=== PATIENT | male | born 1955 | race Caucasian/White ===

== ENCOUNTER 2023-04-13 01:28 | Emergency (ER) | payer BC, MEDICARE, SELFPAY ==
[2023-04-13 01:31] VITALS: BP 172/88
--- NOTE | 2023-04-13 02:07 | ED.GENMED ---
History of Present Illness
General
Chief Complaint: Urinary Symptoms
Source: patient
Exam Limitations: none
Time Seen by Provider: 04/13/23 01:44
Nursing documentation reviewed up to this point in time: agreed with
Travel History
Have you had any contact with someone who has COVID-19?: No
Do you have any symptoms of coronavirus? Fever > 100 degrees, chills, cough, shortness of breath, sore throat, loss of taste or smell, muscle aches, or headache?: No
History of Present Illness
History of Present Illness:
Patient is a 67 yr old male who presents to the ER with acute urinary retention. Patient reports he had surgery for right inguinal hernia by Dr. Hemphill today. HE was discharged around 7 pm but has not been able to urinate. He reports he has not
urinated since 1030 this morning. He did speak with his surgeon who advised him to come to the ER. He is aware that he is going to get a Huertas catheter and Dr. Hemphill said he will remove it in 2 days when he sees him again. Pt denies any nausea
vomiting fever chills. No prior history of urinary retention in the past.
Review of Systems
Review of Systems
Allergies reviewed?: Yes
All Other Systems: ROS reviewed and negative except as documented in HPI and ROS
Constitutional: Reports no symptoms; Denies fever, fatigue or chills
Respiratory: Reports no symptoms
Cardiac: Reports no symptoms
ABD/GI: Reports other (lower abd discomfort )
: Reports difficulty voiding and other (unable to urinate)
Musculoskeletal: Reports no symptoms
Skin: Reports no symptoms
Neurological: Reports no symptoms
Psychiatric: Reports no symptoms
Phy Exam
General Physical Exam
General Presentation: no apparent distress
General age: appears stated age
General Skin: warm and dry
General Habitus: normal
General Mental: alert
General Hydration: appears well hydrated
Gastrointestinal Exam
Gastrointestinal Exam: soft and other (mild suprapubic tenderness )
Neurological Exam
Neurological Exam: alert and oriented x3
Lucy Coma Scale
Eye Opening: Spontaneous
Verbal Response: Oriented
Motor Response: Obeys Commands
GCS Total Score: 15
Musculoskeletal Exam
Musculoskeletal Exam: full ROM
Skin Exam
Skin Exam: normal color and warm/dry
Psychiatric Exam
Psychiatric Exam: normal mood/affect
Course
Orders/Labs/Results
Orders:
Orders
04/13/23 01:55
Lidocaine 2% [Lidocaine Uro-Jet 2%] 1 syringe TOPICAL NOW STA
04/13/23 01:56
Huertas [Huertas Placement- Treatment] ONCE
Reason for insertion: Acute Retention
04/13/23 02:37
UA Reflex to Culture [Urinalysis Reflex To Culture] Urgent
Date Specimen was Collected: 04/13/23
Time Specimen was Collected: 01:58
Abnormal Lab Results
04/13/23
02:37
Urine Ketones Trace A
(Negative)
Vital Signs
Initial and Last Documented VS:
Initial Vital Signs
Temp Pulse Resp BP Pulse Ox
97.8 F 94 22 172/88 96
04/13/23 01:31 04/13/23 01:31 04/13/23 01:31 04/13/23 01:31 04/13/23 01:31
Last Documented Vital Signs
Temp Pulse Resp BP Pulse Ox
97.8 F 81 22 147/73 96
04/13/23 01:31 04/13/23 03:03 04/13/23 01:31 04/13/23 03:03 04/13/23 01:31
Multi Spindle Operator consulted with Physician
Multi Spindle Operator consulted with physician?: Yes
Name of Physician Consulted: Nolan
MDM/Problems Addressed
Differential Diagnosis Includes:
Not limited to urinary retention
MDM/Problems Addressed:
Patient had inguinal hernia repair today and presents in urinary retention. Bladder scan shows approximately 640 mL of urine. Will place Huertas catheter and DC with Huertas catheter. His surgeon Dr. Hemphill will see him in office in 2 d and remove
as per pt. Will check UA. no other complaints. no nausea vomiting fever chills.
*Critical Care Note
Total Time (30-74mins, 75-104mins- exclusive of procedures): Not Applicable
ED Attending Note
-
Portions of this chart may have been created with voice recognition software.� Occasional wrong word or��sound alike� substitutions may have occurred due to the inherent limitations of voice recognition software.
Discharge Plan
Departure
Patient Disposition: Home (Routine Discharge)
Patient with high blood pressure during this ER visit?: Yes
Condition: Fair
Covid-19: Not Applicable
Discharge Problem:
Acute urinary retention
Instructions: How to Care for Your Huertas Catheter, Male
Prescriptions:
No Action
amlodipine 10 MG tablet
10 mg PO DAILY
pantoprazole 40 MG tablet,delayed release (DR/EC)
40 mg PO DAILY
Metamucil
2 tab PO HS
levothyroxine 75 mcg Tablet
75 mcg PO DAILY
tamsulosin 0.4 mg Capsule
0.4 mg PO DAILY
melatonin 5 mg Tablet
5 mg PO HS
Centrum Men 8 mg iron- 200 mcg-600 mcg Tablet
1 tab PO DAILY
acetaminophen-codeine 300-30 mg tablet
1 tab PO Q6H PRN (Reason: Pain) Qty: 10 0RF
Referrals:
Willie Hemphill MD [Active] -
Andre Brito MD [Active] -
Pretty Zavala MD [Family Provider] -
Activity Restrictions/Additional Instructions:
Follow-up with either in 2 days to remove Huertas catheter as discussed or urology. Return if any worsening of symptoms: if Huertas catheter malfunction, nausea ,vomiting back pain,fever chills
Interventions
Interventions:
*Risk Screen - Suicide Last Done: 04/13/23 03:40
*General Assessment Last Done: 04/13/23 03:40
*Neglect/Abuse Screening Last Done: 04/13/23 03:40
*Nursing Disposition Last Done: 04/13/23 03:40
ED-Male Genitourinary Assessment Last Done: 04/13/23 03:03
Discharge Date and Time
Discharge Date/Time: 04/13/23 03:42
[2023-04-13] MEDS: LIDOCAINE URO-JET 2% 1 SYRINGE TOPICAL (02:54)
[2023-04-13 03:02] LABS: Urine Albumin Negative (Neg - Trace); Urine Bilirubin Negative (Negative); Urine Character Clear (Clear); Urine Color Yellow; Urine Glucose Negative (Negative); Urine Ketone Trace (Negative); Urine Leukocyte Negative (Negative); Urine Nitrite Negative (Negative); Urine Occult Blood Negative (Negative); Urine Specific Gravity 1.015 (<1.030); Urine Urobilinogen Negative (Neg - 1+)
[2023-04-13 03:03] VITALS: BP 147/73
== END 2023-04-13 03:42 | disposition home or self-care (01) ==
LOC: EMR 01:28
PROVIDERS: Nurse Practitioner; EMERGENCY PHYSICIAN Emergency Medicine; FAMILY PHYSICIAN Family Medicine
DX: R33.9 Retention of urine, unspecified (principal)
CPT/HCPCS: 99282; 81003

== ENCOUNTER → 2023-04-26 12:48 | Outpatient (REF) | payer BC, MEDICARE, SELFPAY | LOC: HWRAD 12:48 | PROVIDERS: ATTENDING PHYSICIAN Family Medicine; FAMILY PHYSICIAN Family Medicine | DX: M54.9 Dorsalgia, unspecified (principal); R07.89 Other chest pain | CPT/HCPCS: 71046; 72072 ==

== ENCOUNTER → 2023-05-05 09:42 | Outpatient (REF) | payer BC, MEDICARE, SELFPAY ==
[2023-05-05 13:28] LABS: Free T4 1.31 ng/dl (0.78-2.19)
[2023-05-05 13:42] LABS: TSH 1.98 uIU/ml (0.47-4.68)
== END ==
LOC: HWLAB 09:42
PROVIDERS: ATTENDING PHYSICIAN Family Medicine
DX: E03.9 Hypothyroidism, unspecified (principal)
CPT/HCPCS: 36415; 84439; 84443

== ENCOUNTER → 2023-06-04 09:26 | Outpatient (REF) | payer BC, SELFPAY ==
[2023-06-05 23:08] LABS: PSA Total 4.5 ng/mL (0.0-4.0)
== END ==
LOC: HWLAB 09:26
PROVIDERS: ATTENDING PHYSICIAN Urology; FAMILY PHYSICIAN Family Medicine
DX: N41.1 Chronic prostatitis (principal); N40.2 Nodular prostate without lower urinary tract symptoms; R97.20 Elevated prostate specific antigen [PSA]
CPT/HCPCS: 36415; 84153; 84154

== ENCOUNTER → 2023-07-05 07:17 | Outpatient (REF) | payer BC, SELFPAY | LOC: DHCBS HW 07:17 | PROVIDERS: ATTENDING PHYSICIAN Internal Medicine Interventional Cardiology; FAMILY PHYSICIAN Family Medicine | DX: I10 Essential (primary) hypertension (principal) | CPT/HCPCS: 93306 ==

== ENCOUNTER → 2023-08-30 06:42 | Outpatient (REF) | payer BC, SELFPAY ==
[2023-08-30 10:30] LABS: % Basophils 0.8 % (0-2); % Eosinophils 2.2 % (0-6); % Immature Granulocytes 0.2 % (0-0.5); % Lymphocytes 43.1 % (20.5-51.1); % Monocytes 14.6 % (1.7-9.3); % Neutrophils 39.1 % (42.2-75.2); Absolute Basophils 0.1 10^3/uL (0-0.2); Absolute Eosinophils 0.1 10^3/uL (0-0.7); Absolute Lymphocytes 2.7 10^3/uL (1.2-3.4); Absolute Monocytes 0.9 10^3/uL (0.1-0.6); Absolute Neutrophils 2.5 10^3/uL (1.4-6.5); Hematocrit 35.9 % (39.0-52.0); Hemoglobin 12.2 g/dL (13.0-18.0); Mean Corpuscular Hgb 31.2 pg (27.0-31.0); Mean Corpuscular Volume 91.8 fL (80.0-94.0); Mean Platelet Volume 10.9 fL (7.4-10.4); Nucleated Red Blood Cells % 0 % (-); Platelet Count 160 10^3/uL (130-400); Red Blood Cell Count 3.91 10^6/uL (4.70-6.10); Red Cell Dist. Width 13.1 % (11.5-14.5); White Blood Cell Count 6.4 10^3/uL (4.8-10.8)
[2023-08-30 11:52] LABS: ALT (SGPT) 16 U/L (0-50); AST (SGOT) 30 U/L (17-59); Albumin 3.8 g/dl (3.5-5.0); Alkaline Phosphatase 90 U/L (38-126); Blood Urea Nitrogen 26 mg/dl (9-20); Calcium 9.5 mg/dl (8.4-10.2); Carbon Dioxide 30 mmol/L (22-30); Chloride 104 mmol/L (98-107); Glucose 91 mg/dl (70-99); Iron 69 ug/dl (49-181); Potassium 3.9 mmol/L (3.5-5.1); Sodium 140 mmol/L (135-145); Total Bilirubin 0.8 mg/dl (0.2-1.3); Total Protein 6.6 g/dl (6.3-8.2); eGFR 59.47
[2023-08-30 12:04] LABS: Glycohemoglobin (HgbA1c) 5.4 % (4.0-5.6)
[2023-08-30 12:22] LABS: Free T4 0.94 ng/dl (0.78-2.19)
[2023-08-30 12:36] LABS: TSH 4.24 uIU/ml (0.47-4.68)
== END ==
LOC: HWLAB 06:42
PROVIDERS: ATTENDING PHYSICIAN Family Medicine
DX: I95.1 Orthostatic hypotension (principal); R63.4 Abnormal weight loss
CPT/HCPCS: 36415; 80053; 83036; 83540; 84439; 84443; 85025

== ENCOUNTER → 2023-10-01 08:20 | Outpatient (REF) | payer BC, SELFPAY ==
[2023-10-01 10:07] LABS: % Basophils 0.8 % (0-2); % Eosinophils 2.4 % (0-6); % Immature Granulocytes 0.2 % (0-0.5); % Monocytes 12.6 % (1.7-9.3); Absolute Eosinophils 0.1 10^3/uL (0-0.7); Absolute Lymphocytes 2.2 10^3/uL (1.2-3.4); Absolute Monocytes 0.6 10^3/uL (0.1-0.6); Hematocrit 38.5 % (39.0-52.0); Hemoglobin 13.2 g/dL (13.0-18.0); Mean Corp Hgb Conc. 34.3 g/dL (33.0-37.0); Mean Corpuscular Hgb 31.4 pg (27.0-31.0); Mean Corpuscular Volume 91.7 fL (80.0-94.0); Mean Platelet Volume 11.1 fL (7.4-10.4); Nucleated Red Blood Cells % 0 % (-); Platelet Count 203 10^3/uL (130-400); White Blood Cell Count 4.9 10^3/uL (4.8-10.8)
[2023-10-01 10:23] LABS: ALT (SGPT) 16 U/L (0-50); AST (SGOT) 28 U/L (17-59); Alkaline Phosphatase 81 U/L (38-126); Blood Urea Nitrogen 20 mg/dl (9-20); Calcium 9.5 mg/dl (8.4-10.2); Carbon Dioxide 28 mmol/L (22-30); Chloride 106 mmol/L (98-107); Glucose 93 mg/dl (70-99); HDL Cholesterol 58 mg/dl; LDL Cholesterol, Calculated 108 mg/dl; Potassium 4.1 mmol/L (3.5-5.1); Sodium 141 mmol/L (135-145); Total Bilirubin 0.9 mg/dl (0.2-1.3); Total Cholesterol 180 mg/dl (50-199); Total Protein 6.7 g/dl (6.3-8.2); Triglyceride 71 mg/dl (10-149); Very Low Density Lipoprotein 14 mg/dl (0-30); eGFR 50.08
[2023-10-01 10:38] LABS: Free T4 1.05 ng/dl (0.78-2.19)
[2023-10-01 10:52] LABS: TSH 1.94 uIU/ml (0.47-4.68)
[2023-10-01 11:11] LABS: Vitamin B12 330 pg/ml (239-931)
[2023-10-01 11:52] LABS: Urine Albumin Negative (Neg - Trace); Urine Bilirubin Negative (Negative); Urine Character Clear (Clear); Urine Color Yellow; Urine Glucose Negative (Negative); Urine Ketone Negative (Negative); Urine Leukocyte Negative (Negative); Urine Nitrite Negative (Negative); Urine Occult Blood Negative (Negative); Urine Urobilinogen Negative (Neg - 1+)
[2023-10-04 00:35] LABS: Beta-2-Microglobulin 2.7 mg/L (<=3.0); PSA Total 4.5 ng/mL (0.0-4.0)
== END ==
LOC: HWLAB 08:20
PROVIDERS: ATTENDING PHYSICIAN Family Medicine
DX: D47.2 Monoclonal gammopathy (principal); N18.31 Chronic kidney disease, stage 3a; E78.5 Hyperlipidemia, unspecified; R97.20 Elevated prostate specific antigen [PSA]; R35.1 Nocturia; E03.9 Hypothyroidism, unspecified; E53.8 Deficiency of other specified B group vitamins
CPT/HCPCS: 36415; 80053; 80061; 81003; 82232; 82607; 82784; 83521; 84153; 84154; 84155; 84165; 84439; 84443; 85025; 86334

== ENCOUNTER → 2023-11-10 06:48 | Outpatient (REF) | payer BC, SELFPAY ==
[2023-11-10 09:56] LABS: % Basophils 0.8 % (0-2); % Eosinophils 2.6 % (0-6); % Immature Granulocytes 0.2 % (0-0.5); % Lymphocytes 41.9 % (20.5-51.1); % Monocytes 12.4 % (1.7-9.3); % Neutrophils 42.1 % (42.2-75.2); Absolute Basophils 0.1 10^3/uL (0-0.2); Absolute Eosinophils 0.2 10^3/uL (0-0.7); Absolute Lymphocytes 2.5 10^3/uL (1.2-3.4); Absolute Monocytes 0.8 10^3/uL (0.1-0.6); Absolute Neutrophils 2.6 10^3/uL (1.4-6.5); Hematocrit 39.1 % (39.0-52.0); Hemoglobin 13.4 g/dL (13.0-18.0); Mean Corp Hgb Conc. 34.3 g/dL (33.0-37.0); Mean Corpuscular Hgb 30.9 pg (27.0-31.0); Mean Corpuscular Volume 90.3 fL (80.0-94.0); Mean Platelet Volume 10.7 fL (7.4-10.4); Nucleated Red Blood Cells % 0 % (-); Platelet Count 177 10^3/uL (130-400); Red Blood Cell Count 4.33 10^6/uL (4.70-6.10); Red Cell Dist. Width 12.5 % (11.5-14.5); White Blood Cell Count 6.1 10^3/uL (4.8-10.8)
[2023-11-10 11:12] LABS: ALT (SGPT) 21 U/L (0-50); AST (SGOT) 31 U/L (17-59); Albumin 4.1 g/dl (3.5-5.0); Alkaline Phosphatase 89 U/L (38-126); Blood Urea Nitrogen 15 mg/dl (9-20); Calcium 9.4 mg/dl (8.4-10.2); Carbon Dioxide 30 mmol/L (22-30); Chloride 102 mmol/L (98-107); Glucose 95 mg/dl (70-99); LDH 164 U/L (120-246); Potassium 3.9 mmol/L (3.5-5.1); Sodium 137 mmol/L (135-145); Total Bilirubin 0.5 mg/dl (0.2-1.3); Total Protein 6.5 g/dl (6.3-8.2); eGFR 46.35
== END ==
LOC: HWLAB 06:48
PROVIDERS: ATTENDING PHYSICIAN Internal Medicine Hematology & Oncology; FAMILY PHYSICIAN Family Medicine
DX: D47.2 Monoclonal gammopathy (principal)
CPT/HCPCS: 36415; 80053; 82784; 83521; 83615; 84155; 84165; 85025; 86334

== ENCOUNTER → 2023-11-17 08:52 | Outpatient (REF) | payer BC, SELFPAY | LOC: RCS 08:52 | PROVIDERS: ATTENDING PHYSICIAN Internal Medicine Cardiovascular Disease; FAMILY PHYSICIAN Family Medicine | DX: R07.9 Chest pain, unspecified (principal) | CPT/HCPCS: 93017; 93350 ==

== ENCOUNTER → 2023-12-30 06:36 | Day surgery (SDC) | payer BC, SELFPAY | LOC: GI 06:36 | PROVIDERS: ATTENDING PHYSICIAN Specialist | DX: Z12.11 Encounter for screening for malignant neoplasm of colon (principal); K64.8 Other hemorrhoids; D12.4 Benign neoplasm of descending colon; R07.89 Other chest pain; K22.2 Esophageal obstruction; K22.89 Other specified disease of esophagus; K44.9 Diaphragmatic hernia without obstruction or gangrene; K31.7 Polyp of stomach and duodenum; Z86.0101 Personal history of adenomatous and serrated colon polyps | CPT/HCPCS: 45385; 43239; 88305 ==

== ENCOUNTER → 2024-04-12 06:52 | Outpatient (REF) | payer BC, SELFPAY | LOC: HWLAB 06:52 | PROVIDERS: ATTENDING PHYSICIAN Dermatology; FAMILY PHYSICIAN Family Medicine | DX: D89.89 Other specified disorders involving the immune mechanism, not elsewhere classified (principal) | CPT/HCPCS: 36415 ==

== ENCOUNTER → 2024-09-13 15:31 | Outpatient (REF) | payer BC, SELFPAY ==
[2024-09-13 15:56] LABS: % Basophils 0.2 % (0-2); % Eosinophils 0.6 % (0-6); % Immature Granulocytes 0.4 % (0-0.5); % Lymphocytes 10.6 % (20.5-51.1); % Monocytes 5.7 % (1.7-9.3); % Neutrophils 82.5 % (42.2-75.2); ALT (SGPT) 68 U/L (0-50); AST (SGOT) 38 U/L (17-59); Absolute Eosinophils 0.1 10^3/uL (0-0.7); Absolute Immature Granulocytes 0.1 10^3/uL (0-0.05); Absolute Lymphocytes 1.3 10^3/uL (1.2-3.4); Absolute Monocytes 0.7 10^3/uL (0.1-0.6); Absolute Neutrophils 10.4 10^3/uL (1.4-6.5); Albumin 3.5 g/dl (3.5-5.0); Alkaline Phosphatase 244 U/L (38-126); Blood Urea Nitrogen 25 mg/dl (9-20); Calcium 9.1 mg/dl (8.4-10.2); Carbon Dioxide 25 mmol/L (22-30); Chloride 106 mmol/L (98-107); Glucose 77 mg/dl (70-99); Hematocrit 34.6 % (39.0-52.0); Hemoglobin 10.9 g/dL (13.0-18.0); Mean Corp Hgb Conc. 31.5 g/dL (33.0-37.0); Mean Corpuscular Hgb 31.1 pg (27.0-31.0); Mean Corpuscular Volume 98.9 fL (80.0-94.0); Mean Platelet Volume 10.9 fL (7.4-10.4); Nucleated Red Blood Cells % 0 % (-); Platelet Count 261 10^3/uL (130-400); Potassium 4.7 mmol/L (3.5-5.1); Red Cell Dist. Width 12.8 % (11.5-14.5); Sodium 138 mmol/L (135-145); Total Bilirubin 0.7 mg/dl (0.2-1.3); Total Protein 6.5 g/dl (6.3-8.2); White Blood Cell Count 12.6 10^3/uL (4.8-10.8); eGFR 46.06
[2024-09-14 13:28] LABS: Lyme Antibody Screen, EIA Presump. Positive (Negative)
== END ==
LOC: CLAB 15:31
PROVIDERS: ATTENDING PHYSICIAN Family Medicine
DX: B34.9 Viral infection, unspecified (principal)
CPT/HCPCS: 36415; 80053; 85025; 86617; 86618

== ENCOUNTER → 2024-10-16 06:19 | Outpatient (REF) | payer BC, SELFPAY ==
[2024-10-16 10:28] LABS: Urine Character Clear (Clear)
[2024-10-16 10:39] LABS: Hematocrit 39.0 % (39.0-52.0); Hemoglobin 12.8 g/dL (13.0-18.0); Mean Corp Hgb Conc. 32.8 g/dL (33.0-37.0); Mean Corpuscular Volume 94.0 fL (80.0-94.0); Platelet Count 165 10^3/uL (130-400); Red Cell Dist. Width 13.0 % (11.5-14.5)
[2024-10-16 10:49] LABS: Urine Red Blood Cell 0-2 /HPF (0-2); Urine White Cell 0-2 /HPF (0-5)
[2024-10-16 10:51] LABS: ALT (SGPT) 17 U/L (0-50); AST (SGOT) 24 U/L (17-59); Albumin 4.1 g/dl (3.5-5.0); Alkaline Phosphatase 80 U/L (38-126); Blood Urea Nitrogen 23 mg/dl (9-20); Calcium 8.9 mg/dl (8.4-10.2); Carbon Dioxide 29 mmol/L (22-30); Chloride 106 mmol/L (98-107); Glucose 90 mg/dl (70-99); HDL Cholesterol 57 mg/dl; LDL Cholesterol, Calculated 130 mg/dl; Potassium 3.9 mmol/L (3.5-5.1); Sodium 139 mmol/L (135-145); Total Protein 6.7 g/dl (6.3-8.2); Very Low Density Lipoprotein 18 mg/dl (0-30); eGFR 46.06
[2024-10-16 11:14] LABS: TSH 9.16 uIU/ml (0.47-4.68)
[2024-10-16 11:15] LABS: Absolute Neutrophils -Man Diff 1.7 10^3/uL (1.4-6.5); Normal RBC Morphology Yes; Platelets Checked Yes; Total Cells Counted 100
[2024-10-16 11:33] LABS: Vitamin B12 726 pg/ml (239-931)
== END ==
LOC: HWLAB 06:19
PROVIDERS: ATTENDING PHYSICIAN Family Medicine
DX: I10 Essential (primary) hypertension (principal); E03.9 Hypothyroidism, unspecified; K21.9 Gastro-esophageal reflux disease without esophagitis; Z79.899 Other long term (current) drug therapy; E53.8 Deficiency of other specified B group vitamins; R97.20 Elevated prostate specific antigen [PSA]
CPT/HCPCS: 36415; 80053; 80061; 81003; 81015; 82607; 84153; 84154; 84439; 84443; 85025

== ENCOUNTER → 2024-11-27 06:06 | Outpatient (REF) | payer BC, SELFPAY ==
[2024-11-27 10:32] LABS: ALT (SGPT) 18 U/L (0-50); AST (SGOT) 27 U/L (17-59); Albumin 4.2 g/dl (3.5-5.0); Alkaline Phosphatase 79 U/L (38-126); Blood Urea Nitrogen 22 mg/dl (9-20); Calcium 9.6 mg/dl (8.4-10.2); Carbon Dioxide 29 mmol/L (22-30); Chloride 106 mmol/L (98-107); Glucose 92 mg/dl (70-99); LDH 178 U/L (120-246); Potassium 4.2 mmol/L (3.5-5.1); Sodium 140 mmol/L (135-145); Total Protein 7.1 g/dl (6.3-8.2); eGFR 42.57
[2024-11-27 10:49] LABS: Hematocrit 41.6 % (39.0-52.0); Hemoglobin 13.7 g/dL (13.0-18.0); Mean Corp Hgb Conc. 32.9 g/dL (33.0-37.0); Mean Corpuscular Volume 93.5 fL (80.0-94.0); Nucleated Red Blood Cells % 0 % (-); Platelet Count 179 10^3/uL (130-400); Red Cell Dist. Width 13.1 % (11.5-14.5)
[2024-11-29 23:45] LABS: Albumin 4.19 g/dL (3.75-5.01); Free Kappa Light Chains,Quant 37.07 mg/L (3.30-19.40); Free Lambda Light Chains,Quant 143.18 mg/L (5.71-26.30); Immunofixation Electrophoresis IFE Done; Kappa/Lambda Fr Light Ratio 0.26 (0.26-1.65); Total Protein-Electrophoresis 6.9 g/dL (6.3-8.2)
== END ==
LOC: HWLAB 06:06
PROVIDERS: ATTENDING PHYSICIAN Internal Medicine Hematology & Oncology; FAMILY PHYSICIAN Family Medicine
DX: D47.2 Monoclonal gammopathy (principal)
CPT/HCPCS: 36415; 80053; 82784; 83521; 83615; 84155; 84165; 85025; 86334

== ENCOUNTER 2025-01-13 15:53 | Inpatient (IN) | payer BC, SELFPAY ==
[2025-01-13] VITALS (8 sets, daily range): BP systolic 111–171; BP diastolic 59–81; BMI 20.7
--- NOTE | 2025-01-13 10:25 | ED.GENMED ---
History of Present Illness
<Dexter Blanco MD, Resident - Last Filed: 01/13/25 13:03>
General
Chief Complaint: Abdominal Pain
Source: patient and family
Time Seen by Provider: 01/13/25 10:05
History of Present Illness
History of Present Illness:
Patient is a 69-year-old male with PMH of IBS-C, inguinal hernias, CKD stage III, and GERD who presents to the [facility] ED with abdominal pain. Patient was awoken from sleep overnight with epigastric and RUQ abdominal pain, which resolved
spontaneously. Patient was then able to sleep most of the night. Patient ate breakfast this morning, with subsequent recurrence of the abdominal pain and nausea around 8:30 this morning. Since then, the pain has been constant, fluctuating between
8-10/10 intensity, feels like a 'punch in the gut', with radiation to the back. No specific alleviating or aggravating factors. Patient has not taken anything for the pain. No recent trauma. Patient had BM this morning, which was a mix of liquid
and formed stool (not unusual for the patient). Passing flatus this morning. No history of ulcers or gallbladder issues. Surgical history includes bilateral hernia repairs and appendectomy. Patient is very active at baseline, regularly running
and playing soccer. No cardiac history, including history of AAA. Patient takes famotidine and pantoprazole for GERD. Patient has had colonoscopy and endoscopy within the past year, which were both unremarkable. Patient rarely drinks alcohol.
Remote 7-pack-year smoking history. No drug use. Denies fever, fatigue, chills, vomiting, chest pain, shortness of breath, or bloody or black stool.
Past History
<Dexter Blanco MD, Resident - Last Filed: 01/13/25 13:03>
Past History
ED Past Medical History: Other (Lyme disease) and Other (BPH); Negative Cancer
ED Past Surgical History: Appendectomy and Other (Hernia repairs, bilateral); Negative Cholecystectomy
Social History
Tobacco: Former smoker (7 pack years)
Alcohol: Occasional
Drug: None
Family History
Family History: CAD (Myocardial infarction (father))
Review of Systems
<Dexter Blanco MD, Resident - Last Filed: 01/13/25 13:03>
Review of Systems
Constitutional: Denies fever, fatigue or chills
Respiratory: Denies cough, hemoptysis or trouble breathing
Cardiac: Denies chest pain
ABD/GI: Reports abdominal pain, nausea, diarrhea and constipated; Denies vomiting, bloody stools or black stools
Neurological: Denies headache
Phy Exam
<Dexter Blanco MD, Resident - Last Filed: 01/13/25 13:03>
Physical Exam
Physical Exam:
General: Mild distress. Sitting with knees tucked near abdomen for comfort. Conversant.
GI: Soft. TTP RUQ and epigastrium. Mild guarding. No rigidity. Nondistended. No masses or ecchymosis. No jaundice.
CV: RRR. S1, S2 noted. No M/R/G. Pulses 2+ all extremities.
Pulm: CTAB. No wheezes or crackles. No cyanosis.
Neuro: A&O x 3. No focal deficits. CN II through XII grossly intact.
Course
<Dexter Blanco MD, Resident - Last Filed: 01/13/25 13:03>
Orders/Labs/Results
Orders:
Orders
01/13/25 10:40
CMP [Comprehensive Metabolic Panel] Urgent
Complete Blood Count/With Diff Urgent
Lipase Urgent
01/13/25 11:13
Ondansetron Injectable [Zofran] 4 mg IV NOW STA
01/13/25 11:14
HYDROmorphone [Dilaudid] 0.5 mg IV NOW STA
01/13/25 11:16
US Abdomen Complete/Upper Urgent
Comment:
Reason For Exam: Epigastric pain
01/13/25 11:41
Morphine Sulfate 4 mg IV NOW STA
Pantoprazole [Protonix IV] 40 mg .ROUTE .STK-MED ONE
Pantoprazole [Protonix IV] 40 mg IV NOW STA
01/13/25 11:42
Morphine Sulfate 4 mg .ROUTE .STK-MED ONE
01/13/25 12:00
0.9% Sodium Chloride 500 ml [Nss] 500 ml IV BOLUS
01/13/25 12:04
Lactated Ringers [Lr] 500 ml IV BOLUS
Abnormal Lab Results
01/13/25
10:40
RBC 4.28 L 10^6/uL
(4.70-6.10)
MCV 95.8 H fL
(80.0-94.0)
MCH 31.8 H pg
(27.0-31.0)
Absolute Monos (auto) 1.0 H 10^3/uL
(0.1-0.6)
Lymphocytes % 14.9 L %
(20.5-51.1)
Monocytes % 11.6 H %
(1.7-9.3)
BUN 25 H mg/dl
(9-20)
Creatinine 1.5 H mg/dL
(0.7-1.3)
Glucose 104 H mg/dl
(70-99)
AST 118 H U/L
(17-59)
ALT 56 H U/L
(0-50)
Lipase > 4000 H* U/L
(23-300)
01/13/25 10:40
01/13/25 10:40
Vital Signs
Initial and Last Documented VS:
Initial Vital Signs
Temp Pulse Resp BP Pulse Ox
98.4 F 63 20 166/76 64
01/13/25 09:40 01/13/25 09:40 01/13/25 09:40 01/13/25 09:40 01/13/25 09:40
Last Documented Vital Signs
Temp Pulse Resp BP Pulse Ox
98.4 F 63 20 167/72 87
01/13/25 09:40 01/13/25 09:40 01/13/25 09:40 01/13/25 12:00 01/13/25 12:45
<Derik De Anda MD - Last Filed: 01/13/25 14:48>
Orders/Labs/Results
Orders:
Orders
01/13/25 10:40
CMP [Comprehensive Metabolic Panel] Urgent
Complete Blood Count/With Diff Urgent
Lipase Urgent
01/13/25 11:13
Ondansetron Injectable [Zofran] 4 mg IV NOW STA
01/13/25 11:14
HYDROmorphone [Dilaudid] 0.5 mg IV NOW STA
01/13/25 11:16
US Abdomen Complete/Upper Urgent
Comment:
Reason For Exam: Epigastric pain
01/13/25 11:41
Morphine Sulfate 4 mg IV NOW STA
Pantoprazole [Protonix IV] 40 mg .ROUTE .STK-MED ONE
Pantoprazole [Protonix IV] 40 mg IV NOW STA
01/13/25 11:42
Morphine Sulfate 4 mg .ROUTE .STK-MED ONE
01/13/25 12:00
0.9% Sodium Chloride 500 ml [Nss] 500 ml IV BOLUS
01/13/25 12:04
Lactated Ringers [Lr] 500 ml IV BOLUS
Abnormal Lab Results
01/13/25
10:40
RBC 4.28 L 10^6/uL
(4.70-6.10)
MCV 95.8 H fL
(80.0-94.0)
MCH 31.8 H pg
(27.0-31.0)
Absolute Monos (auto) 1.0 H 10^3/uL
(0.1-0.6)
Lymphocytes % 14.9 L %
(20.5-51.1)
Monocytes % 11.6 H %
(1.7-9.3)
BUN 25 H mg/dl
(9-20)
Creatinine 1.5 H mg/dL
(0.7-1.3)
Glucose 104 H mg/dl
(70-99)
AST 118 H U/L
(17-59)
ALT 56 H U/L
(0-50)
Lipase > 4000 H* U/L
(23-300)
01/13/25 10:40
01/13/25 10:40
Vital Signs
Initial and Last Documented VS:
Initial Vital Signs
Temp Pulse Resp BP Pulse Ox
98.4 F 63 20 166/76 64
01/13/25 09:40 01/13/25 09:40 01/13/25 09:40 01/13/25 09:40 01/13/25 09:40
Last Documented Vital Signs
Temp Pulse Resp BP Pulse Ox
98.4 F 63 20 167/72 87
01/13/25 09:40 01/13/25 09:40 01/13/25 09:40 01/13/25 12:00 01/13/25 12:45
<Dexter Blanco MD, Resident - Last Filed: 01/13/25 13:03>
MDM/Problems Addressed
Differential Diagnosis Includes:
GI ulcer
Acute cholecystitis
Small bowel obstruction
Aortic dissection
Ruptured AAA
Peritonitis
Mesenteric ischemia
Malignancy
MDM/Problems Addressed:
Assessment: Patient is a 69-year-old male with PMH of IBS-C and GERD and PSH B/L inguinal hernia repairs and appendectomy who presented to the [facility] ED with 8�10/10 RUQ and epigastric abdominal pain that started last night, spontaneously
resolved, then recurred again with associated nausea after eating this morning. BM and passed flatus this morning. Hypertensive (166/76), vitals otherwise unremarkable. Uncomfortable lying in bed with knees pulled toward abdomen. RUQ and
epigastrium TTP with mild guarding. Lipase >4000, AST 118, ALT 56. No leukocytosis. Suspect pancreatitis. Workup for etiology ongoing.
Plan:
# Pancreatitis
Labs: CBC, CMP, lipase
Imaging: Abdominal ultrasound
IVF, pain control, antiemetics
<Dexter Blanco MD, Resident - Last Filed: 01/13/25 13:03>
*Pulse Oximetry
SaO2: 64
Oxygen Mode of Delivery: Room air
Patient hypoxic: no
*Critical Care Note
Total Time (30-74mins, 75-104mins- exclusive of procedures): Not Applicable
ED Attending Note
<Dexter Blanco MD, Resident - Last Filed: 01/13/25 13:03>
-
Portions of this chart may have been created with voice recognition software.� Occasional wrong word or��sound alike� substitutions may have occurred due to the inherent limitations of voice recognition software.
<Derik De Anda MD - Last Filed: 01/13/25 14:48>
ED Attending Note
Patient seen and examined by attending physician: Yes
ED Attending Note:
Patient presents to ED secondary to intermittent upper abdominal pain since this morning, when he woke up with pain. Patient subsided and then returned this morning after having had breakfast consisting of eggs. Patient reports having had pork for
dinner last night before going to sleep, when he did not have any symptoms. Abdominal pain described as sharp, nonradiating, associated with mild nausea sensation. Denies any alleviating or exacerbate factors. Denies trauma. Denies fever or
chills. Denies diarrhea. Denies recent travel. Denies recent change in medications or diet. Denies previous history of similar symptoms.
Physical Exam
General: moderate painful distress, not acutely ill. afebrile
Head: nc/at. eomi
Neck: supple. normal range of motion
Heart: s1/s2 regular rate and rhythm
Lungs: no acute respiratory distress. clear bilaterally
Abdomen: normal bowel sounds. mild epigastric/RUQ tenderness to palpation
Neuro: alert and oriented x 3. no focal neurological deficits
Skin: no rash
Psychiatric: well kept. interactive and cooperative
Extremities: no edema. no calf tenderness.
History and exam, along with blood work, consistent with likely acute pancreatitis. Ultrasound findings noted and discussed with patient. In light of patient's continual symptoms, patient will be admitted for further evaluation and treatment.
Discharge Plan
Departure
Patient Disposition: Admit
Date of Disposition: 01/13/25
Time of Disposition: 14:48
Admit to: Med/Surg
Presentation/result/management discussed w/ accepting MD/DO: Hospitalist
Discharge Problem:
Pancreatitis
Prescriptions:
No Action
pantoprazole 40 MG tablet,delayed release (DR/EC)
40 mg PO DAILY
psyllium husk [Metamucil] 0.4 gram Capsule
0.8 g PO HS Qty: 0
levothyroxine 75 mcg Tablet
75 mcg PO DAILY
tamsulosin 0.4 mg Capsule
0.4 mg PO DAILY
amlodipine [Norvasc] 2.5 mg Tablet
2.5 mg PO DAILY
amlodipine [Norvasc] 5 mg Tablet
5 mg PO QPM
famotidine [Pepcid] 20 mg Tablet
20 mg PO HS
Referrals:
UNKNOWN - PT DOES,NOT KNOW [Unknown Provider]
Interventions
Interventions:
*Risk Screen - Suicide Last Done: 01/13/25 09:40
*General Assessment Last Done: 01/13/25 09:40
*Neglect/Abuse Screening Last Done: 01/13/25 09:40
*ED- Fall Risk Assessment Last Done: 01/13/25 10:12
*ED COVID-19 Vaccine History Last Done: 01/13/25 10:12
*ED Influenza Vaccine History Last Done: 01/13/25 10:12
SL-Mucbxy-Pnhzzwlcen Assessment Last Done: 01/13/25 10:12
Discharge Date and Time
Print Language: KISWAHILI
[2025-01-13 11:10] LABS: Hematocrit 41.0 % (39.0-52.0); Hemoglobin 13.6 g/dL (13.0-18.0); Mean Corp Hgb Conc. 33.2 g/dL (33.0-37.0); Mean Corpuscular Volume 95.8 fL (80.0-94.0); Nucleated Red Blood Cells % 0 % (-); Platelet Count 166 10^3/uL (130-400); Red Cell Dist. Width 12.2 % (11.5-14.5)
[2025-01-13] MEDS: DILAUDID 0.5 MG IV (11:20)
[2025-01-13] MEDS: ZOFRAN 4 MG IV (11:21)
[2025-01-13 11:31] LABS: ALT (SGPT) 56 U/L (0-50); AST (SGOT) 118 U/L (17-59); Albumin 4.4 g/dl (3.5-5.0); Alkaline Phosphatase 121 U/L (38-126); Blood Urea Nitrogen 25 mg/dl (9-20); Calcium 9.2 mg/dl (8.4-10.2); Carbon Dioxide 27 mmol/L (22-30); Chloride 107 mmol/L (98-107); Estimated Creatinine Clearance 41 ml/min; Glucose 104 mg/dl (70-99); Potassium 4.2 mmol/L (3.5-5.1); Sodium 141 mmol/L (135-145); Total Protein 7.2 g/dl (6.3-8.2); eGFR 49.47
[2025-01-13] MEDS: MORPHINE SULFATE 4 MG IV (11:43)
[2025-01-13] MEDS: PROTONIX IV 40 MG IV (11:44)
[2025-01-13 11:59] LABS: Lipase > 4000 U/L (23-300)
[2025-01-13] MEDS: LR 500 IV (12:20)
--- NOTE | 2025-01-13 14:59 | HPS.HSE ---
Family Physician
-
Family Physician: Pretty Zavala
Chief Complaint
-
Epigastric pain through to back with nausea
History of Present Illness
69-year-old male complaining of epigastric and right upper quadrant pain that started yesterday however resolved during the night. He woke up this morning ate breakfast and then had recurrence of abdominal pain and nausea around 830 radiating from
epigastric area through to his back. He has past medical history of GERD is on PPI and H2 javier. In the ER he was noted to have acute pancreatitis by labs. Patient denies any alcohol use, no prior history of gallstones. He denies headache,
fever, sore throat, chills, chest pain, palpitations, cough, shortness of breath, diarrhea, urinary symptoms, rash.
He has past medical history CKD stage III, GERD, IBS, Lyme disease, former smoker.
Medical History
Past Medical History
Past Medical History: Reports Other
Additional Past Medical History:
CKD stage III
GERD
IBS
Lyme disease
Former smoker
Past Surgical History: Reports Other
Additional Past Surgical History:
Hernia repair left inguinal x 3
hernia repair right inguinal
Appendectomy
Social History
Tobacco: Former Smoker
Alcohol: None
Drug: None
Personal:
Living: With Family
Employment: Retired
Family History
Family History: Not pertinent
Allergies / Home Medications
Allergies reflects when Allergies were last updated in [facility].
Home Medications with original date entered in [facility]
Allergy/Medication List:
Allergies
Allergy/AdvReac Type Severity Reaction Status Date / Time
environmental Allergy nasal Uncoded 01/13/25 09:43
congestionm
mucous in
throat
Home Medications
pantoprazole 40 mg tablet,delayed release 40 mg PO DAILY gerd 05/24/20
psyllium husk 0.4 gram capsule (Metamucil) 0.8 g PO HS Supplement ##0 05/24/20
levothyroxine 75 mcg tablet 75 mcg PO DAILY Thyroid 03/08/23
tamsulosin 0.4 mg capsule 0.4 mg PO DAILY prostate 03/08/23
amlodipine 2.5 mg tablet (Norvasc) 2.5 mg PO DAILY Blood Pressure 01/13/25
amlodipine 5 mg tablet (Norvasc) 5 mg PO QPM Blood Pressure 01/13/25
famotidine 20 mg tablet (Pepcid) 20 mg PO HS gerd 01/13/25
Review of Systems
-
History Source: Patient and Family ( at bedside)
A 12 point ROS was completed and negative except as noted: Yes
Constitutional: Denies Fever or Chills
EENT: Denies Sore Throat or Runny Nose
Respiratory: Denies Cough or Trouble Breathing
Cardiac: Denies Chest Pain, Diaphoresis, Palpitations or Syncope
Abdomen/GI: Reports Abdominal Pain (Epigastric pain through the back and right upper quadrant) and Nausea; Denies Vomiting, Diarrhea, Constipated or Bloody Stools
: Denies Dysuria, Frequency, Flank Pain or Incontinence
Musculoskeletal: Denies Joint Pain or Edema
Skin: Denies Itching or Rash
Neurological: Denies Dizzy or Headache
Endocrine: Reports No Symptoms
Hematologic/Lymphatic: Reports No Symptoms
Psych: Reports Calm
Physical Exam
Vital Signs
Vital Signs
Temp Pulse Resp BP Pulse Ox
98.4 F 63 20 167/72 87
01/13/25 09:40 01/13/25 09:40 01/13/25 09:40 01/13/25 12:00 01/13/25 12:45
Physical Exam
General: Pain; No Fever or Chills
HEENT: NormoCephalic, Anicteric, Moist mucous membranes, PERRLA, Stark Conjunctivae and No Ptosis
Respiratory: Clear; No Wheezes, Rales or Rhonchi
Cardiac: S1/S2 and Regular Rhythm; No Murmur, Rub, Gallop or Peripheral Edema
GI: Soft, Non Distended, Normal Bowel Sounds, Tender (Right upper quadrant, epigastric) and No Hepatosplenomegaly
Rectal: Deferred by Provider
Genito-urinary: Deferred by me
Musculoskeletal: No Clubbing, No Cyanosis and No Edema
Skin: Warm and Dry; No Rash
Neuro: AO x 3, No Motor Deficits, Nonfocal/grossly intact, Cranial Nerves Intact and No Sensory Deficits; No Slurred Speech, Facial Droop, Tremors or Sedated
Psych: Calm
Laboratory Results
-
01/13/25 10:40
01/13/25 10:40
Laboratory Results
Total Bilirubin 0.6 mg/dl (0.2-1.3) 01/13/25 10:40
AST 118 U/L (17-59) H 01/13/25 10:40
ALT 56 U/L (0-50) H 01/13/25 10:40
Alkaline Phosphatase 121 U/L (38-126) 01/13/25 10:40
Lipase > 4000 U/L (23-300) H* 01/13/25 10:40
Data Reviewed
-
Ultrasound: Report Reviewed by me
Lab Data: Labs Reviewed by me
Impression/Plan
-
Impression/plan:
Admit to MedSurg
#Acute pancreatitis with mild transaminitis unclear etiology
>4000
- IV NSS 1 L given in ER, 1 L LR given in ER
-continue IV NSS 100
- IV PPI
- IV Zofran
-IV Dilaudid as needed mild-moderate severe pain
- Consult GI�Dr. Keene aware
MRI/ MRCP patient and with concerns about contrast given CKD explained creat clearance is 41 and okay for gadolinium they would like to speak with GI possibly nephro to clear for imaging
- Follow CBC, CMP
Abdominal ultrasound:
1. No evidence of cholelithiasis or biliary tract dilatation. Gallbladder sludge with mild gallbladder wall thickening. Negative sonographic Cool's sign.
2. Possible pattern of predominantly diffuse fatty liver. Suggested small area of slight decreased echogenicity in the left lobe of liver which may represent normal hepatic sparing,
cannot exclude small space-occupying lesion. Pancreas significantly obscured, most likely by overlying bowel gas.
3. Consider MRI for more complete evaluation of the gallbladder, liver and pancreas.
#HTN�benign
BP 167/72
-Continue p.o. Norvasc 5 mg every afternoon
#CKD 3B
Creat 1.5
- Follow BMP
- Patient follows with Dr. Nataly angulo
#GERD
#IBS
-Will change Protonix to IV
Patient follows with Dr. Keene
#Hypothyroidism
-Continue levothyroxine 75 mcg daily
#BPH
Continue tamsulosin
DVT prophylaxis
Subcu heparin
Full code
--- NOTE | 2025-01-13 15:09 | W.PN.UPDATE ---
Update Note
Progress Note Update
This note serves as an addendum to the H&P by sales systems engineer John Baum
HPI�
69M HX IBS-C, inguinal hernias, CKD3, and GERD ( H2B) sen at ER
- awoken from sleep overnight with epigastric and RUQ abdominal pain, which resolved spontaneously.
- after breakfast this morning, with subsequent recurrence of the abdominal pain and nausea
- Since then, the pain has been constant, fluctuating between 8-10/10 intensity, like a 'punch in the gut' w radiation to the back. - No specific alleviating or aggravating factors.
- had BM this morning, which was a mix of liquid and formed stool (not unusual for the patient).
- Passing flatus this morning.
- No history of ulcers or gallbladder issues.
PSHX includes bilateral hernia repairs and appendectomy.
Baseline: active at baseline, regularly running and playing soccer.
No cardiac history, including history of AAA.
- had colonoscopy and endoscopy within the past year, which were both unremarkable.
ROS:
denies fever, chills, chest pain, palpitations, cough, shortness of breath, vomiting, urinary symptoms.
PHX; see above
Relevant VS
01/13/25
09:40 01/13/25
10:04
Temp 98.4 F
Pulse 63
Resp Rate 20
Blood pressure 166/76
SaO2 64 100
Oxygen Mode of Delivery Room air
PE
Gen: thin , not toxic
HEENT: anicteric
Neck: supple
Lungs: CTA
Cor: RRR S1 S2
Abdomen:�very tender epigastrium with light palpation
OUTREACH CONSULTANT: AAO3
MS: no edema
Psych:Nl mood and affect
Relevant Data
11/27/24 01/13/25
06:11 10:40
WBC 9.0
Hgb 13.6
Plt Count 166
BUN 22 H 25 H
Creatinine 1.7 H 1.5 H
eGFR 42.57 49.47
Total Bilirubin 0.6
AST 118 H
ALT 56 H
Lipase > 4000 H*
US Abdomen Complete/Upper
- No evidence of cholelithiasis or biliary tract dilatation.
- Gallbladder sludge with mild gallbladder wall thickening.
- Negative sonographic Cool's sign.
- Possible pattern of predominantly diffuse fatty liver.
- Suggested small area of slight decreased echogenicity in the left lobe of liver which may represent normal hepatic sparing, cannot exclude small space-occupying lesion.
- Pancreas significantly obscured, most likely by overlying bowel gas.
Consider MRI for more complete evaluation of the gallbladder, liver and pancreas.
NO PRIOR hospitalist admission
ASSESSMENT & PLAN
Acute pancreatitis ( abdominal pain, Lipase > 4000, eleavted Transaminase )
Associated nausea
- SHx not suggestive of ETOH use disorder
- NEG cholelithiasis or biliary tract dilatation
- GB sludge with mild GBWT
- NPO except PO Meds and NS IVF @ 100/ /H
- No LR IVF due to CKD3
- PRN analgesia
- PRN anti emetics
- To consider MRI w Anam for more complete evaluation of the gallbladder, liver and pancreas - await GI input
- GI consult ( known to Dr Vik Segura)
Known HX
Benign HTN: cont. PO Amlodipine
Hypothyroid: on LT4
HX IBS-C; Known to Dr Chava Segura ( GI )
HX CKD3: baseline Cr 1.7 & baseline eGFR
GERD on H2B : switch to IV PPI daily
DVT Px: SQH
Full code
IP MS
--- NOTE | 2025-01-13 16:41 | CON.GI ---
Consultation
-
Date/Time Consultation Requested: 01/13/25 3:19p
Date/Time Consultation Performed: 01/13/25 4:42p
Requesting Provider: Amy Baum
Performing Provider: Chava Keene
Reason for Consultation: Pancreatitis
Medical History
Chief Complaint / HPI
Chief Complaint: Pancreatitis
History of Present Illness:
69yo male presents with abd pain that awoke him for sleep last night in epigastric area. It subsided, but after breakfast recurred and was severe. Had nausea, no vomit. Denies fever. Drinks EtOH rarely every couple months. Denies new meds other
than pepcid, started about a month ago.
Past Medical History
Past Medical History: GERD and HTN
Past Surgical History: Appendectomy and Other (hernia)
Social History
Alcohol: Occasional
Family History
Family History: Reviewed & Not Pertinent
Allergies / Home Medications
Allergy/AdvReac Type Severity Reaction Status Date / Time
environmental Allergy nasal Uncoded 01/13/25 09:43
congestionm
mucous in
throat
�Medication �Instructions �Recorded
pantoprazole 40 mg tablet,delayed 40 mg PO DAILY gerd 05/24/20
release
psyllium husk 0.4 gram capsule 0.8 g PO HS Supplement ##0 05/24/20
(Metamucil)
levothyroxine 75 mcg tablet 75 mcg PO DAILY Thyroid 03/08/23
tamsulosin 0.4 mg capsule 0.4 mg PO DAILY prostate 03/08/23
amlodipine 2.5 mg tablet (Norvasc) 2.5 mg PO DAILY Blood Pressure 01/13/25
amlodipine 5 mg tablet (Norvasc) 5 mg PO QPM Blood Pressure 01/13/25
famotidine 20 mg tablet (Pepcid) 20 mg PO HS gerd 01/13/25
Review of Systems
-
All other systems: A 12 pt ROS was Negative except as stated above in HPI
Vital Signs
Temp Pulse Resp BP Pulse Ox
98.4 F 78 18 140/74 96
01/13/25 09:40 01/13/25 16:04 01/13/25 16:04 01/13/25 16:04 01/13/25 16:04
Physical Exam
Exam
General: No Apparent Distress
HEENT: Normocephalic and Atraumatic
Respiratory: Non Labored Respirations
GI: Soft, Non Distended and Tender (moderate tender, epigastric)
Results
WBC 9.0 10^3/uL (4.8-10.8) 01/13/25 10:40
Hgb 13.6 g/dL (13.0-18.0) 01/13/25 10:40
Hct 41.0 % (39.0-52.0) 01/13/25 10:40
MCV 95.8 fL (80.0-94.0) H 01/13/25 10:40
Plt Count 166 10^3/uL (130-400) 01/13/25 10:40
Absolute Neuts (auto) 6.4 10^3/uL (1.4-6.5) 01/13/25 10:40
Sodium 141 mmol/L (135-145) 01/13/25 10:40
Potassium 4.2 mmol/L (3.5-5.1) 01/13/25 10:40
Chloride 107 mmol/L (98-107) 01/13/25 10:40
Carbon Dioxide 27 mmol/L (22-30) 01/13/25 10:40
BUN 25 mg/dl (9-20) H 01/13/25 10:40
Creatinine 1.5 mg/dL (0.7-1.3) H 01/13/25 10:40
Calcium 9.2 mg/dl (8.4-10.2) 01/13/25 10:40
Total Bilirubin 0.6 mg/dl (0.2-1.3) 01/13/25 10:40
AST 118 U/L (17-59) H 01/13/25 10:40
ALT 56 U/L (0-50) H 01/13/25 10:40
Alkaline Phosphatase 121 U/L (38-126) 01/13/25 10:40
Lipase > 4000 U/L (23-300) H* 01/13/25 10:40
Diagnostic Image Results:
Prior GI Procedures:
EGD:
Colonoscopy:
Assessment / Plan
-
Summary: 69yo male presents with 1 day epigastric pain and nausea. Lipase 4000. AST 118, ALT 56. US shows GB sludge, mild GBWT, fatty liver with possible sparing in L lobe. No prior pancreatitis. Rare EtOH. No new meds other than pepcid. He is
on amlodipine (<1% risk pancreatitis). Denies FH pancreatitis or pancreatic CA. Has had indigestion sx for last couple weeks. Denies wt loss
Impression:
Acute pancreatitis
GB sludge on US
CRI. Cr 1.5. GFR 49
Recommendations:
NPO, IVF
No obvious cause for pancreatitis, so I discussed checking MRI/MRCP to r/o underlying pancreatic malignancy. The GFR is acceptable in setting of his CRI. They are agreeable
Check GRAHAM, IgG4 to r/o AIP (less likely)
Triglycerides were 90 in September, no need to recheck
Will follow
-
-
Thank you for consultation and allowing me to participate in the patient's care. Please call the workers compensation defense attorney GI physician during the after hours with any questions or concerns.
[2025-01-13] MEDS: NSS 1000 IV (17:45)
[2025-01-13] MEDS: NORVASC 5 MG PO (18:57)
[2025-01-13] MEDS: HEPARIN 5000 UNITS SC (20:07)
[2025-01-13] MEDS: TYLENOL 650 MG PO (22:46)
[2025-01-14] MEDS: TUMS CHEWABLE TABLET 400 MG PO (00:02)
[2025-01-14] MEDS: NSS 1000 IV ×2 (03:36→15:40)
[2025-01-14] MEDS: SYNTHROID 75 MCG PO (05:57)
[2025-01-14 06:55] VITALS: BP 115/64
[2025-01-14 08:02] LABS: Hematocrit 33.2 % (39.0-52.0); Hemoglobin 11.0 g/dL (13.0-18.0); Mean Corp Hgb Conc. 33.1 g/dL (33.0-37.0); Mean Corpuscular Volume 93.0 fL (80.0-94.0); Nucleated Red Blood Cells % 0 % (-); Platelet Count 145 10^3/uL (130-400); Red Cell Dist. Width 12.4 % (11.5-14.5)
[2025-01-14 08:16] LABS: ALT (SGPT) 141 U/L (0-50); AST (SGOT) 126 U/L (17-59); Albumin 3.2 g/dl (3.5-5.0); Alkaline Phosphatase 93 U/L (38-126); Blood Urea Nitrogen 22 mg/dl (9-20); Calcium 8.5 mg/dl (8.4-10.2); Carbon Dioxide 25 mmol/L (22-30); Chloride 109 mmol/L (98-107); Estimated Creatinine Clearance 44 ml/min; Glucose 78 mg/dl (70-99); HDL Cholesterol 52 mg/dl; LDL Cholesterol, Calculated 63 mg/dl; Potassium 4.0 mmol/L (3.5-5.1); Sodium 135 mmol/L (135-145); Total Protein 5.8 g/dl (6.3-8.2); Very Low Density Lipoprotein 10 mg/dl (0-30); eGFR 53.74
[2025-01-14 09:26] LABS: Lipase 3752 U/L (23-300)
--- NOTE | 2025-01-14 09:28 | W.PN.GI.CBS2 ---
Today's Communication / Plan
-
Start clears for lunch and low fat for dinner
Await MRI
Check GRAHAM, IgG4
Amlodipine rarely (<1%) causes pancreatitis, but would not stop at this time
Assessment / Plan
-
Summary: 69yo male presents with 1 day epigastric pain and nausea. Lipase 4000. AST 118, ALT 56. US shows GB sludge, mild GBWT, fatty liver with possible sparing in L lobe. No prior pancreatitis. Rare EtOH. No new meds other than pepcid. He is
on amlodipine (<1% risk pancreatitis). Denies FH pancreatitis or pancreatic CA. Has had indigestion sx for last couple weeks. Denies wt loss
01/13/25 US- GB sludge with mild GBWT. Possible pattern of predominantly diffuse fatty liver. Suggested small area of slight decreased echogenicity in L lobe, may represent sparing, cannot exclude small space-occupying lesion
Impression:
Acute pancreatitis
GB sludge on US
CRI. Cr 1.5. GFR 49
Subjective
Subjective
Date of Service: January 14, 2025
Abd pain much improved today.
Objective
Data Reviewed
Laboratory Data:
Laboratory Results
01/14/25 07:28
01/14/25 07:28
Laboratory Results
Total Bilirubin 1.6 mg/dl (0.2-1.3) H D 01/14/25 07:28
AST 126 U/L (17-59) H 01/14/25 07:28
ALT 141 U/L (0-50) H 01/14/25 07:28
Alkaline Phosphatase 93 U/L (38-126) 01/14/25 07:28
Lipase Cancelled 01/14/25 08:39
Vital Signs and I&O:
Vital Signs
Temp Pulse Resp BP Pulse Ox
98.5 F 53 12 115/64 98
01/14/25 06:55 01/14/25 06:55 01/14/25 06:55 01/14/25 06:55 01/14/25 06:55
Physical Exam
Physical Exam
GI: Soft, Non Distended and Tender (mild epigastric tender, much improved)
[2025-01-14] MEDS: NORVASC 2.5 MG PO (09:31)
[2025-01-14] MEDS: HEPARIN 5000 UNITS SC ×2 (09:32→20:09)
[2025-01-14] MEDS: FLOMAX 0.4 MG PO (09:32)
[2025-01-14] MEDS: NSS (PRESERVATIVE FREE) 10 ML IV (09:34)
[2025-01-14] MEDS: PROTONIX IV 40 MG IV (09:34)
--- NOTE | 2025-01-14 11:01 | W.PN.HOSP.TC ---
Today's Communication/Plan
-
IV fluids. MRCP. Advancing diet
Assessment / Plan
Assessment / Plan
Physical exam:
General: Acutely ill
HEENT: Normocephalic, Atraumatic and Moist Mucous Membranes
Respiratory: Clear to Auscultation; Negative Wheezes, Rales or Rhonchi
Cardiac: Regular Rhythm and S1/S2
GI: Soft, Nontender and Nondistended
Musculoskeletal: No Clubbing, No Cyanosis and No Edema
Neuro: Awake, Alert and Oriented, no neurological deficit
Psych: Calm
A/P:
Acute pancreatitis:
Start clear liquid diet today per GI and might advance diet tonight
Some gallbladder sludge on ultrasound
Continue IV fluids
Continue pain control as needed
Plan for MRCP
On IV PPI
Checking GRAHAM and IgG4
Lipase >4000--> 3752
GI okay continue with amlodipine
Discussed with GI in person today
Discussed with at bedside
Probable MANN on CKD stage III:
Continue IV fluid
Avoid nephrotoxic
Monitor renal function in a.m.
Elevated LFTs:
Slight trend up today
Trend LFTs in a.m.
Plan for MRCP
Hypertension:
Continue amlodipine
Hypothyroidism:
Continue levothyroxine 75 mcg p.o. daily
BPH,
Continue tamsulosin 0.4 mg p.o. daily
DVT prophylaxis:
Heparin SQ
CODE STATUS:
Full code
Total time spent on today's encounter 35 minutes which included time spent in counseling the patient/family regarding diagnosis and treatment plan as listed above, goals of care, and symptom management. Case was discussed with nursing staff,
specialists, and care coordinators/case management. All labs and imaging personally reviewed by me. Remainder the time spent in detailed review of previous records, lab data, imaging, and other medical provider documentation.
Anticipated Discharge: Within 24 hours
Subjective/Interval History
-
Date of Service: January 14, 2025
Patient states abdominal pain has improved substantially. No nausea or vomiting. Afebrile
Objective Data
-
Labs:
Laboratory Results
01/14/25
07:28
WBC 7.7
Hgb 11.0 L
Hct 33.2 L
Plt Count 145
Sodium 135
Potassium 4.0
Chloride 109 H
Carbon Dioxide 25
BUN 22 H
Creatinine 1.4 H
Glucose 78
Calcium 8.5
Total Bilirubin 1.6 H D
AST 126 H
ALT 141 H
Alkaline Phosphatase 93
Vital Signs:
Vital Signs
Temp Pulse Resp BP Pulse Ox
98.5 F 53 12 115/64 98
01/14/25 06:55 01/14/25 06:55 01/14/25 06:55 01/14/25 06:55 01/14/25 06:55
[2025-01-14 15:10] VITALS: BP 119/60
[2025-01-14] MEDS: NORVASC 5 MG PO (17:50)
[2025-01-14] MEDS: MYLICON 80 MG PO (21:21)
[2025-01-14 23:00] VITALS: BP 116/69
[2025-01-15] MEDS: NSS 1000 IV (00:35)
[2025-01-15] MEDS: SYNTHROID 75 MCG PO (05:47)
[2025-01-15 07:05] VITALS: BP 137/71
[2025-01-15] MEDS: FLOMAX 0.4 MG PO (07:55)
[2025-01-15] MEDS: HEPARIN 5000 UNITS SC (07:55)
[2025-01-15] MEDS: NORVASC 2.5 MG PO (07:55)
[2025-01-15] MEDS: PROTONIX IV 40 MG IV (07:57)
[2025-01-15] MEDS: NSS (PRESERVATIVE FREE) 10 ML IV (07:57)
[2025-01-15 08:07] LABS: Hematocrit 34.5 % (39.0-52.0); Hemoglobin 11.3 g/dL (13.0-18.0); Mean Corp Hgb Conc. 32.8 g/dL (33.0-37.0); Mean Corpuscular Volume 92.2 fL (80.0-94.0); Nucleated Red Blood Cells % 0 % (-); Platelet Count 143 10^3/uL (130-400); Red Cell Dist. Width 12.2 % (11.5-14.5)
[2025-01-15 08:33] LABS: ALT (SGPT) 100 U/L (0-50); AST (SGOT) 62 U/L (17-59); Albumin 3.3 g/dl (3.5-5.0); Alkaline Phosphatase 97 U/L (38-126); Blood Urea Nitrogen 19 mg/dl (9-20); Calcium 8.7 mg/dl (8.4-10.2); Carbon Dioxide 25 mmol/L (22-30); Chloride 108 mmol/L (98-107); Estimated Creatinine Clearance 47 ml/min; Glucose 80 mg/dl (70-99); Potassium 4.0 mmol/L (3.5-5.1); Sodium 138 mmol/L (135-145); Total Protein 5.9 g/dl (6.3-8.2); eGFR 58.73
[2025-01-15 09:13] LABS: Lipase 2024 U/L (23-300)
--- NOTE | 2025-01-15 09:33 | W.PN.HOSP.TC ---
Today's Communication/Plan
-
Discharge
Assessment / Plan
Assessment / Plan
Gen-AAOx3, NAD
HEENT-NC, AT, anicteric, clear oral mm
Neck-supple
CV-reg, no M, +S1/S2
Lungs-clear B/L
Abd-soft, NT, ND
Ext-no edema
Musculoskeletal-no cyanosis, clubbing
Skin-warm and dry
Neuro-grossly non-focal
Psych-calm, cooperative
Acute pancreatitis -differential diagnosis of gallbladder sludge versus other etiology. He does not drink alcohol.
IgG4, GRAHAM pending.
LFTs improving.
First episode of pancreatitis. MRI noted. No choledocholithiasis.
Tolerating low-fat diet.
Spoke with gastroenterology, okay for discharge today with outpatient follow-up in the office.
Probable MANN on CKD stage III:
Continue IV fluid
Avoid nephrotoxic
Creatinine improved to 1.3.
Normocytic anemia, acute -suspect hemodilution from IV fluid administration.
Essential hypertension:
Continue amlodipine
Hypothyroidism:
Continue levothyroxine 75 mcg p.o. daily
BPH,
Continue tamsulosin 0.4 mg p.o. daily
DVT prophylaxis:
Heparin SQ
Full code
Dispo -medically stable for discharge. Outpatient follow-up.
Updated at the bedside.
35 minutes spent in discharge process.
Anticipated Discharge: Today
Subjective/Interval History
-
Date of Service: January 15, 2025
Patient seen and examined, feels much better with resolved abdominal pain.
Objective Data
-
Labs:
Laboratory Results
01/15/25
07:29
WBC 6.7
Hgb 11.3 L
Hct 34.5 L
Plt Count 143
Sodium 138
Potassium 4.0
Chloride 108 H
Carbon Dioxide 25
BUN 19
Creatinine 1.3
Glucose 80
Calcium 8.7
Total Bilirubin 1.0
AST 62 H
ALT 100 H
Alkaline Phosphatase 97
Vital Signs:
Vital Signs
Temp Pulse Resp BP Pulse Ox
97.7 F 60 18 137/71 97
01/15/25 07:05 01/15/25 07:55 01/15/25 07:05 01/15/25 07:55 01/15/25 07:05
I&O
01/14/25 01/15/25 01/16/25
06:59 06:59 06:59
Intake Total 1800 / 1800
Balance 1800 / 1800
Review of Systems
-
History Source: Patient
All other systems: Reviewed and negative
--- NOTE | 2025-01-15 09:39 | W.DS.TRANS ---
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
-
Discharge Instructions:
Discharge Diagnosis/Procedures Acute pancreatitis
Diet Low Fat
Activity As tolerated
Driving Restrictions As prior to admission
Bathing Restrictions None
Instructions:
Stand-Alone Forms:
Changes to Home Medications: No
Discharge Medications:
DC Medications w/original date entered in [id number]
pantoprazole 40 mg tablet,delayed release 40 mg PO DAILY gerd 05/24/20
psyllium husk 0.4 gram capsule (Metamucil) 0.8 g PO HS Supplement ##0 05/24/20
levothyroxine 75 mcg tablet 75 mcg PO DAILY Thyroid 03/08/23
tamsulosin 0.4 mg capsule 0.4 mg PO DAILY prostate 03/08/23
amlodipine 2.5 mg tablet (Norvasc) 2.5 mg PO DAILY Blood Pressure 01/13/25
amlodipine 5 mg tablet (Norvasc) 5 mg PO QPM Blood Pressure 01/13/25
famotidine 20 mg tablet (Pepcid) 20 mg PO HS gerd 01/13/25
Home Medication Changes
Pending Results: No
--- NOTE | 2025-01-15 09:47 | W.PN.GI.CBS2 ---
Today's Communication / Plan
-
MRI shows acute pancreatitis, no masses
OK for d/c
F/U with me in the office. Can discuss f/u imaging to document resolution
No clear etiology. Norvasc rarely can cause, but would not stop it at this time
GRAHAM, IgG4 pending
Assessment / Plan
-
Summary: 69yo male presents with 1 day epigastric pain and nausea. Lipase 4000. AST 118, ALT 56. US shows GB sludge, mild GBWT, fatty liver with possible sparing in L lobe. No prior pancreatitis. Rare EtOH. No new meds other than pepcid. He is
on amlodipine (<1% risk pancreatitis). Denies FH pancreatitis or pancreatic CA. Has had indigestion sx for last couple weeks. Denies wt loss
01/13/25 US- GB sludge with mild GBWT. Possible pattern of predominantly diffuse fatty liver. Suggested small area of slight decreased echogenicity in L lobe, may represent sparing, cannot exclude small space-occupying lesion
Impression:
Acute pancreatitis
GB sludge on US
CRI. Cr 1.5. GFR 49
Subjective
Subjective
Date of Service: January 15, 2025
Feels well. Denies abd pain. Tolerating diet
Objective
Data Reviewed
Laboratory Data:
Laboratory Results
01/15/25 07:29
01/15/25 07:29
Laboratory Results
Total Bilirubin 1.0 mg/dl (0.2-1.3) 01/15/25 07:29
AST 62 U/L (17-59) H 01/15/25 07:29
ALT 100 U/L (0-50) H 01/15/25 07:29
Alkaline Phosphatase 97 U/L (38-126) 01/15/25 07:29
Lipase 2024 U/L (23-300) H* 01/15/25 07:29
Vital Signs and I&O:
Vital Signs
Temp Pulse Resp BP Pulse Ox
97.7 F 60 18 137/71 97
01/15/25 07:05 01/15/25 07:55 01/15/25 07:05 01/15/25 07:55 01/15/25 07:05
I&O
01/14/25 01/15/25 01/16/25
06:59 06:59 06:59
Intake Total 1800 / 1800
Balance 1800 / 1800
Physical Exam
Physical Exam
GI: Soft, Non Distended and Non Tender
--- NOTE | 2025-01-15 10:14 | CM ---
Patient will d/c home today. Patient seen bedside w/ spouse, initial assessment completed. Patient is a 69-year-old male complaining of epigastric and right upper quadrant pain.
Patient resides w/ spouse in [facility], 3 steps to enter. Patient is independent in all areas, no DME reported. Spouse did not feel comfortable w/ CM continuing to ask questions stating that these questions were already asked by nursing. Spouse confirmed
that patient does not need anything at this time.
PCP: Pretty Zavala
Ph[facility]acy: [facility]
Plan: Home today, no needs
[2025-01-16 18:52] LABS: ANA, IgG Reflex to HEp-2 None Detected (None Detected)
== END 2025-01-15 10:45 | disposition home or self-care (01) | DRG 439 ==
LOC: 4 WEST ACU 15:53
PROVIDERS: Clinical Nurse Specialist Family Health; ADMITTING PHYSICIAN Internal Medicine; ATTENDING PHYSICIAN Hospitalist; CONSULT PHYSICIAN Specialist; EMERGENCY PHYSICIAN Emergency Medicine; FAMILY PHYSICIAN Family Medicine
DX: K85.90 Acute pancreatitis without necrosis or infection, unspecified (principal); N17.9 Acute kidney failure, unspecified; Z87.891 Personal history of nicotine dependence; K76.0 Fatty (change of) liver, not elsewhere classified; N18.32 Chronic kidney disease, stage 3b; I12.9 Hypertensive chronic kidney disease with stage 1 through stage 4 chronic kidney disease, or unspecified chronic kidney disease; K21.9 Gastro-esophageal reflux disease without esophagitis; K58.9 Irritable bowel syndrome, unspecified; E03.9 Hypothyroidism, unspecified; N40.0 Benign prostatic hyperplasia without lower urinary tract symptoms; K82.8 Other specified diseases of gallbladder; Z79.899 Other long term (current) drug therapy
CPT/HCPCS: 74183; 76700; 80053; 80061; 82787; 83690; 85025; 86038; 96361; 96374; 96375; 99284; A9575

== ENCOUNTER 2025-01-28 16:26 | Inpatient (IN) | payer BC, SELFPAY ==
[2025-01-28 12:55] VITALS: BP 141/116
[2025-01-28 13:17] LABS: Hematocrit 37.6 % (39.0-52.0); Hemoglobin 12.9 g/dL (13.0-18.0); Mean Corp Hgb Conc. 34.3 g/dL (33.0-37.0); Mean Corpuscular Volume 90.0 fL (80.0-94.0); Nucleated Red Blood Cells % 0 % (-); Platelet Count 282 10^3/uL (130-400); Red Cell Dist. Width 12.2 % (11.5-14.5)
[2025-01-28] MEDS: LR 1000 IV (13:20)
[2025-01-28] MEDS: MORPHINE SULFATE 4 MG IV ×3 (13:20→13:48)
[2025-01-28] MEDS: ZOFRAN 4 MG IV (13:21)
--- NOTE | 2025-01-28 13:21 | ED.GENMED ---
History of Present Illness
General
Chief Complaint: Abdominal Pain
Source: patient
Exam Limitations: none
Time Seen by Provider: 01/28/25 13:09
History of Present Illness
History of Present Illness:
69-year-old male sudden onset of severe epigastric pain. Associate with nausea and vomiting. Here 2 weeks ago for the same. Symptoms feel exactly the same. Diagnosed with pancreatitis at that time. Etiology of the pancreatitis uncertain
however. No chest pain or shortness of breath.
Past History
Past History
ED Past Medical History: Other (Lyme disease), Other (BPH) and Other (Pancreatitis); Negative Cancer
ED Past Surgical History: Appendectomy and Other (Hernia repairs, bilateral); Negative Cholecystectomy
Social History
Tobacco: Former smoker (7 pack years)
Alcohol: Occasional
Drug: None
Family History
Family History: CAD (Myocardial infarction (father))
Review of Systems
Review of Systems
All Other Systems: Not applicable
Respiratory: Reports no symptoms
Cardiac: Reports no symptoms
Phy Exam
Physical Exam
Physical Exam:
GENERAL: Alert. Writhing and screaming in pain. Very uncomfortable. Agitated.
EYE: Orbits normal.
NECK: Supple
CARDIAC: Regular rate and rhythm without any obvious murmurs.
LUNGS: Clear breath sounds,normal
ABDOMEN: Significant epigastric tenderness. Will not allow a complete exam of the upper abdomen. Lower abdomen nontender.
NEUROLOGICAL: Alert and oriented , grossly non-focal
SKIN: Warm and dry, no rash or lesion, no discoloration, skin intact.
MUSCULOSKELETAL: No edema,no deformity.Good color
PSYCH: Very anxious
Course
Orders/Labs/Results
Orders:
Orders
01/28/25 Lunch
NPO
Allow oral meds: Yes
Allow clear liquids: No
NPO with Ice Chips: Yes
01/28/25 13:05
Complete Blood Count/With Diff Urgent
Comprehensive Metabolic Panel Urgent
Lipase Urgent
01/28/25 13:11
Morphine Sulfate 4 mg .ROUTE .STK-MED ONE
Ondansetron Injectable [Zofran] 4 mg .ROUTE .STK-MED ONE
01/28/25 13:12
Morphine Sulfate 4 mg IV NOW STA
Ondansetron Injectable [Zofran] 4 mg IV NOW STA
01/28/25 13:13
Lactated Ringers [Lr] 1,000 ml IV BOLUS
01/28/25 13:14
Electrocardiogram (*1) Stat
Reason for Study: Abdominal Pain
Cardiac Monitoring- Treatment ONCE
EKG- Treatment ONCE
Pulse Ox/cont/shift [RESP] Stat
Quantity: 1
01/28/25 13:17
CT Abd/pel Without Iv Or Oral Urgent
Comment:
Reason For Exam: Severe abdominal pain pancreatitis history
01/28/25 13:21
Morphine Sulfate 4 mg IV NOW STA
01/28/25 13:43
Morphine Sulfate 4 mg IV NOW STA
01/28/25 14:11
HYDROmorphone [Dilaudid] 0.5 mg IV NOW STA
HYDROmorphone [Dilaudid] 1 mg .ROUTE .STK-MED ONE
01/28/25 14:12
HYDROmorphone [Dilaudid] 0.5 mg IV NOW STA
01/28/25 14:30
0.9% Sodium Chloride 1000 ml [Nss] 1,000 ml IV 120 mls/hr
01/28/25 14:33
Lorazepam [Ativan] 1 mg IV NOW STA
01/28/25 14:41
HYDROmorphone [Dilaudid] 1.5 mg IV Q3HPRN PRN
01/28/25 14:45
Admit/Transfer Patient As Directed
Co-Sign Provider:
Level of Care: Inpatient admission
Assign to:: Medical/Surgical
Physician / Group: Hospitalist
Diagnosis: Acute pancreatitis
Reason for Hospitalization: Acute pancreatitis
Expected length of stay greater than two midnights?: Yes
ELOS- Estimated Length of Stay in days: 2
I certify the patient meets the requirements for IP care: Yes
01/28/25 14:46
PRN Pain Medication Management As Directed
May give lesser potent ordered pain med per pt: Yes
preference::
Protocol:: Medication orders for pain may be administered in a
manner that supports deferring to patient preference
when the pt is:
- Requesting an ordered lesser potent pain medication.
Least to most potent pain medications are defined
as: acetaminophen < NSAID < tramadol < opioids
(morphine, oxycodone, hydromorphone).
- Requesting a lesser dose of the same medication IF
ORDERED.
- Requesting a less intrusive route of administration
if both routes are prescribed by the provider (PO <
IV).
01/28/25 14:48
Code Status As Directed
Resuscitation Status: Full Code
01/28/25 15:00
0.9% Sodium Chloride [Nss (Preservative Free)] 0.5 ml IV ONCE ONE
01/28/25 16:30
Heparin 5,000 units SC Q8
01/28/25 16:30
GASTROINTESTINAL CONSULT Urgent
Consulting Provider: Golden Pierson
Was physician already notified: Yes
Activity As Directed
Activity Level: As Tolerated
Vital Signs As Directed
Frequency: Per unit guidelines
DX Deep Vein Thrombosis Video Routine
01/29/25 05:54
Complete Blood Count/With Diff IN AM
Comprehensive Metabolic Panel IN AM
Lipase IN AM
01/29/25 06:00
Levothyroxine [Synthroid] 75 mcg PO DAILY@0600
01/29/25 08:00
Tamsulosin [Flomax] 0.4 mg PO DAILY
Abnormal Lab Results
01/28/25
13:05
RBC 4.18 L 10^6/uL
(4.70-6.10)
Hgb 12.9 L g/dL
(13.0-18.0)
Hct 37.6 L %
(39.0-52.0)
Absolute Monos (auto) 1.0 H 10^3/uL
(0.1-0.6)
Monocytes % 10.2 H %
(1.7-9.3)
BUN 21 H mg/dl
(9-20)
Creatinine 1.6 H mg/dL
(0.7-1.3)
Glucose 121 H mg/dl
(70-99)
Lipase > 4000 H* U/L
(23-300)
01/28/25 13:05
01/28/25 13:05
Vital Signs
Initial and Last Documented VS:
Initial Vital Signs
Pulse Resp BP Pulse Ox
82 16 141/116 98
01/28/25 12:55 01/28/25 12:55 01/28/25 12:55 01/28/25 12:55
Last Documented Vital Signs
Temp Pulse Resp BP Pulse Ox
98.6 F 96 16 116/72 93
01/29/25 09:54 01/29/25 09:54 01/29/25 09:54 01/29/25 09:54 01/29/25 09:54
MDM/Problems Addressed
Differential Diagnosis Includes:
Records reviewed. Patient in significant distress. States this is totally consistent with a recent pancreatitis episode and weight states he appeared the same during the previous visit. Pain management fluids labs. We will get a plain CT. They
are very concerned about his renal function. Feel IV contrast would likely be reasonable although given the reluctance plain CT is reasonable
*Radiology
Radiology exam reviewed: radiology read reviewed (Moderate acute pancreatitis. Prostatic hypertrophy)
*Pulse Oximetry
SaO2: 98
Oxygen Mode of Delivery: Room air
Patient hypoxic: no (98)
*Critical Care Note
Total Time (30-74mins, 75-104mins- exclusive of procedures): Not Applicable
Data Reviewed
Review of Other/Old Records Reveals: Labs, Records, Radiology Studies, Testing and Discharge Summary
Update Note
Update Note:
Patient rechecked multiple times. Still remains quite uncomfortable. Patient and spouse are convinced the 1 morphine did not infuse and made the bed wet. They are also convinced the Dilaudid did not manage his pain as well as morphine. . He
remains alert. He can tolerate another dose of morphine. Await lipase and CT scan.
1405... Patient and updated. Still appears uncomfortable but somewhat improved. Lipase greater than 4000. I took a quick look at the CT which shows an inflamed pancreas. I do not see a pancreatic hemorrhage. Hospitalist and GI contacted.
1410.... Pain is recurring significantly. I have convinced them to allow us to try Dilaudid. Would really prefer to avoid morphine because of potential sphincter of Oddi spasm
ED Attending Note
-
Portions of this chart may have been created with voice recognition software.� Occasional wrong word or��sound alike� substitutions may have occurred due to the inherent limitations of voice recognition software.
Discharge Plan
Departure
Patient Disposition: Admit
Date of Disposition: 01/28/25
Time of Disposition: 14:05
Presentation/result/management discussed w/ accepting MD/DO: Gastroenterology
Discharge Problem:
Severe pancreatitis
Interventions
Interventions:
*Risk Screen - Suicide Last Done: 01/28/25 12:55
*General Assessment Last Done: 01/28/25 13:07
*Neglect/Abuse Screening Last Done: 01/28/25 12:55
*ED- Fall Risk Assessment Last Done: 01/28/25 13:07
*ED COVID-19 Vaccine History Last Done: 01/28/25 13:07
*ED Influenza Vaccine History Last Done: 01/28/25 13:07
*Nursing Disposition Last Done: 01/28/25 16:18
HL-Fadedq-Iixbyxzkhl Assessment Last Done: 01/28/25 13:07
Discharge Date and Time
Discharge Date/Time: 01/28/25 16:18
[2025-01-28 13:28] LABS: ALT (SGPT) 23 U/L (0-50); AST (SGOT) 41 U/L (17-59); Albumin 4.3 g/dl (3.5-5.0); Alkaline Phosphatase 107 U/L (38-126); Blood Urea Nitrogen 21 mg/dl (9-20); Calcium 9.5 mg/dl (8.4-10.2); Carbon Dioxide 24 mmol/L (22-30); Chloride 104 mmol/L (98-107); Estimated Creatinine Clearance 37 ml/min; Glucose 121 mg/dl (70-99); Potassium 4.0 mmol/L (3.5-5.1); Sodium 139 mmol/L (135-145); Total Protein 7.2 g/dl (6.3-8.2); eGFR 45.78
[2025-01-28 13:48] LABS: Lipase > 4000 U/L (23-300)
[2025-01-28 14:02] VITALS: BP 160/81
--- NOTE | 2025-01-28 14:05 | HPS.HSE ---
Family Physician
-
Family Physician: Pretty Zavala
Chief Complaint
-
Abdominal pain
History of Present Illness
69-year-old male with past medical history of CKD stage IIIb, GERD, IBS, essential hypertension, hypothyroidism, BPH, presenting to the ER reporting severe epigastric pain. Patient developed severe acute epigastric pain radiating to the back all
of a sudden when he was playing soccer in the morning today. Patient also mentioned an episode of vomiting in the ER and feels nauseated. No fever/chills.
Patient was hospitalized 2 weeks earlier for similar complaints, GI was consulted and he was managed conservatively. Autoimmune workup GRAHAM/IgG4 still pending.
No history of alcohol use, trauma, no prior ERCP done.
ED course�tachypneic at 32, afebrile, BP�141/116. Normal white count, hemoglobin 12.9, BUN/creatinine�1.6, glucose 121, AST/ALT�41/23, lipase >4000. CT abdomen pelvis without contrast with evidence of moderate acute pancreatitis.
Medical History
Past Medical History
Past Medical History: Reports Other (CKD stage IIIb, GERD, IBS, essential hypertension, hypothyroidism, BPH, pancreatitis)
Past Surgical History: Reports Other (Appendectomy, hernia repair,)
Social History
Tobacco: Former Smoker (7 pack years)
Alcohol: Occasional
Drug: None
Personal:
Living: With Family
Family History
Family History: Other ([place] in father)
Allergies / Home Medications
Allergies reflects when Allergies were last updated in [facility].
Home Medications with original date entered in [facility]
Allergy/Medication List:
Allergies
Allergy/AdvReac Type Severity Reaction Status Date / Time
environmental Allergy nasal Uncoded 01/28/25 12:55
congestionm
mucous in
throat
Home Medications
pantoprazole 40 mg tablet,delayed release 40 mg PO DAILY gerd 05/24/20
psyllium husk 0.4 gram capsule (Metamucil) 0.8 g PO HS Supplement ##0 05/24/20
levothyroxine 75 mcg tablet 75 mcg PO DAILY Thyroid 03/08/23
tamsulosin 0.4 mg capsule 0.4 mg PO DAILY prostate 03/08/23
amlodipine 2.5 mg tablet (Norvasc) 2.5 mg PO DAILY Blood Pressure 01/13/25
amlodipine 5 mg tablet (Norvasc) 5 mg PO QPM Blood Pressure 01/13/25
famotidine 20 mg tablet (Pepcid) 20 mg PO HS gerd 01/13/25
Review of Systems
-
A 12 point ROS was completed and negative except as noted: Yes
Physical Exam
Vital Signs
Vital Signs
Pulse Resp BP Pulse Ox
60 32 141/116 98
01/28/25 13:15 01/28/25 13:15 01/28/25 12:55 01/28/25 13:23
Physical Exam
General: Appears in Distress and Pain
HEENT: NormoCephalic and Atraumatic
Respiratory: Clear
Cardiac: S1/S2 and Regular Rhythm
GI: Non Distended and Tender
Skin: Warm and Dry
Neuro: Awake, Alert, Oriented and AO x 3
Laboratory Results
-
01/28/25 13:05
01/28/25 13:05
Laboratory Results
Total Bilirubin 0.6 mg/dl (0.2-1.3) 01/28/25 13:05
AST 41 U/L (17-59) 01/28/25 13:05
ALT 23 U/L (0-50) 01/28/25 13:05
Alkaline Phosphatase 107 U/L (38-126) 01/28/25 13:05
Lipase > 4000 U/L (23-300) H* 01/28/25 13:05
Impression/Plan
-
IMPRESSION:
69-year-old male with past medical history of CKD stage IIIb, GERD, IBS, essential hypertension, hypothyroidism, BPH, presenting to the ER reporting severe epigastric pain.
PLAN:
#Acute pancreatitis
Elevated lipase >4000
Unknown etiology from earlier workup during prior admission
LFTs normal
Consult GI
IV fluids/NS
Adequate pain control with Dilaudid
Protonix IV 40 once daily
Will keep n.p.o. for now
Hold amlodipine
Check lactate in a.m.
#Essential hypertension
Will hold on amlodipine
#Hypothyroidism
Continue levothyroxine
#BPH
Continue tamsulosin
#CKD stage IIIb
Creatinine at baseline
Monitor BMP
Diet�n.p.o.
DVT prophylaxis�heparin subcu
Full code
--- NOTE | 2025-01-28 14:09 | W.PN.UPDATE ---
Update Note
Progress Note Update
This note serves as an addendum to the H&P by PGY3
Y3
HPI
69M HX IBS-C, inguinal hernias, CKD3, and GERD ( H2B) seen at ER
- Recent admission 01/13/2025- 01/15/2025 with Acute pancreatitis, 2. Acute kidney injury on chronic kidney disease 3A.
- pw sudden onset of severe epigastric pain
- Associate with nausea and vomiting.
- similar to 2 weeks ago and admission
- Etiology of the pancreatitis uncertain however.
- No history of ulcers or gallbladder issues.
- had colonoscopy and endoscopy within the past year, which were both unremarkable.
Baseline:
active at baseline, regularly running and playing soccer.
No cardiac history
ROS
denies chest pain or shortness of breath.
denies fever, chills, shortness of breath
PSHX: includes bilateral hernia repairs and appendectomy.
Relevant VS
Pulse Resp BP Pulse Ox
60 32 141/116 98
01/28/25 13:15 01/28/25 13:15 01/28/25 12:55 01/28/25 13:23
PE
Gen: thin , not toxic
HEENT: anicteric
Neck: supple
Lungs: CTA
Cor: RRR S1 S2
Abdomen: very tender epigastrium with light palpation (Significant epigastric tenderness. Will not allow a complete exam of the upper abdomen. Lower abdomen nontender.
METEOROLOGICAL EQUIPMENT REPAIRER: AAO3
MS: no edema
Psych:Nl mood and affect
Relevant Data�
01/14/25 01/15/25 01/28/25
07:28 07:29 13:05
WBC 9.7
Hgb 12.9 L
Sodium 139
Potassium 4.0
Chloride 104
Carbon Dioxide 24
Creatinine 1.4 H 1.3 1.6 H
eGFR 53.74 58.73 45.78
Total Bilirubin 0.6
AST 62 H 41
ALT 100 H 23
Albumin 3.3 L 4.3
Lipase 2023 H* > 4000 H*
01/14/25 MR Abdomen W/o & W Contrast
There is mild T2 hyperintense signal within the pancreatic head and adjacent fat as well as associated mild diffusion hyperintense signal.
This likely represents acute interstitial pancreatitis. No peripancreatic collection. No discrete mass is visualized although follow-up may be considered following resolution of the pancreatitis.
Biliary sludge. There is mild pericholecystic fluid which may be reactive given the likely pancreatitis however can be seen with acute cholecystitis.
There is no biliary duct dilation. There are no filling defects within the common bile duct suggestive of choledocholithiasis.
01/13/25 US
GB sludge with mild GBWT. Possible pattern of predominantly diffuse fatty liver. Suggested small area of slight decreased echogenicity in L lobe, may represent sparing, cannot exclude small space-occupying lesion
Last hospitalist admission:01/13/2025- 01/15/2025
DISCHARGE DIAGNOSES:
1. Acute pancreatitis.
2. Acute kidney injury on chronic kidney disease 3A.
3. Essential hypertension.
ASSESSMENT & PLAN
Acute pancreatitis ( abdominal pain, Lipase > 4000
- Severe excruciating pain and tenderness at epigastrium - received total 12mg IV Morphine ( 4 mg x3 ) plus 1 mg of IV Dilaudid (0 .5mg x 2)
- Recent MRI: pancreatitis, no mass
- resolved prior Transaminase elevation
- Associated nausea and vomited once
- SHx not suggestive of ETOH use disorder
- NEG cholelithiasis or biliary tract dilatation
- GB sludge with mild GBWT
- NPO except ice chips, PO meds
- To finish off LR IVF 1L WO at ER then switch to NS @ 120/H
- PRN analgesia ( PRN Dilaudid 1.5 mg q3H PRN - Hold for excessive sedation
- PRN anti emetics
- GI consult ( known to Dr Vik Segura)
Vicious cycle of severe pain <=> anxiety
- IV Ativan 1 mg now
Element of MANN due to volume loss from vomiting
HX CKD3: baseline Cr 1.7 & baseline eGFR
- IV NS and FU Cr
GERD on H2B
- switch to IV PPI daily
Known HX
Benign HTN: Hold Amlodipine for now
Hypothyroid: on LT4
HX IBS-C; Known to Dr Chava Segura ( GI )
DVT Px: SQH
Full code
IP MS
[2025-01-28] MEDS: DILAUDID 0.5 MG IV ×2 (14:13→14:29)
[2025-01-28] MEDS: NSS 1000 IV ×2 (14:32→23:09)
[2025-01-28 15:00] VITALS: BP 145/71
[2025-01-28] MEDS: ATIVAN 1 MG IV (15:59)
[2025-01-28 16:30] VITALS: BP 142/68; BMI 19.7
[2025-01-28] MEDS: HEPARIN 5000 UNITS SC ×2 (17:34→23:23)
[2025-01-28] MEDS: DILAUDID 1.5 MG IV (17:53)
[2025-01-28 20:11] VITALS: BP 143/68
[2025-01-28 23:52] VITALS: BP 133/78
[2025-01-29] MEDS: BENADRYL 6.25 MG IV (01:19)
[2025-01-29] MEDS: DILAUDID 1.5 MG IV ×3 (02:33→09:01)
--- NOTE | 2025-01-29 03:41 | PTCARENOTE ---
Received patient in bed and sleeping at change of shift. No signs of distress noted. Call amaya within reach.
[2025-01-29] MEDS: SYNTHROID 75 MCG PO (05:16)
[2025-01-29 07:25] LABS: Hematocrit 44.6 % (39.0-52.0); Hemoglobin 14.5 g/dL (13.0-18.0); Mean Corp Hgb Conc. 32.5 g/dL (33.0-37.0); Mean Corpuscular Volume 96.7 fL (80.0-94.0); Platelet Count 281 10^3/uL (130-400); Red Cell Dist. Width 12.5 % (11.5-14.5)
[2025-01-29 07:27] LABS: ALT (SGPT) 20 U/L (0-50); AST (SGOT) 27 U/L (17-59); Albumin 3.4 g/dl (3.5-5.0); Alkaline Phosphatase 74 U/L (38-126); Blood Urea Nitrogen 23 mg/dl (9-20); Calcium 8.4 mg/dl (8.4-10.2); Carbon Dioxide 25 mmol/L (22-30); Chloride 104 mmol/L (98-107); Estimated Creatinine Clearance 41 ml/min; Glucose 129 mg/dl (70-99); Lipase > 4000 U/L (23-300); Potassium 4.5 mmol/L (3.5-5.1); Sodium 135 mmol/L (135-145); Total Protein 6.2 g/dl (6.3-8.2); eGFR 53.74
[2025-01-29] MEDS: HEPARIN 5000 UNITS SC ×3 (07:31→23:05)
[2025-01-29] MEDS: FLOMAX 0.4 MG PO (07:31)
[2025-01-29] MEDS: NSS 1000 IV ×2 (07:32→14:03)
--- NOTE | 2025-01-29 09:10 | PTCARENOTE ---
Patient's at bedside requesting to speak to nurse. nurse entered the room and patient's states ' you need to get these IV fluids checked now, he was recently admitted and the doctor said the fluids needed to be given slowly patient has
CKD.' Nurse responded by informing patient's that treatment for pancreatitis is usually Pain management and IV fluids, but will contact the doctor to verify the rate. Patient's states' i know this already, I need to speak to the GI doctor
and your space systems operations manager.' Floor nurse attempted to give pain medications to patient patient asked for pain medicine before it was due, patient stated he was in 10/10 pain. Nurse informed patient she would return when it was time for pain medication to
be given again. and states she is confused bc she thought the patient was supposed to request the pain medicine, patient's was informed that patient did request pain medicine and patient did confirm.
[2025-01-29 09:16] LABS: Nucleated Red Blood Cells % 0 % (-)
--- NOTE | 2025-01-29 09:28 | W.PN.HOSP.TC ---
Addendum entered and electronically signed by Lizeth Winters MD 01/29/25 14:47:
afternoon BP 109/73 - continue to hold amlodipine
Original Note:
Today's Communication/Plan
-
NPO, IVF, pain control
Assessment / Plan
Assessment / Plan
IMPRESSION:
69-year-old male with past medical history of CKD stage IIIb, GERD, IBS, essential hypertension, hypothyroidism, BPH, presenting to the ER reporting severe epigastric pain.
MRI
IMPRESSION:
There is mild T2 hyperintense signal within the pancreatic head and adjacent fat as well as associated mild diffusion hyperintense signal. This likely represents acute interstitial pancreatitis. No peripancreatic collection. No discrete mass is
visualized although follow-up may be considered following resolution of the pancreatitis.
Biliary sludge. There is mild pericholecystic fluid which may be reactive given the likely pancreatitis however can be seen with acute cholecystitis.
There is no biliary duct dilation. There are no filling defects within the common bile duct suggestive of choledocholithiasis.
PLAN:
#Acute pancreatitis
Recurrent Pancreatitis
-unknown etiology; MRI last admission without abscess or pseudocyst; mass. will need repeat once inflammationr esolved
-GI consulted
-Ca OK, IgG4 WNL (returned from last admission), no gallstones/biliary slude on past MRI
-NPO
-IVF
-back down on Dilaudid dosing - patient was very somnolent this morning
#Essential hypertension
-resume FAMILY PRESERVATION OFFICER Amlodipine this evening
#Hypothyroidism
Continue levothyroxine
#BPH
Continue tamsulosin
#CKD stage IIIb
Creatinine at baseline
Monitor BMP
Diet�n.p.o.
DVT prophylaxis�heparin subcu
Full code
51 minutes spent on patient care
Anticipated Discharge: > 48 hours
Subjective/Interval History
-
Date of Service: January 29, 2025
patient is very sleepy post dilaudid administration but arousable to voice
seen with at bedside
Objective Data
-
Labs:
Laboratory Results
01/29/25
05:54
WBC 7.7
Hgb 14.5
Hct 44.6
Plt Count 281
Sodium 135
Potassium 4.5
Chloride 104
Carbon Dioxide 25
BUN 23 H
Creatinine 1.4 H
Glucose 129 H
Calcium 8.4
Total Bilirubin 1.1
AST 27
ALT 20
Alkaline Phosphatase 74
Vital Signs:
Vital Signs
Temp Pulse Resp BP Pulse Ox
98.2 F 85 16 133/78 95
01/28/25 23:52 01/28/25 23:52 01/28/25 23:52 01/28/25 23:52 01/28/25 23:52
I&O
01/28/25 01/29/25 01/30/25
06:59 06:59 06:59
Intake Total 1440 / 1440
Balance 1440 / 1440
Review of Systems
-
History Source: Patient
All other systems: Reviewed and negative
Physical Exam
-
General: Other (patient somnolent, easily arousable to voice and answering questions )
HEENT: PERRLA
Respiratory: Clear to Auscultation; Negative Wheezes
Cardiac: Regular Rhythm and S1/S2
GI: Soft and Nontender
Musculoskeletal: No Edema
Skin: Warm and Dry; Negative Rash
Neuro: Awake, AO x 3 and Sedated (sedated to hydromorphone - arousable to voice, 5 minutes later more awake/alert )
Psych: Calm
Data Reviewed
-
Diagnostic Radiology: Report Reviewed by me
Labs: Labs Reviewed by me
--- NOTE | 2025-01-29 09:30 | PTCARENOTE ---
Lining Parts Sewer Pamela at bedside speaking to patient's per request. MD Winters at bedside speaking to patient's and patient's is ok with IV fluids administered at same rate it has been ordered. 120ml/hr. all concerns have been met. will
continue to monitor.
[2025-01-29 09:54] VITALS: BP 116/72
[2025-01-29] MEDS: NSS (PRESERVATIVE FREE) 10 ML IV (10:17)
[2025-01-29] MEDS: PROTONIX IV 40 MG IV (10:18)
--- NOTE | 2025-01-29 13:13 | CM ---
manager psychology reviewed patient's chart and met with patient and patient's spouse, patient lives with spouse in a 2 story home, 3 steps to enter patient is independent with adl's and ambulation, no dme, patient drives, patient's spouse reports that
she answered these questions with case therapist 2 weeks ago and does not want to continue answering questions.
Plan: Home with spouse when stable.
PCP: Pretty Zavala
Pharmacy: [facility].
[2025-01-29 13:53] VITALS: BP 109/73
[2025-01-29] MEDS: NSS (PRESERVATIVE FREE) 8 ML IV ×2 (14:56→22:32)
[2025-01-29] MEDS: PEPCID 20 MG IV ×2 (14:56→22:33)
[2025-01-29] MEDS: DILAUDID 0.75 MG IV ×3 (15:11→23:17)
--- NOTE | 2025-01-29 17:55 | CON.GI ---
Consultation
-
Date/Time Consultation Requested: 01/29/2025
Date/Time Consultation Performed: 01/29/2025
Performing Provider: Golden Pierson
Reason for Consultation: recurrent acute pancreatitis
Medical History
Chief Complaint / HPI
Chief Complaint: recurrent acute pancreatitis
History of Present Illness:
69 year old male with h/o CKD stage IIIb, GERD, IBS, essential hypertension, hypothyroidism, BPH, and first episode of acute pancreatitis few weeks ago p/w severe epigastric pain. Similar episode few weeks ago. Imaging studies during that
admission showed sludge in GB, otherwise unremarkable. Drinks alcohol seldom. Denies jaundice.
Past Medical History
Past Medical History: GERD, HTN, Hypothyroidism and Other
Past Surgical History: Appendectomy and Other
Social History
Tobacco: Former Smoker
Alcohol: Occasional
Allergies / Home Medications
Allergy/AdvReac Type Severity Reaction Status Date / Time
environmental Allergy nasal Uncoded 01/28/25 12:55
congestionm
mucous in
throat
�Medication �Instructions �Recorded
pantoprazole 40 mg tablet,delayed 40 mg PO DAILY gerd 05/24/20
release
psyllium husk 0.4 gram capsule 0.8 g PO HS Supplement ##0 05/24/20
(Metamucil)
levothyroxine 75 mcg tablet 75 mcg PO DAILY Thyroid 03/08/23
tamsulosin 0.4 mg capsule 0.4 mg PO DAILY prostate 03/08/23
amlodipine 2.5 mg tablet (Norvasc) 2.5 mg PO DAILY Blood Pressure 01/13/25
amlodipine 5 mg tablet (Norvasc) 5 mg PO QPM Blood Pressure 01/13/25
famotidine 20 mg tablet (Pepcid) 20 mg PO HS gerd 01/13/25
Review of Systems
Vital Signs
Temp Pulse Resp BP Pulse Ox
99.8 F 93 18 109/73 95
01/29/25 13:53 01/29/25 13:53 01/29/25 13:53 01/29/25 13:53 01/29/25 13:53
Physical Exam
Exam
General: Well Developed, Well Nourished and No Apparent Distress
HEENT: Normocephalic and Anicteric
Respiratory: Clear
Cardiac: S1/S2
GI: Soft, Non Distended, Normal Bowel Sounds and Tender
Results
WBC 7.7 10^3/uL (4.8-10.8) 01/29/25 05:54
Hgb 14.5 g/dL (13.0-18.0) 01/29/25 05:54
Hct 44.6 % (39.0-52.0) 01/29/25 05:54
MCV 96.7 fL (80.0-94.0) H 01/29/25 05:54
Plt Count 281 10^3/uL (130-400) 01/29/25 05:54
Absolute Neuts (auto) 6.8 10^3/uL (1.4-6.5) H 01/29/25 05:54
Sodium 135 mmol/L (135-145) 01/29/25 05:54
Potassium 4.5 mmol/L (3.5-5.1) 01/29/25 05:54
Chloride 104 mmol/L (98-107) 01/29/25 05:54
Carbon Dioxide 25 mmol/L (22-30) 01/29/25 05:54
BUN 23 mg/dl (9-20) H 01/29/25 05:54
Creatinine 1.4 mg/dL (0.7-1.3) H 01/29/25 05:54
Calcium 8.4 mg/dl (8.4-10.2) 01/29/25 05:54
Total Bilirubin 1.1 mg/dl (0.2-1.3) 01/29/25 05:54
AST 27 U/L (17-59) 01/29/25 05:54
ALT 20 U/L (0-50) 01/29/25 05:54
Alkaline Phosphatase 74 U/L (38-126) 01/29/25 05:54
Lipase > 4000 U/L (23-300) H* 01/29/25 05:54
Diagnostic Image Results:
Prior GI Procedures:
EGD:
Colonoscopy:
Assessment / Plan
-
69 year old male with h/o CKD stage IIIb, GERD, IBS, essential hypertension, hypothyroidism, BPH, and first episode of acute pancreatitis few weeks ago p/w recurrent acute pancreatitis.
Impression / Rec:
1. Recurrent acute pancreatitis - his initial episode of acute pancreatitis was 2 weeks ago. No etiology was found, although his imaging studies including RUQ US and MRI/MRCP showed sludge in GB. This is likely the cause of recurrent acute
pancreatitis, microlithiasis from sludge. He seldom drinks. No metabolic cause, new meds. For now, IVF and pain control. Early enteral feeding. Will eventually need cholecystectomy.
Total Time Spent with Patient (in minutes): 55
-
-
Thank you for consultation and allowing me to participate in the patient's care. Please call the salesperson flowers GI physician during the after hours with any questions or concerns.
[2025-01-29 19:30] VITALS: BP 119/82
--- NOTE | 2025-01-29 20:30 | PTCARENOTE ---
Pt. c/o 12/29 abd pain. Dilaudid 0.75 mg given @1917 with no improvement. DEVELOPMENT TRAINER notified and STAT dose of of dilaudid 0.25mg ordered.
--- NOTE | 2025-01-29 20:33 | PTCARENOTE ---
Pt.'s called asking for update. insisted no pain meds be given until TECHNICAL PROJECT COORDINATOR saw pt. TECHNICAL PROJECT COORDINATOR notified.
[2025-01-29] MEDS: DILAUDID 0.25 MG IV (20:54)
[2025-01-29] MEDS: PEPCID 20 MG PO (21:04)
--- NOTE | 2025-01-29 21:52 | W.PN.UPDATE ---
Update Note
Progress Note Update
RN reports patient screaming in abdomen pain 12/29. Last pain medication IV Dilaudid 0.5mg IV at 2148. stable VS. 0.25mg IV Dilaudid ordered 2324
Patient continuos to c/o abdomen pain, grunting and moaning in bed. patient seen, noted to be belching. States he has severe abdomen pain and needs high dose of pain medication.
+ BS 4 quad, mild tender no guarding or rebound
denies belching states neg flatus
Addressed patient has to be cautious with pain medications at present, offered Tylenol, refused.
Pepcid IV given x1
0600 HR 160's 168/65 RN gave IV Lopressor
HR 120's-140's RN read Afib on the monitor.
EKG Afib
on Heparin drip
patient asymptomatic
will order Cardizem IV 5mg x1
--- NOTE | 2025-01-29 21:54 | PTCARENOTE ---
TROUBLE DISPATCHER saw pt. and spoke with . Pt. given Dilaudid 0.25mg. stating pt. is in pain because he needs to have a bowl movement. Pt. stated last bowl movement was 11/9 in AM.
--- NOTE | 2025-01-29 22:33 | PTCARENOTE ---
Pt. c/o of 1010 pain in abd. stated it was from acid reflux. PRN pepcid given.
[2025-01-29 23:12] VITALS: BP 106/59
--- NOTE | 2025-01-29 23:17 | PTCARENOTE ---
left bedside. Pt. c/o of 12/29 abd. pain. Pain meds given. See Mar. Pt. care ongoing.
[2025-01-30] VITALS (15 sets, daily range): BP systolic 95–134; BP diastolic 56–91
[2025-01-30] MEDS: NSS 1000 IV ×4 (01:00→17:26)
[2025-01-30] MEDS: DILAUDID 0.75 MG IV ×4 (03:27→17:49)
[2025-01-30] MEDS: SYNTHROID 75 MCG PO (05:03)
[2025-01-30] MEDS: FLOMAX 0.4 MG PO (07:54)
[2025-01-30] MEDS: NSS (PRESERVATIVE FREE) 10 ML IV (07:55)
[2025-01-30] MEDS: HEPARIN 5000 UNITS SC ×2 (07:55→23:46)
[2025-01-30] MEDS: PROTONIX IV 40 MG IV (07:55)
[2025-01-30 08:02] LABS: Hematocrit 42.0 % (39.0-52.0); Hemoglobin 13.9 g/dL (13.0-18.0); Mean Corp Hgb Conc. 33.1 g/dL (33.0-37.0); Mean Corpuscular Volume 92.9 fL (80.0-94.0); Platelet Count 235 10^3/uL (130-400); Red Cell Dist. Width 13.2 % (11.5-14.5)
[2025-01-30 08:29] LABS: ALT (SGPT) 25 U/L (0-50); AST (SGOT) 42 U/L (17-59); Albumin 2.7 g/dl (3.5-5.0); Alkaline Phosphatase 57 U/L (38-126); Blood Urea Nitrogen 53 mg/dl (9-20); Calcium 7.8 mg/dl (8.4-10.2); Carbon Dioxide 20 mmol/L (22-30); Chloride 108 mmol/L (98-107); Estimated Creatinine Clearance 16 ml/min; Glucose 95 mg/dl (70-99); Magnesium 1.9 mg/dl (1.6-2.3); Potassium 5.9 mmol/L (3.5-5.1); Sodium 137 mmol/L (135-145); Total Protein 5.1 g/dl (6.3-8.2); eGFR 16.74
[2025-01-30 08:49] LABS: Absolute Neutrophils -Man Diff 4.3 10^3/uL (1.4-6.5); Normal RBC Morphology Yes; Platelets Checked Yes; Total Cells Counted 100
--- NOTE | 2025-01-30 10:06 | W.CON.NEPH ---
Consultation
-
Date/Time Consultation Requested: 01/30/25 1000
Date/Time Consultation Performed: 01/30/25 1030
Requesting Provider: Lizeth Houston
Performing Provider: Princess Cedeño
Reason for Consultation: MANN, hyperkalemia
Medical History
-
Chief Complaint: Abd pain, pancreatitis
History of Present Illness:
69-year-old male with past medical history of CKD stage IIIb follows Dr Ingram baseline cr 1.5-1.6, GERD on PPI, IBS, essential hypertension on Amlodipine, hypothyroidism on Levothyroxine, BPH on flomax, presenting to the ER reporting severe
epigastric pain on 01/28. He noted with acute pancreatitis with lipase over 4000, CT confirms mod acute pancreatitis. He started on IVF and cr on admit was at 1.6 better in 01/29 at 1.4 but today up at 3.7, k 5.9. He only urinated once today and
thinks out put is decreased. Ongoing abd pian requiring IV pain meds. No CP or sob. mild nausea. Has dry mouth. No fever or cough. He is not passing flatus.
Patient was hospitalized 2 weeks earlier for similar complaints-pancreatitis and no clear etiology found. Autoimmune workup GRAHAM/IgG4 still pending.
No history of alcohol use, denies NSAIDs use.
Past Medical History
CKD stage IIIb, GERD, IBS, essential hypertension, hypothyroidism, BPH, pancreatitis
Past Surgical History: Other (Appendectomy, hernia repair)
Social History
Tobacco: Former Smoker
Alcohol: Occasional
Drug: None
Personal:
Living: With Family
Family History
Family History: Not Pertinent
Allergies / Home Medications
Allergy/AdvReac Type Severity Reaction Status Date / Time
environmental Allergy nasal Uncoded 01/28/25 12:55
congestionm
mucous in
throat
�Medication �Instructions �Recorded �Confirmed �Type
pantoprazole 40 mg tablet,delayed 40 mg PO DAILY gerd 05/24/20 01/28/25 History
release
psyllium husk 0.4 gram capsule 0.8 g PO HS Supplement ##0 05/24/20 01/28/25 History
(Metamucil)
levothyroxine 75 mcg tablet 75 mcg PO DAILY Thyroid 03/08/23 01/28/25 History
tamsulosin 0.4 mg capsule 0.4 mg PO DAILY prostate 03/08/23 01/28/25 History
amlodipine 2.5 mg tablet (Norvasc) 2.5 mg PO DAILY Blood Pressure 01/13/25 01/28/25 History
amlodipine 5 mg tablet (Norvasc) 5 mg PO QPM Blood Pressure 01/13/25 01/28/25 History
famotidine 20 mg tablet (Pepcid) 20 mg PO HS gerd 01/13/25 01/28/25 History
Review of Systems
-
All other systems: Negative unless noted
Physical Exam
Vital Signs
Vital Signs
Temp Pulse Resp BP Pulse Ox
98.2 F 98 18 110/69 94
01/30/25 07:52 01/30/25 07:52 01/30/25 07:52 01/30/25 07:52 01/30/25 07:52
Lab Results
WBC 6.7 10^3/uL (4.8-10.8) 01/30/25 07:28
RBC 4.52 10^6/uL (4.70-6.10) L 01/30/25 07:28
Hgb 13.9 g/dL (13.0-18.0) 01/30/25 07:28
Hct 42.0 % (39.0-52.0) 01/30/25 07:28
Plt Count 235 10^3/uL (130-400) 01/30/25 07:28
eGFR 16.74 01/30/25 07:28
Albumin 2.7 g/dl (3.5-5.0) L 01/30/25 07:28
Abnormal Lab Results
01/30/25
07:28
RBC 4.52 L
Segmented Neutrophils 11 L
Band Neutrophils 54 H
Lymphocytes (Manual) 14 L
Potassium 5.9 H D
Chloride 108 H
Carbon Dioxide 20 L
BUN 53 H
Creatinine 3.7 H
Calcium 7.8 L
Total Protein 5.1 L
Albumin 2.7 L
Physical Exam
General: Awake, Alert, Oriented, AOx3, No Distress and Nontoxic
HEENT: EOMI, Anicteric, Conjunctivae Clear and Facial Symmetry
Respiratory: Clear, Normal Excursion and Nonlabored Respirations
Cardiac: S1/S2 and Regular Rate/Rhythm
Breast: Deferred by me
Abdomen: Soft and Other (TTP, mild distension , decreased BS)
Rectal: Deferred by Provider
Musculoskeletal: No Cyanosis and No Edema
Skin: No Rash
Neuro: Nonfocal/Grossly Intact
Psych: Mood/afflect pleasant, Insight/judgement good and Appropriate
Data Reviewed
-
Labs: Labs Reviewed by me, Discussed with Patient and Discussed with Family
Assessment/Plan
-
IMP:
Acute pancreatitis
Recurrent Pancreatitis
Acute Kidney Injury
Hyperkalemia
CKD IIIb
Essential hypertension
Hypothyroidism
BPH
GERD
IBS
PLan:
A/w recurrent pancreatitis
MANN-possible prerenal, check Urine studies
CT on admit with no hydro, enlarged prostate -follow bladder scan, 34cc this am
increase IVF rate to 200cc/hr and also agree with bolus
evolving met acidosis -likely change to bicarb based on next labs
could try lasix for high K but other agents are limited with NPo status
high risk of HD , reviewed wiht at bedside
avoid nephrotoxins
BP stable
d/w pt, primary
--- NOTE | 2025-01-30 10:07 | W.PN.HOSP.TC ---
Today's Communication/Plan
-
NPO
1L bolus now, increase rate
Renal consult
repeat labs 1PM
eventual cholecystectomy
appreciate consultants
Assessment / Plan
Assessment / Plan
IMPRESSION:
69-year-old male with past medical history of CKD stage IIIb, GERD, IBS, essential hypertension, hypothyroidism, BPH, presenting to the ER reporting severe epigastric pain.
MRI 01/14/25
IMPRESSION:
There is mild T2 hyperintense signal within the pancreatic head and adjacent fat as well as associated mild diffusion hyperintense signal. This likely represents acute interstitial pancreatitis. No peripancreatic collection. No discrete mass is
visualized although follow-up may be considered following resolution of the pancreatitis.
Biliary sludge. There is mild pericholecystic fluid which may be reactive given the likely pancreatitis however can be seen with acute cholecystitis.
There is no biliary duct dilation. There are no filling defects within the common bile duct suggestive of choledocholithiasis.
Abdomen/Pelvis CT 01/29/25
IMPRESSION: Findings suggesting moderate acute pancreatitis.
Severe prostate hypertrophy. Progressed
Mild diffuse bladder wall thickening. This can be seen with cystitis and bladder outlet obstruction. Stable
PLAN:
Acute pancreatitis
Recurrent Pancreatitis
-No alcohol use, no gallstone, Ca OK, IgG4 WNL (returned from last admission),
-MRI last admission without mass, finding of sludge. Appreciate GI consult, sludge may be culprit to recurrent pancreatitis and eventual cholecystectomy recommended. I sent a TT to this AM.
-NPO except ice chips (sips cause pain today)
-back down on Dilaudid dosing - patient was very somnolent morning of 01/29
-*increase rate of IVF. Education provided to patient and at bedside. Given significant volume loss in pancreatitis, patient needs increased rate for MANN (see below)
Acute Kidney Injury
Hyperkalemia
CKD IIIb
-bladder scanned for 34
-pre-renal MANN in setting of acute pancreatitis with significant rise in creatinine overnight.
-1L NS x 1 now, increase NS to 200
-Renal consult
-repeat labs at 1PM
#Essential hypertension
-hold Amlodipine
#Hypothyroidism
Continue levothyroxine
#BPH
Continue tamsulosin - bladder scan 34 this morning
Diet�NPO
DVT prophylaxis�heparin subcu
Full code
51 minutes spent on patient care
Anticipated Discharge: > 48 hours
Subjective/Interval History
-
Date of Service: January 30, 2025
patient is still having a significant amount of pain; difficulty to take a sip of water
he states he had some trouble urinating yesterday afternoon
Objective Data
-
Labs:
Laboratory Results
01/30/25 01/30/25
07:28 13:00
WBC 6.7
Hgb 13.9
Hct 42.0
Plt Count 235
Sodium 137 Pending
Potassium 5.9 H D Pending
Chloride 108 H Pending
Carbon Dioxide 20 L Pending
BUN 53 H Pending
Creatinine 3.7 H Pending
Glucose 95 Pending
Calcium 7.8 L Pending
Total Bilirubin 0.9
AST 42
ALT 25
Alkaline Phosphatase 57
Vital Signs:
Vital Signs
Temp Pulse Resp BP Pulse Ox
98.2 F 98 18 110/69 94
01/30/25 07:52 01/30/25 07:52 01/30/25 07:52 01/30/25 07:52 01/30/25 07:52
I&O
01/29/25 01/30/25 01/31/25
06:59 06:59 06:59
Intake Total 1440 / 1440 1375 / 1375
Balance 1440 / 1440 1375 / 1375
Review of Systems
-
History Source: Patient
All other systems: Reviewed and negative
Physical Exam
-
General: No Apparent Distress
HEENT: Other (dry mucous membranes )
Respiratory: Clear to Auscultation; Negative Wheezes
Cardiac: Regular Rhythm and S1/S2
GI: Other (tender mid-epigastric region )
Musculoskeletal: No Edema
Skin: Warm and Dry; Negative Rash
Neuro: AO x 3
Psych: Calm
Data Reviewed
-
Diagnostic Radiology: Report Reviewed by me
Labs: Labs Reviewed by me
--- NOTE | 2025-01-30 10:48 | W.PN.GI.CBS2 ---
Addendum entered and electronically signed by Lyndsey Hernandez Do, MD 01/30/25 17:12:
I saw and examined the patient.
The PUBLISHING SPECIALIST's note was reviewed and I agree with the note.
Comment: His pain is still 8 out of 10 in nature Tolerating water. Denies vomiting. Vitals stable, mild distress TTP epigastric Labs reviewed.
Recommendations
- C/w IVF at high rate
- C/w NPO
- Anti pain meds per primary team
- Abd heating pack
updated bedside. OP CYY recommended
Will follow with you
Original Note:
Today's Communication / Plan
-
Recurrent acute pancreatitis - his initial episode of acute pancreatitis was 2 weeks ago. No etiology was found, although his imaging studies including RUQ US and MRI/MRCP showed sludge in GB. This is likely the cause of recurrent acute
pancreatitis, microlithiasis from sludge. He seldom drinks. No metabolic cause, new meds.
imaging as noted
noted rise in creat overnight with dry mouth, dark urine
reviewed with Dr. Winters agree with IVF bolus, continue IVF and renal eval for fluid management
for repeat BMP at 1300 today
cont NPO
pain control
Will eventually need surgical eval and cholecystectomy.
Assessment / Plan
-
69 year old male with h/o CKD stage IIIb, GERD, IBS, essential hypertension, hypothyroidism, BPH, and first episode of acute pancreatitis few weeks ago p/w recurrent acute pancreatitis. After admission noted with rise in creat.
MRI 01/14/25
IMPRESSION:
There is mild T2 hyperintense signal within the pancreatic head and adjacent fat as well as associated mild diffusion hyperintense signal. This likely represents acute interstitial pancreatitis. No peripancreatic collection. No discrete mass is
visualized although follow-up may be considered following resolution of the pancreatitis.
Biliary sludge. There is mild pericholecystic fluid which may be reactive given the likely pancreatitis however can be seen with acute cholecystitis.
There is no biliary duct dilation. There are no filling defects within the common bile duct suggestive of choledocholithiasis.
Abdomen/Pelvis CT 01/29/25
IMPRESSION: Findings suggesting moderate acute pancreatitis.
Severe prostate hypertrophy. Progressed
Mild diffuse bladder wall thickening. This can be seen with cystitis and bladder outlet obstruction. Stable
-recurrent pancreatitis
-acute on chronic CKD
-hyperkalemia
other med problems:
-HTN
-hypothyroidism
-BPH
PLAN:
Recurrent acute pancreatitis - his initial episode of acute pancreatitis was 2 weeks ago. No etiology was found, although his imaging studies including RUQ US and MRI/MRCP showed sludge in GB. This is likely the cause of recurrent acute
pancreatitis, microlithiasis from sludge. He seldom drinks. No metabolic cause, new meds.
imaging as noted
noted rise in creat overnight with dry mouth, dark urine
reviewed with Dr. Winters agree with IVF bolus, continue IVF and renal eval for fluid management
for repeat BMP at 1300 today
cont NPO
pain control
Will eventually need surgical eval and cholecystectomy.
Subjective
Subjective
Date of Service: January 30, 2025
pt with noted dry mouth, pain 10/29 was 20/10 on admission per pt dark urine noted overnight
Objective
Data Reviewed
Laboratory Data:
Laboratory Results
01/30/25 07:28
Laboratory Results
Magnesium 1.9 mg/dl (1.6-2.3) 01/30/25 07:28
Total Bilirubin 0.9 mg/dl (0.2-1.3) 01/30/25 07:28
AST 42 U/L (17-59) 01/30/25 07:28
ALT 25 U/L (0-50) 01/30/25 07:28
Alkaline Phosphatase 57 U/L (38-126) 01/30/25 07:28
Lipase > 4000 U/L (23-300) H* 01/29/25 05:54
Vital Signs and I&O:
Vital Signs
Temp Pulse Resp BP Pulse Ox
98.2 F 98 18 110/69 94
01/30/25 07:52 01/30/25 07:52 01/30/25 07:52 01/30/25 07:52 01/30/25 07:52
I&O
01/29/25 01/30/25 01/31/25
06:59 06:59 06:59
Intake Total 1440 / 1440 1375 / 1375
Balance 1440 / 1440 1375 / 1375
Physical Exam
Physical Exam
HEENT: Anicteric, Moist mucous membranes and Other (dry mouth )
Cardiology: Normal Sinus Rhythm
Pulmonary: Clear
GI: Soft, Non Distended and Tender (diffuse mid abdomen )
Extremities: No Edema
Neuro: Non Focal
--- NOTE | 2025-01-30 11:56 | CM ---
Home with spouse no needs when stable.
Plan; Home no needs.
[2025-01-30 14:03] LABS: Blood Urea Nitrogen 60 mg/dl (9-20); Calcium 7.5 mg/dl (8.4-10.2); Carbon Dioxide 19 mmol/L (22-30); Chloride 110 mmol/L (98-107); Estimated Creatinine Clearance 15 ml/min; Glucose 91 mg/dl (70-99); Potassium 5.2 mmol/L (3.5-5.1); Sodium 136 mmol/L (135-145); eGFR 15.72
[2025-01-30] MEDS: NSS IV (16:10)
[2025-01-30] MEDS: SODIUM BICARBONATE 1075 MEQ IV ×2 (16:11→20:36)
--- NOTE | 2025-01-30 16:42 | W.PN.UPDATE ---
Update Note
Progress Note Update
Reviewed labs with pt and
k is better, cr up 3.9
monitor uop
He noted to have Afib too
moving to IMU
no emergenet need hd , will fllow labs tonight
[2025-01-30] MEDS: CARDIZEM 10 MG IV (17:15)
[2025-01-30] MEDS: HEPARIN SC (17:20)
--- NOTE | 2025-01-30 17:39 | W.PN.UPDATE ---
Update Note
Progress Note Update
Physician cross coverage update note:
16:53
Called by RN that patient just went into new onset A-fib.
With heart rate around 150s confirmed with EKG.
discussed with the patient's attending physician Dr Winters.
Patient completely asymptomatic.
Blood pressure stable.
Patient admitted with pancreatitis/ MANN.
- Patient seen and examined at bedside, denies chest pain or shortness of breath, no palpitations.
- Discussed with at bedside who requested cardiology consult before giving any cardiac medications.
-Discussed with cardiology on-call Dr. Rivera who recommended Cardizem.
- Ordered Cardizem 10 mg IV push, also will transfer patient to IVU.
- Family updated with the plan.
- If no improvement on heart rate to consider starting Cardizem drip.
--- NOTE | 2025-01-30 18:48 | PTCARENOTE ---
This RN and Marly RN assisted in taking patient to IVU as RN called report. PT in hospital bed in elevator with staff, family encourage to come on elevator so they did not get lost as they unfamiliar with getting to patients new room location. Once
elevator moved the started crying hysterical and then closed her eyes and had a syncopal episode,her son assisted her to the elevator floor. drowsy but arousable. Patient in hospital bed safe and smirking. This RN called nursing managing supervisor
from her phone, TOURIST GUIDE called via nursing managing supervisor. Patient removed from elevator on 3rd floor and taken to another elevator- admitted to IVU. RN's assisted with transfer to new bed.
--- NOTE | 2025-01-30 18:56 | PTCARENOTE ---
At 1630, pt up to BR attempting to urinate, tele alarmed HR in 160s. Pt assisted back to bed, asymptomatic but HR sustaining 150s-170s. EKG obtained showing new onset Afib RVR. BP stable, pt completely asymptomatic. Cross covering provider notified
and IV Cardizem 10mg given at 1715. HR remains elevated, Cardizem gtt ordered and pt transferred to IVU.
[2025-01-30] MEDS: CARDIZEM 125 IV (18:57)
--- NOTE | 2025-01-30 19:33 | PTCARENOTE ---
received patient from 4th floor, patient is in room 2254, monitor placed, Afib on the monitor, HR 150's, INT placed in left hand. IV NAbicarb @ at 200cc/hr via left hand. IV Cardizem started at 5cc/hr via right forearm. VSS. patient remains NPO.
family at bedside.
[2025-01-30 20:32] LABS: Urine Character Cloudy (Clear)
[2025-01-30 20:33] LABS: Blood Urea Nitrogen 62 mg/dl (9-20); Calcium 7.3 mg/dl (8.4-10.2); Carbon Dioxide 20 mmol/L (22-30); Chloride 110 mmol/L (98-107); Estimated Creatinine Clearance 15 ml/min; Glucose 88 mg/dl (70-99); Potassium 4.8 mmol/L (3.5-5.1); Sodium 136 mmol/L (135-145); eGFR 16.21
[2025-01-30 20:41] LABS: Urine Squamous Cell 0-2 /LPF (Few)
[2025-01-30 20:42] LABS: Urine Red Blood Cell 30-40 /HPF (0-2); Urine White Cell 0-2 /HPF (0-5)
[2025-01-30] MEDS: LOPRESSOR 2.5 MG IV (21:22)
[2025-01-30] MEDS: OFIRMEV 100 IV (22:07)
[2025-01-31] VITALS (14 sets, daily range): BP systolic 117–159; BP diastolic 62–94; BMI 22.2
--- NOTE | 2025-01-31 00:28 | PTCARENOTE ---
Patient received at change of shift resting in the bed. Patient in rapid Afib, denies palpitations. Denies feeling lightheaded or dizzy. Per family the patient appears more confused to them, attempting to exit the bed at times to use the bathroom to
urinate. Indwelling urinary catheter present without kinks, draining rigo urine. The patient is alert to self and place but was unable to give the date (was able to recall that it was January but thought the year was 2025). Bed alarm placed due to
patient forgetfulness. Diltiazem gtt initially at 5mg/hr, titrated up to 15mg/hr as ordered. HR remained in the 120s-150s despite max dose of diltiazem. Discussed with house CRAB STEAMER who ordered one time dose of IV metoprolol, see MAR. U/A sent as
ordered. BMP at 1999 drawn and sent as ordered, notified house CRAB STEAMER and conference producer residential treatment counselor, Dr. Chandra, as ordered. Patient continued to report generalized abdominal pain, one time dose of Ofirmev ordered, see MAR, upon reassessment of pain the
patient was noted to be asleep. At approximately 2150 the patient converted to SR, EKG obtained, notified house CRAB STEAMER Braulio. Continue with Diltiazem gtt at 5mg/hr per house CRAB STEAMER. Bicarb gtt remains infusing as ordered. Bed in lowest position, wheels
locked. Call amaya within reach. Bed alarm armed. Care ongoing.
[2025-01-31] MEDS: SODIUM BICARBONATE 1075 MEQ IV ×2 (02:27→08:36)
--- NOTE | 2025-01-31 02:39 | PTCARENOTE ---
Cosign required for discrepancy between weight on admission and patient's weight this morning. The weight this AM was obtained with a bed scale. The patient declined to stand for a standing scale weight, stated that he did not feel well enough to
stand at this time so a bed scale weight was obtained instead.
[2025-01-31 03:13] LABS: Hematocrit 35.1 % (39.0-52.0); Hemoglobin 11.7 g/dL (13.0-18.0); Mean Corp Hgb Conc. 33.3 g/dL (33.0-37.0); Mean Corpuscular Volume 92.1 fL (80.0-94.0); Platelet Count 185 10^3/uL (130-400); Red Cell Dist. Width 13.2 % (11.5-14.5)
[2025-01-31 03:23] LABS: ALT (SGPT) 29 U/L (0-50); AST (SGOT) 55 U/L (17-59); Albumin 2.3 g/dl (3.5-5.0); Alkaline Phosphatase 61 U/L (38-126); Blood Urea Nitrogen 65 mg/dl (9-20); Calcium 7.4 mg/dl (8.4-10.2); Carbon Dioxide 23 mmol/L (22-30); Chloride 109 mmol/L (98-107); Estimated Creatinine Clearance 19 ml/min; Glucose 84 mg/dl (70-99); Magnesium 1.9 mg/dl (1.6-2.3); Potassium 4.3 mmol/L (3.5-5.1); Sodium 138 mmol/L (135-145); Total Protein 4.5 g/dl (6.3-8.2); eGFR 17.89
[2025-01-31 04:22] LABS: C-Reactive Protein > 270.00 mg/L (0.0-10.00)
[2025-01-31] MEDS: SYNTHROID 75 MCG PO (05:52)
[2025-01-31] MEDS: CARDIZEM 125 IV (05:52)
--- NOTE | 2025-01-31 06:09 | W.PN.HOSP.TC ---
Today's Communication/Plan
-
continue IVF support
pain control, Dilaudid dose reduced d/t concerns AMS
scheduled Tylenol
diet as per GI
follow blood cultures
rate control as per Cardio
Assessment / Plan
Assessment / Plan
Physical Exam
General: mild moderate distress right sided abd pain
HEENT: normocephalic, atraumatic, moist oral mucosa
Respiratory: Clear to Auscultation; Negative Wheezes
Cardiac: Regular Rhythm and S1/S2
Abdomen: decreased bowel sounds, right sided abd tenderness, no rebound tenderness, no CVA tenderness
Musculoskeletal: No Edema
Skin: Warm and Dry; Negative Rash
Neuro: AO x 3
Psych: Calm
IMPRESSION:
69-year-old male with past medical history of CKD stage IIIb, GERD, IBS, essential hypertension, hypothyroidism, BPH, presenting to the ER reporting severe epigastric pain.
MRI 01/14/25
IMPRESSION:
There is mild T2 hyperintense signal within the pancreatic head and adjacent fat as well as associated mild diffusion hyperintense signal. This likely represents acute interstitial pancreatitis. No peripancreatic collection. No discrete mass is
visualized although follow-up may be considered following resolution of the pancreatitis.
Biliary sludge. There is mild pericholecystic fluid which may be reactive given the likely pancreatitis however can be seen with acute cholecystitis.
There is no biliary duct dilation. There are no filling defects within the common bile duct suggestive of choledocholithiasis.
Abdomen/Pelvis CT 01/29/25
IMPRESSION: Findings suggesting moderate acute pancreatitis.
Severe prostate hypertrophy. Progressed
Mild diffuse bladder wall thickening. This can be seen with cystitis and bladder outlet obstruction. Stable
PLAN:
Acute pancreatitis
Recurrent Pancreatitis
-No alcohol use, no gallstone, Ca OK, IgG4 WNL (returned from last admission),
-MRI last admission without mass, finding of sludge. Appreciate GI consult, sludge may be culprit to recurrent pancreatitis and eventual cholecystectomy recommended.
-NPO except meds sips of clears
-cont pain control prn dilaudid reduced to 0.5 mg Q3HPRN d/t concerns AMS, Scheduled PO Tylenol started
-cont aggressive IVF support
Isolated Bandemia
Hematology and ID eval appreciated
Likely 2/2 pancreatitis, abx not indicated at this time.
AMS likely multifactorial
Metabolic encephalopathy 2/2 opiate pain meds vs Delirium 2/2 sleep deprivation d/t pain vs Hospital Associate Delirium
opiate pain meds reduced as above
cont to monitor
Acute Kidney Injury
Hyperkalemia resolved
CKD IIIb
Metabolic Acidosis resolved, bicarb supplementation discontinued
-Maintain Huertas at this time for accurate I/O
-pre-renal MANN in setting of acute pancreatitis with significant rise in creatinine overnight.
-Renal consult appreciated
New Onset Afib RVR since spontaneously converted to NSR on cardizem gtt
transferred to IVU 01/31
Cardio eval appreciated Cardizem gtt switched to scheduled IV Lopressor
ECHO appreciated EF 51%
Incidental small right pleural effusion noted on Abd US 01/31 and on ECHO
stable respiratory status on room air
monitor for now
#Essential hypertension
-hold Amlodipine
-Lopressor as above
#Hypothyroidism
Continue levothyroxine
TSH wnl
DVT prophylaxis�heparin subcu
Full code
Discussed with patient and patient's Leigh
I spent a total of 50 minutes with the patient or on the floor. More than 50% of this time involved counseling and coordination of care.
Anticipated Discharge: > 48 hours
Subjective/Interval History
-
Date of Service: January 31, 2025
Lethargic but arousable oriented x3 though at times confused, fluctuating mental status throughout the day. Suspect AMS multifactorial d/t metabolic encephalopathy 2/2 opiate pain medications, likely some element of hospital associate delirium with
pain likely disrupting sleep cycle. Pain with drinking water persists.
Objective Data
-
Labs:
Laboratory Results
01/30/25 01/31/25
20:06 02:51
WBC 9.3
Hgb 11.7 L
Hct 35.1 L
Plt Count 185 D
Sodium 136 138
Potassium 4.8 4.3
Chloride 110 H 109 H
Carbon Dioxide 20 L 23
BUN 62 H 65 H
Creatinine 3.8 H 3.5 H
Glucose 88 84
Calcium 7.3 L 7.4 L
Total Bilirubin 0.8
AST 55
ALT 29
Alkaline Phosphatase 61
Vital Signs:
Vital Signs
Temp Pulse Resp BP Pulse Ox
98.1 F 89 15 138/73 93
01/31/25 02:32 01/31/25 05:30 01/31/25 02:32 01/31/25 05:00 01/31/25 02:32
I&O
01/29/25 01/30/25 01/31/25
06:59 06:59 06:59
Intake Total 1440 / 1440 1375 / 1375 2785 / 2785
Output Total 875 / 875
Balance 1440 / 1440 1375 / 1375 1909
[2025-01-31 08:11] LABS: Lipase 866 U/L (23-300)
[2025-01-31] MEDS: DILAUDID 0.75 MG IV ×2 (08:37→12:49)
[2025-01-31] MEDS: PROTONIX IV 40 MG IV (08:46)
[2025-01-31] MEDS: FLOMAX 0.4 MG PO (08:46)
[2025-01-31] MEDS: NSS (PRESERVATIVE FREE) 10 ML IV (08:46)
[2025-01-31] MEDS: HEPARIN 5000 UNITS SC ×3 (08:46→23:54)
--- NOTE | 2025-01-31 09:23 | CON.CAR ---
Addendum entered and electronically signed by Naseem Rendon MD 01/31/25 17:41:
I saw and examined the patient on morning rounds.
The Emblem Cutter's note was reviewed and I agree with the note.
Comment: Briefly, 69-year-old man past medical history of hypertension, hyperlipidemia and CKD who presents with abdominal discomfort and was diagnosed with acute pancreatitis and developed atrial fibrillation with rapid ventricular response for
which cardiology is consulted.
Episode of A-fib started last night around 5 PM and lasted until around 10 PM at which time he spontaneously converted to sinus rhythm. No recurrence of A-fib since that time.
Remains on diltiazem drip. Would recommend stopping diltiazem.
Start IV Lopressor while patient is n.p.o. with consideration for transition to oral beta-javier at the time of discharge
CHADS2 Vascor 2 for age and hypertension.
If he has additional episode of A-fib we will need to consider starting anticoagulation at that time.
Consider outpatient personnel monitor to evaluate for occult A-fib after pancreatitis resolves.
Check echo to assess for cardiomyopathy or valvular pathology
Discussed with patient's at bedside
Original Note:
Consultation
Consultation Request
Date/Time Consultation Performed: 01/31/25
Requesting Provider: Dr. Good
Performing Provider: Analy Campbell PA-C for Dr. Rendon
Reason for Consultation: afib
Medical History
-
Chief Complaint: abd pain
History of Present Illness:
Patient is a 69-year-old male with past medical history of hypertension, hyperlipidemia, CKD stage IIIb, BPH, hiatal hernia, hypothyroidism, GERD who presented to [facility] due to abdominal pain. He was found to have severe acute pancreatitis with
lipase greater than 4000. He denies significant alcohol use, or new medications. He is being treated with IV fluids, bowel rest and pain management. Cardiology consulted as last evening patient went into A-fib with RVR, new diagnosis. He was
asymptomatic. He was started on IV Cardizem drip and received dose of IV Lopressor 2.5 mg x 1 overnight and spontaneously converted to sinus rhythm. He has maintained sinus rhythm since that time. Cardiology consulted for evaluation. Denies
history of bleeding issues or falls
PMH:
Hypertension
Hyperlipidemia
CKD stage IIIb
Hypothyroidism
BPH
Hiatal hernia
GERD
Former smoker
Past Medical History
Past Medical History: Other (In HPI)
Social History
Tobacco: Former Smoker
Alcohol: None
Personal:
Living: With Family
Employment: Retired
Family History
Family History: CAD, Hypertension and Other (CVA)
Allergies / Home Medications
Allergy/AdvReac Type Severity Reaction Status Date / Time
pollen extracts Allergy ENVIRONMENTAL-nasal Verified 01/30/25 17:20
congestion
mucous in
throat
�Medication �Instructions �Recorded �Confirmed �Type
pantoprazole 40 mg tablet,delayed 40 mg PO DAILY gerd 05/24/20 01/28/25 History
release
psyllium husk 0.4 gram capsule 0.8 g PO HS Supplement ##0 05/24/20 01/28/25 History
(Metamucil)
levothyroxine 75 mcg tablet 75 mcg PO DAILY Thyroid 03/08/23 01/28/25 History
tamsulosin 0.4 mg capsule 0.4 mg PO DAILY prostate 03/08/23 01/28/25 History
amlodipine 2.5 mg tablet (Norvasc) 2.5 mg PO DAILY Blood Pressure 01/13/25 01/28/25 History
amlodipine 5 mg tablet (Norvasc) 5 mg PO QPM Blood Pressure 01/13/25 01/28/25 History
famotidine 20 mg tablet (Pepcid) 20 mg PO HS gerd 01/13/25 01/28/25 History
Review of Systems
-
History Source: Patient and Family
All other systems: Negative unless noted
Physical Exam
Vital Signs
Temp Pulse Resp BP Pulse Ox
98.3 F 82 18 143/76 94
01/31/25 07:04 01/31/25 07:45 01/31/25 07:04 01/31/25 07:06 01/31/25 08:59
Lab Results
01/31/25 02:51
01/31/25 02:51
Physical Exam
General: No Apparent Distress
HEENT: Normocephalic, Anicteric and Moist Mucous Membranes
Respiratory: Clear and Non Labored Respirations
Cardiac: S1/S2 and Regular Rhythm
Musculoskeletal: No Clubbing, No Cyanosis and No Edema
Skin: Warm and Dry
Neuro: AO x 3
Impression / Plan
-
Primary Private Branch Exchange Operator: Dr. Peralta
Assessment:
Presentation with abd pain
Severe acute pancreatitis, concern for passing of sludge as etiology
MANN on CKD stage 3B
Atrial fibrillation, new diagnosis 01/30/25 s/p spontaneous conversion to SR
Hypertension
Hyperlipidemia
Hypothyroidism
BPH
Hiatal hernia
GERD
Former smoker
ECHO 2023: EF 55 to 60%, trace MR, mild aortic sclerosis, trace AR, normal right heart
ECHO 01/31/25: pending
Plan:
- Patient being treated for severe acute pancreatitis. Results of CTAP from 01/28 reviewed. GI following. Continue IV fluid, bowel rest and pain management. Patient allowed ice chips and sips of water at this time and is tolerating. Lipase is
downtrending
- Creatinine was as high as 3.9, now downtrending, 3.5 on 01/31. Nephrology following. Baseline appears to be 1.5 by review of records. has dubois in place
- Cardiology consulted due to episode of paroxysmal atrial fibrillation yesterday evening. Fortunately spontaneously converted to sinus rhythm overnight and has maintained sinus rhythm since that time. Will stop IV Cardizem gtt. in favor of IV
Lopressor 2.5 mg every 6 hours
- If has A-fib recurrence, would consider for antiarrhythmic drug therapy to maintain sinus rhythm in setting of acute illness
- Check echo, last from 2023 as above
- We discussed anticoagulation. [id number] score is 2 for age, hypertension. No issues with starting anticoagulation from GI standpoint. Would consider for IV heparin. Hemoglobin stable. He denies history of falls or bleeding issues to his
knowledge
- Would consider for outpatient monitor to assess A-fib burden once recovered from pancreatitis
- From cardiology standpoint, is okay to be transferred off of IVU
- Discussed with GI REGULATORY INTERN and physician, nursing, as well as patient Leigh at bedside
Data Reviewed
-
EKG: Tracing Personally Visualized and interpreted
CT Scan: Report Reviewed by me
Medical Tests (Nuc Med, Echo etc): Report Reviewed by me
Labs: Labs Reviewed by me
Old Records: Reviewed
[2025-01-31] MEDS: D5/0.45%NACL 1000 IV (10:12)
--- NOTE | 2025-01-31 10:49 | CM ---
Chart reviewed. Patient's at bedside. Patient is independent of ADLS, lives with his in a 2 [address], 3 YING, 0 DME. Plan is for the patient to return home. CM to follow
--- NOTE | 2025-01-31 11:15 | W.PN.GI.CBS2 ---
Addendum entered and electronically signed by Lyndsey Hernandez Do, MD 01/31/25 14:10:
I saw and examined the patient.
The LATEX SPOOLER's note was reviewed and I agree with the note.
Comment: Transferred to IVU last night for new afib with RVR. Cr also rising on repeat labs. No appetite and still with abd pain. Vitals show Tmax 100.2F. diffusely TTP. NABS. Labs reviewed Cr stable 3.5. LFTs normal CRP >270
Recommendation
- C/w NPO, bowel rest
- C/w IVF
- Monitor urine output
- Recommend blood cultures x2
- Consider MRCP tomorrow if does not improve. Given GFR cannot get contrast
Will follow with you
Original Note:
Today's Communication / Plan
-
Recurrent acute pancreatitis - his initial episode of acute pancreatitis was 2 weeks ago. No etiology was found, although his imaging studies including RUQ US and MRI/MRCP showed sludge in GB. This is likely the cause of recurrent acute
pancreatitis, microlithiasis from sludge. He seldom drinks. No metabolic cause, new meds.
imaging as noted
s/p continued fluid resuscitation with multiple fluid boluses 01/30 and IVF 200ml/hr
pt still with 9/10 pain and given pain med with nursing during exam
pt was agreeable to dubois placement last PM with 1375 urine output since placement of yellow urine
renal continued to follow for fluid management
reviewed with Analy Campbell from Cardiology this am with afib overnight now in NSR for echo, reviewed with Dr. Viramontes for start of anticoagulation if needed-- hbg stable 11.7 today
cont NPO at still with pain on exam ok for sips clears as tolerated
reviewed with Dr. reina with continued pain for US abdomen -- recent CT and MRI as noted
reviewed with nursing staff for heating pad PRN
remains on SQ heparin for DVT prophylaxis
long discussion with Dr. Viramontes, Analy Campbell, patient and - amna ,-- reviewed standard of care for pancreatitis with IVF, NPO advance as tolerated, pain management as needed, assist with renal with MANN, and cardiology with Afib with RVR
Will eventually need surgical eval and cholecystectomy.
Assessment / Plan
-
69 year old male with h/o CKD stage IIIb, GERD, IBS, essential hypertension, hypothyroidism, BPH, and first episode of acute pancreatitis few weeks ago p/w recurrent acute pancreatitis. After admission noted with rise in creat, CRP >270, 01/30
with patient with rapid afib with RVR and transfer to IVU.
MRI 01/14/25
IMPRESSION:
There is mild T2 hyperintense signal within the pancreatic head and adjacent fat as well as associated mild diffusion hyperintense signal. This likely represents acute interstitial pancreatitis. No peripancreatic collection. No discrete mass is
visualized although follow-up may be considered following resolution of the pancreatitis.
Biliary sludge. There is mild pericholecystic fluid which may be reactive given the likely pancreatitis however can be seen with acute cholecystitis.
There is no biliary duct dilation. There are no filling defects within the common bile duct suggestive of choledocholithiasis.
Abdomen/Pelvis CT 01/29/25
IMPRESSION: Findings suggesting moderate acute pancreatitis.
Severe prostate hypertrophy. Progressed
Mild diffuse bladder wall thickening. This can be seen with cystitis and bladder outlet obstruction. Stable
-recurrent pancreatitis
-afib with RVR newly diagnosed
-acute on chronic CKD
-hyperkalemia
other med problems:
-HTN
-hypothyroidism
-BPH
-hx HH
-GERD
PLAN:
Recurrent acute pancreatitis - his initial episode of acute pancreatitis was 2 weeks ago. No etiology was found, although his imaging studies including RUQ US and MRI/MRCP showed sludge in GB. This is likely the cause of recurrent acute
pancreatitis, microlithiasis from sludge. He seldom drinks. No metabolic cause, new meds.
imaging as noted
s/p continued fluid resuscitation with multiple fluid boluses 01/30 and IVF 200ml/hr
pt still with 11/29 pain and given pain med with nursing during exam
pt was agreeable to dubois placement last PM with 1375 urine output since placement of yellow urine
renal continued to follow for fluid management
reviewed with Analy Campbell from Cardiology this am with afib overnight now in NSR for echo, reviewed with Dr. Viramontes for start of anticoagulation if needed-- hbg stable 11.7 today
cont NPO at still with pain on exam ok for sips clears as tolerated
reviewed with Dr. reina with continued pain for US abdomen -- recent CT and MRI as noted
reviewed with nursing staff for heating pad PRN
remains on SQ heparin for DVT prophylaxis
long discussion with Dr. Viramontes, nAaly Campbell, patient and - amna ,-- reviewed standard of care for pancreatitis with IVF, NPO advance as tolerated, pain management as needed, assist with renal with MANN, and cardiology with Afib with RVR
Will eventually need surgical eval and cholecystectomy.
Subjective
Subjective
Date of Service: January 31, 2025
Pt seen this am with with continued 9/10 abdominal pain, events noted with transfer and rapid afib last PM now back in NSR, remains NPO
Objective
Data Reviewed
Laboratory Data:
Laboratory Results
01/31/25 02:51
01/31/25 02:51
Laboratory Results
Magnesium 1.9 mg/dl (1.6-2.3) 01/31/25 02:51
Total Bilirubin 0.8 mg/dl (0.2-1.3) 01/31/25 02:51
AST 55 U/L (17-59) 01/31/25 02:51
ALT 29 U/L (0-50) 01/31/25 02:51
Alkaline Phosphatase 61 U/L (38-126) 01/31/25 02:51
Lipase 866 U/L (23-300) H 01/31/25 02:51
Vital Signs and I&O:
Vital Signs
Temp Pulse Resp BP Pulse Ox
99.3 F 87 20 140/76 90
01/31/25 10:18 01/31/25 10:20 01/31/25 10:26 01/31/25 10:20 01/31/25 10:25
I&O
01/30/25 01/31/25 02/01/25
06:59 06:59 06:59
Intake Total 1375 / 1375 2785 / 2785 60 / 60
Output Total 875 / 875
Balance 1375 / 1375 1909 / 0 60 / 60
Physical Exam
Physical Exam
HEENT: Anicteric and Moist mucous membranes
Cardiology: Normal Sinus Rhythm
Pulmonary: Clear
GI: Soft, Distended (minimal ) and Tender (diffuse upper )
Extremities: No Edema
Neuro: Other (anxious with pain )
--- NOTE | 2025-01-31 11:17 | CON.ONC ---
Consultation
-
Date Consultation Requested: 01/31/25
Date Consultation Performed: 01/31/25
Requesting Provider: Regina Alcantar MD
Performing Provider: Noah Rodriguez MD; So, Trisha Land MD
Reason for Consultation: severe bandemia
Impression
Impression
Recurrent Acute Pancreatitis
IgA Gammopathy, MGUS
Bandemia
Anemia
Acute on Chronic Kidney Disease stage 4
BPH-- progressed severe prostate hypertrophy on CT
New onset Atrial Fibrillation
Hypocalcemia
Hypertension
Hiatal Hernia
Plan
Plan
Bandemia likely related to inflammation from ongoing pancreatitis.
-Recommend to continue trending CBC with differential
-Continue to monitor signs of infection
-Follow up with urology as outpatient for enlarged prostate as needed.
-Will continue to follow with you
Patient History
History of Present Illness
Mr. Contreras is a 69-year-old male with a history of MGUS (IgA gammopathy), followed by Dr. Rodriguez, presenting with recurrent acute pancreatitis.
He was admitted to [facility] from 01/15/2025 for acute pancreatitis managed conservatively with resolution of symptoms.
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 Pain is aching, worsened by food intake, movement, and
his frequent hiccups. It is associated with large amount of vomiting.
Lipase >4000 U/L on admission; CT abdomen revealed diffuse pancreatic head edema with severe peripancreatic stranding consistent with acute pancreatitis. Severe prostate hypertrophy also noted..
On CBC, the presence of bandemia at 54% was noted. WBC and platelet count WNL, slight anemia at 11.7 g/dL.
He denies fever, chills, recent infection, shortness of breath, or palpitations. Follows Dr. Rodriguez for stable MGUS, monitored annually
Past-Medical/Surgical History
Acute Pancreatitis (01/13/2025)
IgA lambda gammopathy, MGUS
CKD 3a
Hypertension
Hypothyroidism
BPH- elevated PSA, benign biopsy (2017)
IBS with constipation
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
GERD
Hiatial Hernia
Appendectomy (1997)
Left Inguinal Hernia s/p LIH repair (2020)
Right Inguinal Hernia s/p robotic assisted inguinal hernia repair with mesh (2023)
Patient Medication
�Medication �Instructions �Recorded �Confirmed �Last Taken �Type
pantoprazole 40 mg tablet,delayed 40 mg PO DAILY gerd 05/24/20 01/28/25 01/13/25 History
release
psyllium husk 0.4 gram capsule 0.8 g PO HS Supplement ##0 05/24/20 01/28/25 01/12/25 History
(Metamucil)
levothyroxine 75 mcg tablet 75 mcg PO DAILY Thyroid 03/08/23 01/28/25 01/13/25 History
tamsulosin 0.4 mg capsule 0.4 mg PO DAILY prostate 03/08/23 01/28/25 01/13/25 History
amlodipine 2.5 mg tablet (Norvasc) 2.5 mg PO DAILY Blood Pressure 01/13/25 01/28/25 01/13/25 History
amlodipine 5 mg tablet (Norvasc) 5 mg PO QPM Blood Pressure 01/13/25 01/28/25 01/12/25 History
famotidine 20 mg tablet (Pepcid) 20 mg PO HS gerd 01/13/25 01/28/25 01/12/25 History
Active Medications
Generic Name Dose Route Start Last Admin
Trade Name Freq PRN Reason Stop Dose Admin
Famotidine 20 mg 01/29/25 22:30 01/29/25 22:33
Famotidine 20 Mg/2 Ml Vial IV 02/26/25 22:29 20 mg
DAILYPRN PRN Administration
reflux
Famotidine 20 mg 01/31/25 22:00
Famotidine 20 Mg Tablet PO 02/28/25 21:59
Q48H ELIEZER
Heparin Sodium 5,000 units 01/28/25 16:30 01/31/25 08:46
Heparin 5,000 Units/Ml 1 Ml Vial SC 02/25/25 16:29 5,000 units
Q8 ELIEZER Administration
Hydromorphone HCl 0.75 mg 01/29/25 12:00 01/31/25 08:37
Hydromorphone 1 Mg/Ml Carpuject IV 02/11/25 11:59 0.75 mg
Q3HPRN PRN Administration
pain
Dextrose/Sodium Chloride 1,000 mls @ 150 mls/hr 01/31/25 12:00
D5/0.9% Sodium Chloride IV
.Q6H40M ELIEZER
Levothyroxine Sodium 75 mcg 01/29/25 06:00 01/31/25 05:52
Levothyroxine 75 Mcg Tablet PO 02/26/25 05:59 75 mcg
DAILY@0600 ELIEZER Administration
Metoprolol Tartrate 2.5 mg 01/31/25 12:00
Metoprolol 5 Mg/5 Ml Vial IV 02/28/25 11:59
Q6 ELIEZER
Pantoprazole Sodium 40 mg 01/29/25 10:00 01/31/25 08:46
Pantoprazole Sodium 40 Mg/10 Ml Vial IV 02/26/25 09:59 40 mg
DAILY ELIEZER Administration
Sodium Chloride 0 flush 01/29/25 02:00
Sodium Chloride 0.9% (Flush) Syringe IV 02/26/25 01:59
PER PROTOCOL ELIEZER
Sodium Chloride 10 ml 01/29/25 10:00 01/31/25 08:46
Sodium Chloride 0.9% (Preservative Free) 10 Ml Vial IV 02/26/25 09:59 10 ml
DAILY ELIEZER Administration
Sodium Chloride 8 ml 01/29/25 22:30 01/29/25 22:32
Nss 8 Ml Qhs IV 02/26/25 22:29 8 ml
DAILYPRN PRN Administration
TO DILUTE PEPCID
Tamsulosin HCl 0.4 mg 01/29/25 08:00 01/31/25 08:46
Tamsulosin 0.4 Mg Capsule PO 02/26/25 07:59 0.4 mg
DAILY ELIEZER Administration
Review of Systems
-
History Source: Patient
Constitutional: Reports Fatigue; Denies Fever
EENT: Reports No Symptoms
Respiratory: Reports Trouble Breathing (from pain); Denies Cough
Cardiac: Denies Chest Pain or Palpitations
GI: Reports Abdominal Pain (RUQ), Vomiting and Constipated
: Reports No Symptoms and Other (on dubois catheter)
Musculoskeletal: Reports No Symptoms
Skin: Reports No Symptoms
Neuro: Denies Headache, Weakness or Numbness
Psych: Reports No Symptoms
Physical Exam
-
General: Pain and Conversant
HEENT: Negative Jaundice
Cardiology: Normal Sinus Rhythm, S1 and S2
Pulmonary: Clear and Other (Labored breathing)
GI: Soft and Other (Hypoactive, nondistended)
Genito-Urinary: Clear Urine
Musculoskeletal: No Clubbing, No Cyanosis and No Edema
Extremities: Pulses Present
Skin: Warm
Psych: Calm
Labs
Lab Results
WBC 9.3 10^3/uL (4.8-10.8) 01/31/25 02:51
RBC 3.81 10^6/uL (4.70-6.10) L 01/31/25 02:51
Hgb 11.7 g/dL (13.0-18.0) L 01/31/25 02:51
Hct 35.1 % (39.0-52.0) L 01/31/25 02:51
MCV 92.1 fL (80.0-94.0) 01/31/25 02:51
MCH 30.7 pg (27.0-31.0) 01/31/25 02:51
MCHC 33.3 g/dL (33.0-37.0) 01/31/25 02:51
RDW 13.2 % (11.5-14.5) 01/31/25 02:51
Plt Count 185 10^3/uL (130-400) D 01/31/25 02:51
MPV 10.2 fL (7.4-10.4) 01/31/25 02:51
Abs Immat Gran (auto) 0.0 10^3/uL (0-0.05) 01/29/25 05:54
Absolute Neuts (auto) 6.8 10^3/uL (1.4-6.5) H 01/29/25 05:54
Absolute Lymphs (auto) 0.6 10^3/uL (1.2-3.4) L 01/29/25 05:54
Absolute Monos (auto) 0.3 10^3/uL (0.1-0.6) 01/29/25 05:54
Absolute Eos (auto) 0.0 10^3/uL (0-0.7) 01/29/25 05:54
Absolute Basos (auto) 0.0 10^3/uL (0-0.2) 01/29/25 05:54
Immature Gran % 0.1 % (0-0.5) 01/29/25 05:54
Neutrophils % 88.1 % (42.2-75.2) H 01/29/25 05:54
Lymphocytes % 7.4 % (20.5-51.1) L 01/29/25 05:54
Monocytes % 4.3 % (1.7-9.3) 01/29/25 05:54
Eosinophils % 0.0 % (0-6) 01/29/25 05:54
Basophils % 0.1 % (0-2) 01/29/25 05:54
Creatinine 3.5 mg/dL (0.7-1.3) H 01/31/25 02:51
Vital Signs
Vital Signs
Temp Pulse Resp BP Pulse Ox
99.3 F 87 20 140/76 90
01/31/25 10:18 01/31/25 10:20 01/31/25 10:26 01/31/25 10:20 01/31/25 10:25
[2025-01-31] MEDS: D5/0.9% SODIUM CHLORIDE 1000 IV ×3 (11:19→23:54)
--- NOTE | 2025-01-31 11:29 | CON.ID ---
Consultation
-
Date/Time Consultation Requested: 01/31/25 10:18
Date/Time Consultation Performed: 01/31/25 14:07
Requesting Provider: Dr Alcantar
Performing Provider: Dr Benjamin
Reason for Consultation: severe bandemia, here for recurrent pancreatitis
Chief Complaint / Past History
Chief Complaint
abrupt onset of RUQ pain
History of Present Illness
Mr Contreras is a 75 year old male with history notable for MGUS, CKD with a recent hospitalization here 01/13-01/15 for acute pancreatitis. Imaging was notable for sludge in the gallbladder, he rarely drinks alcohol and had no new reported symptoms.
Before the episode he reported indigestion for several weeks. He received supportive care and symptoms fully resolved. 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 History is obtained from patient, chart review and with corollary information provided by his . No headache, sinus tenderness, sore throat,
diarrhea, dysuria, urgency, frequency, new rashes, new joint pains. He does endorse some infrequent, productive cough this AM only which his attributed to GERD but no further coughing since first thing this AM. We discussed a possible CXR and
she declined - prefering to follow symptoms.
Since arrival here he has been afebrile, bp stable, wbc count 9.7 initially and has remained normal for the last 3 days, hgb 12.9, plt 282, left shift began on the second day of hospitalization and has persisted with manual diff with 54% bands
yesterday. Cr baseline is 1.5 and was 1.6 on arrival, on hospital day three he had abrupt increase of his creatinine to 3.7 and this level of renal dysfunction has continued, lipase on arrival >4000, lipase today 866, crp >270, UA with hematuria
but no pyuria, CT abd and pelvis diffuse edema of the pancreatic head and severe peripancreatic stranding - consistent with acute pancreatitis, no pancreatic ductal dilatation, no calcifications, abdominal US was repeated today with no gallstones
and no evidence of acute cholecystitis. No cultures have been done. ID is asked to comment on bandemia.
Past History
Additional Past Medical History:
CKD stage IIIb, GERD, IBS, essential hypertension, hypothyroidism, BPH, pancreatitis
Additional Past Surgical History:
Appendectomy, hernia repair
Allergy History:
pollen extracts Allergy (Verified 01/30/25 17:20)
ENVIRONMENTAL-nasal congestion mucous in throat
Medications Reviewed: Yes
Social History
Tobacco: Former Smoker
Alcohol: Occasional
Drug: None
Family History
Family History: Not Pertinent
Review of Systems
Review of Systems
negative except as listed in HPI
Vital Signs
Temp Pulse Resp BP Pulse Ox
99.3 F 87 20 140/76 90
01/31/25 10:18 01/31/25 10:20 01/31/25 10:26 01/31/25 10:20 01/31/25 10:25
Physical Exam
Physical Exam
Constitutional: No Acute Distress
Cardiovascular: Regular Rate and S1/S2; Negative Murmur or Rub
Pulmonary: Clear and Symmetric; Negative Wheezes, Rales or Rhonchi
Gastrointestinal: Soft, Tender, Non Distended and Normal Bowel Sounds
Skin: Warm and Dry; Negative Rash or Jaundice
Lab / Diagnostic Study Results
01/31/25 02:51
01/31/25 02:51
Abs Immat Gran (auto) 0.0 10^3/uL (0-0.05) 01/29/25 05:54
Absolute Neuts (auto) 6.8 10^3/uL (1.4-6.5) H 01/29/25 05:54
Absolute Lymphs (auto) 0.6 10^3/uL (1.2-3.4) L 01/29/25 05:54
Absolute Monos (auto) 0.3 10^3/uL (0.1-0.6) 01/29/25 05:54
Absolute Basos (auto) 0.0 10^3/uL (0-0.2) 01/29/25 05:54
Total Counted 100 01/30/25 07:28
Immature Gran % 0.1 % (0-0.5) 01/29/25 05:54
Neutrophils % 88.1 % (42.2-75.2) H 01/29/25 05:54
Lymphocytes % 7.4 % (20.5-51.1) L 01/29/25 05:54
Monocytes % 4.3 % (1.7-9.3) 01/29/25 05:54
Eosinophils % 0.0 % (0-6) 01/29/25 05:54
Basophils % 0.1 % (0-2) 01/29/25 05:54
Abs Neuts (Manual) 4.3 10^3/uL (1.4-6.5) 01/30/25 07:28
Segmented Neutrophils 11 % (42-75) L 01/30/25 07:28
Band Neutrophils 54 % (0-3) H 01/30/25 07:28
Lymphocytes (Manual) 14 % (20-51) L 01/30/25 07:28
C-Reactive Protein > 270.00 mg/L (0.0-10.00) H 01/31/25 02:51
Urine WBC 0-2 /HPF (0-5) 01/30/25 20:23
Ur Squamous Epith Cells 0-2 /LPF (Few) 01/30/25 20:23
Assessment / Plan
Bandemia
Recurrent Acute Pancreatitis
MANN on CKD
Elevated inflammatory markers
- patient is afebrile, without leukocytosis, attribute bandemia and elevated CRP to acute inflammation of the pancreas; there is no evidence of pseudocyst at this time
- blood cultures x2 was recommended by gastroenterology - ordered, pretest probability is low
- no further infectious workup recommended by ID review of systems; he had minimal cough on awakening this AM but none since, will follow
- I do not recommend starting empiric antibiotics at this time
[2025-01-31] MEDS: LOPRESSOR 2.5 MG IV ×3 (12:47→23:54)
--- NOTE | 2025-01-31 13:12 | W.PN.NEPH.PH ---
Today's Communication / Plan
-
Continue normal saline
Assessment/Plan
-
IMP:
Acute pancreatitis
Recurrent Pancreatitis
Acute Kidney Injury
Hyperkalemia
CKD IIIb
Essential hypertension
Hypothyroidism
BPH
GERD
IBS
PLan:
A/w recurrent pancreatitis
MANN-possible prerenal, check Urine studies
CT on admit with no hydro, enlarged prostate -follow bladder scan, 34cc this am
Acidosis improved with bicarbonate
Now on D5 normal saline
high risk of HD , reviewed wiht at bedside /discussed with primary team
avoid nephrotoxins
BP stable
d/w pt, primary

High risk patient/33 minutes spent critical care to
-
-
Date of Service: January 31, 2025
CC / HPI / ROS
-
Chief Complaint:
Acute on chronic kidney disease abdominal
History of Present Illness:
Pancreatitis acute kidney injury on CKD stage IIIb
Review of Systems:
Abdominal pain
Labs
-
Labs:
WBC 9.3 10^3/uL (4.8-10.8) 01/31/25 02:51
RBC 3.81 10^6/uL (4.70-6.10) L 01/31/25 02:51
Hgb 11.7 g/dL (13.0-18.0) L 01/31/25 02:51
Hct 35.1 % (39.0-52.0) L 01/31/25 02:51
Plt Count 185 10^3/uL (130-400) D 01/31/25 02:51
Sodium 138 mmol/L (135-145) 01/31/25 02:51
Potassium 4.3 mmol/L (3.5-5.1) 01/31/25 02:51
Chloride 109 mmol/L (98-107) H 01/31/25 02:51
Carbon Dioxide 23 mmol/L (22-30) 01/31/25 02:51
BUN 65 mg/dl (9-20) H 01/31/25 02:51
Creatinine 3.5 mg/dL (0.7-1.3) H 01/31/25 02:51
eGFR 17.89 01/31/25 02:51
Glucose 84 mg/dl (70-99) 01/31/25 02:51
Calcium 7.4 mg/dl (8.4-10.2) L 01/31/25 02:51
Albumin 2.3 g/dl (3.5-5.0) L 01/31/25 02:51
Physical Exam
-
Vital Signs:
Vital Signs
Temp Pulse Resp BP Pulse Ox
100.2 F 74 20 140/78 94
01/31/25 12:32 01/31/25 13:00 01/31/25 12:32 01/31/25 12:47 01/31/25 12:32
[2025-01-31] MEDS: DILAUDID 0.5 MG IV ×2 (17:37→21:52)
--- NOTE | 2025-01-31 18:28 | PTCARENOTE ---
Pt remained in sinus rhythm at a rate @70-80's with occasional PVC's. Pt seen by Analy Campbell NP, pt started on IV lopressor and diltiazem infusion discontinued at 14:23. Pt c/o right lower abdominal discomfort which he rates @6-20!/10. Pt getting
some relief with IV dilaudid every 3-4 hours but noted to be a little confused at times.Pt placed on fall precautions with bed and chair alarm. notified, dilaudid dose decreased and pt will start tylenol tonight. Huertas catheter draining
yellow urine, IV fluids continue. Abdominal U/S and Echo done at bedside.
[2025-01-31] MEDS: TYLENOL ORAL SOLUTION 650 MG PO ×2 (19:23→23:53)
[2025-01-31] MEDS: PEPCID 20 MG PO (21:51)
--- NOTE | 2025-01-31 22:10 | PTCARENOTE ---
assumed care of patient at the change of shift. oriented to self and place, disoriented to time. odd conversation at times. patient intermittently moaning in pain and sleeping. patient complains of stabbing, sharp abdominal pain, 'at the belt line.'
tender to palpation b/l lower quadrants. scheduled tylenol given with relief. increased pain at approx 2150- PRN dilaudid given, see mar. SR on tele with PVCs and PACs- 80s-90s. bp stable. denies any cp/sob. IVF infusing per order. bed alarm for
safety. educated patient to inform RN with any changes. call amaya within reach.
[2025-02-01] VITALS (10 sets, daily range): BP systolic 135–156; BP diastolic 66–91; PULSE 84; BMI 22.2
[2025-02-01] MEDS: DILAUDID 0.5 MG IV ×2 (03:43→21:49)
[2025-02-01 04:22] LABS: ALT (SGPT) 30 U/L (0-50); AST (SGOT) 51 U/L (17-59); Albumin 2.2 g/dl (3.5-5.0); Alkaline Phosphatase 126 U/L (38-126); Blood Urea Nitrogen 49 mg/dl (9-20); Calcium 7.8 mg/dl (8.4-10.2); Carbon Dioxide 27 mmol/L (22-30); Chloride 109 mmol/L (98-107); Estimated Creatinine Clearance 28 ml/min; Glucose 106 mg/dl (70-99); Potassium 3.6 mmol/L (3.5-5.1); Sodium 136 mmol/L (135-145); Total Protein 4.8 g/dl (6.3-8.2); eGFR 29.62
[2025-02-01] MEDS: TYLENOL ORAL SOLUTION 650 MG PO ×4 (05:13→15:57)
[2025-02-01 05:23] LABS: Lipase 350 U/L (23-300)
--- NOTE | 2025-02-01 05:44 | PTCARENOTE ---
on tele review, patients HR noted to be in SR with PACs and PVCs overnight. brief episode of Afib RVR at approx 2345. on and off sleeping overnight. some pain relief with PRN IV Dilaudid and scheduled Tylenol. forgetful; easily reoriented. dubois
care provided overnight. patient made no attempts to get out of bed.
[2025-02-01 06:18] LABS: Hematocrit 33.9 % (39.0-52.0); Hemoglobin 11.6 g/dL (13.0-18.0); Mean Corp Hgb Conc. 34.2 g/dL (33.0-37.0); Mean Corpuscular Volume 91.1 fL (80.0-94.0); Nucleated Red Blood Cells % 0 % (-); Platelet Count 142 10^3/uL (130-400); Red Cell Dist. Width 13.2 % (11.5-14.5)
[2025-02-01] MEDS: LOPRESSOR 2.5 MG IV (06:27)
[2025-02-01] MEDS: SYNTHROID 75 MCG PO (06:27)
[2025-02-01] MEDS: D5/0.9% SODIUM CHLORIDE 1000 IV ×2 (06:28→15:53)
--- NOTE | 2025-02-01 07:43 | W.PN.HOSP.TC ---
Today's Communication/Plan
-
Stable for downgrade to tele
diet as per GI
pain/nausea control
rate control as per Cardio
hep gtt
cont IVF support, rate reduced with advancement diet and improvement renal function
Assessment / Plan
Assessment / Plan
Physical Exam
General: no acute distress, appears comfortable, sitting up in chair
HEENT: normocephalic, atraumatic, moist oral mucosa
Respiratory: Clear to Auscultation; Negative Wheezes
Cardiac: Regular Rhythm and S1/S2
Abdomen: decreased bowel sounds, right sided abd tenderness, no rebound tenderness, no CVA tenderness
Musculoskeletal: swelling hands noted suspect third spacing d/t hypoalbuminemia and possible fluid overload
Skin: Warm and Dry; Negative Rash
Neuro: AO x 3
Psych: Calm
IMPRESSION:
69-year-old male with past medical history of CKD stage IIIb, GERD, IBS, essential hypertension, hypothyroidism, BPH, presenting to the ER reporting severe epigastric pain.
MRI 01/14/25
IMPRESSION:
There is mild T2 hyperintense signal within the pancreatic head and adjacent fat as well as associated mild diffusion hyperintense signal. This likely represents acute interstitial pancreatitis. No peripancreatic collection. No discrete mass is
visualized although follow-up may be considered following resolution of the pancreatitis.
Biliary sludge. There is mild pericholecystic fluid which may be reactive given the likely pancreatitis however can be seen with acute cholecystitis.
There is no biliary duct dilation. There are no filling defects within the common bile duct suggestive of choledocholithiasis.
Abdomen/Pelvis CT 01/29/25
IMPRESSION: Findings suggesting moderate acute pancreatitis.
Severe prostate hypertrophy. Progressed
Mild diffuse bladder wall thickening. This can be seen with cystitis and bladder outlet obstruction. Stable
PLAN:
Acute pancreatitis
Recurrent Pancreatitis
-No alcohol use, no gallstone, Ca OK, IgG4 WNL (returned from last admission),
-MRI last admission without mass, finding of sludge. Appreciate GI consult, sludge may be culprit to recurrent pancreatitis and eventual cholecystectomy recommended.
-cont pain control prn dilaudid reduced to 0.5 mg Q3HPRN d/t concerns AMS, cont Scheduled PO Tylenol
-cont IVF support, rate reduced with advancement diet clear liquid
Isolated Bandemia
Hematology and ID eval appreciated
Likely 2/2 pancreatitis, abx not indicated at this time.
AMS likely multifactorial
Metabolic encephalopathy 2/2 opiate pain meds vs Delirium 2/2 sleep deprivation d/t pain vs [facility] Delirium
opiate pain meds reduced as above
mental status since improved
cont to monitor
Acute Kidney Injury
Hyperkalemia resolved
CKD IIIb
Metabolic Acidosis resolved, bicarb supplementation discontinued
-Maintain [place] at this time for accurate I/O
-pre-renal MANN in setting of acute pancreatitis with significant rise in creatinine overnight.
-Renal consult appreciated
New Onset Afib RVR since spontaneously converted to NSR on cardizem gtt
transferred to IVU 01/31, downgraded 02/01
Cardio eval appreciated Cardizem gtt switched to scheduled IV Lopressor, hep gtt
ECHO appreciated EF 51%
Incidental small pleural effusion noted on Abd US 01/31 and on ECHO
stable respiratory status on room air
follow up CXR in AM
#Essential hypertension
-hold Amlodipine
-Lopressor as above
#Hypothyroidism
Continue levothyroxine
TSH wnl
DVT prophylaxis�heparin subcu
Full code
Discussed with patient and patient's Leigh
I spent a total of 50 minutes with the patient or on the floor. More than 50% of this time involved counseling and coordination of care.
Anticipated Discharge: > 48 hours
Subjective/Interval History
-
Date of Service: February 01, 2025
Pain significantly improved though not resolved. Mental status also improved, less confused. Leigh present during evaluation.
Objective Data
-
Labs:
Laboratory Results
02/01/25
03:32
WBC 9.2
Hgb 11.6 L
Hct 33.9 L
Plt Count 142 D
Sodium 136
Potassium 3.6
Chloride 109 H
Carbon Dioxide 27
BUN 49 H
Creatinine 2.3 H
Glucose 106 H
Calcium 7.8 L
Total Bilirubin 1.0
AST 51
ALT 30
Alkaline Phosphatase 126
Vital Signs:
Vital Signs
Temp Pulse Resp BP Pulse Ox
97.8 F 89 20 148/85 95
02/01/25 07:27 02/01/25 06:27 02/01/25 07:27 02/01/25 06:27 02/01/25 07:27
I&O
01/31/25 02/01/25 02/02/25
06:59 06:59 06:59
Intake Total 2785 / 2785 3900 / 3900
Output Total 875 / 875 2725 / 2725
Balance 1909 / 1909 1175 / 1175
[2025-02-01] MEDS: FLOMAX 0.4 MG PO (07:51)
[2025-02-01] MEDS: PROTONIX IV 40 MG IV (07:51)
[2025-02-01] MEDS: HEPARIN 5000 UNITS SC (07:51)
[2025-02-01] MEDS: NSS (PRESERVATIVE FREE) 10 ML IV (07:51)
--- NOTE | 2025-02-01 08:55 | W.PN.GI.CBS2 ---
Addendum entered and electronically signed by Lyndsey Hernandez Do, MD 02/01/25 12:20:
I saw and examined the patient.
The CHIEF DRAFTER's note was reviewed and I agree with the note.
Comment: Patient has improvement in abd pain down to 5 out of 10 now. No nausea/vomiting. Making good UOP in [place]. Vitals stable HR improving. mild TTP epigastric OOB to chair less distress. Labs reviewed LFTs remain normal lipase downtrending
Recommendations
- Adv to CLD with ensure supplement apple
- Nutritional consult
- PT consult
- Surgery consult. Dr Pena to see him tomorrow to discuss timing of CYY given severity of this 2nd episode of suspected gallstone pancreatitis
- No contraindication from GI perspective for anticoagulation with heparin today if desired by cardiology
- Ok to decrease IVF today
updated bedside. Will follow with you.
Original Note:
Today's Communication / Plan
-
Recurrent acute pancreatitis - his initial episode of acute pancreatitis was 2 weeks ago. No etiology was found, although his imaging studies including RUQ US and MRI/MRCP showed sludge in GB. This is likely the cause of recurrent acute
pancreatitis, microlithiasis from sludge. He seldom drinks. No metabolic cause, new meds.
imaging as noted -- US 01/31 reviewed
s/p multiple fluid boluses and remains on NSS at 150ml/hr
pain with slow improvement now 07/29
urine output 2325 over 24 hours creat down to 2.3 with renal follow
remains in NSR cards following with afib during admission--s/p echo as noted
will add clear diet with supplement -- discussed slow small portions as tolerated advance in am pending tolerance- will have dietary review again with patient and family
PT consult
heating pad PRN
remains on SQ heparin for DVT prophylaxis
sent message to Dr. Pena with update and will need OP eval to discuss yeison and family with questions about hernia
updated patient and on status and discussed low fat diet on discharge, close monitoring of worsening abdominal pain, fever, diet intakes. Also discussed needs close monitor if any further complication with pancreatitis- all questions answered
Assessment / Plan
-
69 year old male with h/o CKD stage IIIb, GERD, IBS, essential hypertension, hypothyroidism, BPH, and first episode of acute pancreatitis few weeks ago p/w recurrent acute pancreatitis. After admission noted with rise in creat, CRP >270, 01/30
with patient with rapid afib with RVR and transfer to IVU.
MRI 01/14/25
IMPRESSION:
There is mild T2 hyperintense signal within the pancreatic head and adjacent fat as well as associated mild diffusion hyperintense signal. This likely represents acute interstitial pancreatitis. No peripancreatic collection. No discrete mass is
visualized although follow-up may be considered following resolution of the pancreatitis.
Biliary sludge. There is mild pericholecystic fluid which may be reactive given the likely pancreatitis however can be seen with acute cholecystitis.
There is no biliary duct dilation. There are no filling defects within the common bile duct suggestive of choledocholithiasis.
Abdomen/Pelvis CT 01/29/25
IMPRESSION: Findings suggesting moderate acute pancreatitis.
Severe prostate hypertrophy. Progressed
Mild diffuse bladder wall thickening. This can be seen with cystitis and bladder outlet obstruction. Stable
US abdomen 01/31/25
Mild four-quadrant ascites. Incidental right pleural effusion. No gallstones. No sonographic evidence of acute cholecystitis. No bile duct dilatation. Mild heterogeneous pancreatic parenchymal echotexture.
-recurrent pancreatitis
-afib with RVR newly diagnosed
-right pleural effusion per US
-ascites per US
-acute on chronic CKD
-hyperkalemia normalized
-low grade fever 01/31
-mild MR, mild to moderate TR, PA pressure 45 - per echo
other med problems:
-HTN
-hypothyroidism
-BPH
-hx HH
-GERD
PLAN:
Recurrent acute pancreatitis - his initial episode of acute pancreatitis was 2 weeks ago. No etiology was found, although his imaging studies including RUQ US and MRI/MRCP showed sludge in GB. This is likely the cause of recurrent acute
pancreatitis, microlithiasis from sludge. He seldom drinks. No metabolic cause, new meds.
imaging as noted -- US 01/31 reviewed
s/p multiple fluid boluses and remains on NSS at 150ml/hr
pain with slow improvement now 07/29
urine output 2325 over 24 hours creat down to 2.3 with renal follow
remains in NSR cards following with afib during admission--s/p echo as noted
will add clear diet with supplement -- discussed slow small portions as tolerated advance in am pending tolerance- will have dietary review again with patient and family
PT consult
heating pad PRN
remains on SQ heparin for DVT prophylaxis
sent message to Dr. Pena with update and will need OP eval to discuss yeison and family with questions about hernia
updated patient and on status and discussed low fat diet on discharge, close monitoring of worsening abdominal pain, fever, diet intakes. Also discussed needs close monitor if any further complication with pancreatitis- all questions answered
Subjective
Subjective
Date of Service: February 01, 2025
pt with some improvement, minimal nausea no vomiting, no flatus, pain 07/29 prior 08/01 on admission and 11/29 01/31
Objective
Data Reviewed
Laboratory Data:
Laboratory Results
02/01/25 03:32
02/01/25 03:32
Laboratory Results
Magnesium 1.9 mg/dl (1.6-2.3) 01/31/25 02:51
Total Bilirubin 1.0 mg/dl (0.2-1.3) 02/01/25 03:32
AST 51 U/L (17-59) 02/01/25 03:32
ALT 30 U/L (0-50) 02/01/25 03:32
Alkaline Phosphatase 126 U/L (38-126) 02/01/25 03:32
Lipase 350 U/L (23-300) H 02/01/25 03:32
Vital Signs and I&O:
Vital Signs
Temp Pulse Resp BP Pulse Ox
97.8 F 76 20 143/86 95
02/01/25 07:27 02/01/25 07:45 02/01/25 07:27 02/01/25 07:26 02/01/25 08:00
I&O
01/31/25 02/01/25 02/02/25
06:59 06:59 06:59
Intake Total 2785 / 2785 3900 / 3900
Output Total 875 / 875 2725 / 2725
Balance 1910 / 0 1175 / 1175
Physical Exam
Physical Exam
HEENT: Anicteric and Moist mucous membranes
Cardiology: Normal Sinus Rhythm
Pulmonary: Clear
GI: Soft, Distended (mild ) and Tender (no guarding or rebound)
Extremities: No Edema
Neuro: Non Focal
--- NOTE | 2025-02-01 09:21 | W.PN.CARDCBS ---
Addendum entered and electronically signed by Chano Morrell MD 02/01/25 10:25:
I saw and examined the patient.
The Transit Manager's note was reviewed and I agree with the note.
Comment:
GEN: No distress, awake, Ox3
HEENT: supple, anicteric, mmm
LUNGS: edec BS at bases
CV: Reg, S1/S2, / syst LSB, S3+
ABD: soft, BS dec, + tenderness
EXT: No edema
NEURO: Gross non-focal
SKIN: No rash
PLan:
Still having bursts of atrial fibrillation. Continue to follow on telemetry. Continue IV Lopressor for now eventually switch to oral when adequately taking p.o.'s.
We had a lengthy discussion regarding risks and benefits of anticoagulation. His [id number] score is 2. I think he would clearly benefit from Eliquis. They are going to think about this option and await the plan for surgery. For now they are
agreeable to start IV heparin.
I reviewed the echo with them. LVEF is preserved. He will need an eventual ischemic evaluation.
Creatinine is improving and down to 2.3
His weight is up approximately 10 pounds. Will give Lasix 20 mg IV x 1 today.
On echocardiogram he also has a left pleural effusion. Will check proBNP but he will need some diuresis once pancreatitis settles.
Decrease IV fluids and hopefully he can increase his oral intake
Discussed at length with patient and family.
Original Note:
Today's Communication / Plan
-
Decrease IV fluid rate to 100 cc/h
Patient/family to discuss IV heparin/anticoagulation
Consider addition of antiarrhythmic drug therapy to maintain sinus rhythm in setting of acute illness
Increase IV Lopressor to 5 mg every 6 hours
Impression / Plan
-
Primary Work Over Rig Operator: Dr. Peralta
Assessment:
Presentation with abd pain
Severe acute pancreatitis, concern for passing of sludge as etiology
MANN on CKD stage 3B
Atrial fibrillation, new diagnosis 01/30/25 s/p spontaneous conversion to SR
Hypertension
Hyperlipidemia
Hypothyroidism
BPH
Hiatal hernia
GERD
Former smoker
ECHO 2023: EF 55 to 60%, trace MR, mild aortic sclerosis, trace AR, normal right heart
ECHO 01/31/25: EF 51%, possible mild hypokinesis of anterolateral and inferolateral wall segments, stage I diastolic dysfunction, mild MR, mild to moderate TR, PAP 45 mmHg, pleural effusion noted
Plan:
- Patient being treated for severe acute pancreatitis. Results of CTAP from 01/28 reviewed. GI following. Continue IV fluid, bowel rest and pain management. Patient allowed ice chips and sips of water at this time and is tolerating. Lipase is
downtrending and patient without significant pain today.
- He did have episode of agitation overnight felt to be secondary to Dilaudid
- Creatinine was as high as 3.9 earlier in admission, improving, 2.3 on 02/01. Baseline appears to be 1.5 by review of records
- Patient had episode of paroxysmal atrial fibrillation 01/30 PM, and several brief runs yesterday evening. He is presently in sinus rhythm with ectopy. Will increase IV Lopressor to 5 mg every 6 hours. Blood pressure stable
- Would consider for short-term antiarrhythmic drug therapy
- Discussed anticoagulation with patient/ at bedside. CHADS2 Vascor is 2 for age, hypertension. Hemoglobin is stable and not felt to be any contraindication for anticoagulation from GI standpoint. Would consider trial of IV heparin, however
patient's remains hesitant at this time, and wants to talk to patient further. No history of fall/bleeding issues
- Reviewed results of echocardiogram with patient/ at bedside 02/01
- With evidence of volume overload including significant weight gain from admission as well as pleural effusion noted on echo and increase in PA pressures compared to prior. He is without complaints of shortness of breath. We discussed he may
require diuresis prior to discharge. Discussed with GI and nephrology via [place] text, and IV fluid dosing reduced from 150 cc/h to 100 cc/h. His diet was increased to clear liquids by GI today
- Would plan for outpatient monitor tech to assess A-fib burden once recovered from pancreatitis
- From cardiology standpoint, is okay to be transferred off of IVU
- Discussed with Leigh at bedside
- Discussed with nursing
Progress Note - Work Over Rig Operator
Subjective
Date of Service: February 01, 2025
No complaints
Objective
Labs:
02/01/25 03:32
02/01/25 03:32
Labs
Hgb 11.6 g/dL (13.0-18.0) L 02/01/25 03:32
Hct 33.9 % (39.0-52.0) L 02/01/25 03:32
Plt Count 142 10^3/uL (130-400) D 02/01/25 03:32
Sodium 136 mmol/L (135-145) 02/01/25 03:32
Potassium 3.6 mmol/L (3.5-5.1) 02/01/25 03:32
BUN 49 mg/dl (9-20) H 02/01/25 03:32
Creatinine 2.3 mg/dL (0.7-1.3) H 02/01/25 03:32
Glucose 106 mg/dl (70-99) H 02/01/25 03:32
Vital Signs and I&O:
Vital Signs
Temp Pulse Resp BP Pulse Ox
97.8 F 76 20 143/86 95
02/01/25 07:27 02/01/25 07:45 02/01/25 07:27 02/01/25 07:26 02/01/25 08:00
Vital Signs
Temp Pulse Resp BP Pulse Ox
97.8 F 76 20 143/86 95
02/01/25 07:27 02/01/25 07:45 02/01/25 07:27 02/01/25 07:02/01/25 08:00
Intake & Output
01/30/25 01/31/25 02/01/25 02/02/25
07:59 07:59 07:59 07:59
Intake Total 1375 / 1375 2785 / 2785 3900 / 3900
Output Total 875 / 875 2725 / 2725
Balance 1375 / 1375 1910 / 1910 1175 / 1175
Physical Exam
Physical Exam
GEN: No distress, awake, alert, oriented x3. Frail appearing. Sitting in chair
HEENT: supple, anicteric, mmm, EOMI
LUNGS: Decreased at left lung base, no wheezes
CV: Reg with ectopy, S1/S2, no murmur
ABD: soft, BS+, NT/ND
EXT: No cyanosis, clubbing. Trace edema of bilateral lower extremity
NEURO: Gross non-focal
SKIN: Warm, pink, dry. No rash
[2025-02-01] MEDS: LASIX 20 MG IV (10:46)
--- NOTE | 2025-02-01 10:56 | CM ---
Pricing on Eliquis 5mg IV BID through the patient's [facility] is covered at $50 for a 30 day supply. I will place a free 30 day coupon in the patient's red discharge folder.
[2025-02-01 11:17] LABS: APTT 29.5 Sec (23.4-35.0)
--- NOTE | 2025-02-01 11:18 | W.PN.NEPH.PH ---
Today's Communication / Plan
-
NSS
Assessment/Plan
-
IMP:
Acute pancreatitis
Recurrent Pancreatitis
Acute Kidney Injury
Hyperkalemia
CKD IIIb
Essential hypertension
Hypothyroidism
BPH
GERD
IBS
PLan:
A/w recurrent pancreatitis
MANN-possible prerenal, check Urine studies
CT on admit with no hydro, enlarged prostate -follow bladder scan, 34cc this am
Acidosis improved with bicarbonate
high risk of HD , reviewed wiht at bedside /discussed with primary team
avoid nephrotoxins
BP stable
On normal saline with some pleural effusions on imaging decreased rate to 100 with creatinine improved significantly to 2.2
d/w pt, primary

-
-
Date of Service: February 01, 2025
CC / HPI / ROS
-
Chief Complaint:
Acute on chronic kidney disease abdominal
History of Present Illness:
Pancreatitis acute kidney injury on CKD stage IIIb
Review of Systems:
Abdominal pain improved significantly
Labs
-
Labs:
WBC 9.2 10^3/uL (4.8-10.8) 02/01/25 03:32
RBC 3.72 10^6/uL (4.70-6.10) L 02/01/25 03:32
Hgb 11.6 g/dL (13.0-18.0) L 02/01/25 03:32
Hct 33.9 % (39.0-52.0) L 02/01/25 03:32
Plt Count 142 10^3/uL (130-400) D 02/01/25 03:32
Sodium 136 mmol/L (135-145) 02/01/25 03:32
Potassium 3.6 mmol/L (3.5-5.1) 02/01/25 03:32
Chloride 109 mmol/L (98-107) H 02/01/25 03:32
Carbon Dioxide 27 mmol/L (22-30) 02/01/25 03:32
BUN 49 mg/dl (9-20) H 02/01/25 03:32
Creatinine 2.3 mg/dL (0.7-1.3) H 02/01/25 03:32
eGFR 29.62 02/01/25 03:32
Glucose 106 mg/dl (70-99) H 02/01/25 03:32
Calcium 7.8 mg/dl (8.4-10.2) L 02/01/25 03:32
Albumin 2.2 g/dl (3.5-5.0) L 02/01/25 03:32
Physical Exam
-
Vital Signs:
Vital Signs
Temp Pulse Resp BP Pulse Ox
97.8 F 76 20 143/86 95
02/01/25 07:27 02/01/25 07:45 02/01/25 07:27 02/01/25 07:26 02/01/25 08:00
Respiratory:: Bilateral: Coarse
Lung Excursion:: Normal
Abdomen:: Soft and Tender
Bowel Sounds:: Normal
Extremity Edema:: None: Bilateral:
[2025-02-01] MEDS: LOPRESSOR 5 MG IV ×2 (11:44→17:15)
--- NOTE | 2025-02-01 11:49 | W.PN.ONC ---
Today's Communication / Plan
-
-
Impression
Impression
Recurrent Acute Pancreatitis
IgA Gammopathy, MGUS
Bandemia
Anemia
Acute on Chronic Kidney Disease stage 4
BPH-- progressed severe prostate hypertrophy on CT
New onset Atrial Fibrillation
Hypocalcemia
Hypertension
Hiatal Hernia
Plan
Plan
Bandemia likely related to inflammation from ongoing pancreatitis-- Lipase downtrending currently: 350, CBC stable. Creatinine improving.
-Recommend to continue trending CBC with manual differential
-Continue to monitor signs of infection
-Follow up with urology as outpatient for enlarged prostate as needed.
Subjective/Objective
Subjective/Objective
Mr. Contreras was seen with Dr Lawrence. He was sitting up in a chair next to his bed. He reports that his abdominal pain is still present, but less so in the upper quadrant and more in the right side.
Vital Signs:
Vital Signs
Temp Pulse Resp BP Pulse Ox
97.8 F 84 20 155/91 95
02/01/25 07:27 02/01/25 11:40 02/01/25 07:27 02/01/25 11:40 02/01/25 08:00
Lab Results:
Laboratory Data
WBC 9.2 10^3/uL (4.8-10.8) 02/01/25 03:32
Hgb 11.6 g/dL (13.0-18.0) L 02/01/25 03:32
Plt Count 142 10^3/uL (130-400) D 02/01/25 03:32
APTT 29.5 Sec (23.4-35.0) 02/01/25 10:38
eGFR 29.62 02/01/25 03:32
[2025-02-01] MEDS: HEPARIN 25000 UNITS/250 ML IV (11:51)
--- NOTE | 2025-02-01 12:45 | W.PN.ID1 ---
Date of Service
Date of Service: February 01, 2025
Today's Communication
will follow blood cultures another day, no indication for empiric antibiotics at this time
Assessment / Plan
Bandemia
Recurrent Acute Pancreatitis
MANN on CKD
Elevated inflammatory markers
- patient is afebrile, without leukocytosis, attribute bandemia and elevated CRP to acute inflammation of the pancreas; there is no evidence of pseudocyst at this time
- blood cultures x2 no growth to date
- I do not recommend starting empiric antibiotics at this time
Chief Complaint
-: Other (bandemia/Left shift)
Subjective / Review of Systems
afebrile
bp stable
had PACs, PVCs overnight and brief episode of afib with rvr
disoriented to time overnight - oriented to person place and time today
reports minimal occasional cough
Vital Signs / Physical Exam
Vital Signs
Vital Signs
Temp Pulse Resp BP Pulse Ox
98.2 F 83 18 155/91 93
02/01/25 11:59 02/01/25 11:44 02/01/25 11:59 02/01/25 11:44 02/01/25 11:59
Physical Exam
Constitutional: No Acute Distress
Cardiovascular: Regular Rate and S1/S2; Negative Murmur or Rub
Pulmonary: Clear and Symmetric; Negative Wheezes or Rales
Gastrointestinal: Soft, Non Tender, Non Distended and Normal Bowel Sounds
Skin: Warm and Dry; Negative Rash or Jaundice
Objective Data
Lab Data
Lab Results
02/01/25 03:32
02/01/25 03:32
APTT 29.5 Sec (23.4-35.0) 02/01/25 10:38
Estimated Creat Clear 28 ml/min 02/01/25 03:32
Total Bilirubin 1.0 mg/dl (0.2-1.3) 02/01/25 03:32
AST 51 U/L (17-59) 02/01/25 03:32
ALT 30 U/L (0-50) 02/01/25 03:32
Alkaline Phosphatase 126 U/L (38-126) 02/01/25 03:32
C-Reactive Protein > 270.00 mg/L (0.0-10.00) H 01/31/25 02:51
Most recent labs reviewed.
Micro Results:
01/31/25 17:19 Blood Culture - Pending
Blood/Venous
01/31/25 16:51 Blood Culture - Pending
Blood/Venous
--- NOTE | 2025-02-01 13:59 | PTCARENOTE ---
pt transfer from IVU. pt AAO*3, Vss, c/o 07/29 pain on abd. room air. pt on hep gtt. report from CARLYLE Vasquez. pt's at the bedside updated. pt belongings in the room w/ pt.
--- NOTE | 2025-02-01 14:21 | PTCARENOTE ---
Pt oriented X3, sitting up in a chair. Pt reports minimal abdominal discomfort. Pt started on clear liquid diet, small intake only since pt states it all 'tastes awful'. Telemetry shows sinus rhythm with some PAC's, metoprolol increased to 5mgs
every 6 hours. Heparin infusion started @noon at 800 units/hr, will follow PTT. Pt diuresing well after IV lasix, dubois catheter remains in place. Pt worked with PT. IV fluids continue at a lower rate. Report called to 4th floor and pt transferred
via wheelchair.
[2025-02-01] MEDS: ZOFRAN 4 MG IV (15:21)
[2025-02-01 18:07] LABS: APTT 54.1 Sec (23.4-35.0)
[2025-02-01] MEDS: TYLENOL ORAL SOLUTION PO ×2 (20:14→20:23)
[2025-02-01] MEDS: COMPAZINE 5 MG IV (20:15)
[2025-02-01] MEDS: DILAUDID 0.25 MG IV (23:25)
[2025-02-02] VITALS (8 sets, daily range): BP systolic 129–168; BP diastolic 72–87; O2SAT 89; BMI 21.6
[2025-02-02] MEDS: LOPRESSOR 5 MG IV ×5 (00:12→23:29)
[2025-02-02] MEDS: PEPCID 20 MG IV (00:12)
[2025-02-02] MEDS: TYLENOL ORAL SOLUTION PO ×8 (00:27→23:49)
[2025-02-02 00:34] LABS: APTT 68.6 Sec (23.4-35.0)
[2025-02-02] MEDS: D5/0.9% SODIUM CHLORIDE 1000 IV ×2 (02:47→19:23)
[2025-02-02] MEDS: SYNTHROID 75 MCG PO (05:39)
--- NOTE | 2025-02-02 06:00 | W.PN.GI.CBS2 ---
Today's Communication / Plan
-
Worsening pain and rise in LFTs, concerning for worsening pancreatitis and potential biliary obstruction. Keep NPO for potential intervention and hold IV heparin gtt for potential procedure pending further discussions with Dr. Pierson. See rest of care
and ongoing supportive care as below.
Assessment / Plan
-
Mr. Contreras is a 69 y.o male with h/o CKD stage IIIb, GERD, IBS, essential hypertension, hypothyroidism, BPH, and first episode of acute pancreatitis few weeks ago p/w recurrent acute pancreatitis felt to be biliary/gallstone pancreatitis.
Prior Work-Up / Data Review:
MRI 01/14/25- IMPRESSION: There is mild T2 hyperintense signal within the pancreatic head and adjacent fat as well as associated mild diffusion hyperintense signal. This likely represents acute interstitial pancreatitis. No peripancreatic
collection. No discrete mass is visualized although follow-up may be considered following resolution of the pancreatitis. Biliary sludge. There is mild pericholecystic fluid which may be reactive given the likely pancreatitis however can be seen
with acute cholecystitis. There is no biliary duct dilation. There are no filling defects within the common bile duct suggestive of choledocholithiasis.
Abdomen/Pelvis CT 01/29/25 IMPRESSION: Findings suggesting moderate acute pancreatitis. Severe prostate hypertrophy. Progressed Mild diffuse bladder wall thickening. This can be seen with cystitis and bladder outlet obstruction. Stable
US abdomen 01/31/25 Mild four-quadrant ascites. Incidental right pleural effusion. No gallstones. No sonographic evidence of acute cholecystitis. No bile duct dilatation. Mild heterogeneous pancreatic parenchymal echotexture.
#Recurrent, Acute Pancreatitis (2nd Episode)
#Suspect Biliary/Gallstone Pancreatitis
#Leukocytosis
#A Fib w/ RVR
#MANN on CKD
Worsening epigastric pain and rise in LFTs with T Bili concerning for worsening pancreatitis and possibly biliary obstruction although prior extensive imaging was negative. Given prior unremarkable imaging, still have high suspicion for potential
microlithiasis and/or sludge as source of pancreatitis and worsening symptoms/pain.
Recommendations:
- Keep NPO
- Agree with ongoing IVF for volume expansion
- Trend LFTs q 12 daily
- Given worsening pain and rise in LFTs, favor pursuing EUS with potential ERCP versus repeat MRI/MRCP WWO contrast pending case availability. To be discussed with Dr. Pierson
- Favor holding IV heparin gtt in case of potential intervention
- Started on IV abx given worsening pain and new leukocytosis, reasonable to continue
- Start Miralax 17 gm BiD for bowel regimen for prevention of ileus
- Surgery following, appreciate recs regarding timing of lap yeison
- Continue pain control and IV anti-emetics PRN
- Rest of care per primary team
Discussed with primary internal medicine team this AM. GI will continue to follow.
Subjective
Subjective
Date of Service: February 02, 2025
- No acute events overnight, AM labs pending
- Now with slight rise in leukocytosis and rise in LFTs with T Bili 1.0 -> 1.8. Repeat lipase 350 -> 1381
Had worsening pain last evening and ongoing abdominal discomfort despite pain control. Had worsening epigastric discomfort with pain radiating to his back. No other nausea or vomiting. Denies any fevers, chills or other constitutional symptoms.
Objective
Data Reviewed
Laboratory Data:
Laboratory Results
APTT 68.6 Sec (23.4-35.0) H 02/02/25 00:13
Magnesium 1.9 mg/dl (1.6-2.3) 01/31/25 02:51
Total Bilirubin 1.0 mg/dl (0.2-1.3) 02/01/25 03:32
AST 51 U/L (17-59) 02/01/25 03:32
ALT 30 U/L (0-50) 02/01/25 03:32
Alkaline Phosphatase 126 U/L (38-126) 02/01/25 03:32
Lipase 350 U/L (23-300) H 02/01/25 03:32
Vital Signs and I&O:
Vital Signs
Temp Pulse Resp BP Pulse Ox
98.8 F 110 21 168/75 92
02/02/25 03:21 02/02/25 05:38 02/02/25 03:21 02/02/25 05:38 02/02/25 03:21
I&O
01/31/25 02/01/25 02/02/25
06:59 06:59 06:59
Intake Total 2785 / 2785 3900 / 3900 900 / 900
Output Total 875 / 875 2725 / 2725 3000 / 3000
Balance 1910 / 1910 1175 / 1175 -2100 / -2100
Physical Exam
Physical Exam
HEENT: Anicteric and Moist mucous membranes
Pulmonary: Other (Normal WOB on room air)
GI: Soft, Non Distended and Tender (Moderate tenderness in epigastric region)
Extremities: No Edema
Neuro: Non Focal
[2025-02-02] MEDS: CARDIZEM 5 MG IV (06:34)
--- NOTE | 2025-02-02 06:42 | PTCARENOTE ---
pt HR sustaining 140s-160s, bp 168/75, RR 22, 91% 2 L, 99.7 F. pt denies CP or palpitations. scheduled 0600 IV Lopressor given. SAP FUNCTIONAL ANALYST made aware. EKG done afib with RVR (127). HR ranging from 120s-150s on tele monitor. Cardizem 5 mg IVP ordered and
given. no further orders. plan of care ongoing.
[2025-02-02 07:28] LABS: Hematocrit 33.2 % (39.0-52.0); Hemoglobin 11.2 g/dL (13.0-18.0); Mean Corp Hgb Conc. 33.7 g/dL (33.0-37.0); Mean Corpuscular Volume 92.2 fL (80.0-94.0); Red Cell Dist. Width 13.3 % (11.5-14.5)
[2025-02-02 07:49] LABS: APTT 66.1 Sec (23.4-35.0)
--- NOTE | 2025-02-02 07:50 | W.PN.HOSP.TC ---
Today's Communication/Plan
-
Appreciate all consults
empiric zosyn d/t concern peripancreatic abscess as noted on MRI
follow blood cultures
pain control
clear liquid diet
cont hep gtt, rate control as per Cardio
Replete Electrolytes K, Phos, Mg
IVF rate reduced d/t concerns fluid overload/pleural effusions, continued d/t ongoing concerns pancreatitis/poor oral intake.
Trial Lasix
Assessment / Plan
Assessment / Plan
Physical Exam
General: no acute distress, appears relatively comfortable
HEENT: normocephalic, atraumatic, moist oral mucosa
Respiratory: Clear to Auscultation; Negative Wheezes
Cardiac: Regular Rhythm and S1/S2
Abdomen: decreased bowel sounds, right sided abd tenderness, no rebound tenderness, no CVA tenderness
Musculoskeletal: swelling hands noted suspect third spacing d/t hypoalbuminemia and likely fluid overload
Skin: Warm and Dry; Negative Rash
Neuro: AO x 3
Psych: Calm
IMPRESSION:
69-year-old male with past medical history of CKD stage IIIb, GERD, IBS, essential hypertension, hypothyroidism, BPH, presenting to the ER reporting severe epigastric pain.
MRI 01/14/25
IMPRESSION:
There is mild T2 hyperintense signal within the pancreatic head and adjacent fat as well as associated mild diffusion hyperintense signal. This likely represents acute interstitial pancreatitis. No peripancreatic collection. No discrete mass is
visualized although follow-up may be considered following resolution of the pancreatitis.
Biliary sludge. There is mild pericholecystic fluid which may be reactive given the likely pancreatitis however can be seen with acute cholecystitis.
There is no biliary duct dilation. There are no filling defects within the common bile duct suggestive of choledocholithiasis.
Abdomen/Pelvis CT 01/29/25
IMPRESSION: Findings suggesting moderate acute pancreatitis.
Severe prostate hypertrophy. Progressed
Mild diffuse bladder wall thickening. This can be seen with cystitis and bladder outlet obstruction. Stable
PLAN:
Acute pancreatitis
Recurrent Pancreatitis
Possible Peripancreatic Abscess formation
-No alcohol use, no gallstone, Ca OK, IgG4 WNL (returned from last admission),
-MRI last admission without mass, finding of sludge.
-Gallbladder suspected etiology recurrent pancreatitis
-surgery eval Lap cholecystectomy recommended this hospitalization, timing to be determined
-GI eval appreciated MRI repeated 02/02 given ongoing abd pain, recurrent rise in lipase,
-MRI appreciated concerning for peripancreatic abscess formation, started on empiric zosyn
-Patient otherwise appears relatively stable, consistently afebrile, follow blood cultures
-ID eval appreciated
-cont pain control prn dilaudid reduced to 0.5 mg Q3HPRN d/t concerns AMS, cont Scheduled PO Tylenol
-cont IVF support, rate reduced with advancement diet clear liquid, later further reduced w/ concerns fluid overload, cont for now d/t concerns ongoing pancreatitis
02/02 CXR noted Bilateral Pleural Effusions Lt>Rt, loculated on left
Stable respiratory status
Pulm eval appreciated likely fluid overload combined with hypoalbuminemia
Trial Lasix Diuresis as tolerated for now, follow up CT chest in AM 02/03
Also concern for Right lower lobe pneumonia noted on X-ray report, per discussion w/ pulm suspect compressive atelectasis from pleural effusion instead.
AMS likely multifactorial
Metabolic encephalopathy 2/2 opiate pain meds vs Delirium 2/2 sleep deprivation d/t pain vs Hospital Associate Delirium
opiate pain meds reduced as above
mental status since improved
cont to monitor
Acute Kidney Injury
Hyperkalemia resolved
CKD IIIb
Metabolic Acidosis resolved, bicarb supplementation discontinued
-Maintain Huertas at this time for accurate I/O
-pre-renal MANN in setting of acute pancreatitis with significant rise in creatinine overnight.
-Renal consult appreciated
- Cr high 3.9 since trended down to <2, near baseline
Hypokalemia
Hypophosphatemia
Low Normal Mg level
-monitor replete as necessary
New Onset Afib RVR since spontaneously converted to NSR on cardizem gtt
transferred to IVU 01/31, downgraded 02/01
Cardio eval appreciated Cardizem gtt switched to scheduled IV Lopressor, hep gtt
ECHO appreciated EF 51%
#Essential hypertension
-hold Amlodipine
-Lopressor as above
#Hypothyroidism
Continue levothyroxine
TSH wnl
DVT prophylaxis�heparin subcu
Full code
Discussed with patient and patient's Leigh
I spent a total of 50 minutes with the patient or on the floor. More than 50% of this time involved counseling and coordination of care.
Anticipated Discharge: > 48 hours
Subjective/Interval History
-
Date of Service: February 02, 2025
seen and examined at bedside in no acute distress sitting up comfortably in bed. Overnight events noted intermittent afib and persistent abd discomfort. Tolerating clear liquid diet to an extent though appetite is poor pain remains limiting factor.
present during evaluation.
Objective Data
-
Labs:
Laboratory Results
02/02/25 02/02/25
00:13 06:38
WBC 11.7 H
Hgb 11.2 L
Hct 33.2 L
Plt Count Pending
APTT 68.6 H Pending
Sodium Pending
Potassium Pending
Chloride Pending
Carbon Dioxide Pending
BUN Pending
Creatinine Pending
Glucose Pending
Calcium Pending
Total Bilirubin Pending
AST Pending
ALT Pending
Alkaline Phosphatase Pending
Vital Signs:
Vital Signs
Temp Pulse Resp BP Pulse Ox
99.7 F 127 22 168/75 91
02/02/25 05:50 02/02/25 06:34 02/02/25 05:50 02/02/25 06:34 02/02/25 05:50
I&O
02/01/25 02/02/25 02/03/25
06:59 06:59 06:59
Intake Total 3900 / 3900 900 / 900 1200 / 1200
Output Total 2725 / 2725 4800 / 4800
Balance 1175 / 1175 -3900 / -3900 1200 / 1200
[2025-02-02 08:10] LABS: Absolute Neutrophils -Man Diff 10.1 10^3/uL (1.4-6.5); Platelet Count 102 10^3/uL (130-400)
[2025-02-02 08:11] LABS: Anisocytosis 1+; Hypochromasia 1+; Normal RBC Morphology No; Ovalocytes 1+; Platelets Checked Yes; Polychromasia 1+; Total Cells Counted 100
[2025-02-02 08:14] LABS: ALT (SGPT) 43 U/L (0-50); AST (SGOT) 58 U/L (17-59); Albumin 2.3 g/dl (3.5-5.0); Alkaline Phosphatase 217 U/L (38-126); Blood Urea Nitrogen 37 mg/dl (9-20); Calcium 7.7 mg/dl (8.4-10.2); Carbon Dioxide 27 mmol/L (22-30); Chloride 107 mmol/L (98-107); Estimated Creatinine Clearance 35 ml/min; Glucose 90 mg/dl (70-99); Potassium 2.9 mmol/L (3.5-5.1); Sodium 138 mmol/L (135-145); Total Protein 4.7 g/dl (6.3-8.2); eGFR 39.75
[2025-02-02] MEDS: NSS (PRESERVATIVE FREE) IV (08:29)
[2025-02-02] MEDS: DILAUDID 0.5 MG IV ×5 (08:29→23:32)
[2025-02-02] MEDS: PROTONIX 40 MG PO (08:29)
[2025-02-02] MEDS: FLOMAX 0.4 MG PO (08:29)
[2025-02-02] MEDS: KCL ELIXIR 40 MEQ PO ×2 (08:55→18:04)
--- NOTE | 2025-02-02 09:18 | CON.GS ---
Medical History
-
Chief Complaint: Abdominal pain
History of Present Illness:
Patient is a 69 yo M with a PMH of GERD, HTN, hypothyroidism, IBS, stage III CKD, s/p appendectomy, s/p open LEFT inguinal hernia repair x2 c/b recurrence s/p robotic LEFT inguinal hernia repair by myself in 2020, and s/p robotic RIGHT inguinal
hernia repair by myself in 2023. Mr. Contreras presents with epigastric abdominal pain and discomfort. He was admitted to on 01/28/2025 for management of pancreatitis. He has had persistent abdominal pain and discomfort. He was previously
admitted to from 01/13 to 01/15 for management of pancreatitis. Mr. He reports initially feeling well with no recurrent pain beginning yesterday. Described as epigastric and radiating to the back. No nausea or vomiting. No fevers or chills.
No jaundice, pale stools, or tea-colored urine. No family history of pancreatitis, no significant alcohol use of recent.
Past Medical History
Past Medical History: GERD, HTN, Hypothyroidism and Renal Failure
Past Surgical History: Appendectomy and Hernia Repair (Open LIHx2 c/b recurrence, RAL LIH in 2020, RAL RIH in 2023)
Social History
Tobacco: Former Smoker
Alcohol: Occasional
Drug: None
Personal:
Living: With Family
Family History
Family History: Reviewed & Noncontributory
Allergies / Home Medications
Allergy/AdvReac Type Severity Reaction Status Date / Time
pollen extracts Allergy ENVIRONMENTAL-nasal Verified 01/30/25 17:20
congestion
mucous in
throat
�Medication �Instructions �Recorded �Confirmed �Type
pantoprazole 40 mg tablet,delayed 40 mg PO DAILY gerd 05/24/20 01/28/25 History
release
psyllium husk 0.4 gram capsule 0.8 g PO HS Supplement ##0 05/24/20 01/28/25 History
(Metamucil)
levothyroxine 75 mcg tablet 75 mcg PO DAILY Thyroid 03/08/23 01/28/25 History
tamsulosin 0.4 mg capsule 0.4 mg PO DAILY prostate 03/08/23 01/28/25 History
amlodipine 2.5 mg tablet (Norvasc) 2.5 mg PO DAILY Blood Pressure 01/13/25 01/28/25 History
amlodipine 5 mg tablet (Norvasc) 5 mg PO QPM Blood Pressure 01/13/25 01/28/25 History
famotidine 20 mg tablet (Pepcid) 20 mg PO HS gerd 01/13/25 01/28/25 History
Review of Systems
-
A 10 point review of systems was completed, and was negative except as per HPI.
Physical Exam
Vital Signs
Temp Pulse Resp BP Pulse Ox
97.5 F 85 16 129/75 93
02/02/25 07:00 02/02/25 07:00 02/02/25 07:00 02/02/25 07:00 02/02/25 07:00
02/01/25 02/02/25 02/03/25
06:59 06:59 06:59
Actual Weight 68.1 kg 66.224 kg
Body Mass Index (BMI) 21.6
Lab Results
02/02/25 06:38
02/02/25 06:38
WBC 11.7 10^3/uL (4.8-10.8) H 02/02/25 06:38
Hgb 11.2 g/dL (13.0-18.0) L 02/02/25 06:38
Hct 33.2 % (39.0-52.0) L 02/02/25 06:38
Plt Count 102 10^3/uL (130-400) L D 02/02/25 06:38
Abs Immat Gran (auto) 0.1 10^3/uL (0-0.05) H 02/01/25 03:32
Neutrophils % 85.2 % (42.2-75.2) H 02/01/25 03:32
Physical Exam
General: Pain
HEENT: Normocephalic and Anicteric
Respiratory: Accessory Resp Muscle Use
Cardiac: Regular Rhythm
GI: Soft, Tender (diffusely, mostly in epigastium), Distended and Incisions (well healed)
Musculoskeletal: Edema (+1)
Skin: Warm and Dry
Neuro: Nonfocal/Grossly Intact
Data Reviewed
-
CT Scan: Image Personally Visualized and interpreted and Report Reviewed by me
Ultrasound: Image Personally Visualized and interpreted and Report Reviewed by me
Labs: Labs Reviewed by me
Old Records: Reviewed
Assessment / Plan
-
Patient is a 69 yo M p/w pancreatitis likely biliary in origin
The natural history and pathophysiology of biliary and stone disease was discussed. Anatomy was reviewed. Nuanced discussion had regarding its relationship to pancreatitis was discussed. Role of cholecystectomy and preventing future episodes of
pancreatitis was discussed. Currently with worsening pain, rising WBC and bilirubin - consistent with clinical concern for ongoing pancreatitis or biliary obstruction. Given his recurrent episodes of pancreatitis would recommend cholecystectomy
during this admission. Timing TBD based on clinical course. All questions answered.
-- Laparoscopic cholecystectomy during this admission, timing TBD (when pain resolve, will continue to follow peripherally)
-- Further care per GI and Hospitalist
[2025-02-02 09:24] LABS: C-Reactive Protein 257.90 mg/L (0.0-10.00)
[2025-02-02 09:36] LABS: Lipase 1381 U/L (23-300); Magnesium 1.7 mg/dl (1.6-2.3)
[2025-02-02] MEDS: POTASSIUM PHOSPHATE 259.0909 MEQ IV (10:08)
--- NOTE | 2025-02-02 10:34 | CM ---
Chart reviewed. Pt had elevated HR during the night. Remains on IVF. Possible Lap Choly this admission
Plan: TBD.
[2025-02-02] MEDS: MAGNESIUM SULFATE 50 IV (11:51)
--- NOTE | 2025-02-02 11:58 | W.PN.UPDATE ---
Addendum entered and electronically signed by BRUNA Fox 02/02/25 12:11:
ok to resume heparin gtt review with Dr. Chou and nurse Dasha. I updated nursing staff on plan
Original Note:
Update Note
Progress Note Update
reviewed case with Dr. Pierson and Dr. Chou. Would prefer proceeding with MRI with MRCP next. In reviewed with Dr. Chandra ok to proceed from renal standpoint. Reviewed with and answered multiple questions. would like to further review
with renal prior to proceeding. Nursing to text Dr. Chandra for update. I reviewed with patient and our recommendation and pt has choice to proceed with testing vs hold.
[2025-02-02] MEDS: HEPARIN 25000 UNITS/250 ML IV (13:22)
--- NOTE | 2025-02-02 13:42 | CON.PUL ---
Consultation
Consultation Request
Date/Time Consultation Requested: 02/02/2025
Date/Time Consultation Performed: 02/02/2025
Medical History
-
Chief Complaint: Pleural effusions
History of Present Illness:
Patient is a very pleasant 69-year-old gentleman who was admitted to the hospital on 01/28/2025 with abdominal pain. Patient has history of pancreatitis as well as biliary sludge noted on imaging. Patient was discharged from the hospital with
similar complaints for about 2 weeks ago. In the emergency room patient had a CT scan which was again suggestive of acute pancreatitis. Patient was admitted to the hospital list service, started on IV fluid resuscitation, n.p.o. status and
gastroenterology service was consulted. Admission lipase was noted to be more than 4000. Patient has since been evaluated by GI surgery, general surgery service, and infectious disease service. He was noted to have bandemia without evidence of
active infection and hematology service was also consulted. Stay was further complicated by atrial fibrillation with rapid ventricular rate and patient is followed by cardiology service and is currently on heparin infusion. Stay was further
complicated by acute kidney injury for which nephrology service is on case and after initial rise, creatinine is now declining. Patient has been resuscitated with IV fluids and is currently on IV fluids at 100 mL/h during my evaluation. Patient
recently had an abdominal ultrasound which was suggestive of trace ascites as well as developing right-sided pleural effusion. Subsequently patient had an echocardiogram which again suggested pleural effusion. Patient had a chest x-ray performed
on 02/02 which was suggestive of bilateral pleural effusion, left greater than right. Of note patient had a CT abdomen pelvis with limited view lower thoracic area on 01/28 which showed normal pulmonary parenchyma and absence of pleural effusions.
Patient continues to be asymptomatic from pulmonary standpoint. In view of new diagnosis of bilateral pleural effusions, pulmonary input was requested.
Past Medical History: Reports Other (CKD stage IIIb, GERD, IBS, essential hypertension, hypothyroidism, BPH, pancreatitis)
Past Surgical History: Reports Other (Appendectomy, hernia repair,)
Social History
Tobacco: Former Smoker (remotely in teen/college years)
Alcohol: Occasional
Drug: None
Personal:
Living: With Family
Family History
Family History: Other (MA in father)
Allergies / Home Medications
Allergies
Allergy/AdvReac Type Severity Reaction Status Date / Time
pollen extracts Allergy ENVIRONMENTAL-nasal Verified 01/30/25 17:20
congestion
mucous in
throat
Home Medications
�Medication �Instructions �Recorded �Confirmed �Last Taken �Type
pantoprazole 40 mg tablet,delayed 40 mg PO DAILY gerd 05/24/20 01/28/25 01/13/25 History
release
psyllium husk 0.4 gram capsule 0.8 g PO HS Supplement ##0 05/24/20 01/28/25 01/12/25 History
(Metamucil)
levothyroxine 75 mcg tablet 75 mcg PO DAILY Thyroid 03/08/23 01/28/25 01/13/25 History
tamsulosin 0.4 mg capsule 0.4 mg PO DAILY prostate 03/08/23 01/28/25 01/13/25 History
amlodipine 2.5 mg tablet (Norvasc) 2.5 mg PO DAILY Blood Pressure 01/13/25 01/28/25 01/13/25 History
amlodipine 5 mg tablet (Norvasc) 5 mg PO QPM Blood Pressure 01/13/25 01/28/25 01/12/25 History
famotidine 20 mg tablet (Pepcid) 20 mg PO HS gerd 01/13/25 01/28/25 01/12/25 History
Review of Systems
-
Hematologic/Lymphatic: Other (All 14 systems reviewed and negative except as stated above in the history of present illness.)
Vitals / Labs / Diagnostic Testing
Vital Signs
Temp Pulse Resp BP Pulse Ox
99.2 F 82 16 129/72 93
02/02/25 11:00 02/02/25 11:58 02/02/25 11:00 02/02/25 11:58 02/02/25 12:18
Lab Data
02/02/25 06:38
02/02/25 06:38
Laboratory Results
02/01/25 02/02/25 02/02/25
17:46 00:13 06:38
APTT 54.1 H 68.6 H 66.1 H
Microbiology
01/31/25 17:19 Blood/Venous Blood Culture - Preliminary
No Growth in 24 hours- Final report to follow
01/31/25 16:51 Blood/Venous Blood Culture - Preliminary
No Growth in 24 hours- Final report to follow
Diagnostic Testing:
Physical Exam
-
HEENT: Normocephalic
Cardiovascular: S1/S2
Respiratory: Clear and Non-Labored Respirations
GI: Soft and Non Distended
Neurology: Awake and Alert
Skin: Warm
General: Comfortable
Assessment
-
#1. Bilateral pleural effusions left greater than right
- Suspect pleural effusions are related to volume overload along with hypoalbuminemia, serum albumin 02/02 is 2.3. Patient was admitted for acute pancreatitis and has received IV fluid resuscitation. Most recent BNP on 02/01 was 3140. Stage I
diastolic dysfunction also noted on echocardiogram.
- Pancreatic-pleural fistula also in differential diagnosis however bilateral effusions make volume overload more likely.
- Considering patient is asymptomatic from pulmonary standpoint, recommend lowering IV fluids, diuresis as able and monitor with serial imaging
- Concern for loculation on the left side, will pursue CT chest without contrast in a.m for further evaluation. Will have low threshold for pleural fluid drainage if loculations noted on CT chest.
- If continued enlargement of effusions noted, will pursue IR guided left-sided thoracentesis and send fluid studies including pleural fluid amylase and triglycerides.
- Discussed with GI, nephrology and cardiology service, additional Lasix 40 mg IV x 1 ordered for 02/02.
- Patient has never smoked except for briefly in his teen years and is not known to have any pulmonary disease at baseline. CT abdomen pelvis with limited view of lower thoracic area reviewed (01/28) on admission which was essentially unremarkable
with normal-appearing pulmonary parenchyma and absence of pleural effusions.
#2. Right lower lobe pneumonia versus compressive atelectasis from pleural effusion
- Patient is afebrile, denies any cough or shortness of breath. No purulent expectoration reported either
- Clinically more suggestive of compressive atelectasis due to pleural effusion
- Monitor off antibiotics for now
- Follow-up CT chest without contrast in a.m.
Other medical diagnoses:
- Acute pancreatitis, recurrent. General surgery and gastroenterology service on case. Lipase elevation noted on 02/02
- History of biliary sludge, general surgery service on case
- Isolated bandemia without evidence of active infection. Infectious disease and hematology service on case
- Metabolic encephalopathy
- Acute kidney injury, nephrology service on case
- Paroxysmal atrial fibrillation with rapid ventricular rate, on heparin infusion, cardiology service on case
- Hypertension
- Hypothyroidism
Total time spent on this consultation/encounter __65_ minutes which includes review of history, physical exam, medications, laboratory data, personal review of imaging, extensive review of outpatient records, discussion with care team and
respiratory therapy.
Data:
CXR 01/2025:Moderate bilateral pleural effusions, left larger than right. New. Loculated on left.
Probable mild right lower lobe pneumonia. New.
Probable mild cardiomegaly. New
ECHO 01/2025: 1. Normal left ventricular size and normal LV function with an ejection fraction of 51 % by Holland's biplane method of discs.
2. Possible mild hypokinesis of the anterolateral and inferolateral wall segments.
3. Stage I diastolic dysfunction suggestive of abnormal relaxation.
4. Right ventricular size and systolic function are within normal limits.
5. Aortic sclerosis with no significant stenosis.
6. Mild mitral valve regurgitation.
7. Mild to moderate tricuspid regurgitation. Estimated pulmonary artery pressure of 45 mmHg assuming a right atrial pressure of 15 mmHg.
8. Pleural effusion is noted.
9. Compared to a prior transthoracic echocardiogram study from 07/05/23 Possible mild anterolateral inferolateral hypokinesis is present. A pleural effusion is now present and PA pressure is increased from [address] A/P 01/2025: Findings suggesting moderate acute pancreatitis.
Severe prostate hypertrophy. Progressed
Mild diffuse bladder wall thickening. This can be seen with cystitis and bladder outlet obstruction. Stable
--- NOTE | 2025-02-02 14:35 | W.PN.CARDCBS ---
Addendum entered and electronically signed by Brian Ruvalcaba MD 02/02/25 15:59:
Patient seen and examined
With daughter and at bedside along with patient
Agree with VIC Campbell's note assessment
Agree with VIC Campbell's plan
Exam:
Cachectic
Appears ill
Alert and x 3
Nonfocal neurologically
Cor regular no murmur
Lungs with diminished at each base
Remainder as per [facility] note assessment
Assessment:
Presentation with abd pain
Severe acute pancreatitis, concern for passing of sludge as etiology
MANN on CKD stage 3B
Atrial fibrillation, new diagnosis 01/30/25 s/p spontaneous conversion to SR
Hypertension
Hyperlipidemia
Hypothyroidism
BPH
Hiatal hernia
GERD
Former smoker
ECHO 2023: EF 55 to 60%, trace MR, mild aortic sclerosis, trace AR, normal right heart
ECHO 01/31/25: EF 51%, possible mild hypokinesis of anterolateral and inferolateral wall segments, stage I diastolic dysfunction, mild MR, mild to moderate TR, PAP 45 mmHg, pleural effusion noted
Plan:
- He is being treated for severe acute pancreatitis. GI following. He was given clear liquids yesterday, however with this felt nauseated and today his lipase is back up to 1300. He has now n.p.o. again. He is being considered for MRI/MRCP and
eventual lap yeison. From a cardiovascular standpoint he could proceed to what ever testing and intervention is required and we will help manage and mitigate risk perioperatively.
- Creatinine was as high as 3.9 earlier in admission, improving, 1.8 on 02/02. Baseline appears to be 1.5 by review of records
- He responded well to IV lasix 20mg given 02/01. will give 40mg IV lasix today as written per pulmonary. may need to consider for thoracentesis
- replete K/mag
- Patient remains with paroxysms of afib, asymptomatic. He is presently in sinus rhythm. Continue IV lopressor 5mg Q6H. Could consider for IV amiodarone to maintain SR
- CHADS2 Vasc score is 2 for age, hypertension. started on IV heparin 02/01. plts downtrending, follow
- echo with preserved EF.
- Would plan for outpatient cardiac cath lab technologist to assess A-fib burden once recovered from pancreatitis
- Would consider for eventual ischemic eval as OP once recovered due to echo findings as above
- Discussed with and Leigh and daughter at bedside. reviewed he is medically complex and remains very sick at present.
Original Note:
Today's Communication / Plan
-
IV lasix
replete K/mag
follow Cr
follow rhythm
continue IV lopressor, IV heparin
follow plts
for MRCP per GI and eventual lap yeison
Impression / Plan
-
Primary Anesthesia Tech: Dr. Peralta
Assessment:
Presentation with abd pain
Severe acute pancreatitis, concern for passing of sludge as etiology
MANN on CKD stage 3B
Atrial fibrillation, new diagnosis 01/30/25 s/p spontaneous conversion to SR
Hypertension
Hyperlipidemia
Hypothyroidism
BPH
Hiatal hernia
GERD
Former smoker
ECHO 2023: EF 55 to 60%, trace MR, mild aortic sclerosis, trace AR, normal right heart
ECHO 01/31/25: EF 51%, possible mild hypokinesis of anterolateral and inferolateral wall segments, stage I diastolic dysfunction, mild MR, mild to moderate TR, PAP 45 mmHg, pleural effusion noted
Plan:
- He is being treated for severe acute pancreatitis. GI following. He was given clear liquids yesterday, however with this felt nauseated and today his lipase is back up to 1300. He has now n.p.o. again. He is being considered for MRI/MRCP and
eventual lap yeison.
- Creatinine was as high as 3.9 earlier in admission, improving, 1.8 on 02/02. Baseline appears to be 1.5 by review of records
- He responded well to IV lasix 20mg given 02/01. will give 40mg IV lasix today as written per pulmonary. may need to consider for thoracentesis
- replete K/mag
- Patient remains with paroxysms of afib, asymptomatic. He is presently in sinus rhythm. Continue IV lopressor 5mg Q6H. Could consider for IV amiodarone to maintain SR
- CHADS2 Vasc score is 2 for age, hypertension. started on IV heparin 02/01. plts downtrending, follow
- echo with preserved EF.
- Would plan for outpatient cardiac cath lab technologist to assess A-fib burden once recovered from pancreatitis
- Would consider for eventual ischemic eval as OP once recovered due to echo findings as above
- Discussed with Leigh and daughter at bedside. reviewed he is medically complex and remains very sick at present.
Progress Note - Anesthesia Tech
Subjective
Date of Service: February 02, 2025
patient reports some nausea. denies CP, SOB, palps.
Objective
Labs:
02/02/25 06:38
02/02/25 06:38
Labs
Hgb 11.2 g/dL (13.0-18.0) L 02/02/25 06:38
Hct 33.2 % (39.0-52.0) L 02/02/25 06:38
Plt Count 102 10^3/uL (130-400) L D 02/02/25 06:38
APTT 66.1 Sec (23.4-35.0) H 02/02/25 06:38
Sodium 138 mmol/L (135-145) 02/02/25 06:38
Potassium 2.9 mmol/L (3.5-5.1) L 02/02/25 06:38
BUN 37 mg/dl (9-20) H 02/02/25 06:38
Creatinine 1.8 mg/dL (0.7-1.3) H 02/02/25 06:38
Glucose 90 mg/dl (70-99) 02/02/25 06:38
Vital Signs and I&O:
Vital Signs
Temp Pulse Resp BP Pulse Ox
99.2 F 82 16 129/72 93
02/02/25 11:00 02/02/25 11:58 02/02/25 11:00 02/02/25 11:58 02/02/25 12:18
Vital Signs
Temp Pulse Resp BP Pulse Ox
99.2 F 82 16 129/72 93
02/02/25 11:00 02/02/25 11:58 02/02/25 11:00 02/02/25 11:58 02/02/25 12:18
Intake & Output
01/31/25 02/01/25 02/02/25 02/03/25
07:59 07:59 07:59 07:59
Intake Total 2785 / 2785 3900 / 3900 2100 / 2100 240 / 240
Output Total 875 / 875 2725 / 2725 4800 / 4800
Balance 0 / 1909 1175 / 1175 -2700 / -2700 240 / 240
Physical Exam
Physical Exam
GEN: No distress, awake, alert, oriented x3. Frail appearing, lethargic
HEENT: supple, anicteric, mmm, EOMI
LUNGS: Decreased at bases, no wheezes
CV: Reg with ectopy, S1/S2, no murmur
ABD: soft, BS+, NT/ND
EXT: No cyanosis, clubbing. Trace edema of bilateral lower extremity
NEURO: Gross non-focal
SKIN: Warm, pink, dry. No rash
--- NOTE | 2025-02-02 14:45 | W.PN.ID1 ---
Date of Service
Date of Service: February 02, 2025
Today's Communication
I do not recommend empiric antibiotics at this time
will follow up imaging CT and MRI, follow up blood cultures
no objection to cholecystectomy from ID perspective
Assessment / Plan
Leukocytosis - minimal
Bandemia
Recurrent Acute Pancreatitis
MANN on CKD
Elevated inflammatory markers
- patient is afebrile, without leukocytosis, attribute bandemia and elevated CRP to acute inflammation of the pancreas; there is no evidence of pseudocyst at this time; an MRI abdomen is planned will follow up
- blood cultures x2 no growth to date
- CXR with bilateral effusions and likely compressive atelectasis; CT a/p 01/28 without effusions
- CT chest is planned to assess for loculations - will follow up
- lipase increasing again
- I do not recommend starting empiric antibiotics at this time
- no objection to cholecystectomy from ID perspective
Chief Complaint
-: Other (bandemia/Left shift)
Subjective / Review of Systems
afebrile
bp stable
no cough, shortness of breath or purulent fluid expectorated
reports no change in abdominal pain
Vital Signs / Physical Exam
Vital Signs
Vital Signs
Temp Pulse Resp BP Pulse Ox
99.2 F 82 16 129/72 93
02/02/25 11:00 02/02/25 11:58 02/02/25 11:00 02/02/25 11:58 02/02/25 12:18
Physical Exam
Constitutional: No Acute Distress
Cardiovascular: Regular Rate and S1/S2; Negative Murmur or Rub
Pulmonary: Clear and Symmetric; Negative Wheezes or Rales
Gastrointestinal: Soft, Non Tender, Non Distended and Normal Bowel Sounds
Skin: Warm and Dry; Negative Rash or Jaundice
Objective Data
Lab Data
Lab Results
02/02/25 06:38
02/02/25 06:38
APTT 66.1 Sec (23.4-35.0) H 02/02/25 06:38
Estimated Creat Clear 35 ml/min 02/02/25 06:38
Total Bilirubin 1.8 mg/dl (0.2-1.3) H 02/02/25 06:38
AST 58 U/L (17-59) 02/02/25 06:38
ALT 43 U/L (0-50) 02/02/25 06:38
Alkaline Phosphatase 217 U/L (38-126) H 02/02/25 06:38
C-Reactive Protein 257.90 mg/L (0.0-10.00) H 02/02/25 06:38
Most recent labs reviewed.
Micro Results:
01/31/25 17:19 Blood Culture - Preliminary
Blood/Venous No Growth in 24 hours- Final report to follow
01/31/25 16:51 Blood Culture - Preliminary
Blood/Venous No Growth in 24 hours- Final report to follow
Chest X-Ray: Image Reviewed and Report Reviewed (moderate bilateral pleural effusions)
Care Review
Plan reviewed with: Physician (Dr Alcantar - effusions)
--- NOTE | 2025-02-02 15:27 | W.PN.NEPH.PH ---
Today's Communication / Plan
-
see plan
Assessment/Plan
-
IMP:
Acute pancreatitis
Recurrent Pancreatitis
Acute Kidney Injury
Hyperkalemia
CKD IIIb
Essential hypertension
Hypothyroidism
BPH
GERD
IBS
PLan:
A/w recurrent pancreatitis
MANN-possible prerenal, cr better at 1.8 with IVF
pleural effusion on CXR< ok to decrease LVF rate
replace k-recheck later today, hold lasix till k replaced
MRI/MRCP per GI, ok for tamera with GFR>30
noted potential lap yeison prior d/c
BP stable
reviewed with and daughter at bedside
follow labs
d/w GI
-
-
Date of Service: February 02, 2025
CC / HPI / ROS
-
Chief Complaint:
Acute on chronic kidney disease abdominal
History of Present Illness:
Pancreatitis acute kidney injury on CKD stage IIIb
cr better at 1.8, non oliguric with dubois
lipsae up at 1381
k low 2.9
bp stable
Review of Systems:
Abdominal pain improved significantly
still epigastric on deep breathing
no cp or sob at rest
no fever
Labs
-
Labs:
WBC 11.7 10^3/uL (4.8-10.8) H 02/02/25 06:38
RBC 3.60 10^6/uL (4.70-6.10) L 02/02/25 06:38
Hgb 11.2 g/dL (13.0-18.0) L 02/02/25 06:38
Hct 33.2 % (39.0-52.0) L 02/02/25 06:38
Plt Count 102 10^3/uL (130-400) L D 11/14/25 06:38
Sodium 138 mmol/L (135-145) 02/02/25 06:38
Potassium 2.9 mmol/L (3.5-5.1) L 02/02/25 06:38
Chloride 107 mmol/L (98-107) 02/02/25 06:38
Carbon Dioxide 27 mmol/L (22-30) 02/02/25 06:38
BUN 37 mg/dl (9-20) H 02/02/25 06:38
Creatinine 1.8 mg/dL (0.7-1.3) H 02/02/25 06:38
eGFR 39.75 02/02/25 06:38
Glucose 90 mg/dl (70-99) 02/02/25 06:38
Calcium 7.7 mg/dl (8.4-10.2) L 02/02/25 06:38
Phosphorus 1.7 mg/dl (2.5-4.5) L 02/02/25 06:38
Ovh-O-Jbtemlhobrj Pept 3140 pg/ml 02/01/25 03:32
Albumin 2.3 g/dl (3.5-5.0) L 02/02/25 06:38
Physical Exam
-
Vital Signs:
Vital Signs
Temp Pulse Resp BP Pulse Ox
99.2 F 82 16 129/72 93
02/02/25 11:00 02/02/25 11:58 02/02/25 11:00 02/02/25 11:58 02/02/25 12:18
Cardiovascular:: Regular rate and rhythm
Respiratory:: Bilateral: CTA (decreased BS)
Lung Excursion:: Normal
Abdomen:: Nontender and Soft
Extremity Edema:: None: Bilateral: (trace)
Dubois Catheter: Yes
[2025-02-02 15:31] LABS: APTT 87.5 Sec (23.4-35.0)
--- NOTE | 2025-02-02 15:36 | PTCARENOTE ---
Hep gtt held for MRI as per MD order.
[2025-02-02 19:35] LABS: Blood Urea Nitrogen 36 mg/dl (9-20); Calcium 7.6 mg/dl (8.4-10.2); Carbon Dioxide 28 mmol/L (22-30); Chloride 107 mmol/L (98-107); Estimated Creatinine Clearance 37 ml/min; Glucose 90 mg/dl (70-99); Potassium 4.0 mmol/L (3.5-5.1); Sodium 137 mmol/L (135-145); eGFR 42.57
[2025-02-02] MEDS: ZOSYN 50 IV (20:23)
[2025-02-02] MEDS: PEPCID 20 MG PO (22:26)
[2025-02-02] MEDS: LASIX 40 MG IV (23:28)
[2025-02-03 00:09] LABS: APTT 77.8 Sec (23.4-35.0)
[2025-02-03] MEDS: DILAUDID 0.5 MG IV ×3 (02:32→14:55)
[2025-02-03 03:19] VITALS: BP 126/77
[2025-02-03] MEDS: TYLENOL ORAL SOLUTION PO ×3 (05:15→12:43)
[2025-02-03] MEDS: LOPRESSOR 5 MG IV ×3 (05:17→17:49)
[2025-02-03] MEDS: SYNTHROID 75 MCG PO (05:18)
[2025-02-03 05:48] VITALS: BMI 21.1
--- NOTE | 2025-02-03 06:33 | W.PN.GI.CBS2 ---
Today's Communication / Plan
-
Recent MRI/MRCP with concern for infected acute sandra-pancreatic fluid collection concerning for infected necrotic fluid collection/abscess. Recommend continuing IV Zosyn and advancing diet as able. If ongoing poor p.o intake, would consider
placement of NGT to start enteral feedings. Will continue to follow closely and ongoing supportive care as below. Will continue to update family. See rest of care as outlined below.
Assessment / Plan
-
Mr. Contreras is a 69 y.o male with h/o CKD stage IIIb, GERD, IBS, essential hypertension, hypothyroidism, BPH, and first episode of acute pancreatitis few weeks ago p/w recurrent acute pancreatitis felt to be biliary/gallstone pancreatitis.
Prior Work-Up / Data Review:
MRI 01/14/25- IMPRESSION: There is mild T2 hyperintense signal within the pancreatic head and adjacent fat as well as associated mild diffusion hyperintense signal. This likely represents acute interstitial pancreatitis. No peripancreatic
collection. No discrete mass is visualized although follow-up may be considered following resolution of the pancreatitis. Biliary sludge. There is mild pericholecystic fluid which may be reactive given the likely pancreatitis however can be seen
with acute cholecystitis. There is no biliary duct dilation. There are no filling defects within the common bile duct suggestive of choledocholithiasis.
Abdomen/Pelvis CT 01/29/25 IMPRESSION: Findings suggesting moderate acute pancreatitis. Severe prostate hypertrophy. Progressed Mild diffuse bladder wall thickening. This can be seen with cystitis and bladder outlet obstruction. Stable
US abdomen 01/31/25 Mild four-quadrant ascites. Incidental right pleural effusion. No gallstones. No sonographic evidence of acute cholecystitis. No bile duct dilatation. Mild heterogeneous pancreatic parenchymal echotexture.
MRI WWO contrast 02/02/2025- Impression: worsening peripancreatic edema with interval development of large irregular fluid collection about the pancreatic body and tail measuring up to 10.5 x 7.1 x 10.4 cm, containing gas and debris and suspicious
for acute peripancreatic collection with superinfection (abscess). No convincing evidence for pancreatic necrosis. Mild to moderate abdominopelvic ascites, new. Severe diffuse mesenteric edema, new. Large bilateral pleural effusions with adjacent
airspace disease, new.
#Recurrent, Acute Pancreatitis (2nd Episode)
#Suspect Biliary/Gallstone Pancreatitis
#Acute Peripancreatic Fluid Collection c/f #Acute Infected Necrotic Fluid Collection
#Leukocytosis
#A Fib w/ RVR
#MANN on CKD
Patient with worsening abdominal pain on 02/02 as well as slight bump in LFTs where repeat MRI/MRCP was performed which revealed worsening sandra-pancreatic edema along with development of a large, irregular fluid collection about the pancreatic body
and tail measuring approximately 10 cm containing gas and debris concerning for superinfection. Clinically, this is concerning for an acute infected necrotic fluid collection/abscess. Otherwise, no other evidence to suggest intraparenchymal
pancreatic necrosis. There was evidence of ascites as well as diffuse anasarca with edema and bilateral pleural effusions likely secondary to volume overload from his previous IVF and underlying pancreatitis. He was started on IV Zosyn 02/02
pending repeat blood cultures.
Currently, he does report improving symptoms and is without any other fevers, chills or other constitutional symptoms. Discussed with patient at length regarding starting enteral feedings as this has been associated with better outcomes in patients
with pancreatitis. Wishes to defer placement of NGT for enteral feedings and will try advancement of oral intake as tolerated. For now, would continue empiric IV antibiotics and assess his response over the next 48-72 hours and would defer sampling
fluid collection at this time (i.e. CT-guided IR sampling) and assess response to ongoign IV abx therapy. Would still consider repeat CT imaging in the next 72 hours to reassess his fluid collection and rule out any other potential complications.
Still would benefit from an ongoing bowel regimen as well as ongoing supportive care as below.
Recommendations:
- Advance diet to full liquid diet as tolerated
- If unable to tolerate p.o intake, would consider placement of NG tube to start enteral feedings. Patient wished to defer this at this time
- Recommend stopping further IVF given worsening anasarca on recent MRI and large bilateral effusions on imaging to avoid further volume overload
- Trend LFTs q daily, no evidence of biliary ductal dilatation or other intraluminal bilary defects on MRCP
- Continue IV Zosyn renally-dosed as per kidney function, follow-up repeat blood cultures on 02/02 and ID recommendations
- Will consider repeat CT imaging in next 72 hours or sooner if worsening abd pain, fevers/chills or concern for decompensation
- Start IV PPI for ppx along with continuing bowel regimen with Miralax 17 gm BiD for prevention of ileus
- Would DEFER any plans for a lap yeison this admission given his findings on his recent MRI, but ultimately would benefit from eventual lap in the next few weeks pending recovery
- Continue standing acetaminophen and multimodal pain control
- IV anti-emetics PRN
- Rest of care per primary team
Discussed with primary internal medicine team this AM. GI will continue to follow.
Subjective
Subjective
Date of Service: February 03, 2025
- MRI WWO contrast 02/02/2025- Impression: worsening peripancreatic edema with interval development of large irregular fluid collection about the pancreatic body and tail measuring up to 10.5 x 7.1 x 10.4 cm, containing gas and debris and suspicious
for acute peripancreatic collection with superinfection (abscess). No convincing evidence for pancreatic necrosis. Mild to moderate abdominopelvic ascites, new. Severe diffuse mesenteric edema, new. Large bilateral pleural effusions with adjacent
airspace disease, new.
- Started on IV Zosyn on 02/02/25 given concern for infected acute peripanacreatic fluid collection c/f acute necrotic collection
- Afebrile, HD-stable with rising leukocytosis with WBC 11.7 -> 15.8 and LFTs unchanged
Appears more comfortable this AM, admits better sleep overnight. Tolerating jello without any nausea or vomiting. Still with ongoing epigastric discomfort but does note some improvement. No other fevers, chills, night sweats or other constitutional
symptoms. Passing flatus but still without BM in 4-5 days.
Objective
Data Reviewed
Laboratory Data:
Laboratory Results
APTT 77.8 Sec (23.4-35.0) H 02/02/25 23:26
Phosphorus 1.7 mg/dl (2.5-4.5) L 02/02/25 06:38
Magnesium 1.7 mg/dl (1.6-2.3) 02/02/25 06:38
Total Bilirubin 1.8 mg/dl (0.2-1.3) H 02/02/25 06:38
AST 58 U/L (17-59) 02/02/25 06:38
ALT 43 U/L (0-50) 02/02/25 06:38
Alkaline Phosphatase 217 U/L (38-126) H 02/02/25 06:38
Lipase 1381 U/L (23-300) H* 02/02/25 06:38
Vital Signs and I&O:
Vital Signs
Temp Pulse Resp BP Pulse Ox
98.6 F 86 18 153/84 97
02/03/25 03:19 02/03/25 05:17 02/03/25 03:19 02/03/25 05:17 02/03/25 03:19
I&O
02/01/25 02/02/25 02/03/25
06:59 06:59 06:59
Intake Total 3900 / 3900 900 / 900 2970 / 2970
Output Total 2725 / 2725 4800 / 4800 3550 / 3550
Balance 1175 / 1175 -3900 / -3900 -580 / -580
Physical Exam
Physical Exam
HEENT: Anicteric and Moist mucous membranes
Pulmonary: Other (Normal WOB of breathing on supplemental O2)
GI: Soft, Non Distended and Tender (Mild to moderate TTP in epgiastric region without rebound tenderness or involuntary gaurding)
Extremities: Warm
Neuro: Non Focal
[2025-02-03 06:37] LABS: Hematocrit 37.4 % (39.0-52.0); Hemoglobin 12.0 g/dL (13.0-18.0); Mean Corp Hgb Conc. 32.1 g/dL (33.0-37.0); Mean Corpuscular Volume 92.6 fL (80.0-94.0); Nucleated Red Blood Cells % 0 % (-); Platelet Count 108 10^3/uL (130-400); Red Cell Dist. Width 13.8 % (11.5-14.5)
[2025-02-03 06:40] LABS: APTT 60.1 Sec (23.4-35.0)
[2025-02-03 07:07] LABS: ALT (SGPT) 45 U/L (0-50); AST (SGOT) 57 U/L (17-59); Albumin 2.5 g/dl (3.5-5.0); Alkaline Phosphatase 300 U/L (38-126); Blood Urea Nitrogen 37 mg/dl (9-20); Calcium 7.8 mg/dl (8.4-10.2); Carbon Dioxide 28 mmol/L (22-30); Chloride 104 mmol/L (98-107); Estimated Creatinine Clearance 37 ml/min; Glucose 81 mg/dl (70-99); Magnesium 2.0 mg/dl (1.6-2.3); Potassium 3.5 mmol/L (3.5-5.1); Sodium 138 mmol/L (135-145); Total Protein 5.3 g/dl (6.3-8.2); eGFR 42.57
[2025-02-03 07:27] LABS: Lipase 1960 U/L (23-300)
[2025-02-03 07:32] VITALS: BP 150/79
--- NOTE | 2025-02-03 07:56 | W.PN.HOSP.TC ---
Today's Communication/Plan
-
see a/p
Assessment / Plan
Assessment / Plan
Physical Exam
General: no acute distress, appears relatively comfortable
HEENT: normocephalic, atraumatic, moist oral mucosa
Respiratory: Clear to Auscultation; Negative Wheezes
Cardiac: Regular Rhythm and S1/S2
Abdomen: decreased bowel sounds, right sided abd tenderness, no rebound tenderness, no CVA tenderness
Musculoskeletal: swelling hands noted suspect third spacing d/t hypoalbuminemia and likely fluid overload
Skin: Warm and Dry; Negative Rash
Neuro: AO x 3
Psych: Calm
IMPRESSION:
69-year-old male with past medical history of CKD stage IIIb, GERD, IBS, essential hypertension, hypothyroidism, BPH, presenting to the ER reporting severe epigastric pain.
MRI 01/14/25
IMPRESSION:
There is mild T2 hyperintense signal within the pancreatic head and adjacent fat as well as associated mild diffusion hyperintense signal. This likely represents acute interstitial pancreatitis. No peripancreatic collection. No discrete mass is
visualized although follow-up may be considered following resolution of the pancreatitis.
Biliary sludge. There is mild pericholecystic fluid which may be reactive given the likely pancreatitis however can be seen with acute cholecystitis.
There is no biliary duct dilation. There are no filling defects within the common bile duct suggestive of choledocholithiasis.
Abdomen/Pelvis CT 01/29/25
IMPRESSION: Findings suggesting moderate acute pancreatitis.
Severe prostate hypertrophy. Progressed
Mild diffuse bladder wall thickening. This can be seen with cystitis and bladder outlet obstruction. Stable
PLAN:
Acute pancreatitis
Recurrent Pancreatitis
Possible Peripancreatic Abscess formation
-No alcohol use, no gallstone, Ca OK, IgG4 WNL (returned from last admission),
-MRI last admission without mass, finding of sludge.
-Gallbladder suspected etiology recurrent pancreatitis
-surgery eval eventual Lap cholecystectomy recommended, timing to be determined
-GI eval appreciated MRI repeated 02/02 given ongoing abd pain, recurrent rise in lipase,
-MRI appreciated concerning for peripancreatic abscess formation, started on empiric zosyn 02/03/25
-follow blood cx's
-ID eval appreciated
-cont pain control prn dilaudid reduced to 0.5 mg Q3HPRN d/t concerns AMS, cont Scheduled PO Tylenol
-IVF support completed
Mild Thrombocytopenia
-improving
-suspect combination dilutional from aggressive IVF support and 2/2 inflammation from pancreatitis
-monitor for now.
02/02 CXR noted Bilateral Pleural Effusions Lt>Rt, loculated on left
Stable respiratory status
Pulm eval appreciated likely fluid overload combined with hypoalbuminemia
Trial Lasix Diuresis as tolerated for now, follow up CT chest in AM 02/03
Also concern for Right lower lobe pneumonia noted on X-ray report, per discussion w/ pulm suspect compressive atelectasis from pleural effusion instead.
AMS likely multifactorial
Metabolic encephalopathy 2/2 opiate pain meds vs Delirium 2/2 sleep deprivation d/t pain vs [facility] Delirium
opiate pain meds reduced as above
mental status since improved
cont to monitor
Acute Kidney Injury
Hyperkalemia resolved
CKD IIIb
Metabolic Acidosis resolved, bicarb supplementation discontinued
-Maintain Huertas at this time for accurate I/O
-pre-renal MANN in setting of acute pancreatitis with significant rise in creatinine overnight.
-Renal consult appreciated
- Cr high 3.9 since trended down to <2, near baseline
Hypokalemia
Hypophosphatemia
Low Normal Mg level
-monitor replete as necessary
New Onset Afib RVR since spontaneously converted to NSR on cardizem gtt
transferred to IVU 01/31, downgraded 02/01
Cardio eval appreciated Cardizem gtt switched to scheduled IV Lopressor, hep gtt
ECHO appreciated EF 51%
#Essential hypertension
-hold Amlodipine
-Lopressor as above
#Hypothyroidism
Continue levothyroxine
TSH wnl
DVT prophylaxis�heparin subcu
Full code
Discussed with patient and patient's Leigh
I spent a total of 49 minutes with the patient or on the floor. More than 50% of this time involved counseling and coordination of care.
Anticipated Discharge: > 48 hours
Subjective/Interval History
-
Date of Service: February 03, 2025
No acute distress resting comfortably in bed. Abd pain persists though improvement noted. Tolerating clear liquid diet.
Objective Data
-
Labs:
Laboratory Results
02/02/25 02/03/25 02/03/25
23:26 05:35 13:00
WBC 15.8 H
Hgb 12.0 L
Hct 37.4 L
Plt Count 108 L
APTT 77.8 H 60.1 H Pending
Sodium 138
Potassium 3.5
Chloride 104
Carbon Dioxide 28
BUN 37 H
Creatinine 1.7 H
Glucose 81
Calcium 7.8 L
Total Bilirubin 1.8 H
AST 57
ALT 45
Alkaline Phosphatase 300 H
Vital Signs:
Vital Signs
Temp Pulse Resp BP Pulse Ox
99 F 83 16 150/79 93
02/03/25 07:32 02/03/25 07:32 02/03/25 07:32 02/03/25 07:32 02/03/25 07:32
I&O
02/02/25 02/03/25 02/04/25
06:59 06:59 06:59
Intake Total 900 / 900 3864 / 3864
Output Total 4800 / 4800 3550 / 3550
Balance -3900 / -3900 314 / 314
[2025-02-03] MEDS: FLOMAX 0.4 MG PO (08:09)
[2025-02-03] MEDS: PROTONIX 40 MG PO (08:09)
[2025-02-03] MEDS: ZOSYN 50 IV ×3 (08:10→17:49)
[2025-02-03] MEDS: FLUSH (NSS) 2 FLUSH IV (08:17)
[2025-02-03] MEDS: NSS (PRESERVATIVE FREE) IV (08:47)
[2025-02-03] MEDS: KCL 40 MEQ PO (09:22)
[2025-02-03] MEDS: D5/0.9% SODIUM CHLORIDE 1000 IV (09:22)
--- NOTE | 2025-02-03 10:15 | W.PN.ID1 ---
Date of Service
Date of Service: February 03, 2025
Today's Communication
agree with zosyn
Assessment / Plan
Suspected infected Pancreatic pseudocyst
Recurrent Acute Pancreatitis
Bilateral Pleural Effusions
Leukocytosis
MANN on CKD
Elevated inflammatory markers
- 02/02 blood cultures x2 are in progress
- given gas in the pancreatic body agree with starting zosyn
- sampling the collection can be deferred and empiric therapy trialed at this time
- agree with deferring cholecystectomy for this admission
- follow wbc and clinically
Chief Complaint
-: Leukocytosis and Other (pancreatic pseudocyst)
Subjective / Review of Systems
remains afebrile
bp stable
progressive leukocytosis noted
started on zosyn last night after MRCP showed large fluid collection with gas
patient complains of hiccups which aggrevate his abdominal pain
Vital Signs / Physical Exam
Vital Signs
Vital Signs
Temp Pulse Resp BP Pulse Ox
99 F 83 16 150/79 93
02/03/25 07:32 02/03/25 07:32 02/03/25 07:32 02/03/25 07:32 02/03/25 07:32
Physical Exam
Constitutional: No Acute Distress
Cardiovascular: Regular Rate and S1/S2; Negative Murmur or Rub
Pulmonary: Clear and Symmetric; Negative Wheezes or Rales
Gastrointestinal: Soft, Non Tender, Non Distended and Normal Bowel Sounds
Skin: Warm and Dry; Negative Rash or Jaundice
Objective Data
Lab Data
Lab Results
02/03/25 05:35
02/03/25 05:35
APTT 60.1 Sec (23.4-35.0) H 02/03/25 05:35
Estimated Creat Clear 37 ml/min 02/03/25 05:35
Total Bilirubin 1.8 mg/dl (0.2-1.3) H 02/03/25 05:35
AST 57 U/L (17-59) 02/03/25 05:35
ALT 45 U/L (0-50) 02/03/25 05:35
Alkaline Phosphatase 300 U/L (38-126) H 02/03/25 05:35
C-Reactive Protein 257.90 mg/L (0.0-10.00) H 02/02/25 06:38
Most recent labs reviewed.
Micro Results:
02/02/25 18:37 Blood Culture - Pending
Blood/Venous
02/02/25 19:58 Blood Culture - Pending
Blood/Venous
01/31/25 17:19 Blood Culture - Preliminary
Blood/Venous No Growth in 48 hours- Final report to follow
01/31/25 16:51 Blood Culture - Preliminary
Blood/Venous No Growth in 48 hours- Final report to follow
Care Review
Plan reviewed with: Physician (Dr Chou - sampling fluid and antibiotics)
--- NOTE | 2025-02-03 10:30 | PTCARENOTE ---
Addendum entered and electronically signed by Regina Alcantar MD 02/03/25 13:13:
also possible inflammation for pancreatitis contributing to thrombocytopenia as well
Addendum entered and electronically signed by Regina Alcantar MD 02/03/25 13:10:
MD aware platelets improving likely dilutional from prior aggressive IVF resuscitation. Cont Monitoring with daily labs for now. H&H notes cont to improve, brief nosebleed since resolved. Also monitoring H&H with daily labs for now.
Original Note:
Dr. Alcantar aware of pt's platelet level of 108, was 102 yesterday, no change in orders. Also, made Dr. Alcantar aware that pt had a very brief nose bleed this morning, scant amount of blood. Pt was on O2 at the time, now on RA. Made pt and his aware
that his nose may be dry with the O2. See new orders for Nobles nasal spray, updated pt and his on plan.
[2025-02-03 11:00] VITALS: BP 125/71
[2025-02-03] MEDS: OCEAN, SALINE MIST 1 SPRAYS NASAL ×3 (11:31→21:20)
[2025-02-03 13:11] LABS: APTT 78.6 Sec (23.4-35.0)
[2025-02-03] MEDS: HEPARIN 25000 UNITS/250 ML IV (13:47)
[2025-02-03 15:00] VITALS: BP 143/71
--- NOTE | 2025-02-03 15:38 | W.PN.NEPH.PH ---
Today's Communication / Plan
-
follow labs
Assessment/Plan
-
IMP:
Acute pancreatitis
Recurrent Pancreatitis
Acute Kidney Injury
Hyperkalemia
CKD IIIb
Essential hypertension
Hypothyroidism
BPH
GERD
IBS
PLan:
A/w recurrent pancreatitis
MANN-possible prerenal, cr better at 1.7
CXR noted pleural effusion and hypervolemia on MRI hence remain off IVF
prn lasix, good response from lasix 02/02
k is normal
abx per ID for Suspected infected Pancreatic pseudocyst
BP stable
reviewed with at bedside
follow labs
-
-
Date of Service: February 03, 2025
CC / HPI / ROS
-
Chief Complaint:
Acute on chronic kidney disease abdominal
History of Present Illness:
Pancreatitis acute kidney injury on CKD stage IIIb
cr better at 1.7, non oliguric with dubois
k normal
bp stable
heparin gtt for afib
WBC up at 15.8
wt is down
Review of Systems:
has hiccups
epigastric on deep breathing
no cp or sob at rest
T max 100.3
Labs
-
Labs:
WBC 15.8 10^3/uL (4.8-10.8) H 02/03/25 05:35
RBC 4.04 10^6/uL (4.70-6.10) L 02/03/25 05:35
Hgb 12.0 g/dL (13.0-18.0) L 02/03/25 05:35
Hct 37.4 % (39.0-52.0) L 02/03/25 05:35
Plt Count 108 10^3/uL (130-400) L 02/03/25 05:35
Sodium 138 mmol/L (135-145) 02/03/25 05:35
Potassium 3.5 mmol/L (3.5-5.1) 02/03/25 05:35
Chloride 104 mmol/L (98-107) 02/03/25 05:35
Carbon Dioxide 28 mmol/L (22-30) 02/03/25 05:35
BUN 37 mg/dl (9-20) H 02/03/25 05:35
Creatinine 1.7 mg/dL (0.7-1.3) H 02/03/25 05:35
eGFR 42.57 02/03/25 05:35
Glucose 81 mg/dl (70-99) 02/03/25 05:35
Calcium 7.8 mg/dl (8.4-10.2) L 02/03/25 05:35
Phosphorus 2.5 mg/dl (2.5-4.5) 02/03/25 05:35
Ovy-B-Ensquzkifnj Pept 3140 pg/ml 02/01/25 03:32
Albumin 2.5 g/dl (3.5-5.0) L 02/03/25 05:35
Physical Exam
-
Vital Signs:
Vital Signs
Temp Pulse Resp BP Pulse Ox
99 F 75 20 143/71 92
02/03/25 15:00 02/03/25 15:00 02/03/25 15:00 02/03/25 15:00 02/03/25 15:00
Cardiovascular:: Regular rate and rhythm
Respiratory:: Bilateral: Rales (bases)
Lung Excursion:: Normal
Abdomen:: Soft and Tender (mid abd)
Extremity Edema:: None: Bilateral:
Dubois Catheter: Yes
--- NOTE | 2025-02-03 16:35 | W.PN.PUL3 ---
Today's Communication / Plan
-
Monitor off IVF
Trend lipase
Pain control
Start prn thorazine for bothersome hiccups
HR control with goal <110; heparin gtt
Pulmonary service will continue to follow along
Assessment
-
#1. Bilateral pleural effusions left greater than right
- Suspect pleural effusions are related to volume overload along with acute pancreatitis with capillaritis; patient has low serum albumin but feel this is likely dilutional.
- Patient was admitted for acute pancreatitis and has received IV fluid resuscitation. BNP on 02/01 was 3140. Stage I diastolic dysfunction also noted on echocardiogram.
- Pancreatic-pleural fistula also in differential diagnosis however bilateral effusions make volume overload more likely.
- Now off IVF - monitor off fluids and c/t trend lipase. Diuresis as needed and monitor with serial imaging
- Concern for loculation on the left side, although no evidence from the bases of lungs on abdominal MRI on 02/02/2025; will pursue chest US and if there are septations seen then will pursue CT chest. Low threshold for pleural fluid drainage if
loculations noted on imaging
- If continued enlargement of effusions noted, will pursue IR guided left-sided thoracentesis and send fluid studies including pleural fluid amylase and triglycerides.
- Discussed with GI, nephrology and cardiology service, additional Lasix 40 mg IV x 1 given for 02/02; he also was s/p 20mg IV lasix on 02/01
- Patient has never smoked except for briefly in his teen years and is not known to have any pulmonary disease at baseline. CT abdomen pelvis with limited view of lower thoracic area reviewed (01/28) on admission which was essentially unremarkable
with normal-appearing pulmonary parenchyma and absence of pleural effusions.
#2. Right lower lobe pneumonia versus compressive atelectasis from pleural effusion
- Patient is afebrile, denies any cough or shortness of breath. No purulent expectoration reported either
- Clinically more suggestive of compressive atelectasis due to pleural effusion
- Continue ABx but for pancreatitis
- Airspace disease on right lower lobe reported from abdominal MRI appears to be atelectasis to my view; pneumonia not fully ruled out but is less likely
Other medical diagnoses:
- Acute pancreatitis, recurrent. General surgery and gastroenterology service on case. Lipase elevation noted on 02/02
- History of biliary sludge, general surgery service on case
- Isolated bandemia without evidence of active infection. Infectious disease and hematology service on case
- Metabolic encephalopathy
- Acute kidney injury, nephrology service on case
- Paroxysmal atrial fibrillation with rapid ventricular rate, on heparin infusion, cardiology service on case
- Hypertension
- Hypothyroidism
Patient seen and evaluated on 02/03/2025. Total time spent today was 39 minute for this encounter. Time includes reviewing laboratory tests/imaging results, reviewing pertinent medical records, obtaining and reviewing medical history, performing an
appropriate physical exam, ordering medications, tests and procedures. Time also includes documentation of this encounter, coordinating patient care and communicating with other healthcare professionals. Total time does not include separately
billed tests or procedures performed on this date of service.
Data:
CXR 01/2025:Moderate bilateral pleural effusions, left larger than right. New. Loculated on left.
Probable mild right lower lobe pneumonia. New.
Probable mild cardiomegaly. New
ECHO 01/2025: 1. Normal left ventricular size and normal LV function with an ejection fraction of 51 % by Holland's biplane method of discs.
2. Possible mild hypokinesis of the anterolateral and inferolateral wall segments.
3. Stage I diastolic dysfunction suggestive of abnormal relaxation.
4. Right ventricular size and systolic function are within normal limits.
5. Aortic sclerosis with no significant stenosis.
6. Mild mitral valve regurgitation.
7. Mild to moderate tricuspid regurgitation. Estimated pulmonary artery pressure of 45 mmHg assuming a right atrial pressure of 15 mmHg.
8. Pleural effusion is noted.
9. Compared to a prior transthoracic echocardiogram study from 07/05/23 Possible mild anterolateral inferolateral hypokinesis is present. A pleural effusion is now present and PA pressure is increased from [address] A/P 01/2025: Findings suggesting moderate acute pancreatitis.
Severe prostate hypertrophy. Progressed
Mild diffuse bladder wall thickening. This can be seen with cystitis and bladder outlet obstruction. Stable
Subjective Data
-
Date of Service:
Date of Service: February 03, 2025
Chief Complaint: Pulmonary Follow Up
Subjective:
Patient seen today and evaluated at bedside (late note entry). Currently on room air breathing comfortably. CXR today (02/03) shows improved size of right-sided pleural effusion with stable size of left side compared to yesterday's CXR. His main
complaint is that when he has hiccups he has significant abdominal discomfort. He otherwise denies SOB, STARR, fevers or chills.
Review of Systems
General: Other (Negative unless mentioned above)
Objective Data
Data Reviewed
Vital Signs / I&O / Oxygen:
Vital Signs
Temp Pulse Resp BP Pulse Ox
98.6 F 83 16 150/79 95
02/03/25 09:00 02/03/25 07:32 02/03/25 07:32 02/03/25 07:32 02/03/25 09:00
Intake and Output
02/02/25 02/03/25 02/04/25
06:59 06:59 06:59
Intake Total 900 / 900 3864 / 3864 480 / 480
Output Total 4800 / 4800 3550 / 3550 775 / 775
Balance -3900 / -3900 314 / 314 -295 / -295
SaO2 95
Nasal Cannula flow liters per 2
minute
Physical Exam
General: Respiratory Distress (negative), Comfortable, Chills (negative) and Sweats (negative)
HEENT: Normocephalic and Anicteric
Cardiovascular: S1-S2 and Peripheral Edema (negative)
Respiratory: Wheeze (negative), Crackles (bibasilar (L>R)), Rhonchi (negative) and Non-Labored Respirations
GI: Soft, Non Distended, Non Tender and Normal Bowel Sounds
Neurology: Awake, Alert, Oriented and Tremors (negative)
Skin: Warm, Dry, Cyanosis (negative) and Jaundice (negative)
Labs/Micro/Reports
Lab Data
02/03/25 05:35
02/03/25 05:35
Laboratory Results
02/02/25 02/02/25 02/03/25
14:49 23:26 05:35
APTT 87.5 H 77.8 H 60.1 H
Microbiology
01/31/25 17:19 Blood/Venous Blood Culture - Preliminary
No Growth in 48 hours- Final report to follow
01/31/25 16:51 Blood/Venous Blood Culture - Preliminary
No Growth in 48 hours- Final report to follow
[2025-02-03] MEDS: TYLENOL 650 MG PO ×2 (17:49→20:36)
[2025-02-03 19:28] LABS: APTT 102.1 Sec (23.4-35.0)
[2025-02-03 19:49] VITALS: BP 122/70
[2025-02-03] MEDS: THORAZINE 25 MG PO (20:36)
[2025-02-03 22:57] VITALS: BP 96/61
[2025-02-04] VITALS (7 sets, daily range): BP systolic 102–143; BP diastolic 58–73; BMI 21.5
[2025-02-04] MEDS: TYLENOL 650 MG PO ×5 (00:03→21:10)
[2025-02-04] MEDS: LOPRESSOR 5 MG IV ×5 (00:04→23:26)
[2025-02-04] MEDS: ZOSYN 50 IV ×5 (00:04→23:26)
[2025-02-04] MEDS: THORAZINE 25 MG PO ×3 (02:39→21:58)
[2025-02-04] MEDS: SYNTHROID 75 MCG PO (05:00)
--- NOTE | 2025-02-04 06:07 | W.PN.GI.CBS2 ---
Today's Communication / Plan
-
Fever overnight on 02/03 and rise in leukocytosis while on IV Zosyn however denies any worsening symptoms and improving abdominal pain. Tolerating fulls and may ADAT to low-fat as tolerated and having bowel function. Will obtain repeat imaging with
CT Abd/pelvis tomorrow. Rest of ongoing supportive care as outlined below.
Assessment / Plan
-
Mr. Contreras is a 69 y.o male with h/o CKD stage IIIb, GERD, IBS, essential hypertension, hypothyroidism, BPH, and first episode of acute pancreatitis few weeks ago p/w recurrent acute pancreatitis felt to be biliary/gallstone pancreatitis.
Prior Work-Up / Data Review:
MRI 01/14/25- IMPRESSION: There is mild T2 hyperintense signal within the pancreatic head and adjacent fat as well as associated mild diffusion hyperintense signal. This likely represents acute interstitial pancreatitis. No peripancreatic
collection. No discrete mass is visualized although follow-up may be considered following resolution of the pancreatitis. Biliary sludge. There is mild pericholecystic fluid which may be reactive given the likely pancreatitis however can be seen
with acute cholecystitis. There is no biliary duct dilation. There are no filling defects within the common bile duct suggestive of choledocholithiasis.
Abdomen/Pelvis CT 01/29/25 IMPRESSION: Findings suggesting moderate acute pancreatitis. Severe prostate hypertrophy. Progressed Mild diffuse bladder wall thickening. This can be seen with cystitis and bladder outlet obstruction. Stable
US abdomen 01/31/25 Mild four-quadrant ascites. Incidental right pleural effusion. No gallstones. No sonographic evidence of acute cholecystitis. No bile duct dilatation. Mild heterogeneous pancreatic parenchymal echotexture.
MRI WWO contrast 02/02/2025- Impression: worsening peripancreatic edema with interval development of large irregular fluid collection about the pancreatic body and tail measuring up to 10.5 x 7.1 x 10.4 cm, containing gas and debris and suspicious
for acute peripancreatic collection with superinfection (abscess). No convincing evidence for pancreatic necrosis. Mild to moderate abdominopelvic ascites, new. Severe diffuse mesenteric edema, new. Large bilateral pleural effusions with adjacent
airspace disease, new.
#Recurrent, Acute Pancreatitis (2nd Episode)
#Suspect Biliary/Gallstone Pancreatitis
#Acute Peripancreatic Fluid Collection c/f #Acute Infected Necrotic Fluid Collection
#Leukocytosis
#A Fib w/ RVR
#MANN on CKD
Patient with worsening abdominal pain on 02/02 as well as slight bump in LFTs where repeat MRI/MRCP was performed which revealed worsening sandra-pancreatic edema along with development of a large, irregular fluid collection about the pancreatic body
and tail measuring approximately 10 cm containing gas and debris concerning for superinfection. Clinically, this is concerning for an acute infected necrotic fluid collection/abscess. Otherwise, no other evidence to suggest intraparenchymal
pancreatic necrosis. There was evidence of ascites as well as diffuse anasarca with edema and bilateral pleural effusions likely secondary to volume overload from his previous IVF and underlying pancreatitis. He was started on IV Zosyn 02/02
pending repeat blood cultures. Currently, he does report improving symptoms and is without any other fevers, chills or other constitutional symptoms. For now, would continue empiric IV antibiotics and assess his response over the next 48-72 hours
and would defer sampling fluid collection at this time (i.e. CT-guided IR sampling) and assess response to ongoing IV abx therapy. Would still consider repeat CT imaging in the next 72 hours to reassess his fluid collection and rule out any other
potential complications. Still would benefit from an ongoing bowel regimen as well as ongoing supportive care as below.
Recommendations:
- Continue full liquid diet, may advance to low-fat diet as tolerated
- If still tolerating p.o intake, would defer placement of NGT in regards to enteral feedings
- Would continue to hold IVF given worsening anasarca on recent MRI and large bilateral effusions on imaging to avoid further volume overload
- Trend LFTs q daily, no evidence of biliary ductal dilatation or other intraluminal biliary defects on MRCP
- Trend Hgb with serial CBC given slight drift while on a/c
- Continue IV Zosyn renally-dosed as per kidney function, follow-up repeat blood cultures on 02/02 and ID recommendations
- Recent fever overnight on 02/03 but have defervesced this AM and favor continuing IV Zosyn
- Would plan on obtaining repeat CT Abd/pelvis tomorrow, 02/05/25, for interval f/u of previous superinfected pancreatic fluid collection (c/f superinfected necrosis/abscess)
- IV PPI for ppx along with continuing bowel regimen with Miralax 17 gm BiD for prevention of ileus- now having bowel function
- Continue Thorazine as needed for hiccups and suspect diaphragm-related irritation 2/2 large sandra-pancreatic fluid collection
- Would DEFER any plans for a lap yeison this admission given his findings on his recent MRI, but ultimately would benefit from eventual lap in the next few weeks pending recovery
- Continue standing acetaminophen and multimodal pain control
- IV anti-emetics PRN
- Rest of care per primary team
Discussed with primary internal medicine team this AM. GI will continue to follow. Please call with any questions or concerns.
Subjective
Subjective
Date of Service: February 04, 2025
- Febrile last evening on 02/03 with T Max of 100.6, remains on IV Zosyn, repeat blood cultures 02/02 NG x 24 hrs
- Repeat labs with rise in leukocytosis and slight drift in Hgb
- Otherwise, no acute events overnight
Feeling better this AM, reports improving abdominal pain now 3 out of 10. Able to sleep last night and feeling much better this AM. Able to tolerate full liquids without nausea/vomiting and reports previous hiccups have improved. Febrile last night,
but denies any fevers, chills or other constitutional symptoms. Having bowel function and reports 2-3 brown stools on current bowel regimen.
Objective
Data Reviewed
Laboratory Data:
Laboratory Results
APTT 102.1 Sec (23.4-35.0) H 02/03/25 19:11
Phosphorus 2.5 mg/dl (2.5-4.5) 02/03/25 05:35
Magnesium 2.0 mg/dl (1.6-2.3) 02/03/25 05:35
Total Bilirubin 1.8 mg/dl (0.2-1.3) H 02/03/25 05:35
AST 57 U/L (17-59) 02/03/25 05:35
ALT 45 U/L (0-50) 02/03/25 05:35
Alkaline Phosphatase 300 U/L (38-126) H 02/03/25 05:35
Lipase 1960 U/L (23-300) H* 02/03/25 05:35
Vital Signs and I&O:
Vital Signs
Temp Pulse Resp BP Pulse Ox
98.5 F 90 18 140/74 95
02/04/25 03:38 02/04/25 04:59 02/04/25 03:38 02/04/25 04:59 02/04/25 03:38
I&O
02/02/25 02/03/25 02/04/25
06:59 06:59 06:59
Intake Total 900 / 900 3864 / 3864 1726 / 1726
Output Total 4800 / 4800 3550 / 3550 1125 / 1125
Balance -3900 / -3900 314 / 314 601 / 601
Physical Exam
Physical Exam
HEENT: Anicteric and Moist mucous membranes
Pulmonary: Other (Normal WOB)
GI: Soft, Non Distended and Tender (Mild epigastric tenderness)
Extremities: Edema
Neuro: Non Focal
[2025-02-04 06:09] LABS: Hematocrit 31.4 % (39.0-52.0); Hemoglobin 10.8 g/dL (13.0-18.0); Mean Corp Hgb Conc. 34.4 g/dL (33.0-37.0); Mean Corpuscular Volume 89.0 fL (80.0-94.0); Nucleated Red Blood Cells % 0 % (-); Platelet Count 138 10^3/uL (130-400); Red Cell Dist. Width 13.5 % (11.5-14.5)
[2025-02-04 06:21] LABS: APTT 90.8 Sec (23.4-35.0)
[2025-02-04 06:44] LABS: ALT (SGPT) 46 U/L (0-50); AST (SGOT) 56 U/L (17-59); Albumin 2.1 g/dl (3.5-5.0); Alkaline Phosphatase 323 U/L (38-126); Blood Urea Nitrogen 40 mg/dl (9-20); Calcium 7.9 mg/dl (8.4-10.2); Carbon Dioxide 31 mmol/L (22-30); Chloride 101 mmol/L (98-107); Estimated Creatinine Clearance 31 ml/min; Glucose 72 mg/dl (70-99); Potassium 3.3 mmol/L (3.5-5.1); Sodium 133 mmol/L (135-145); Total Protein 4.6 g/dl (6.3-8.2); eGFR 35.02
[2025-02-04 06:59] LABS: Lipase 3027 U/L (23-300)
[2025-02-04] MEDS: KCL 40 MEQ PO (08:03)
[2025-02-04] MEDS: FLOMAX 0.4 MG PO (08:04)
[2025-02-04] MEDS: PROTONIX IV 40 MG IV (08:04)
[2025-02-04] MEDS: NSS (PRESERVATIVE FREE) 10 ML IV (08:05)
[2025-02-04] MEDS: TYLENOL PO ×2 (08:09→17:30)
--- NOTE | 2025-02-04 08:14 | W.PN.HOSP.TC ---
Today's Communication/Plan
-
Low fat diet as tolerated
pain control
cont abx
thorazine prn hiccups
Follow up in Wednesday CT chest/abd/pelvis oral contrast only
Assessment / Plan
Assessment / Plan
Physical Exam
General: no acute distress, appears relatively comfortable
HEENT: normocephalic, atraumatic, moist oral mucosa
Respiratory: Clear to Auscultation; Negative Wheezes
Cardiac: Regular Rhythm and S1/S2
Abdomen: decreased bowel sounds, soft, mild tenderness
Musculoskeletal: swelling hands noted suspect third spacing d/t hypoalbuminemia and likely fluid overload
Skin: Warm and Dry; Negative Rash
Neuro: AO x 3 conversant coherent
Psych: Calm
IMPRESSION:
69-year-old male with past medical history of CKD stage IIIb, GERD, IBS, essential hypertension, hypothyroidism, BPH, presenting to the ER reporting severe epigastric pain.
MRI 01/14/25
IMPRESSION:
There is mild T2 hyperintense signal within the pancreatic head and adjacent fat as well as associated mild diffusion hyperintense signal. This likely represents acute interstitial pancreatitis. No peripancreatic collection. No discrete mass is
visualized although follow-up may be considered following resolution of the pancreatitis.
Biliary sludge. There is mild pericholecystic fluid which may be reactive given the likely pancreatitis however can be seen with acute cholecystitis.
There is no biliary duct dilation. There are no filling defects within the common bile duct suggestive of choledocholithiasis.
Abdomen/Pelvis CT 01/29/25
IMPRESSION: Findings suggesting moderate acute pancreatitis.
Severe prostate hypertrophy. Progressed
Mild diffuse bladder wall thickening. This can be seen with cystitis and bladder outlet obstruction. Stable
PLAN:
Acute pancreatitis
Recurrent Pancreatitis
Possible Peripancreatic Abscess formation
-No alcohol use, no gallstone, Ca OK, IgG4 WNL (returned from last admission),
-MRI last admission without mass, finding of sludge.
-Gallbladder suspected etiology recurrent pancreatitis
-surgery eval eventual Lap cholecystectomy recommended, timing to be determined
-MRI repeated 02/02 given ongoing abd pain, recurrent rise in lipase,
-MRI appreciated concerning for peripancreatic abscess formation, started on empiric zosyn 02/03/25
-follow blood cx's NGTD
-ID eval appreciated cont zosyn renally dosed
-cont pain control prn dilaudid reduced to 0.5 mg Q3HPRN d/t concerns AMS, cont Scheduled PO Tylenol
-IVF support completed
-GI eval appreciated diet advanced to Low Fat
-Follow up repeat CT abd/pelvis in AM Wednesday (oral contrast only)
02/04/25 New onset diarrhea
follow up cdiff study
isolation precautions
Mild Thrombocytopenia
-suspect combination dilutional from aggressive IVF support and 2/2 inflammation from pancreatitis
-resolved at this time
-cont monitoring
02/02 CXR noted Bilateral Pleural Effusions Lt>Rt, loculated on left
Stable respiratory status
Pulm eval appreciated likely fluid overload combined with hypoalbuminemia
Trial Lasix Diuresis (so far received two doses, no further doses planned at this time), follow up CXR in AM 02/03 noted stable appearance pleural effusions, slight improvement right effusions
Also concern for Right lower lobe pneumonia noted on X-ray report, per discussion w/ pulm suspect compressive atelectasis from pleural effusion instead.
Chest US 02/04 appreciated b/l mod to large subpulmonic pleural effusions, possible loculation
Check Chest CT in AM Mon
AMS likely multifactorial
Metabolic encephalopathy 2/2 opiate pain meds vs Delirium 2/2 sleep deprivation d/t pain vs Hospital [facility] Delirium
opiate pain meds reduced as above
mental status since significantly improved
cont to monitor
Acute Kidney Injury
Hyperkalemia resolved
CKD IIIb
Metabolic Acidosis resolved, bicarb supplementation discontinued
-Maintain Huertas at this time for accurate I/O
-pre-renal MANN in setting of acute pancreatitis with significant rise in creatinine overnight.
-Renal consult appreciated
- Cr high 3.9 since trended down to <2, near baseline
-02/04 noted Cr increase from 1.7 to 2.0, cont to monitor for now off IVF and diuretics at this time
Hypokalemia
Hypophosphatemia
Low Normal Mg level
-monitor replete as necessary
New Onset Afib RVR since spontaneously converted to NSR on cardizem gtt
transferred to IVU 01/31, downgraded to tele 02/01
Cardio eval appreciated Cardizem gtt switched to scheduled IV Lopressor, hep gtt
ECHO appreciated EF 51%
#Essential hypertension
-hold Amlodipine
-Lopressor as above
#Hypothyroidism
Continue levothyroxine
TSH wnl
DVT prophylaxis�heparin subcu
Full code
Discussed with patient and patient's Leigh
I spent a total of 49 minutes with the patient or on the floor. More than 50% of this time involved counseling and coordination of care.
Anticipated Discharge: 24 - 48 hours
Subjective/Interval History
-
Date of Service: February 04, 2025
pain appetite improved. notes significant improvement hiccups w/ prn thorazine. reports diarrhea but otherwise tolerating advancement diet to low fat.
Objective Data
-
Labs:
Laboratory Results
02/04/25 02/04/25
05:23 05:26
WBC 21.9 H
Hgb 10.8 L
Hct 31.4 L
Plt Count 138 D
APTT 90.8 H
Sodium 133 L
Potassium 3.3 L
Chloride 101
Carbon Dioxide 31 H
BUN 40 H
Creatinine 2.0 H
Glucose 72
Calcium 7.9 L
Total Bilirubin 2.1 H
AST 56
ALT 46
Alkaline Phosphatase 323 H
Vital Signs:
Vital Signs
Temp Pulse Resp BP Pulse Ox
99.3 F 80 18 117/59 93
02/04/25 08:07 02/04/25 08:07 02/04/25 08:07 02/04/25 08:07 02/04/25 08:07
I&O
02/03/25 02/04/25 02/05/25
06:59 06:59 06:59
Intake Total 3864 / 3864 1726 / 1726
Output Total 3550 / 3550 1924 / 1924
Balance 314 / 314 -199 / -199
[2025-02-04] MEDS: HEPARIN 25000 UNITS/250 ML IV (09:22)
--- NOTE | 2025-02-04 09:41 | W.PN.ID1 ---
Date of Service
Date of Service: February 04, 2025
Today's Communication
- continue zosyn
Assessment / Plan
Suspected infected Pancreatic pseudocyst
Recurrent Acute Pancreatitis
Bilateral Pleural Effusions
Leukocytosis
MANN on CKD
Elevated inflammatory markers
- 02/02 blood cultures x2 are in progress
- continue zosyn 3.375 mg IV q6 - trend renal function
- sampling the collection can be deferred and empiric therapy trialed at this time
- will follow up repeat CT a/p tomorrow
- follow wbc and clinically
Probable Antibiotic Assc Diarrhea
- check stool for C difficile
Chief Complaint
-: Leukocytosis and Other (pancreatic pseudocyst)
Subjective / Review of Systems
febrile overnight to 100.6
bp stable
brief nose bleed overnight
reports no abdominal pain
low appetite
had several episodes of liquid stool overnight
Vital Signs / Physical Exam
Vital Signs
Vital Signs
Temp Pulse Resp BP Pulse Ox
99.3 F 80 18 117/59 93
02/04/25 08:07 02/04/25 08:07 02/04/25 08:07 02/04/25 08:07 02/04/25 08:07
Physical Exam
Constitutional: No Acute Distress
Cardiovascular: Regular Rate and S1/S2; Negative Murmur or Rub
Pulmonary: Clear and Symmetric; Negative Wheezes or Rales
Gastrointestinal: Soft, Non Tender, Non Distended and Normal Bowel Sounds
Skin: Warm and Dry; Negative Rash or Jaundice
Objective Data
Lab Data
Lab Results
02/04/25 05:23
02/04/25 05:23
APTT 90.8 Sec (23.4-35.0) H 02/04/25 05:26
Estimated Creat Clear 31 ml/min 02/04/25 05:23
Total Bilirubin 2.1 mg/dl (0.2-1.3) H 02/04/25 05:23
AST 56 U/L (17-59) 02/04/25 05:23
ALT 46 U/L (0-50) 02/04/25 05:23
Alkaline Phosphatase 323 U/L (38-126) H 02/04/25 05:23
C-Reactive Protein 257.90 mg/L (0.0-10.00) H 02/02/25 06:38
Most recent labs reviewed.
lipase 1960 -> 3027
Micro Results:
02/02/25 19:58 Blood Culture - Preliminary
Blood/Venous No Growth in 24 hours- Final report to follow
02/02/25 18:37 Blood Culture - Preliminary
Blood/Venous No Growth in 24 hours- Final report to follow
01/31/25 17:19 Blood Culture - Preliminary
Blood/Venous No Growth in 72 hours- Final report to follow
01/31/25 16:51 Blood Culture - Preliminary
Blood/Venous No Growth in 72 hours- Final report to follow
--- NOTE | 2025-02-04 15:22 | W.PN.NEPH.PH ---
Today's Communication / Plan
-
monitor off IVF, encourage po intake
labs in am, keep dubois still
Assessment/Plan
-
IMP:
Acute pancreatitis
Recurrent Pancreatitis
Acute Kidney Injury
Hyperkalemia
CKD IIIb
Essential hypertension
Hypothyroidism
BPH
GERD
IBS
PLan:
A/w recurrent pancreatitis
MANN-possible prerenal, cr up today at 2
Chest US noted pleural effusion bilat, ?loculation
hold lasix as vol seem stable
encourage po intake
replace k
monitor mild hypoantremia
abx per ID for Suspected infected Pancreatic pseudocyst
BP soft on IV BB
lipase increasing level, tolerating diet-repeat CT tomorrow per GI
reviewed with at bedside
follow labs
-
-
Date of Service: February 04, 2025
CC / HPI / ROS
-
Chief Complaint:
Acute on chronic kidney disease abdominal
History of Present Illness:
Pancreatitis acute kidney injury on CKD stage IIIb
cr up at 2.1 non oliguric with dubois
k low 3.3
bp stable
heparin gtt for afib
WBC up at 21
wt is down
Review of Systems:
improved hiccups
epigastric on mild
no cp or sob at rest
Labs
-
Labs:
WBC 21.9 10^3/uL (4.8-10.8) H 02/04/25 05:23
RBC 3.53 10^6/uL (4.70-6.10) L 02/04/25 05:23
Hgb 10.8 g/dL (13.0-18.0) L 02/04/25 05:23
Hct 31.4 % (39.0-52.0) L 02/04/25 05:23
Plt Count 138 10^3/uL (130-400) D 02/04/25 05:23
Sodium 133 mmol/L (135-145) L 02/04/25 05:23
Potassium 3.3 mmol/L (3.5-5.1) L 02/04/25 05:23
Chloride 101 mmol/L (98-107) 02/04/25 05:23
Carbon Dioxide 31 mmol/L (22-30) H 02/04/25 05:23
BUN 40 mg/dl (9-20) H 02/04/25 05:23
Creatinine 2.0 mg/dL (0.7-1.3) H 02/04/25 05:23
eGFR 35.02 02/04/25 05:23
Glucose 72 mg/dl (70-99) 02/04/25 05:23
Calcium 7.9 mg/dl (8.4-10.2) L 02/04/25 05:23
Phosphorus 2.5 mg/dl (2.5-4.5) 02/03/25 05:35
Moe-H-Fcqwhxsjguq Pept 3140 pg/ml 02/01/25 03:32
Albumin 2.1 g/dl (3.5-5.0) L 02/04/25 05:23
Physical Exam
-
Vital Signs:
Vital Signs
Temp Pulse Resp BP Pulse Ox
97.0 F 82 18 143/73 92
02/04/25 11:07 02/04/25 11:07 02/04/25 11:07 02/04/25 11:07 02/04/25 11:07
Cardiovascular:: Regular rate and rhythm
Lung Excursion:: Normal (decreased right base than left)
Abdomen:: Soft and Tender (mid abd)
Extremity Edema:: None: Bilateral:
Dubois Catheter: Yes
--- NOTE | 2025-02-04 16:23 | W.PN.PUL3 ---
Today's Communication / Plan
-
Monitor off IVF
Trend lipase
Pain control
Continue prn thorazine for bothersome hiccups
HR control with goal <110; heparin gtt
CT chest tomorrow AM --> will decide if effusions need to be drained based on this; if highly loculated then may need chest tubes +/- lytic instillation; otherwise if fluid appears predominantly simple with minimal loculation, then would pursue
thoracentesis with repeat imaging.
Pulmonary service will continue to follow along
Assessment
-
#1. Bilateral pleural effusions left greater than right
- Suspect pleural effusions are related to volume overload along with acute pancreatitis with capillaritis; patient has low serum albumin but feel this is likely dilutional.
- Patient was admitted for acute pancreatitis and has received IV fluid resuscitation. BNP on 02/01 was 3140. Stage I diastolic dysfunction also noted on echocardiogram.
- Pancreatic-pleural fistula also in differential diagnosis however bilateral effusions make volume overload more likely.
- Now off IVF - monitor off fluids and c/t trend lipase. Diuresis as needed and monitor with serial imaging
- Concern for loculation on the left side, although no evidence from the bases of lungs on abdominal MRI on 02/02/2025; chest US performed today (02/04) shows bilateral moderate�large subpulmonic pleural effusions with possible loculation. - ->
Obtain CT chest tomorrow AM --> will decide if effusions need to be drained based on this; if effusions appear highly loculated then may need chest tubes +/- tpA/dornase; otherwise if fluid appears predominantly simple with minimal loculation, then
would pursue thoracentesis with repeat imaging.
- If continued enlargement of effusions noted, will pursue IR guided left-sided thoracentesis and send fluid studies including pleural fluid amylase and triglycerides.
- Discussed with GI, nephrology and cardiology service, additional Lasix 40 mg IV x 1 given for 02/02; he also was s/p 20mg IV lasix on 02/01
- Patient has never smoked except for briefly in his teen years and is not known to have any pulmonary disease at baseline. CT abdomen pelvis with limited view of lower thoracic area reviewed (01/28) on admission which was essentially unremarkable
with normal-appearing pulmonary parenchyma and absence of pleural effusions.
#2. Right lower lobe pneumonia versus compressive atelectasis from pleural effusion
- Patient is afebrile, denies any cough or shortness of breath. No purulent expectoration reported either
- Clinically more suggestive of compressive atelectasis due to pleural effusion
- Continue ABx but for pancreatitis
- Airspace disease on right lower lobe reported from abdominal MRI appears to be atelectasis to my view; pneumonia not fully ruled out but is less likely - will eval further on CT Chest on 02/05
Other medical diagnoses:
- Acute pancreatitis, recurrent. General surgery and gastroenterology service on case. Lipase elevation noted on 02/02
- History of biliary sludge, general surgery service on case
- Isolated bandemia without evidence of active infection. Infectious disease and hematology service on case
- Metabolic encephalopathy
- Acute kidney injury, nephrology service on case
- Paroxysmal atrial fibrillation with rapid ventricular rate, on heparin infusion, cardiology service on case
- Hypertension
- Hypothyroidism
Total time spent today was 36 minute for this encounter. Time includes reviewing laboratory tests/imaging results, reviewing pertinent medical records, obtaining and reviewing medical history, performing an appropriate physical exam, ordering
medications, tests and procedures. Time also includes documentation of this encounter, coordinating patient care and communicating with other healthcare professionals. Total time does not include separately billed tests or procedures performed on
this date of service.
Data:
CXR 01/2025:Moderate bilateral pleural effusions, left larger than right. New. Loculated on left.
Probable mild right lower lobe pneumonia. New.
Probable mild cardiomegaly. New
ECHO 01/2025: 1. Normal left ventricular size and normal LV function with an ejection fraction of 51 % by Holland's biplane method of discs.
2. Possible mild hypokinesis of the anterolateral and inferolateral wall segments.
3. Stage I diastolic dysfunction suggestive of abnormal relaxation.
4. Right ventricular size and systolic function are within normal limits.
5. Aortic sclerosis with no significant stenosis.
6. Mild mitral valve regurgitation.
7. Mild to moderate tricuspid regurgitation. Estimated pulmonary artery pressure of 45 mmHg assuming a right atrial pressure of 15 mmHg.
8. Pleural effusion is noted.
9. Compared to a prior transthoracic echocardiogram study from 07/05/23 Possible mild anterolateral inferolateral hypokinesis is present. A pleural effusion is now present and PA pressure is increased from [address] A/P 01/2025: Findings suggesting moderate acute pancreatitis.
Severe prostate hypertrophy. Progressed
Mild diffuse bladder wall thickening. This can be seen with cystitis and bladder outlet obstruction. Stable
Chest US 02/04/2025:
Bilateral moderate to large subpulmonic pleural effusions. These do not appear to layer posteriorly, raising the possibility of loculation. Consider further evaluation with chest CT if it is deemed clinically necessary to confirm or exclude
loculated nature.
Subjective Data
-
Date of Service:
Date of Service: February 04, 2025
Chief Complaint: Pulmonary Follow Up
Subjective:
Patient seen and evaluated this morning (late note entry). Febrile last night to 100.6 �F. Patient's is currently at bedside and all questions were answered. Patient's lipase is unfortunately continuing to rise (3027 this morning). Patient
currently on room air. He feels like there is pressure/bubbling in his lower chest but otherwise denies SOB at rest, chest pain, STARR, nausea, fevers or chills.
Review of Systems
General: Other (Negative unless mentioned above)
Objective Data
Data Reviewed
Vital Signs / I&O / Oxygen:
Vital Signs
Temp Pulse Resp BP Pulse Ox
99.3 F 80 18 117/59 93
02/04/25 08:07 02/04/25 08:07 02/04/25 08:07 02/04/25 08:07 02/04/25 08:07
Intake and Output
02/03/25 02/04/25 02/05/25
06:59 06:59 06:59
Intake Total 3864 / 3864 1726 / 1726
Output Total 3550 / 3550 1924 / 1924
Balance 314 / 314 -199 / -199
SaO2 93
Nasal Cannula flow liters per 2
minute
Physical Exam
General: Respiratory Distress (negative), Comfortable, Chills (negative) and Sweats (negative)
HEENT: Normocephalic and Anicteric
Cardiovascular: S1-S2 and Peripheral Edema (negative)
Respiratory: Wheeze (negative), Crackles (bibasilar (L>R)), Rhonchi (negative), Non-Labored Respirations and Other (Diminished breath sounds at the bases)
GI: Soft, Non Distended, Non Tender and Normal Bowel Sounds
Neurology: Awake, Alert, Oriented and Tremors (negative)
Skin: Warm, Dry, Cyanosis (negative) and Jaundice (negative)
Labs/Micro/Reports
Lab Data
02/04/25 05:23
02/04/25 05:23
Laboratory Results
02/03/25 02/03/25 02/04/25
12:50 19:11 05:26
APTT 78.6 H 102.1 H 90.8 H
Microbiology
02/02/25 19:58 Blood/Venous Blood Culture - Preliminary
No Growth in 24 hours- Final report to follow
02/02/25 18:37 Blood/Venous Blood Culture - Preliminary
No Growth in 24 hours- Final report to follow
01/31/25 17:19 Blood/Venous Blood Culture - Preliminary
No Growth in 72 hours- Final report to follow
01/31/25 16:51 Blood/Venous Blood Culture - Preliminary
No Growth in 72 hours- Final report to follow
[2025-02-04] MEDS: DILAUDID 0.5 MG IV ×2 (17:43→21:16)
--- NOTE | 2025-02-04 18:47 | W.PN.CARDCBS ---
Today's Communication / Plan
-
Will reevaluate pleural effusions with CT imaging and chest ultrasound Wednesday for possible thoracentesis
Hold off on further Lasix at this time
Continue heparin drip with close monitoring of hemoglobin/platelets for PAF
Impression / Plan
-
Primary Coordinator Of Evaluation: Dr. Peralta
Assessment:
Presentation with abd pain
Severe acute pancreatitis, concern for passing of sludge as etiology
MANN on CKD stage 3B
Atrial fibrillation, new diagnosis 01/30/25 s/p spontaneous conversion to SR
Hypertension
Hyperlipidemia
Hypothyroidism
BPH
Hiatal hernia
GERD
Former smoker
ECHO 2023: EF 55 to 60%, trace MR, mild aortic sclerosis, trace AR, normal right heart
ECHO 01/31/25: EF 51%, possible mild hypokinesis of anterolateral and inferolateral wall segments, stage I diastolic dysfunction, mild MR, mild to moderate TR, PAP 45 mmHg, pleural effusion noted
Plan:
69-year-old gentleman with recurrent biliary/gallstone pancreatitis with concern for infected pancreatic pseudocyst being followed by general surgery, gastroenterology and ID with no plans for surgery on Wednesday with acute on chronic renal failure,
volume overload/anasarca with preserved ejection fraction and PAF
- Patient is on empiric antibiotics per GI for concern for abscess/infected pseudocyst
- Plan for repeat CT imaging possibly Wednesday but no plans for any surgical procedures at this time.
- Patient also has anasarca and bilateral pleural effusions with volume overload following IV fluid resuscitation. proBNP 02/01 was 3140. Now off IV fluids. Has received several doses of IV Lasix however will hold today given increasing
creatinine now 2.
- Agree with plan for chest ultrasound tomorrow to evaluate for suitability of thoracentesis
- Monitor renal function closely. Replete potassium for greater than 4, follow magnesium.
- Patient also has paroxysms of asymptomatic atrial fibrillation currently in sinus rhythm. Continue IV heparin with close monitoring of hemoglobin and platelets, currently stable. Continue IV Lopressor with hold parameters.
- echo with preserved EF.
- Would plan for outpatient conveyor monitor to assess A-fib burden once recovered from pancreatitis
- Would consider for eventual ischemic eval as OP once recovered due to echo findings as above
Progress Note - Coordinator Of Evaluation
Subjective
Date of Service: February 04, 2025
Patient seen and examined. Chart/telemetry reviewed. Patient had a fever last evening. Denies chest pain or pressure, shortness of breath is stable at rest. Abdominal distention without nausea.
Objective
Labs:
02/04/25 05:23
02/04/25 05:23
Labs
Hgb 10.8 g/dL (13.0-18.0) L 02/04/25 05:23
Hct 31.4 % (39.0-52.0) L 02/04/25 05:23
Plt Count 138 10^3/uL (130-400) D 02/04/25 05:23
APTT 90.8 Sec (23.4-35.0) H 02/04/25 05:26
Sodium 133 mmol/L (135-145) L 02/04/25 05:23
Potassium 3.3 mmol/L (3.5-5.1) L 02/04/25 05:23
BUN 40 mg/dl (9-20) H 02/04/25 05:23
Creatinine 2.0 mg/dL (0.7-1.3) H 02/04/25 05:23
Glucose 72 mg/dl (70-99) 02/04/25 05:23
Vital Signs and I&O:
Vital Signs
Temp Pulse Resp BP Pulse Ox
98.9 F 80 18 120/69 94
02/04/25 15:23 02/04/25 17:36 02/04/25 15:23 02/04/25 17:36 02/04/25 15:23
Vital Signs
Temp Pulse Resp BP Pulse Ox
98.9 F 80 18 120/69 94
02/04/25 15:23 02/04/25 17:36 02/04/25 15:23 02/04/25 17:36 02/04/25 15:23
Intake & Output
02/02/25 02/03/25 02/04/25 02/05/25
06:59 06:59 06:59 06:59
Intake Total 900 / 900 3864 / 3864 1726 / 1726 750 / 750
Output Total 4800 / 4800 3550 / 3550 1925 / 1925 480 / 480
Balance -3900 / -3900 314 / 314 -199 / -199 270 / 270
Physical Exam
Physical Exam
GEN: No distress, awake, alert, oriented x3. Frail appearing, lethargic
HEENT: mmm
LUNGS: Decreased at bases, no wheezes
CV: Reg with ectopy, S1/S2, no murmur
ABD: soft, BS+, NT/ND
EXT: Trace edema of bilateral lower extremity
[2025-02-04] MEDS: PEPCID 20 MG PO (21:11)
[2025-02-04] MEDS: ZOFRAN 4 MG IV (21:59)
[2025-02-04] MEDS: MYLICON 80 MG PO (22:09)
--- NOTE | 2025-02-04 22:51 | PTCARENOTE ---
Pt complains about severe epigastric pain (7/10), mild nausea and bloating. Pt also with SOB. SpO2=95% on RA. RR=20, XF=032/64, HR=77. Lungs diminished on physical exam, epigastric area w/tenderness. WAREHOUSE GUARD made aware about pt condition, came in to
assess the pt and ordered Mylicon for bloating, and O2 for pt comfort. Pt given Zofran for nausea, Thorazine for hiccups, and Mylicon for bloating. Pt is resting in his bed at this time. Will continue to monitor the pt.
[2025-02-05] VITALS (7 sets, daily range): BP systolic 95–118; BP diastolic 54–78; BMI 21.1
[2025-02-05] MEDS: TYLENOL 650 MG PO ×5 (01:04→22:06)
[2025-02-05] MEDS: HEPARIN 25000 UNITS/250 ML IV (01:56)
[2025-02-05] MEDS: LOPRESSOR 5 MG IV ×2 (05:12→17:47)
[2025-02-05] MEDS: SYNTHROID 75 MCG PO (05:13)
[2025-02-05] MEDS: ZOSYN 50 IV ×3 (05:13→17:47)
--- NOTE | 2025-02-05 06:07 | W.PN.GI.CBS2 ---
Today's Communication / Plan
-
Concern for drop in H/h and favor holding a/c this AM. Obtain CT Abd/pelvis to reassess previous peripancreatic fluid collection (c/f abscess) and r/o hemorrhagic component given drop in Hgb. Keep NPO pending CT imaging. Will continue to follow.
Assessment / Plan
-
Mr. Contreras is a 69 y.o male with h/o CKD stage IIIb, GERD, IBS, essential hypertension, hypothyroidism, BPH, and first episode of acute pancreatitis few weeks ago p/w recurrent acute pancreatitis felt to be biliary/gallstone pancreatitis.
Prior Work-Up / Data Review:
MRI 01/14/25- IMPRESSION: There is mild T2 hyperintense signal within the pancreatic head and adjacent fat as well as associated mild diffusion hyperintense signal. This likely represents acute interstitial pancreatitis. No peripancreatic
collection. No discrete mass is visualized although follow-up may be considered following resolution of the pancreatitis. Biliary sludge. There is mild pericholecystic fluid which may be reactive given the likely pancreatitis however can be seen
with acute cholecystitis. There is no biliary duct dilation. There are no filling defects within the common bile duct suggestive of choledocholithiasis.
Abdomen/Pelvis CT 01/29/25 IMPRESSION: Findings suggesting moderate acute pancreatitis. Severe prostate hypertrophy. Progressed Mild diffuse bladder wall thickening. This can be seen with cystitis and bladder outlet obstruction. Stable
US abdomen 01/31/25 Mild four-quadrant ascites. Incidental right pleural effusion. No gallstones. No sonographic evidence of acute cholecystitis. No bile duct dilatation. Mild heterogeneous pancreatic parenchymal echotexture.
MRI WWO contrast 02/02/2025- Impression: worsening peripancreatic edema with interval development of large irregular fluid collection about the pancreatic body and tail measuring up to 10.5 x 7.1 x 10.4 cm, containing gas and debris and suspicious
for acute peripancreatic collection with superinfection (abscess). No convincing evidence for pancreatic necrosis. Mild to moderate abdominopelvic ascites, new. Severe diffuse mesenteric edema, new. Large bilateral pleural effusions with adjacent
airspace disease, new.
#Recurrent, Acute Pancreatitis (2nd Episode)
#Suspect Biliary/Gallstone Pancreatitis
#Acute Peripancreatic Fluid Collection c/f #Acute Infected Necrotic Fluid Collection
#Leukocytosis
#A Fib w/ RVR
#MANN on CKD
Patient with worsening abdominal pain on 02/02 as well as slight bump in LFTs where repeat MRI/MRCP was performed which revealed worsening sandra-pancreatic edema along with development of a large, irregular fluid collection about the pancreatic body
and tail measuring approximately 10 cm containing gas and debris concerning for superinfection. Clinically, this is concerning for an acute infected necrotic fluid collection/abscess. Otherwise, no other evidence to suggest intraparenchymal
pancreatic necrosis. There was evidence of ascites as well as diffuse anasarca with edema and bilateral pleural effusions likely secondary to volume overload from his previous IVF and underlying pancreatitis. He was started on IV Zosyn 02/02
pending repeat blood cultures. Currently, he does report improving symptoms and is without any other fevers, chills or other constitutional symptoms. For now, would continue empiric IV antibiotics and assess his response over the next 48-72 hours
and would defer sampling fluid collection at this time (i.e. CT-guided IR sampling) and assess response to ongoing IV abx therapy. Would still consider repeat CT imaging in the next 72 hours to reassess his fluid collection and rule out any other
potential complications. Still would benefit from an ongoing bowel regimen as well as ongoing supportive care as below.
Rise in leukocytosis with WBC 21.9 -> 31.0 with left shift and drop in H/h with Hgb 10.8 -> 9.1 on AM labs. Clinically, patient reports significant improvement in regards to his previous abdominal pain and near resolution of symptoms. However, given
rise in WBC and drop in Hgb, concern for his previous irregular acute peripancreatic fluid collection (c/f infected necrotic fluid collection/abscess) and favor CT imaging today to exclude any hemorrhagic component given his drop in H/h.
Recommendations:
- Previously tolerating LFD, keep NPO pending CT scan
- Hold further IVF given worsening anasarca and to avoid further volume overload
- Trend LFTs q daily, no evidence of biliary ductal dilatation or other intraluminal biliary defects on MRCP
- Given drop in H/h, favor holding a/c. HOLD IV heparin gtt this AM
- Plan to obtain CT Abd/pelvis with oral and IV contrast for further evaluation of previous peripancreatic fluid collection and recent drop in Hgb if concern for possible hemorrhagic component
- Continue IV Zosyn renally-dosed as per kidney function. Rise in leukocytosis however appears to be improving clinically
- IV PPI for ppx along with continuing bowel regimen with Miralax 17 gm BiD for prevention of ileus- now having bowel function
- Continue Thorazine as needed for hiccups and suspect diaphragm-related irritation 2/2 large sandra-pancreatic fluid collection
- Would DEFER any plans for a lap yeison this admission given his findings on his recent MRI, but ultimately would benefit from eventual lap in the next few weeks pending recovery
- Continue standing acetaminophen and multimodal pain control
- IV anti-emetics PRN
- Rest of care per primary team
Discussed with primary internal medicine team and patient this AM. GI will continue to follow. Please call with any questions or concerns.
Subjective
Subjective
Date of Service: February 05, 2025
- Remains afebrile on IV Zosyn, blood cultures 02/02 NG x 48 hrs
- Diet advanced to LFD on 02/04
- Rise in leukocytosis with WBC 21.9 -> 31.0 with left shift and drop in H/h with Hgb 10.8 -> 9.1, pending LFTs
Resting comfortably and clinically looks much improved. Tolerating low-fat diet without difficulty yesterday afternoon/evening, able to eat chicken salad without any abdominal pain or vomiting. Continues to deny any fevers/chills or other
constitutional symptoms and denies any abdominal pain/discomfort currently. Discussed pursuing repeat CT imaging this AM.
Objective
Data Reviewed
Laboratory Data:
Laboratory Results
APTT 90.8 Sec (23.4-35.0) H 02/04/25 05:26
Phosphorus 2.5 mg/dl (2.5-4.5) 02/03/25 05:35
Magnesium 2.0 mg/dl (1.6-2.3) 02/03/25 05:35
Total Bilirubin 2.1 mg/dl (0.2-1.3) H 02/04/25 05:23
AST 56 U/L (17-59) 02/04/25 05:23
ALT 46 U/L (0-50) 02/04/25 05:23
Alkaline Phosphatase 323 U/L (38-126) H 02/04/25 05:23
Lipase 3027 U/L (23-300) H* 02/04/25 05:23
Vital Signs and I&O:
Vital Signs
Temp Pulse Resp BP Pulse Ox
97.4 F 76 20 123/67 99
02/05/25 03:34 02/05/25 05:12 02/05/25 03:34 02/05/25 05:12 02/05/25 03:34
I&O
02/03/25 02/04/25 02/05/25
06:59 06:59 06:59
Intake Total 3864 / 3864 1726 / 1726 1018 / 1018
Output Total 3550 / 3550 1925 / 1925 480 / 480
Balance 314 / 314 -199 / -199 538 / 538
Physical Exam
Physical Exam
HEENT: Anicteric and Moist mucous membranes
Pulmonary: Other (Normal WOB )
GI: Soft, Non Distended and Non Tender
Extremities: Warm
Neuro: Non Focal
[2025-02-05 07:11] LABS: Hematocrit 26.8 % (39.0-52.0); Hemoglobin 9.1 g/dL (13.0-18.0); Mean Corp Hgb Conc. 34.0 g/dL (33.0-37.0); Mean Corpuscular Volume 92.1 fL (80.0-94.0); Platelet Count 177 10^3/uL (130-400); Red Cell Dist. Width 14.1 % (11.5-14.5)
[2025-02-05 07:26] LABS: APTT 105.9 Sec (23.4-35.0)
[2025-02-05 07:45] LABS: Nucleated Red Blood Cells % 0 % (-)
[2025-02-05] MEDS: NSS (PRESERVATIVE FREE) 10 ML IV (07:52)
[2025-02-05] MEDS: PROTONIX IV 40 MG IV (07:52)
[2025-02-05] MEDS: KCL 40 MEQ PO ×2 (07:53→14:00)
[2025-02-05] MEDS: FLOMAX 0.4 MG PO (07:53)
--- NOTE | 2025-02-05 09:26 | W.PN.ID1 ---
Date of Service
Date of Service: February 05, 2025
Today's Communication
continue zosyn
will follow up CT c/a/p
Assessment / Plan
Suspected infected Pancreatic pseudocyst
Recurrent Acute Pancreatitis
Bilateral Pleural Effusions
Leukocytosis
MANN on CKD
Elevated inflammatory markers
- 02/02 blood cultures x2 are in progress
- continue zosyn 3.375 mg IV q6 - trend renal function
- sampling the collection can be deferred and empiric therapy trialed at this time
- will follow up repeat CT c/a/p - pending
- decision for thoracentesis vs chest tube on the left pending this study
- follow wbc and clinically
Probable Antibiotic Assc Diarrhea
- C difficile negative
Chief Complaint
-: Leukocytosis and Other (pancreatic pseudocyst)
Subjective / Review of Systems
afebrile
bp stable
had severe epigastric pain overnight, mild nausea
no abdominal pain this AM
reports no cough
no further diarrhea
Vital Signs / Physical Exam
Vital Signs
Vital Signs
Temp Pulse Resp BP Pulse Ox
98.1 F 73 16 116/59 98
02/05/25 07:30 02/05/25 07:30 02/05/25 07:30 02/05/25 07:30 02/05/25 07:30
Physical Exam
Constitutional: No Acute Distress
Cardiovascular: Regular Rate and S1/S2; Negative Murmur or Rub
Pulmonary: Clear and Symmetric; Negative Wheezes or Rales
Gastrointestinal: Soft, Non Tender, Non Distended and Normal Bowel Sounds
Skin: Warm and Dry; Negative Rash or Jaundice
Objective Data
Lab Data
Lab Results
02/05/25 06:44
APTT 105.9 Sec (23.4-35.0) H 02/05/25 06:45
Estimated Creat Clear Cancelled 02/05/25 06:44
Total Bilirubin Cancelled 02/05/25 06:44
AST Cancelled 02/05/25 06:44
ALT Cancelled 02/05/25 06:44
Alkaline Phosphatase Cancelled 02/05/25 06:44
C-Reactive Protein 257.90 mg/L (0.0-10.00) H 02/02/25 06:38
Most recent labs reviewed.
Micro Results:
02/04/25 19:46 C. difficile [facility]DH Antigen & Toxins - Final
Feces/Stool Negative for toxigenic C.difficile
02/02/25 19:58 Blood Culture - Preliminary
Blood/Venous No Growth in 48 hours- Final report to follow
02/02/25 18:37 Blood Culture - Preliminary
Blood/Venous No Growth in 48 hours- Final report to follow
01/31/25 17:19 Blood Culture - Preliminary
Blood/Venous No Growth in 4 days- Final report to follow
01/31/25 16:51 Blood Culture - Preliminary
Blood/Venous No Growth in 4 days- Final report to follow
--- NOTE | 2025-02-05 09:37 | W.PN.PUL.V3 ---
Today's Communication / Plan
-
CT chest abdomen and pelvis
Consider left pleural effusion drainage-if significant loculations consider chest tube with tPA/DNase
Antibiotics per infectious disease-Zosyn
Reviewed with
Assessment
-
69-year-old former [id number] with history of chronic kidney disease, GERD, hypertension, hypothyroid, BPH who was admitted to hospital 01/28/2025 with abdominal pain felt to have acute pancreatitis found to have atrial fibrillation with
rapid ventricular rate now on heparin as well as acute kidney injury and echocardiogram suggested pleural effusion and pulmonary was consulted 02/02/2025
Bilateral pleural effusion left greater than right
Right lower lobe pneumonia versus compressive atelectasis
Recurrent acute pancreatitis
Atrial fibrillation/PAF with rapid ventricular rate
Plan
Respiratory status is relatively stable-patient feels better still has significant diminished breath sounds at the left base
Supplemental oxygen as needed
Incentive spirometry
Nebulizers if needed-currently not bronchospastic
Follow right lower lobe compressive atelectasis versus pneumonia
Ultrasound with left pleural effusion possible loculations
Check CT chest 02/05/2025-consider diagnostic and therapeutic thoracentesis on the left-if highly loculated then may require chest tube with tPA/DNase
Check cultures
Sputum culture if able
Empiric antibiotics
Infectious disease following-correspondence reviewed-continue Zosyn
Follow-up CT chest abdomen and pelvis
Cardiology following-correspondence reviewed
Atrial fibrillation rate control
Anticoagulation-on heparin drip
Diuresis as tolerated
Monitor renal function, electrolytes, intake/output, lower extremity edema and weight
Replace electrolytes as needed
Gastroenterology following-correspondence reviewed
Follow hemoglobin
Transfuse as needed
Check CT abdomen and pelvis to reassess peripancreatic fluid collection and to rule out hemorrhagic component
DVT prophylaxis-on heparin drip
Nutrition per gastroenterology
PT/OT/early mobilization
Dr. Whelan reviewed with at the bedside 02/05/2025
Data:
CXR 01/2025:Moderate bilateral pleural effusions, left larger than right. New. Loculated on left.
Probable mild right lower lobe pneumonia. New.
Probable mild cardiomegaly. New
ECHO 01/2025: 1. Normal left ventricular size and normal LV function with an ejection fraction of 51 % by Holland's biplane method of discs.
2. Possible mild hypokinesis of the anterolateral and inferolateral wall segments.
3. Stage I diastolic dysfunction suggestive of abnormal relaxation.
4. Right ventricular size and systolic function are within normal limits.
5. Aortic sclerosis with no significant stenosis.
6. Mild mitral valve regurgitation.
7. Mild to moderate tricuspid regurgitation. Estimated pulmonary artery pressure of 45 mmHg assuming a right atrial pressure of 15 mmHg.
8. Pleural effusion is noted.
9. Compared to a prior transthoracic echocardiogram study from 07/05/23 Possible mild anterolateral inferolateral hypokinesis is present. A pleural effusion is now present and PA pressure is increased from [address] A/P 01/2025: Findings suggesting moderate acute pancreatitis.
Severe prostate hypertrophy. Progressed
Mild diffuse bladder wall thickening. This can be seen with cystitis and bladder outlet obstruction. Stable
Chest US 02/04/2025:
Bilateral moderate to large subpulmonic pleural effusions. These do not appear to layer posteriorly, raising the possibility of loculation. Consider further evaluation with chest CT if it is deemed clinically necessary to confirm or exclude
loculated nature.
Subjective Data
-
Date of Service:
Date of Service: February 05, 2025
Chief Complaint: Pulmonary Follow Up and Dyspnea Follow Up
Subjective:
Feels a little better, still has shortness of breath with minimal movement, no chest pain, chest congestion, productive cough
Review of Systems
General: Other (Per HPI)
Objective Data
Data Reviewed
Vital Signs / I&O:
Vital Signs
Temp Pulse Resp BP Pulse Ox
98.1 F 73 16 116/59 98
02/05/25 07:30 02/05/25 07:30 02/05/25 07:30 02/05/25 07:30 02/05/25 07:30
Intake and Output
02/04/25 02/05/25 02/06/25
06:59 06:59 06:59
Intake Total 1726 / 1726 1138 / 1138
Output Total 1925 / 1925 880 / 880
Balance -199 / -199 258 / 258
SaO2: 98
Nasal Cannula flow liters per minute: 2
Physical Exam
General: Respiratory Distress (negative), Comfortable, Chills (negative) and Sweats (negative)
HEENT: Normocephalic and Anicteric
Cardiovascular: Regular Rhythm and Peripheral Edema (negative)
Respiratory: Wheeze (negative), Crackles (bibasilar (L>R)), Rhonchi (negative), Non-Labored Respirations and Other (Decreased breath sounds at the left base)
GI: Soft, Non Distended, Non Tender and Normal Bowel Sounds
Neurology: Awake, Alert, Oriented and Tremors (negative)
Skin: Warm, Good Color, Cyanosis (negative), Jaundice (negative) and Rash (n)
Labs/Micro/Reports
Lab Data
02/05/25 06:44
Laboratory Results
02/05/25
06:45
APTT 105.9 H
Microbiology
02/04/25 19:46 Feces/Stool C. difficile GDH Antigen & Toxins - Final
Negative for toxigenic C.difficile
02/02/25 19:58 Blood/Venous Blood Culture - Preliminary
No Growth in 48 hours- Final report to follow
02/02/25 18:37 Blood/Venous Blood Culture - Preliminary
No Growth in 48 hours- Final report to follow
01/31/25 17:19 Blood/Venous Blood Culture - Preliminary
No Growth in 4 days- Final report to follow
01/31/25 16:51 Blood/Venous Blood Culture - Preliminary
No Growth in 4 days- Final report to follow
--- NOTE | 2025-02-05 09:41 | PTCARENOTE ---
Patient refused to drink PO contrast until speaking with timber framer helper. Pork Cutlet Maker, hospitalist, and GI physicians made aware.
[2025-02-05 10:24] LABS: ALT (SGPT) 34 U/L (0-50); AST (SGOT) 35 U/L (17-59); Albumin 2.2 g/dl (3.5-5.0); Alkaline Phosphatase 236 U/L (38-126); Blood Urea Nitrogen 39 mg/dl (9-20); Calcium 7.3 mg/dl (8.4-10.2); Carbon Dioxide 26 mmol/L (22-30); Chloride 104 mmol/L (98-107); Estimated Creatinine Clearance 33 ml/min; Glucose 66 mg/dl (70-99); Potassium 3.4 mmol/L (3.5-5.1); Sodium 133 mmol/L (135-145); Total Protein 4.5 g/dl (6.3-8.2); Triglycerides 227 mg/dl (10-149); eGFR 37.25
--- NOTE | 2025-02-05 10:31 | PTCARENOTE ---
Patient refused PO contrast. Agreeable to IV contrast only. Hospitalist aware. CT made aware.
[2025-02-05] MEDS: SODIUM BICARBONATE 1150 MEQ IV (10:42)
[2025-02-05 10:49] LABS: Lipase 3300 U/L (23-300)
--- NOTE | 2025-02-05 12:15 | W.PN.CARDCBS ---
Addendum entered and electronically signed by Carmelo Rivera MD 02/05/25 12:50:
I saw and examined the patient.
The NURSE FIRST ASSIST or PA's note was reviewed and I agree with the note.
Comment: General: Well developed, well nourished in NAD.
Neck: Supple, no JVD, HJR, carotids +2 B/L, no bruits bilaterally.
Heart: Non displaced PMI, RRR, no murmurs, No S3, S4, no rubs.
Lungs: Scattered rhonchi
Extremities: No clubbing, cyanosis or edema bilaterally.
Neuro: Grossly nonfocal, awake, alert and oriented x3.
Remains in sinus rhythm. Heparin stopped because of possible bleeding in pancreas. Discussed with primary service. Discussed with at bedside. Diuretics remain on hold. Continue IV Lopressor. Stable cardiology status for GI surgery if
needed.
Original Note:
Today's Communication / Plan
-
CT Chest/abd/pelvis today
Replete K+
Diuretics remain on hold
Continue IV Lopressor
Impression / Plan
-
Primary Spot Sprayer: Dr. Peralta
Assessment:
Presentation 01/28/2025 with abd pain
Severe acute pancreatitis, concern for passing of sludge as etiology
MANN on CKD stage 3B
Atrial fibrillation, new diagnosis 01/30/25 s/p spontaneous conversion to SR
Hypertension
Hyperlipidemia
Hypothyroidism
BPH
Hiatal hernia
GERD
Former smoker
ECHO 2023: EF 55 to 60%, trace MR, mild aortic sclerosis, trace AR, normal right heart
ECHO 01/31/25: EF 51%, possible mild hypokinesis of anterolateral and inferolateral wall segments, stage I diastolic dysfunction, mild MR, mild to moderate TR, PAP 45 mmHg, pleural effusion noted
Plan:
69-year-old gentleman with recurrent biliary/gallstone pancreatitis with concern for infected pancreatic pseudocyst being followed by general surgery, gastroenterology and ID with no plans for surgery on Wednesday with acute on chronic renal failure,
volume overload/anasarca with preserved ejection fraction and PAF
- Patient is on empiric antibiotics per GI for concern for abscess/infected pseudocyst
- Plan for repeat CT imaging pending from 02/05/2025. Await result but no plans for any surgical procedures at this time.
- Patient also has anasarca and bilateral pleural effusions with volume overload following IV fluid resuscitation. proBNP 02/01 was 3140. Now off IV fluids. Has received several doses of IV Lasix, last dose 02/02. Diuretics currently on hold
secondary to elevated renal function, current creatinine 1.9
- Chest ultrasound 02/04/2025 with bilateral moderate to large subpulmonic pleural effusions, raising concern for loculated effusion. CT of chest ordered for 02/05/2025 to assess for possible thoracentesis
- Monitor renal function closely. Replete potassium for greater than 4, follow magnesium. Potassium 3.4. Will give an additional 40 mEq for total of 80 meq 02/05/2025
- Patient also has paroxysms of asymptomatic atrial fibrillation currently in sinus rhythm. Continue IV heparin with close monitoring of hemoglobin and platelets. Continue IV Lopressor with hold parameters.
- echo with preserved EF.
- Would plan for outpatient awake overnight monitor to assess A-fib burden once recovered from pancreatitis
- Would consider for eventual ischemic eval as OP once recovered due to echo findings as above
Progress Note - Spot Sprayer
Subjective
Date of Service: February 05, 2025
Objective
Labs:
02/05/25 06:44
02/05/25 09:18
Labs
Hgb 9.1 g/dL (13.0-18.0) L 02/05/25 06:44
Hct 26.8 % (39.0-52.0) L 02/05/25 06:44
Plt Count 177 10^3/uL (130-400) D 02/05/25 06:44
APTT 105.9 Sec (23.4-35.0) H 02/05/25 06:45
Sodium 133 mmol/L (135-145) L 02/05/25 09:18
Potassium 3.4 mmol/L (3.5-5.1) L 02/05/25 09:18
BUN 39 mg/dl (9-20) H 02/05/25 09:18
Creatinine 1.9 mg/dL (0.7-1.3) H 02/05/25 09:18
Glucose 66 mg/dl (70-99) L 02/05/25 09:18
Vital Signs and I&O:
Vital Signs
Temp Pulse Resp BP Pulse Ox
98.8 F 78 16 100/54 95
02/05/25 11:00 02/05/25 11:00 02/05/25 11:00 02/05/25 11:00 02/05/25 11:00
Vital Signs
Temp Pulse Resp BP Pulse Ox
98.8 F 78 16 100/54 95
02/05/25 11:00 02/05/25 11:00 02/05/25 11:00 02/05/25 11:00 02/05/25 11:00
Intake & Output
02/03/25 02/04/25 02/05/25 02/06/25
06:59 06:59 06:59 06:59
Intake Total 3864 / 3864 1726 / 1726 1138 / 1138
Output Total 3550 / 3550 1925 / 1925 880 / 880
Balance 314 / 314 -199 / -199 258 / 258
Physical Exam
Physical Exam
GEN: No distress, awake, Ox3, thin male sitting in chair
HEENT: supple, anicteric, mmm
LUNGS: Absent breath sounds at bases CTA, no wheezes/rales
CV: Reg, S1/S2, no murmur, rub or gallop
ABD: soft, BS+, NT/ND
EXT: No edema, clubbing or cyanosis
NEURO: Gross non-focal
SKIN: No rash
[2025-02-05] MEDS: DILAUDID 0.5 MG IV ×2 (12:40→17:56)
[2025-02-05] MEDS: TYLENOL PO ×3 (12:40→21:02)
[2025-02-05] MEDS: THORAZINE 25 MG PO (12:41)
[2025-02-05] MEDS: LOPRESSOR IV (13:26)
--- NOTE | 2025-02-05 13:26 | W.PN.HOSP.TC ---
Today's Communication/Plan
-
CT A/P - GI engaged with [facility] to assess the of interventions
Monitor white count, hemodynamics on antibiotics
Monitor hemoglobin, repeat CBC if hemodynamically becomes unstable otherwise can check tomorrow�no obvious signs of bleeding at this time
Monitor renal function with IV contrast, status post bicarbonate solution
Assessment / Plan
Assessment / Plan
Physical Exam
General: no acute distress, appears relatively comfortable
HEENT: normocephalic, atraumatic, moist oral mucosa
Respiratory: Clear to Auscultation; Negative Wheezes
Cardiac: Regular Rhythm and S1/S2
Abdomen: decreased bowel sounds, soft, mild tenderness
Musculoskeletal: swelling hands noted suspect third spacing d/t hypoalbuminemia and likely fluid overload
Skin: Warm and Dry; Negative Rash
Neuro: AO x 3 conversant coherent
Psych: Calm
IMPRESSION:
69-year-old male with past medical history of CKD stage IIIb, GERD, IBS, essential hypertension, hypothyroidism, BPH, presenting to the ER reporting severe epigastric pain.
MRI 01/14/25
IMPRESSION:
There is mild T2 hyperintense signal within the pancreatic head and adjacent fat as well as associated mild diffusion hyperintense signal. This likely represents acute interstitial pancreatitis. No peripancreatic collection. No discrete mass is
visualized although follow-up may be considered following resolution of the pancreatitis.
Biliary sludge. There is mild pericholecystic fluid which may be reactive given the likely pancreatitis however can be seen with acute cholecystitis.
There is no biliary duct dilation. There are no filling defects within the common bile duct suggestive of choledocholithiasis.
Abdomen/Pelvis CT 01/29/25
IMPRESSION: Findings suggesting moderate acute pancreatitis.
Severe prostate hypertrophy. Progressed
Mild diffuse bladder wall thickening. This can be seen with cystitis and bladder outlet obstruction. Stable
PLAN:
Acute pancreatitis
Recurrent Pancreatitis
Concern for an infected peripancreatic collection.
Transaminitis
-No alcohol use, no gallstone, Ca OK, IgG4 WNL (returned from last admission),
-MRI last admission without mass, finding of sludge.
-Gallbladder suspected etiology recurrent pancreatitis
-surgery eval eventual Lap cholecystectomy recommended, timing to be determined
-MRI repeated 02/02 given ongoing abd pain, recurrent rise in lipase,
-MRI appreciated concerning for peripancreatic abscess formation, started on empiric zosyn 02/03/25
-CT 04/07 - concerning for an infected peripancreatic collection.
-follow blood cx's NGTD
-ID eval appreciated cont zosyn renally dosed
-cont pain control prn dilaudid reduced to 0.5 mg Q3HPRN d/t concerns AMS, cont Scheduled PO Tylenol
-IVF support completed
-GI eval appreciated diet advanced to Low Fat
-GI will engage with [facility] to assess if any intervention deemed necessary or possible
#Acute Anemia
#possible Acute Blood Loss Anemia
-Hold Hep ggt
-monitor HgB
-No active bleedining with CT 02/05
02/04/25 New onset diarrhea
likely abx related
-Cdiff negative 02/04
Mild Thrombocytopenia
-suspect combination dilutional from aggressive IVF support and 2/2 inflammation from pancreatitis
--cont monitoring
02/02 CXR noted Bilateral Pleural Effusions Lt>Rt, loculated on left
Stable respiratory status
Pulm eval appreciated likely fluid overload combined with hypoalbuminemia
Trial Lasix Diuresis (so far received two doses, no further doses planned at this time), follow up CXR in AM 02/03 noted stable appearance pleural effusions, slight improvement right effusions
Chest US 02/04 appreciated b/l mod to large subpulmonic pleural effusions, possible loculation
Pulmonary Evaluation
May need chest tube - defer to pulmonary
AMS likely multifactorial , improved
Metabolic encephalopathy 2/2 opiate pain meds vs Delirium 2/2 sleep deprivation d/t pain vs [facility] Delirium
opiate pain meds reduced as above
mental status since significantly improved
cont to monitor
Acute Kidney Injury
Hyperkalemia resolved
CKD IIIb
Metabolic Acidosis resolved, bicarb supplementation discontinued
-Maintain Huertas at this time for accurate I/O
-pre-renal MANN in setting of acute pancreatitis with significant rise in creatinine overnight.
-Renal consult appreciated
- Cr high 3.9 since trended down to <2, near baseline
�Family was educated on risks and benefits of IV contrast to assess bleeding, especially risk of worsening renal function and possible dialysis. Family understood risks, and agreed to CT imaging
� Continue to monitor renal function
� Bicarb solution for today
� Nephrology consulted
� Holding diuretics
Hypokalemia
Hypophosphatemia
Low Normal Mg level
-monitor and replete as necessary
New Onset Afib RVR since spontaneously converted to NSR on cardizem gtt
transferred to IVU 01/31, downgraded to tele 02/01
Cardio eval appreciated Cardizem gtt switched to scheduled IV Lopressor
Hold heparin drip due to possible anemia, blood loss
ECHO appreciated EF 51%
#Ground glass opacities within the anterior upper lobes which measure up to 3.1 cm in the anterior right upper lobe.
-Recommend follow-up CT chest to ensure resolution.
#Hyponatremia
� Mild
� Continue to monitor with resuscitation
#Essential hypertension
-hold Amlodipine
-Lopressor as above
#Hypothyroidism
Continue levothyroxine
TSH wnl
#8 mm hypodensity within the inferolateral aspect of the spleen
- new from prior and may represent a small infarction.
-Will be placed back on anticoagulation eventually
DVT prophylaxis�heparin subcu
Full code
Discussed with patient and patient's Leigh
Total time spent on today's encounter was 51 minutes which included time spent in counseling the patient/family regarding diagnosis and treatment plan as listed above, goals of care, and symptom management. Case was discussed with nursing staff,
specialists, and care coordinators/case management. All labs and imaging personally reviewed by me. Remainder the time spent in detailed review of previous records, lab data, imaging, and other medical provider documentation.
Anticipated Discharge: > 48 hours
Subjective/Interval History
-
Date of Service: February 05, 2025
Hemoglobin dropped, hemodynamically stable
Objective Data
-
Labs:
Laboratory Results
02/05/25 02/05/25 02/05/25
06:44 06:45 09:18
WBC 31.0 H
Hgb 9.1 L
Hct 26.8 L
Plt Count 177 D
APTT 105.9 H
Sodium Cancelled 133 L
Potassium Cancelled 3.4 L
Chloride Cancelled 104
Carbon Dioxide Cancelled 26
BUN Cancelled 39 H
Creatinine Cancelled 1.9 H
Glucose Cancelled 66 L
Calcium Cancelled 7.3 L
Total Bilirubin Cancelled 1.5 H
AST Cancelled 35
ALT Cancelled 34
Alkaline Phosphatase Cancelled 236 H
Vital Signs:
Vital Signs
Temp Pulse Resp BP Pulse Ox
98.8 F 87 16 95/78 95
02/05/25 11:00 02/05/25 13:06 02/05/25 11:00 02/05/25 13:06 02/05/25 11:00
I&O
02/04/25 02/05/25 02/06/25
06:59 06:59 06:59
Intake Total 1726 / 1726 1138 / 1138
Output Total 1924 / 1924 880 / 880
Balance -199 / -199 258 / 258
Review of Systems
-
History Source: Patient
All other systems: Not reviewed unless documented
Physical Exam
-
General: No Apparent Distress
HEENT: Other (dry mucous membranes )
Respiratory: Clear to Auscultation; Negative Wheezes
Cardiac: Regular Rhythm and S1/S2
GI: Other (tender mid-epigastric region )
Musculoskeletal: No Edema
Skin: Warm and Dry; Negative Rash
Neuro: AO x 3
Psych: Calm
Data Reviewed
-
Diagnostic Radiology: Report Reviewed by me
Ultrasound: Report Reviewed by me
Labs: Labs Reviewed by me
[2025-02-05] MEDS: LOPRESSOR 2.5 MG IV (13:58)
--- NOTE | 2025-02-05 14:23 | W.PN.UPDATE ---
Update Note
Progress Note Update
Brief GI Update Note:
Updated patient and patient's family at bedside this afternoon regarding his recent CT imaging performed earlier today. CT CAP with IV contrast 02/05/25 revealed numerous sandra-pancreatic fluid collections and again a large, gas/fluid containing
collection along the pancreatic body/tail concerning for an infected peripancreatic fluid collection (now 11.7 cm and previously 10.5 cm on MRI) along with changes related to ongoing pancreatitis. Additionally, evidence of bilateral pleural
effusions and ground glass opacities. There was incidental colonic thickening likely related to reactive/inflammatory changes along with concern for possible splenic infarct. C Diff testing was negative. Fortunately, patient does note significant
improvement and denies any further abdominal pain or discomfort. Clinically, he has improved significantly over the past 72 hours since starting IV antibiotics and without any fevers, chills, night sweats or other constitutional symptoms and
resolution of his previous nausea/vomiting. Still concern for his infected peripancreatic fluid collection (concern for infected extrapancreatic necrotic fluid collection) however as he continues to improve clinically with resolution of his
previous abdominal pain would defer sampling and/or pursuing endoscopic drainage as not without increased risks (ie rupture of cyst, etc). Additionally, although this was not a dedicated CTA (given concern for large contrast load given his MANN and
renal function), there was no evidence of any hemorrhagic component or other hemorrhagic appearing fluid within the pancreas or peripancreatic fluid collection in discussion with radiology this afternoon. Still would favor holding his
anticoagulation over the next 24-48 hours given his drop in Hgb and would continue to monitor clinically as he does note significant improvement and his abdominal exam is reassuring. Still discussed with family that he remains at high risk given
his severe pancreatitis but fortunately he appears to be improving. For now, favor restarting his low-fat diet as tolerated and continue current IV antibiotics as per ID along with ongoing maximal supportive care. Spoke with patient's family at
length as well as primary internal medicine team.
GI will continue to follow closely. Please call with any questions or concerns.
--- NOTE | 2025-02-05 14:43 | W.PN.NEPH.PH ---
Today's Communication / Plan
-
Follow BMP
Sodium HCO3 IV fluids for contrast prophylaxis were provided during CT scan
Assessment/Plan
-
IMP:
Acute pancreatitis
Recurrent Pancreatitis
Acute Kidney Injury
Hyperkalemia
CKD IIIb ~1,6
Essential hypertension
Hypothyroidism
BPH
GERD
IBS
PLan:
A/w recurrent pancreatitis
MANN-possible prerenal, cr stable at 1.9, non oliguric via dubois
Patient received CT with IV contrast today in regards to pancreatitis, prophylactic sodium HCO3 IV fluids have been provided
Chest US noted pleural effusion bilat, ?loculation
holding lasix as vol seem stable
replace k prn
monitor mild hyponatremia
abx per ID for Suspected infected Pancreatic pseudocyst
BP soft on IV BB
lipase increasing level, tolerating diet-repeat CT tomorrow per GI
reviewed with at bedside
follow labs
-
-
Date of Service: February 05, 2025
CC / HPI / ROS
-
Chief Complaint:
Acute on chronic kidney disease abdominal
History of Present Illness:
Pancreatitis acute kidney injury on CKD stage IIIb
cr up at 1.9 non oliguric with dubois
k low 3.4
bp stable
heparin gtt for afib
WBC up at 21
wt is down
Review of Systems:
improved hiccups
epigastric on mild
no cp or sob at rest
Labs
-
Labs:
WBC 31.0 10^3/uL (4.8-10.8) H 02/05/25 06:44
RBC 2.91 10^6/uL (4.70-6.10) L 02/05/25 06:44
Hgb 9.1 g/dL (13.0-18.0) L 02/05/25 06:44
Hct 26.8 % (39.0-52.0) L 02/05/25 06:44
Plt Count 177 10^3/uL (130-400) D 02/05/25 06:44
Sodium 133 mmol/L (135-145) L 02/05/25 09:18
Potassium 3.4 mmol/L (3.5-5.1) L 02/05/25 09:18
Chloride 104 mmol/L (98-107) 02/05/25 09:18
Carbon Dioxide 26 mmol/L (22-30) 02/05/25 09:18
BUN 39 mg/dl (9-20) H 02/05/25 09:18
Creatinine 1.9 mg/dL (0.7-1.3) H 02/05/25 09:18
eGFR 37.25 02/05/25 09:18
Glucose 66 mg/dl (70-99) L 02/05/25 09:18
Calcium 7.3 mg/dl (8.4-10.2) L 02/05/25 09:18
Phosphorus 2.5 mg/dl (2.5-4.5) 02/03/25 05:35
Xdv-Z-Wwdukaaowiy Pept 3140 pg/ml 02/01/25 03:32
Albumin 2.2 g/dl (3.5-5.0) L 02/05/25 09:18
Physical Exam
-
Vital Signs:
Vital Signs
Temp Pulse Resp BP Pulse Ox
98.8 F 87 16 95/78 95
02/05/25 11:00 02/05/25 13:06 02/05/25 11:00 02/05/25 13:58 02/05/25 11:00
Cardiovascular:: Regular rate and rhythm
Lung Excursion:: Normal (decreased right base than left)
Abdomen:: Soft and Tender (mid abd)
Extremity Edema:: None: Bilateral:
Dubois Catheter: Yes
--- NOTE | 2025-02-05 17:42 | CM ---
Remains on IV ABX. elevated WBCs. Pain management on going. Possible chest tube. Was independent at home with . will monitor for discharge needs
Plan: TBD, .
--- NOTE | 2025-02-05 19:59 | W.PN.ONC2 ---
Today's Communication / Plan
-
Discussed with pt/family that I feel the leukocytosis and anemia are proportionate to the acute illness.
No 'red flags' to suggest underlying bone marrow disorder.
They were relieved to hear this.
Anticipate eventual blood count normalization with continued clinical improvement from pancreatitis
Impression
Impression
Recurrent Acute Pancreatitis
IgA Gammopathy, MGUS
Bandemia
Anemia
Acute on Chronic Kidney Disease stage 4
BPH-- progressed severe prostate hypertrophy on CT
New onset Atrial Fibrillation
Hypocalcemia
Hypertension
Hiatal Hernia
Plan
Plan
Bandemia likely related to inflammation from ongoing pancreatitis-- Lipase downtrending currently: 350, CBC stable. Creatinine improving.
-Recommend to continue trending CBC with manual differential
-Continue to monitor signs of infection
-Follow up with urology as outpatient for enlarged prostate as needed.
Subjective/Objective
Chief Complaint
Heme/Onc follow up of cytopenias
Subjective
Denies new complaint. Family anxious about cytopenias.
Vital Signs:
Vital Signs
Temp Pulse Resp BP Pulse Ox
100 F 97 21 113/58 94
02/05/25 19:17 02/05/25 19:17 02/05/25 19:17 02/05/25 19:17 02/05/25 19:17
Lab Results:
Laboratory Data
WBC 31.0 10^3/uL (4.8-10.8) H 02/05/25 06:44
Hgb 9.1 g/dL (13.0-18.0) L 02/05/25 06:44
Plt Count 177 10^3/uL (130-400) D 02/05/25 06:44
APTT 105.9 Sec (23.4-35.0) H 02/05/25 06:45
eGFR 37.25 02/05/25 09:18
Physical Exam
Awake, alert, non-toxic, sitting up in bedside chair
[2025-02-06] VITALS (8 sets, daily range): BP systolic 111–140; BP diastolic 59–79; BMI 21.4
--- NOTE | 2025-02-06 00:27 | W.PN.UPDATE ---
Update Note
Progress Note Update
1929 RN reports pt with TME during shift change. Pt was soundly sleeping and woke up confused thinking he was at home. PT also found without his 02 on and pulse ox 90% -placed back on 2 L and back up to 94%. Also temp.
Pt also had dilaudid around 1800.
TME could be related to infection v opiates
An hour later pt back to baseline.
[2025-02-06] MEDS: LOPRESSOR IV (00:28)
[2025-02-06] MEDS: TYLENOL PO ×2 (00:28→17:03)
[2025-02-06] MEDS: LOPRESSOR 2.5 MG IV (00:29)
[2025-02-06] MEDS: ZOSYN 50 IV ×2 (00:29→05:38)
[2025-02-06] MEDS: ANESTHETIC LOZENGE 1 LOZENGE PO (01:21)
[2025-02-06] MEDS: TYLENOL 650 MG PO ×5 (04:17→23:12)
[2025-02-06] MEDS: DILAUDID 0.5 MG IV ×3 (05:38→22:25)
[2025-02-06] MEDS: SYNTHROID 75 MCG PO (05:38)
--- NOTE | 2025-02-06 05:57 | W.PN.GI.CBS2 ---
Today's Communication / Plan
-
Keep NPO. Patient would benefit from drainage of his infected, acute peripancreatic fluid collection for source control given ongoing intermittent fevers and rising leukocytosis. Will consider IR versus EUS-guided drainage. Continue IV abx for now
as per ID. Rest of care as outlined below.
Assessment / Plan
-
Mr. Contreras is a 69 y.o male with h/o CKD stage IIIb, GERD, IBS, essential hypertension, hypothyroidism, BPH, and first episode of acute pancreatitis few weeks ago p/w recurrent acute pancreatitis felt to be biliary/gallstone pancreatitis.
Prior Work-Up / Data Review:
MRI 01/14/25- IMPRESSION: There is mild T2 hyperintense signal within the pancreatic head and adjacent fat as well as associated mild diffusion hyperintense signal. This likely represents acute interstitial pancreatitis. No peripancreatic
collection. No discrete mass is visualized although follow-up may be considered following resolution of the pancreatitis. Biliary sludge. There is mild pericholecystic fluid which may be reactive given the likely pancreatitis however can be seen
with acute cholecystitis. There is no biliary duct dilation. There are no filling defects within the common bile duct suggestive of choledocholithiasis.
Abdomen/Pelvis CT 01/29/25 IMPRESSION: Findings suggesting moderate acute pancreatitis. Severe prostate hypertrophy. Progressed Mild diffuse bladder wall thickening. This can be seen with cystitis and bladder outlet obstruction. Stable
US abdomen 01/31/25 Mild four-quadrant ascites. Incidental right pleural effusion. No gallstones. No sonographic evidence of acute cholecystitis. No bile duct dilatation. Mild heterogeneous pancreatic parenchymal echotexture.
MRI WWO contrast 02/02/2025- Impression: worsening peripancreatic edema with interval development of large irregular fluid collection about the pancreatic body and tail measuring up to 10.5 x 7.1 x 10.4 cm, containing gas and debris and suspicious
for acute peripancreatic collection with superinfection (abscess). No convincing evidence for pancreatic necrosis. Mild to moderate abdominopelvic ascites, new. Severe diffuse mesenteric edema, new. Large bilateral pleural effusions with adjacent
airspace disease, new.
#Recurrent, Acute Pancreatitis (2nd Episode)
#Suspect Biliary/Gallstone Pancreatitis
#Acute Peripancreatic Fluid Collection c/f #Acute Infected Necrotic Fluid Collection
#Leukocytosis
#A Fib w/ RVR
#MANN on CKD
Patient with worsening abdominal pain on 02/02 as well as slight bump in LFTs where repeat MRI/MRCP was performed which revealed worsening sandra-pancreatic edema along with development of a large, irregular fluid collection about the pancreatic body
and tail measuring approximately 10 cm containing gas and debris concerning for superinfection. Clinically, this is concerning for an acute infected necrotic fluid collection/abscess. Otherwise, no other evidence to suggest intraparenchymal
pancreatic necrosis. There was evidence of ascites as well as diffuse anasarca with edema and bilateral pleural effusions likely secondary to volume overload from his previous IVF and underlying pancreatitis. He was started on IV Zosyn 02/02 and
repeat blood cultures obtained.
S/p CT CAP 02/05/25: Findings of pancreatitis with numerous peripancreatic collections. There are no definite hypoenhancing foci within the pancreatic parenchyma to suggest necrosis. There is a large gas and fluid containing collection along the
pancreatic body/tail which extends along the greater curvature of the stomach which measures up to 11.8 cm, slightly increased in size from prior MRI. This is concerning for an infected peripancreatic collection. Numerous additional collections
including a perihepatic collection which appears to extend along the gastric fundus, similar to prior. There is small volume perisplenic fluid as well as small volume fluid in the bilateral paracolic gutters and pelvis. Findings are likely related
to the pancreatitis. Moderate bilateral pleural effusions with adjacent compressive atelectasis and GGOs.Concern for 8 mm hypodensity of spleen concern for possible splenic infarct and SB/colonic thickening felt to be reactive inflammatory changes.
No evidence of hemorrhagic fluid collection or hemorrhagic pancreatitis in discussion with Radiology.
Fortunately, patient does appear more comfortable without any further abdominal pain or discomfort and continues to tolerate a low-fat diet. However, I am concerned about his ongoing intermittent fevers, rising leukocytosis with left shift and
previous bandemia along with his recent CT imaging demonstrating an acute infected peripancreatic fluid collection and would benefit from further intervention for definitive source control.
Recommendations:
- Keep NPO
- Hold further IVF given worsening anasarca and to avoid further volume overload
- Trend LFTs q daily
- Hgb now stable, trend with serial CBC. Continue to hold IV heparin gtt for potential intervention
- Given his persistent fevers (101.4 on 02/05), rising leukocytosis along with his previous CT imaging with enlarging fluid collection suspect patient would benefit from source control of his acute, infected peripancreatic fluid collection
- Additionally, given patient's acute peripancreatic fluid collection, favor IR guided approach as typically need to allow 4�6 weeks for cyst wall to mature prior to endoscopic drainage. However, discussed with Dr. Pierson and will further review
imaging for consideration of potential EUS guided drainage versus IR-guided drainage
- Favor transitioning to carbapenem although still suspect he was responding to the IV Zosyn. Would also consider antifungal coverage pending sampling of his fluid collection. Discussed with ID this AM
- Continue close monitoring of renal function
- IV PPI for ppx along with continuing bowel regimen with Miralax 17 gm BiD for prevention of ileus- now having bowel function
- Continue Thorazine as needed for hiccups and suspect diaphragm-related irritation 2/2 large sandra-pancreatic fluid collection
- Would DEFER any plans for a lap yeison this admission given his findings on his recent MRI, but ultimately would benefit from eventual lap in the next few weeks pending recovery
- Continue standing acetaminophen and multimodal pain control
- IV anti-emetics PRN
- Rest of care per primary team
Discussed with primary internal medicine team and patient this AM. GI will continue to follow. Please call with any questions or concerns.
Subjective
Subjective
Date of Service: February 06, 2025
- S/p CT CAP 02/05/25: Findings of pancreatitis with numerous peripancreatic collections. There are no definite hypoenhancing foci within the pancreatic parenchyma to suggest necrosis. There is a large gas and fluid containing collection along the
pancreatic body/tail which extends along the greater curvature of the stomach which measures up to 11.8 cm, slightly increased in size from prior MRI. This is concerning for an infected peripancreatic collection. Numerous additional collections
including a perihepatic collection which appears to extend along the gastric fundus, similar to prior. There is small volume perisplenic fluid as well as small volume fluid in the bilateral paracolic gutters and pelvis. Findings are likely related
to the pancreatitis. Moderate bilateral pleural effusions with adjacent compressive atelectasis and GGOs.Concern for 8 mm hypodensity of spleen concern for possible splenic infarct and SB/colonic thickening felt to be reactive inflammatory changes
- Heparin gtt remains on hold given drop in Hgb
- Febrile last evening with T Max of 101.4, remains on IV abx and blood cultures from 02/02/25 remain NGTD
Continues to rest comfortably in bed and denies any further abdominal pain or abdominal discomfort. However, notes feeling feverish and having night sweats overnight. Denies any nausea, vomiting or other chills. Continues to have bowel function
without any dark or bloody stools.
Objective
Data Reviewed
Laboratory Data:
Laboratory Results
APTT 105.9 Sec (23.4-35.0) H 02/05/25 06:45
Phosphorus 2.5 mg/dl (2.5-4.5) 02/03/25 05:35
Magnesium 2.0 mg/dl (1.6-2.3) 02/03/25 05:35
Total Bilirubin 1.5 mg/dl (0.2-1.3) H 02/05/25 09:18
AST 35 U/L (17-59) 02/05/25 09:18
ALT 34 U/L (0-50) 02/05/25 09:18
Alkaline Phosphatase 236 U/L (38-126) H 02/05/25 09:18
Lipase 3300 U/L (23-300) H* 02/05/25 09:18
Vital Signs and I&O:
Vital Signs
Temp Pulse Resp BP Pulse Ox
99.3 F 79 20 127/69 99
02/06/25 03:10 02/06/25 03:10 02/06/25 03:10 02/06/25 03:10 02/06/25 03:10
I&O
02/04/25 02/05/25 02/06/25
06:59 06:59 06:59
Intake Total 1726 / 1726 1138 / 1138 1200 / 1200
Output Total 1924 / 192 880 / 880 650 / 650
Balance -199 / -199 258 / 258 550 / 550
Physical Exam
Physical Exam
HEENT: Anicteric and Moist mucous membranes
Cardiology: Normal Sinus Rhythm
Pulmonary: Other (Normal WOB of breathing)
GI: Soft, Non Distended and Non Tender
Extremities: Warm
Neuro: Non Focal
[2025-02-06] MEDS: LOPRESSOR 5 MG IV ×4 (06:05→23:11)
[2025-02-06 07:19] LABS: Hematocrit 26.8 % (39.0-52.0); Hemoglobin 9.1 g/dL (13.0-18.0); Mean Corp Hgb Conc. 34.0 g/dL (33.0-37.0); Mean Corpuscular Volume 92.4 fL (80.0-94.0); Platelet Count 237 10^3/uL (130-400); Red Cell Dist. Width 14.4 % (11.5-14.5)
[2025-02-06 07:54] LABS: ALT (SGPT) 33 U/L (0-50); AST (SGOT) 31 U/L (17-59); Albumin 2.1 g/dl (3.5-5.0); Alkaline Phosphatase 268 U/L (38-126); Blood Urea Nitrogen 42 mg/dl (9-20); Calcium 7.6 mg/dl (8.4-10.2); Carbon Dioxide 28 mmol/L (22-30); Chloride 101 mmol/L (98-107); Estimated Creatinine Clearance 27 ml/min; Glucose 69 mg/dl (70-99); Potassium 4.0 mmol/L (3.5-5.1); Sodium 133 mmol/L (135-145); Total Protein 4.7 g/dl (6.3-8.2); eGFR 29.62
[2025-02-06 08:08] LABS: Lipase 3938 U/L (23-300)
[2025-02-06 08:17] LABS: Nucleated Red Blood Cells % 0 % (-)
--- NOTE | 2025-02-06 08:27 | W.PN.ID1 ---
Date of Service
Date of Service: February 06, 2025
Today's Communication
- start meropenem 500 mg IV q8 hours; stop zosyn
- add micafungin
- GI is discussing IR guided sampling of the collection vs endoscopic drainage
- would additionally proceed with sampling the L pleural effusion
Assessment / Plan
Suspected infected Pancreatic pseudocyst
Recurrent Acute Pancreatitis
Bilateral Pleural Effusions
Leukocytosis
MANN on CKD
Elevated inflammatory markers
- 02/02 blood cultures x2 are in progress
- CT c/a/p - collections: peripancreatic - gas and fluid containing, perihepatic; moderate BL pleural effusions, area of coloenteritis, possible small splenic infarction
- GI is discussing IR guided sampling of the collection vs endoscopic drainage
- would additionally proceed with sampling the L pleural effusion
- follow wbc and clinically
- start meropenem 500 mg IV q8 hours; stop zosyn
- add micafungin
Antibiotic Assc Diarrhea
- resolved
- C difficile negative
Chief Complaint
-: Leukocytosis and Other (pancreatic pseudocyst)
Subjective / Review of Systems
febrile overnight to 101.4 - patient noted fever and sweats
bp overall stable
transient confusion on awakening last night
severe pain 7/10 in the epigastric area today
no nausea or vomiting
continues to have bowel movements
Vital Signs / Physical Exam
Vital Signs
Vital Signs
Temp Pulse Resp BP Pulse Ox
99.3 F 97 20 116/76 99
02/06/25 03:10 02/06/25 06:05 02/06/25 03:10 02/06/25 06:05 02/06/25 03:10
Physical Exam
Constitutional: No Acute Distress
Cardiovascular: Regular Rate and S1/S2; Negative Murmur or Rub
Pulmonary: Clear and Symmetric; Negative Wheezes or Rales
Gastrointestinal: Soft, Non Tender, Non Distended and Normal Bowel Sounds
Skin: Warm and Dry; Negative Rash or Jaundice
Objective Data
Lab Data
Lab Results
02/06/25 07:06
02/06/25 07:06
APTT 105.9 Sec (23.4-35.0) H 02/05/25 06:45
Estimated Creat Clear 27 ml/min 02/06/25 07:06
Total Bilirubin 1.5 mg/dl (0.2-1.3) H 02/06/25 07:06
AST 31 U/L (17-59) 02/06/25 07:06
ALT 33 U/L (0-50) 02/06/25 07:06
Alkaline Phosphatase 268 U/L (38-126) H 02/06/25 07:06
C-Reactive Protein 257.90 mg/L (0.0-10.00) H 02/02/25 06:38
Most recent labs reviewed.
Micro Results:
02/02/25 19:58 Blood Culture - Preliminary
Blood/Venous No Growth in 72 hours- Final report to follow
02/02/25 18:37 Blood Culture - Preliminary
Blood/Venous No Growth in 72 hours- Final report to follow
01/31/25 17:19 Blood Culture - Final
Blood/Venous No Growth - Final Report
01/31/25 16:51 Blood Culture - Final
Blood/Venous No Growth - Final Report
02/04/25 19:46 C. difficile GDH Antigen & Toxins - Final
Feces/Stool Negative for toxigenic C.difficile
CT Scan: Image Reviewed and Report Reviewed (collections: peripancreatic, perihepatic; moderate BL pleural effusions, area of coloenteritis, possible small splenic infarction)
Other: Report Reviewed (chest US BL: moderate to large pleural effusions)
Care Review
Plan reviewed with: Physician (Dr Chou - aspiration of the peripancreatic collection, antifungals)
[2025-02-06] MEDS: KCL 40 MEQ PO (08:29)
[2025-02-06] MEDS: PROTONIX IV 40 MG IV (08:29)
[2025-02-06] MEDS: NSS (PRESERVATIVE FREE) 10 ML IV (08:29)
[2025-02-06] MEDS: FLOMAX 0.4 MG PO (08:30)
--- NOTE | 2025-02-06 09:57 | W.PN.PUL.V3 ---
Today's Communication / Plan
-
Wean oxygen
Antibiotics per infectious disease
Left thoracentesis and then right thoracentesis
Assessment
-
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
rapid ventricular rate now on heparin as well as acute kidney injury and echocardiogram suggested pleural effusion and pulmonary was consulted 02/02/2025
Bilateral pleural effusion left greater than right
Right lower lobe pneumonia versus compressive atelectasis
Recurrent acute pancreatitis
Atrial fibrillation/PAF with rapid ventricular rate
Plan
Respiratory status is relatively stable-patient feels better still has significant diminished breath sounds at the left base
Supplemental oxygen as needed-currently on 2 L - 94% saturation
Incentive spirometry encouraged
Nebulizers if needed-currently not bronchospastic
Follow right lower lobe compressive atelectasis versus pneumonia
Ultrasound with left pleural effusion possible loculations
CT chest abdomen and pelvis 02/05/2025-pancreatitis with numerous peripancreatic collections, ground glass opacification anterior upper lobes, moderate pleural effusion with adjacent compressive atelectasis and draining left and then right pleural
effusions with ongoing leukocytosis and temperatures.
Dr. Whelan contacted interventional radiology 02/06/2025 for initial left thoracentesis-send for routine, cultures and cytology and then right thoracentesis and to send for routine, cultures, and cytology
Cultures were C. difficile negative
Blood cultures negative
Unable to produce sputum per infectious disease
Empiric antibiotics per infectious disease
Infectious disease following-correspondence [id number] on meropenem Zosyn
CT chest abdomen pelvis noted above
Recommend sampling
Cardiology following-correspondence reviewed
Atrial fibrillation rate control
Anticoagulation-on heparin drip
Diuresis as tolerated
Monitor renal function, electrolytes, intake/output, lower extremity edema and weight
Replace electrolytes as needed
Gastroenterology following-correspondence reviewed
Follow hemoglobin
Transfuse as needed
Check CT abdomen and pelvis to reassess peripancreatic fluid collection and to rule out hemorrhagic component
DVT prophylaxis-on heparin drip
Nutrition per gastroenterology
PT/OT/early mobilization
Dr. Whelan reviewed with at the bedside 02/05/2025 and again on 02/06/2025
Data:
CXR 01/2025:Moderate bilateral pleural effusions, left larger than right. New. Loculated on left.
Probable mild right lower lobe pneumonia. New.
Probable mild cardiomegaly. New
ECHO 01/2025: 1. Normal left ventricular size and normal LV function with an ejection fraction of 51 % by Holland's biplane method of discs.
2. Possible mild hypokinesis of the anterolateral and inferolateral wall segments.
3. Stage I diastolic dysfunction suggestive of abnormal relaxation.
4. Right ventricular size and systolic function are within normal limits.
5. Aortic sclerosis with no significant stenosis.
6. Mild mitral valve regurgitation.
7. Mild to moderate tricuspid regurgitation. Estimated pulmonary artery pressure of 45 mmHg assuming a right atrial pressure of 15 mmHg.
8. Pleural effusion is noted.
9. Compared to a prior transthoracic echocardiogram study from 07/05/23 Possible mild anterolateral inferolateral hypokinesis is present. A pleural effusion is now present and PA pressure is increased from [address] A/P 01/2025: Findings suggesting moderate acute pancreatitis.
Severe prostate hypertrophy. Progressed
Mild diffuse bladder wall thickening. This can be seen with cystitis and bladder outlet obstruction. Stable
Chest US 02/04/2025:
Bilateral moderate to large subpulmonic pleural effusions. These do not appear to layer posteriorly, raising the possibility of loculation. Consider further evaluation with chest CT if it is deemed clinically necessary to confirm or exclude
loculated nature.
Subjective Data
-
Date of Service:
Date of Service: February 06, 2025
Chief Complaint: Pulmonary Follow Up and Dyspnea Follow Up
Subjective:
Had episode of confusion overnight, now alert and oriented, no complaints of shortness of breath at rest, no chest pain but has abdominal discomfort
Review of Systems
General: Other (Per HPI)
Objective Data
Data Reviewed
Vital Signs / I&O:
Vital Signs
Temp Pulse Resp BP Pulse Ox
97.6 F 83 12 123/62 99
02/06/25 07:00 02/06/25 07:00 02/06/25 07:00 02/06/25 07:00 02/06/25 07:00
Intake and Output
02/05/25 02/06/25 02/07/25
06:59 06:59 06:59
Intake Total 1138 / 1138 1680 / 1680
Output Total 880 / 880 1275 / 1275
Balance 258 / 258 405 / 405
SaO2: 99
Nasal Cannula flow liters per minute: 2
Physical Exam
General: Respiratory Distress (negative), Comfortable, Chills (negative) and Sweats (negative)
HEENT: Normocephalic and Anicteric
Cardiovascular: Regular Rhythm and Peripheral Edema (negative)
Respiratory: Wheeze (negative), Crackles (bibasilar (L>R)), Rhonchi (negative), Non-Labored Respirations and Other (Decreased breath sounds at the left base)
GI: Soft, Non Distended, Non Tender and Normal Bowel Sounds
Neurology: Awake, Alert, Oriented and Tremors (negative)
Skin: Warm, Good Color, Cyanosis (negative), Jaundice (negative) and Rash (n)
Labs/Micro/Reports
Lab Data
02/06/25 07:06
02/06/25 07:06
Microbiology
02/02/25 19:58 Blood/Venous Blood Culture - Preliminary
No Growth in 72 hours- Final report to follow
02/02/25 18:37 Blood/Venous Blood Culture - Preliminary
No Growth in 72 hours- Final report to follow
01/31/25 17:19 Blood/Venous Blood Culture - Final
No Growth - Final Report
01/31/25 16:51 Blood/Venous Blood Culture - Final
No Growth - Final Report
02/04/25 19:46 Feces/Stool C. difficile GDH Antigen & Toxins - Final
Negative for toxigenic C.difficile
[2025-02-06] MEDS: MYCAMINE 105 MG IV (10:51)
[2025-02-06] MEDS: MERREM 500 MG IV ×2 (10:52→17:04)
[2025-02-06] MEDS: STERILE WATER FOR INJECTION 10 ML IV ×2 (10:52→17:04)
--- NOTE | 2025-02-06 11:10 | W.PN.UPDATE ---
Update Note
Progress Note Update
Brief GI Note:
Reviewed patient's clinical course, labs and imaging with Dr. Pierson. As patient continues to remain clinically stable without any other signs to suggest decompensation, still would defer sampling infected peripancreatic fluid collection at this time
as not without risks (worsening seeding/infection, rupture, etc). Favor having fluid collection mature in 4-6 weeks and then would consider sampling with EUS-guided drainage pending his clinical course. For now, okay to resume diet and continue LFD
as he has been tolerating. Agree with starting Meropenem and staring antifungal coverage given his fevers and leukocytosis. Updated patient and patient's this afternoon along with primary internal medicine team. GI will continue to follow,
please call with any questions/concerns.
--- NOTE | 2025-02-06 14:24 | W.PN.HOSP.TC ---
Today's Communication/Plan
-
Expand abx
Monitor CBC
L and R thora
Assessment / Plan
Assessment / Plan
Physical Exam
General: no acute distress, appears relatively comfortable
HEENT: normocephalic, atraumatic, moist oral mucosa
Respiratory: Clear to Auscultation; Negative Wheezes
Cardiac: Regular Rhythm and S1/S2
Abdomen: decreased bowel sounds, soft, mild tenderness
Musculoskeletal: swelling hands noted suspect third spacing d/t hypoalbuminemia and likely fluid overload
Skin: Warm and Dry; Negative Rash
Neuro: AO x 3 conversant coherent
Psych: Calm
IMPRESSION:
69-year-old male with past medical history of CKD stage IIIb, GERD, IBS, essential hypertension, hypothyroidism, BPH, presenting to the ER reporting severe epigastric pain.
MRI 01/14/25
IMPRESSION:
There is mild T2 hyperintense signal within the pancreatic head and adjacent fat as well as associated mild diffusion hyperintense signal. This likely represents acute interstitial pancreatitis. No peripancreatic collection. No discrete mass is
visualized although follow-up may be considered following resolution of the pancreatitis.
Biliary sludge. There is mild pericholecystic fluid which may be reactive given the likely pancreatitis however can be seen with acute cholecystitis.
There is no biliary duct dilation. There are no filling defects within the common bile duct suggestive of choledocholithiasis.
Abdomen/Pelvis CT 01/29/25
IMPRESSION: Findings suggesting moderate acute pancreatitis.
Severe prostate hypertrophy. Progressed
Mild diffuse bladder wall thickening. This can be seen with cystitis and bladder outlet obstruction. Stable
PLAN:
Acute pancreatitis
Recurrent Pancreatitis
Concern for an infected peripancreatic collection.
Transaminitis
-No alcohol use, no gallstone, Ca OK, IgG4 WNL (returned from last admission),
-MRI last admission without mass, finding of sludge.
-Gallbladder suspected etiology recurrent pancreatitis
-surgery eval eventual Lap cholecystectomy recommended, timing to be determined
-MRI repeated 02/02 given ongoing abd pain, recurrent rise in lipase,
-MRI appreciated concerning for peripancreatic abscess formation, started on empiric zosyn 02/03/25 - switched to meropenem 02/06
-CT 04/07 - concerning for an infected peripancreatic collection.
-follow blood cx's NGTD
-ID eval appreciated cont zosyn renally dosed
-cont pain control prn dilaudid reduced to 0.5 mg Q3HPRN d/t concerns AMS, cont Scheduled PO Tylenol
-IVF support completed
-GI eval appreciated diet advanced to Low Fat
-GI will engage with Adv GI to assess if any intervention deemed necessary or possible - monitor closely; As per GI: Favor having fluid collection mature in 4-6 weeks and then would consider sampling with EUS-guided drainage pending his clinical
course.
- start meropenem 500 mg IV q8 hours; stop zosyn
- add micafungin
#sepsis with MANN
-pancreatic collection +/- pleural fluid collection
-abx as stated above
-start meropenem 500 mg IV q8 hours; stop zosyn
- add micafungin
-IR to discuss IR draiange of peripancreatic collection
-left and Right Thora
#Acute Anemia
#possible Acute Blood Loss Anemia
-Hold Hep ggt for today again
-monitor HgB
-No active bleedining with CT 02/05
-If hgb remains stable by tomorrow - can restart anticoag
02/04/25 New onset diarrhea
likely abx related
-Cdiff negative 02/04
Mild Thrombocytopenia
-suspect combination dilutional from aggressive IVF support and 2/2 inflammation from pancreatitis
--cont monitoring
02/02 CXR noted Bilateral Pleural Effusions Lt>Rt, loculated on left
Stable respiratory status
Pulm eval appreciated likely fluid overload combined with hypoalbuminemia
Trial Lasix Diuresis (so far received two doses, no further doses planned at this time), follow up CXR in AM 02/03 noted stable appearance pleural effusions, slight improvement right effusions
Chest US 02/04 appreciated b/l mod to large subpulmonic pleural effusions, possible loculation
Pulmonary Evaluation
Right and Left Thora
AMS likely multifactorial , improved
Metabolic encephalopathy 2/2 opiate pain meds vs Delirium 2/2 sleep deprivation d/t pain vs Hospital Associate Delirium
opiate pain meds reduced as above
mental status since significantly improved
cont to monitor
Acute Kidney Injury
Hyperkalemia resolved
CKD IIIb
Metabolic Acidosis resolved, bicarb supplementation discontinued
-Maintain Huertas at this time for accurate I/O
-pre-renal MANN in setting of acute pancreatitis with significant rise in creatinine overnight.
-Renal consult appreciated
- Cr high 3.9 since trended down to <2, near baseline
�Family was educated on risks and benefits of IV contrast to assess bleeding, especially risk of worsening renal function and possible dialysis. Family understood risks, and agreed to CT imaging
� Continue to monitor renal function, worsened today
� Bicarb solution for WALTER ppx 02/05
� Nephrology consulted
� Holding diuretics
Hypokalemia
Hypophosphatemia
Low Normal Mg level
-monitor and replete as necessary
New Onset Afib RVR since spontaneously converted to NSR on cardizem gtt
transferred to IVU 01/31, downgraded to tele 02/01
Cardio eval appreciated Cardizem gtt switched to scheduled IV Lopressor
Hold heparin drip due to possible anemia, blood loss- consider restarting tomorrow
ECHO appreciated EF 51%
#Ground glass opacities within the anterior upper lobes which measure up to 3.1 cm in the anterior right upper lobe.
-Recommend follow-up CT chest to ensure resolution.
#Hyponatremia
� Mild
� Continue to monitor with resuscitation
#Essential hypertension
-hold Amlodipine
-Lopressor as above
#Hypothyroidism
Continue levothyroxine
TSH wnl
#8 mm hypodensity within the inferolateral aspect of the spleen
- new from prior and may represent a small infarction.
-Will be placed back on anticoagulation eventually
DVT prophylaxis�heparin subcu
Full code
Discussed with patient and patient's Leigh
Total time spent on today's encounter was 53 minutes which included time spent in counseling the patient/family regarding diagnosis and treatment plan as listed above, goals of care, and symptom management. Case was discussed with nursing staff,
specialists, and care coordinators/case management. All labs and imaging personally reviewed by me. Remainder the time spent in detailed review of previous records, lab data, imaging, and other medical provider documentation.
Anticipated Discharge: > 48 hours
Subjective/Interval History
-
Date of Service: February 06, 2025
spiked temperature yesterday evening
Objective Data
-
Labs:
Laboratory Results
02/06/25
07:06
WBC 33.4 H
Hgb 9.1 L
Hct 26.8 L
Plt Count 237 D
Sodium 133 L
Potassium 4.0
Chloride 101
Carbon Dioxide 28
BUN 42 H
Creatinine 2.3 H
Glucose 69 L
Calcium 7.6 L
Total Bilirubin 1.5 H
AST 31
ALT 33
Alkaline Phosphatase 268 H
Vital Signs:
Vital Signs
Temp Pulse Resp BP Pulse Ox
97.6 F 84 16 116/64 96
02/06/25 11:00 02/06/25 13:48 02/06/25 11:00 02/06/25 13:48 02/06/25 11:00
I&O
02/05/25 02/06/25 02/07/25
06:59 06:59 06:59
Intake Total 1138 / 1138 1680 / 1680
Output Total 880 / 880 1275 / 1275 225 / 225
Balance 258 / 258 405 / 405 -225 / -225
Review of Systems
-
History Source: Patient
All other systems: Not reviewed unless documented
Physical Exam
-
General: No Apparent Distress
HEENT: Other (dry mucous membranes )
Respiratory: Clear to Auscultation; Negative Wheezes
Cardiac: Regular Rhythm and S1/S2
GI: Other (tender mid-epigastric region )
Musculoskeletal: No Edema
Skin: Warm and Dry; Negative Rash
Neuro: AO x 3
Psych: Calm
Data Reviewed
-
Diagnostic Radiology: Report Reviewed by me
Ultrasound: Report Reviewed by me
Labs: Labs Reviewed by me
--- NOTE | 2025-02-06 14:45 | CM ---
met with Pt and at bedside to begin discussion of dc plan. Pt remains medically unstable. Will defer conversation until more stable. Possible thoracentesis
Plan: TBD when medically stable
--- NOTE | 2025-02-06 15:59 | W.PN.NEPH.PH ---
Today's Communication / Plan
-
Follow BMP
Maintain Dubois catheter as acute kidney injury is worsening and I do not wish to confuse contrast nephropathy with obstructive uropathy
Assessment/Plan
-
IMP:
Acute pancreatitis
Recurrent Pancreatitis
Acute Kidney Injury
Hyperkalemia
CKD IIIb ~1,6
Essential hypertension
Hypothyroidism
BPH
GERD
IBS
PLan:
A/w recurrent pancreatitis
MANN-possible prerenal, cr up to 2.[address] with IV contrast yesterday but remains nonoliguric with urine output of 1500 cc
Contrast prophylaxis have been provide
Chest US noted pleural effusion bilat, ?loculation
holding lasix as vol seem stable
Remains hemodynamically stable
Maintain Dubois catheter his kidney function continues to worsen
monitor mild hyponatremia
abx per ID for Suspected infected Pancreatic pseudocyst
BP soft on IV BB
lipase increasing level, tolerating diet-repeat CT tomorrow per GI
reviewed with and patient at bedside
follow labs
-
-
Date of Service: February 06, 2025
CC / HPI / ROS
-
Chief Complaint:
Acute on chronic kidney disease abdominal
History of Present Illness:
Pancreatitis acute kidney injury on CKD stage IIIb
cr up at 2.3 non-oliguric with dubois
bp stable with IV beta blokcer
Now on micafungin and meropenem for pancreatitis
Review of Systems:
improved hiccups
epigastric on mild
no cp or sob at rest
Labs
-
Labs:
WBC 33.4 10^3/uL (4.8-10.8) H 02/06/25 07:06
RBC 2.90 10^6/uL (4.70-6.10) L 02/06/25 07:06
Hgb 9.1 g/dL (13.0-18.0) L 02/06/25 07:06
Hct 26.8 % (39.0-52.0) L 02/06/25 07:06
Plt Count 237 10^3/uL (130-400) D 02/06/25 07:06
Sodium 133 mmol/L (135-145) L 02/06/25 07:06
Potassium 4.0 mmol/L (3.5-5.1) 02/06/25 07:06
Chloride 101 mmol/L (98-107) 02/06/25 07:06
Carbon Dioxide 28 mmol/L (22-30) 02/06/25 07:06
BUN 42 mg/dl (9-20) H 02/06/25 07:06
Creatinine 2.3 mg/dL (0.7-1.3) H 02/06/25 07:06
eGFR 29.62 02/06/25 07:06
Glucose 69 mg/dl (70-99) L 02/06/25 07:06
Calcium 7.6 mg/dl (8.4-10.2) L 02/06/25 07:06
Phosphorus 2.5 mg/dl (2.5-4.5) 02/03/25 05:35
Bog-O-Ikbcpyakvgo Pept 3140 pg/ml 02/01/25 03:32
Albumin 2.1 g/dl (3.5-5.0) L 02/06/25 07:06
Physical Exam
-
Vital Signs:
Vital Signs
Temp Pulse Resp BP Pulse Ox
98.6 F 80 12 116/59 97
02/06/25 15:00 02/06/25 15:00 02/06/25 15:00 02/06/25 15:00 02/06/25 15:00
Cardiovascular:: Regular rate and rhythm
Respiratory:: Bilateral: Coarse (Profoundly decreased breath sounds towards the bases)
Lung Excursion:: Normal (decreased right base than left)
Abdomen:: Distended, Soft and Tender (mid abd)
Extremity Edema:: None: Bilateral:
Dubois Catheter: Yes
[2025-02-06] MEDS: TUMS CHEWABLE TABLET 400 MG PO (20:34)
[2025-02-06] MEDS: PEPCID PO (21:04)
[2025-02-07] VITALS (9 sets, daily range): BP systolic 80–139; BP diastolic 65–72; BMI 21.5
[2025-02-07] MEDS: STERILE WATER FOR INJECTION 10 ML IV ×3 (02:58→17:51)
[2025-02-07] MEDS: MERREM 500 MG IV ×3 (02:58→17:50)
--- NOTE | 2025-02-07 03:00 | DOWNTIME ---
There was a [employer] Client Extension Work Director Downtime on 02/07/2025 from 0100 to 02/07/2025 at 0255. Downtime documentation of patient's care, including medication administrations, has been reconciled in the electronic record per guidelines. Refer to the
patient's paper chart under the miscellaneous tab to see printed paper medication records and downtime forms.
[2025-02-07] MEDS: TYLENOL 650 MG PO ×5 (03:38→23:04)
[2025-02-07] MEDS: DILAUDID 0.5 MG IV ×3 (04:34→22:41)
[2025-02-07] MEDS: SYNTHROID 75 MCG PO (04:35)
[2025-02-07] MEDS: LOPRESSOR 5 MG IV ×4 (05:10→23:02)
--- NOTE | 2025-02-07 06:09 | W.PN.GI.CBS2 ---
Today's Communication / Plan
-
Responding to ongoing IV Abx and recent antifungal coverage. Continue ongoing supportive care and diet as tolerated. See rest of care as outlined below
Assessment / Plan
-
Mr. Contreras is a 69 y.o male with h/o CKD stage IIIb, GERD, IBS, essential hypertension, hypothyroidism, BPH, and first episode of acute pancreatitis few weeks ago p/w recurrent acute pancreatitis felt to be biliary/gallstone pancreatitis.
Prior Work-Up / Data Review:
MRI 01/14/25- IMPRESSION: There is mild T2 hyperintense signal within the pancreatic head and adjacent fat as well as associated mild diffusion hyperintense signal. This likely represents acute interstitial pancreatitis. No peripancreatic
collection. No discrete mass is visualized although follow-up may be considered following resolution of the pancreatitis. Biliary sludge. There is mild pericholecystic fluid which may be reactive given the likely pancreatitis however can be seen
with acute cholecystitis. There is no biliary duct dilation. There are no filling defects within the common bile duct suggestive of choledocholithiasis.
Abdomen/Pelvis CT 01/29/25 IMPRESSION: Findings suggesting moderate acute pancreatitis. Severe prostate hypertrophy. Progressed Mild diffuse bladder wall thickening. This can be seen with cystitis and bladder outlet obstruction. Stable
US abdomen 01/31/25 Mild four-quadrant ascites. Incidental right pleural effusion. No gallstones. No sonographic evidence of acute cholecystitis. No bile duct dilatation. Mild heterogeneous pancreatic parenchymal echotexture.
MRI WWO contrast 02/02/2025- Impression: worsening peripancreatic edema with interval development of large irregular fluid collection about the pancreatic body and tail measuring up to 10.5 x 7.1 x 10.4 cm, containing gas and debris and suspicious
for acute peripancreatic collection with superinfection (abscess). No convincing evidence for pancreatic necrosis. Mild to moderate abdominopelvic ascites, new. Severe diffuse mesenteric edema, new. Large bilateral pleural effusions with adjacent
airspace disease, new.
#Recurrent, Acute Pancreatitis (2nd Episode)
#Biliary/Gallstone Pancreatitis
#Acute Peripancreatic Fluid Collection c/f #Acute Infected Necrotic Fluid Collection
#Leukocytosis
#A Fib w/ RVR
#MANN on CKD
Patient with worsening abdominal pain on 02/02 as well as slight bump in LFTs where repeat MRI/MRCP was performed which revealed worsening sandra-pancreatic edema along with development of a large, irregular fluid collection about the pancreatic body
and tail measuring approximately 10 cm containing gas and debris concerning for superinfection. Clinically, this is concerning for an acute infected necrotic fluid collection/abscess. Otherwise, no other evidence to suggest intraparenchymal
pancreatic necrosis. There was evidence of ascites as well as diffuse anasarca with edema and bilateral pleural effusions likely secondary to volume overload from his previous IVF and underlying pancreatitis. He was started on IV Zosyn 02/02 and
repeat blood cultures obtained.
S/p CT CAP 02/05/25: Findings of pancreatitis with numerous peripancreatic collections. There are no definite hypoenhancing foci within the pancreatic parenchyma to suggest necrosis. There is a large gas and fluid containing collection along the
pancreatic body/tail which extends along the greater curvature of the stomach which measures up to 11.8 cm, slightly increased in size from prior MRI. This is concerning for an infected peripancreatic collection. Numerous additional collections
including a perihepatic collection which appears to extend along the gastric fundus, similar to prior. There is small volume perisplenic fluid as well as small volume fluid in the bilateral paracolic gutters and pelvis. Findings are likely related
to the pancreatitis. Moderate bilateral pleural effusions with adjacent compressive atelectasis and GGOs.Concern for 8 mm hypodensity of spleen concern for possible splenic infarct and SB/colonic thickening felt to be reactive inflammatory changes.
No evidence of hemorrhagic fluid collection or hemorrhagic pancreatitis in discussion with Radiology.
Fortunately, patient continues to appear more comfortable without any further abdominal pain or discomfort and continues to tolerate a low-fat diet. Having some back pain and likely related to his pancreatic fluid collection / pancreatitis.
Otherwise, he is without any signs or symptoms to suggest other complications at this time (ie GOO, etc). Previous concern for intermittent fevers and rising leukocytosis, however continues to remain stable and comfortable appearing without any
signs of decompensation. Would continue ongoing supportive care and IV antibiotics as well as recent anti-fungal coverage.
Recommendations:
- Low-fat diet as tolerated
- Stop further IVF
- Still with persistent leukocytosis but appears to be responding to current IV abx
- Blood cultures 02/02/25 remain NGTD
- Continue IV Meropenem and Micafungin as per ID
- Trend Hgb with serial CBC. If H/h continues to remain stable, could consider restarting in 24 hrs
- Continue close monitoring of renal function
- No plans for any endoscopic or IR-guided intervention at this time
- IV PPI for ppx along with continuing bowel regimen with Miralax 17 gm BiD for prevention of ileus- now having bowel function
- Continue Thorazine as needed for hiccups and suspect diaphragm-related irritation 2/2 large sandra-pancreatic fluid collection
- Will need eventual lap-yeison as outpatient
- Continue standing acetaminophen and multimodal pain control
- IV anti-emetics PRN
- Rest of care per primary team
GI will continue to follow. Please call with any questions or concerns.
Subjective
Subjective
Date of Service: February 07, 2025
- Switched from Zosyn to Meropenem and added Micafungin on 02/06
- Remains afebrile and HD-stable, prior blood cultures 02/02/25 remain NGTD
Resting comfortably in chair, does note mid/lower back pain but denies any abdominal pain or discomfort. Continues to tolerate diet without difficulty without any nausea/vomiting. No fever, chills or other constitutional symptoms.
Objective
Data Reviewed
Laboratory Data:
Laboratory Results
APTT 105.9 Sec (23.4-35.0) H 02/05/25 06:45
Phosphorus 2.5 mg/dl (2.5-4.5) 02/03/25 05:35
Magnesium 2.0 mg/dl (1.6-2.3) 02/03/25 05:35
Total Bilirubin 1.5 mg/dl (0.2-1.3) H 02/06/25 07:06
AST 31 U/L (17-59) 02/06/25 07:06
ALT 33 U/L (0-50) 02/06/25 07:06
Alkaline Phosphatase 268 U/L (38-126) H 02/06/25 07:06
Lipase 3938 U/L (23-300) H* 02/06/25 07:06
Vital Signs and I&O:
Vital Signs
Temp Pulse Resp BP Pulse Ox
99.1 F 90 20 122/64 97
02/07/25 03:15 02/07/25 05:10 02/07/25 03:15 02/07/25 05:10 02/07/25 03:15
I&O
02/05/25 02/06/25 02/07/25
06:59 06:59 06:59
Intake Total 1138 / 1138 1680 / 1680 480 / 480
Output Total 880 / 880 1275 / 1275 500 / 500
Balance 258 / 258 405 / 405 -20 / -20
Physical Exam
Physical Exam
HEENT: Anicteric and Moist mucous membranes
Pulmonary: Other (Normal WOB)
GI: Soft, Non Distended and Tender (Minimal TTP in epigastric region without rebound or gaurding)
Extremities: Warm
Neuro: Non Focal
[2025-02-07 06:53] LABS: Hematocrit 28.9 % (39.0-52.0); Hemoglobin 9.5 g/dL (13.0-18.0); Mean Corp Hgb Conc. 32.9 g/dL (33.0-37.0); Mean Corpuscular Volume 92.6 fL (80.0-94.0); Platelet Count 326 10^3/uL (130-400); Red Cell Dist. Width 14.5 % (11.5-14.5)
[2025-02-07 07:08] LABS: ALT (SGPT) 29 U/L (0-50); AST (SGOT) 35 U/L (17-59); Albumin 2.4 g/dl (3.5-5.0); Alkaline Phosphatase 277 U/L (38-126); Blood Urea Nitrogen 35 mg/dl (9-20); Calcium 7.8 mg/dl (8.4-10.2); Carbon Dioxide 24 mmol/L (22-30); Chloride 102 mmol/L (98-107); Estimated Creatinine Clearance 32 ml/min; Glucose 71 mg/dl (70-99); Potassium 4.6 mmol/L (3.5-5.1); Sodium 130 mmol/L (135-145); Total Protein 5.2 g/dl (6.3-8.2); eGFR 35.02
[2025-02-07 07:22] LABS: Lipase > 4000 U/L (23-300)
[2025-02-07 07:34] LABS: Nucleated Red Blood Cells % 0 % (-)
[2025-02-07] MEDS: FLOMAX 0.4 MG PO (08:33)
[2025-02-07] MEDS: NSS (PRESERVATIVE FREE) 10 ML IV (08:33)
[2025-02-07] MEDS: PROTONIX IV 40 MG IV (08:33)
[2025-02-07] MEDS: KCL 40 MEQ PO (08:33)
--- NOTE | 2025-02-07 08:46 | W.PN.ID1 ---
Date of Service
Date of Service: February 07, 2025
Today's Communication
- c/w meropenem 500 mg IV q8 hours
- c/w micafungin - fever seems to have responded to this therapy
Assessment / Plan
acute infected peripancreatic fluid collection
Recurrent Acute Pancreatitis
Bilateral Pleural Effusions
Leukocytosis
MANN on CKD - improving
Elevated inflammatory markers
- 02/02 blood cultures x2 are in progress
- CT c/a/p - collections: peripancreatic - gas and fluid containing, perihepatic; moderate BL pleural effusions, area of coloenteritis, possible small splenic infarction
- L thoracentesis: exudative effusion by LDH; aerobic, fungal and afb cultures in progress
- added on peripheral LDH
- R thoracentesis planned for tomorrow
- follow wbc and clinically
- c/w meropenem 500 mg IV q8 hours
- c/w micafungin - fever seems to have responded to this therapy
- continue with supportive care
Chief Complaint
-: Leukocytosis and Other (pancreatic pseudocyst)
Subjective / Review of Systems
no further fevers
bp stable
dubois was placed
no events overnight
complains of pain over the r flank which is improved by sitting in the chair
no significant complaints of abdominal pain but is tender on exam
Vital Signs / Physical Exam
Vital Signs
Vital Signs
Temp Pulse Resp BP Pulse Ox
98.3 F 81 18 137/70 97
02/07/25 08:04 02/07/25 08:04 02/07/25 08:04 02/07/25 08:04 02/07/25 08:04
Physical Exam
Constitutional: No Acute Distress
Cardiovascular: Regular Rate and S1/S2; Negative Murmur or Rub
Pulmonary: Clear and Symmetric; Negative Wheezes or Rales
Gastrointestinal: Soft, Tender (diffuse), Non Distended and Normal Bowel Sounds
Skin: Warm and Dry; Negative Rash or Jaundice
Objective Data
Lab Data
Lab Results
02/07/25 05:49
02/07/25 05:49
APTT 105.9 Sec (23.4-35.0) H 02/05/25 06:45
Estimated Creat Clear 32 ml/min 02/07/25 05:49
Total Bilirubin 1.4 mg/dl (0.2-1.3) H 02/07/25 05:49
AST 35 U/L (17-59) 02/07/25 05:49
ALT 29 U/L (0-50) 02/07/25 05:49
Alkaline Phosphatase 277 U/L (38-126) H 02/07/25 05:49
C-Reactive Protein 257.90 mg/L (0.0-10.00) H 02/02/25 06:38
Most recent labs reviewed.
Micro Results:
02/02/25 19:58 Blood Culture - Preliminary
Blood/Venous No Growth in 4 days- Final report to follow
02/02/25 18:37 Blood Culture - Preliminary
Blood/Venous No Growth in 4 days- Final report to follow
01/31/25 17:19 Blood Culture - Final
Blood/Venous No Growth - Final Report
01/31/25 16:51 Blood Culture - Final
Blood/Venous No Growth - Final Report
02/04/25 19:46 C. difficile GDH Antigen & Toxins - Final
Feces/Stool Negative for toxigenic C.difficile
--- NOTE | 2025-02-07 09:21 | W.PN.PUL.V3 ---
Today's Communication / Plan
-
Antibiotics
Left thoracentesis today and hopefully right thoracentesis tomorrow
Assessment
-
69-year-old former [id number] with history of chronic kidney disease, GERD, hypertension, hypothyroid, BPH who was admitted to hospital 01/28/2025 with abdominal pain felt to have acute pancreatitis found to have atrial fibrillation with
rapid ventricular rate now on heparin as well as acute kidney injury and echocardiogram suggested pleural effusion and pulmonary was consulted 02/02/2025
Bilateral pleural effusion left greater than right
Right lower lobe pneumonia versus compressive atelectasis
Recurrent acute pancreatitis
Atrial fibrillation/PAF with rapid ventricular rate
Plan
Respiratory status is relatively stable-patient feels better still has significant diminished breath sounds at the left base
Supplemental oxygen as needed-currently on 2 L - 95%
Incentive spirometry encouraged
Nebulizers if needed-currently not bronchospastic
Follow occasional chest x-ray
Ultrasound with left pleural effusion possible loculations
CT chest abdomen and pelvis 02/05/2025-pancreatitis with numerous peripancreatic collections, ground glass opacification anterior upper lobes, moderate pleural effusion with adjacent compressive atelectasis and draining left and then right pleural
effusions with ongoing leukocytosis and temperatures.
Dr. Whelan contacted interventional radiology 02/06/2025 for initial left thoracentesis-send for routine, cultures and cytology and then right thoracentesis and to send for routine, cultures, and cytology-unclear was -reviewed with
nursing-they will call interventional radiology-hopefully procedures can be done in the next 24-48 hours
Cultures were C. difficile negative
Blood cultures negative
Unable to produce sputum per infectious disease
Empiric antibiotics per infectious disease
Infectious disease following-correspondence [id number] on meropenem Zosyn
CT chest abdomen pelvis noted above
Recommend sampling pleural fluid bilaterally
Cardiology following-correspondence reviewed
Atrial fibrillation rate control
Anticoagulation-on heparin drip
Diuresis as tolerated
Monitor renal function, electrolytes, intake/output, lower extremity edema and weight
Replace electrolytes as needed
Gastroenterology following-correspondence reviewed-appears to be responding to IV antibiotics-no immediate peripancreatic collection sampling anticipated
Follow hemoglobin
Transfuse as needed
Repeat CT chest abdomen and pelvis 02/05/2025 summarized above
DVT prophylaxis-on heparin drip
Nutrition per gastroenterology
PT/OT/early mobilization
Reviewed with nursing
Dr. Whelan reviewed with at the bedside 02/05/2025, 02/06/2025, 02/07/2025
Data:
CXR 01/2025:Moderate bilateral pleural effusions, left larger than right. New. Loculated on left.
Probable mild right lower lobe pneumonia. New.
Probable mild cardiomegaly. New
ECHO 01/2025: 1. Normal left ventricular size and normal LV function with an ejection fraction of 51 % by Holland's biplane method of discs.
2. Possible mild hypokinesis of the anterolateral and inferolateral wall segments.
3. Stage I diastolic dysfunction suggestive of abnormal relaxation.
4. Right ventricular size and systolic function are within normal limits.
5. Aortic sclerosis with no significant stenosis.
6. Mild mitral valve regurgitation.
7. Mild to moderate tricuspid regurgitation. Estimated pulmonary artery pressure of 45 mmHg assuming a right atrial pressure of 15 mmHg.
8. Pleural effusion is noted.
9. Compared to a prior transthoracic echocardiogram study from 07/05/23 Possible mild anterolateral inferolateral hypokinesis is present. A pleural effusion is now present and PA pressure is increased from [address] A/P 01/2025: Findings suggesting moderate acute pancreatitis.
Severe prostate hypertrophy. Progressed
Mild diffuse bladder wall thickening. This can be seen with cystitis and bladder outlet obstruction. Stable
Chest US 02/04/2025:
Bilateral moderate to large subpulmonic pleural effusions. These do not appear to layer posteriorly, raising the possibility of loculation. Consider further evaluation with chest CT if it is deemed clinically necessary to confirm or exclude
loculated nature.
Subjective Data
-
Date of Service:
Date of Service: February 07, 2025
Chief Complaint: Pulmonary Follow Up and Dyspnea Follow Up
Subjective:
No increase shortness of breath at rest, no chest pain, productive cough, or increased abdominal pain
Review of Systems
General: Other (Per HPI)
Objective Data
Data Reviewed
Vital Signs / I&O:
Vital Signs
Temp Pulse Resp BP Pulse Ox
98.3 F 81 18 137/70 97
02/07/25 08:04 02/07/25 08:04 02/07/25 08:04 02/07/25 08:04 02/07/25 08:04
Intake and Output
02/06/25 02/07/25 02/08/25
06:59 06:59 06:59
Intake Total 1680 / 1680 960 / 960
Output Total 1275 / 1275 1025 / 1025
Balance 405 / 405 -65 / -65
SaO2: 97
Nasal Cannula flow liters per minute: 2
Physical Exam
General: Respiratory Distress (negative), Comfortable, Chills (negative) and Sweats (negative)
HEENT: Normocephalic and Anicteric
Cardiovascular: Regular Rhythm and Peripheral Edema (negative)
Respiratory: Wheeze (negative), Crackles (bibasilar (L>R)), Rhonchi (negative), Non-Labored Respirations and Other (Decreased breath sounds at the left base)
GI: Soft, Non Distended, Non Tender and Normal Bowel Sounds
Neurology: Awake, Alert, Oriented and Tremors (negative)
Skin: Warm, Good Color, Cyanosis (negative), Jaundice (negative) and Rash (n)
Labs/Micro/Reports
Lab Data
02/07/25 05:49
02/07/25 05:49
Microbiology
02/02/25 19:58 Blood/Venous Blood Culture - Preliminary
No Growth in 4 days- Final report to follow
02/02/25 18:37 Blood/Venous Blood Culture - Preliminary
No Growth in 4 days- Final report to follow
01/31/25 17:19 Blood/Venous Blood Culture - Final
No Growth - Final Report
01/31/25 16:51 Blood/Venous Blood Culture - Final
No Growth - Final Report
02/04/25 19:46 Feces/Stool C. difficile GDH Antigen & Toxins - Final
Negative for toxigenic C.difficile
[2025-02-07] MEDS: LR 1000 IV ×3 (10:56→20:34)
[2025-02-07 11:29] LABS: Body Fluid Second Tech CF
[2025-02-07] MEDS: MYCAMINE 105 MG IV (12:15)
[2025-02-07 12:18] LABS: LDH 223 U/L (120-246)
--- NOTE | 2025-02-07 13:50 | W.PN.HOSP.TC ---
Today's Communication/Plan
-
Cont IV abx, fungals
F/u cultures from Left thora
IVF
Trial restarting heparin ggt
Assessment / Plan
Assessment / Plan
Physical Exam
General: no acute distress, appears relatively comfortable
HEENT: normocephalic, atraumatic, moist oral mucosa
Respiratory: Clear to Auscultation; Negative Wheezes
Cardiac: Regular Rhythm and S1/S2
Abdomen: decreased bowel sounds, soft, mild tenderness
Musculoskeletal: swelling hands noted suspect third spacing d/t hypoalbuminemia and likely fluid overload
Skin: Warm and Dry; Negative Rash
Neuro: AO x 3 conversant coherent
Psych: Calm
IMPRESSION:
69-year-old male with past medical history of CKD stage IIIb, GERD, IBS, essential hypertension, hypothyroidism, BPH, presenting to the ER reporting severe epigastric pain.
MRI 01/14/25
IMPRESSION:
There is mild T2 hyperintense signal within the pancreatic head and adjacent fat as well as associated mild diffusion hyperintense signal. This likely represents acute interstitial pancreatitis. No peripancreatic collection. No discrete mass is
visualized although follow-up may be considered following resolution of the pancreatitis.
Biliary sludge. There is mild pericholecystic fluid which may be reactive given the likely pancreatitis however can be seen with acute cholecystitis.
There is no biliary duct dilation. There are no filling defects within the common bile duct suggestive of choledocholithiasis.
Abdomen/Pelvis CT 01/29/25
IMPRESSION: Findings suggesting moderate acute pancreatitis.
Severe prostate hypertrophy. Progressed
Mild diffuse bladder wall thickening. This can be seen with cystitis and bladder outlet obstruction. Stable
PLAN:
Acute pancreatitis
Recurrent Pancreatitis
Concern for an infected peripancreatic collection.
Transaminitis
-No alcohol use, no gallstone, Ca OK, IgG4 WNL (returned from last admission),
-MRI last admission without mass, finding of sludge.
-Gallbladder suspected etiology recurrent pancreatitis
-surgery eval eventual Lap cholecystectomy recommended, timing to be determined
-MRI repeated 02/02 given ongoing abd pain, recurrent rise in lipase,
-MRI appreciated concerning for peripancreatic abscess formation, started on empiric zosyn 02/03/25 - switched to meropenem 02/06
-CT 04/07 - concerning for an infected peripancreatic collection.
-follow blood cx's NGTD
-ID eval appreciated cont zosyn renally dosed
-cont pain control prn dilaudid reduced to 0.5 mg Q3HPRN d/t concerns AMS, cont Scheduled PO Tylenol
-IVF support completed
-GI eval appreciated diet advanced to Low Fat
- As per GI: Favor having fluid collection mature in 4-6 weeks and then would consider sampling with EUS-guided drainage pending his clinical course.
- start meropenem 500 mg IV q8 hours; stop zosyn
- add micafungin
-IV Fluids
#sepsis with MANN
-pancreatic collection +/- pleural fluid collection
-abx as stated above
-meropenem 500 mg IV q8 hours; stop zosyn
- micafungin
-left Thora - F/u Cultures
#Acute Anemia
#possible Acute Blood Loss Anemia
-trial Hep ggt this evening
-monitor HgB
-No active bleeding with CT 02/05
-If hgb remains stable by tomorrow - can restart anticoag
02/04/25 New onset diarrhea
likely abx related
-Cdiff negative 02/04
Mild Thrombocytopenia
-suspect combination dilutional from aggressive IVF support and 2/2 inflammation from pancreatitis
--cont monitoring
02/02 CXR noted Bilateral Pleural Effusions Lt>Rt, loculated on left
Stable respiratory status
Pulm eval appreciated likely fluid overload combined with hypoalbuminemia
Trial Lasix Diuresis (so far received two doses, no further doses planned at this time), follow up CXR in AM 02/03 noted stable appearance pleural effusions, slight improvement right effusions
Chest US 02/04 appreciated b/l mod to large subpulmonic pleural effusions, possible loculation
Pulmonary Evaluation
left thora - appears exudative
F/u Cultures
AMS likely multifactorial , improved
Metabolic encephalopathy 2/2 opiate pain meds vs Delirium 2/2 sleep deprivation d/t pain vs [facility] Delirium
opiate pain meds reduced as above
mental status since significantly improved
cont to monitor
Acute Kidney Injury
Hyperkalemia resolved
CKD IIIb
Metabolic Acidosis resolved, bicarb supplementation discontinued
-Maintain Huertas at this time for accurate I/O
-pre-renal MANN in setting of acute pancreatitis with significant rise in creatinine overnight.
-Renal consult appreciated
- Cr high 3.9 since trended down to <2, near baseline
�Family was educated on risks and benefits of IV contrast to assess bleeding, especially risk of worsening renal function and possible dialysis. Family understood risks, and agreed to CT imaging
� Continue to monitor renal function, worsened today
� Bicarb solution for WALTER ppx 02/05
� Nephrology consulted
� Holding diuretics
-IVF
Hypokalemia
Hypophosphatemia
Low Normal Mg level
-monitor and replete as necessary
New Onset Afib RVR since spontaneously converted to NSR on cardizem gtt
transferred to IVU 01/31, downgraded to tele 02/01
Cardio eval appreciated Cardizem gtt switched to scheduled IV Lopressor
Trial re-initiating Hep ggt
ECHO appreciated EF 51%
#Ground glass opacities within the anterior upper lobes which measure up to 3.1 cm in the anterior right upper lobe.
-Recommend follow-up CT chest to ensure resolution.
#Hyponatremia
� Mild
� Continue to monitor with resuscitation
#Essential hypertension
-hold Amlodipine
-Lopressor as above
#Hypothyroidism
Continue levothyroxine
TSH wnl
#8 mm hypodensity within the inferolateral aspect of the spleen
- new from prior and may represent a small infarction.
-Will be placed back on anticoagulation eventually
DVT prophylaxis�heparin subcu
Full code
Discussed with patient and patient's Leigh
Total time spent on today's encounter was 54 minutes which included time spent in counseling the patient/family regarding diagnosis and treatment plan as listed above, goals of care, and symptom management. Case was discussed with nursing staff,
specialists, and care coordinators/case management. All labs and imaging personally reviewed by me. Remainder the time spent in detailed review of previous records, lab data, imaging, and other medical provider documentation.
Anticipated Discharge: > 48 hours
Subjective/Interval History
-
Date of Service: February 07, 2025
Remains afebrile
Objective Data
-
Labs:
Laboratory Results
02/07/25
05:49
WBC 33.0 H
Hgb 9.5 L
Hct 28.9 L
Plt Count 326 D
Sodium 130 L
Potassium 4.6
Chloride 102
Carbon Dioxide 24
BUN 35 H
Creatinine 2.0 H
Glucose 71
Calcium 7.8 L
Total Bilirubin 1.4 H
AST 35
ALT 29
Alkaline Phosphatase 277 H
Vital Signs:
Vital Signs
Temp Pulse Resp BP Pulse Ox
97.6 F 82 18 137/70 97
02/07/25 10:57 02/07/25 10:57 02/07/25 10:57 02/07/25 10:57 02/07/25 10:57
I&O
02/06/25 02/07/25 02/08/25
06:59 06:59 06:59
Intake Total 1680 / 1680 960 / 960
Output Total 1275 / 1275 1025 / 1025 150 / 150
Balance 405 / 405 -65 / -65 -150 / -150
Review of Systems
-
History Source: Patient
All other systems: Not reviewed unless documented
Physical Exam
-
General: No Apparent Distress
HEENT: Other (dry mucous membranes )
Respiratory: Clear to Auscultation; Negative Wheezes
Cardiac: Regular Rhythm and S1/S2
GI: Other (tender mid-epigastric region )
Musculoskeletal: No Edema
Skin: Warm and Dry; Negative Rash
Neuro: AO x 3
Psych: Calm
[2025-02-07] MEDS: TYLENOL PO (13:54)
[2025-02-07 14:15] LABS: Hematocrit 26.6 % (39.0-52.0); Hemoglobin 9.0 g/dL (13.0-18.0); Mean Corp Hgb Conc. 33.8 g/dL (33.0-37.0); Mean Corpuscular Volume 90.5 fL (80.0-94.0); Platelet Count 325 10^3/uL (130-400); Red Cell Dist. Width 13.9 % (11.5-14.5)
[2025-02-07 14:25] LABS: APTT 29.1 Sec (23.4-35.0)
[2025-02-07] MEDS: HEPARIN 25000 UNITS/250 ML IV (14:59)
--- NOTE | 2025-02-07 16:01 | CM ---
Reviewed chart. Met with and pt at bedside. Pt is still in medical workup,Not ready for discharge planning yet
[2025-02-07] MEDS: THORAZINE 25 MG PO (16:26)
--- NOTE | 2025-02-07 16:48 | W.PN.NEPH.PH ---
Today's Communication / Plan
-
follow labs on IVF
Assessment/Plan
-
IMP:
Acute pancreatitis
Recurrent Pancreatitis
Acute Kidney Injury
Hyperkalemia
CKD IIIb ~1,6
Essential hypertension
Hypothyroidism
BPH
GERD
IBS
PLan:
A/w recurrent pancreatitis
MANN-possible prerenal, cr better at 2 with IVF
non oliguric with dubois, still keep it
LR started with increasing lipase
k normal hold kcl
s/p right thoracentesis 400cc today
holding lasix as vol seem stable
Remains hemodynamically stable
monitor mild hyponatremia
abx per ID for Suspected infected Pancreatic pseudocyst
BP stable on IV BB
reviewed with and patient at bedside
follow labs
-
-
Date of Service: February 07, 2025
CC / HPI / ROS
-
Chief Complaint:
Acute on chronic kidney disease abdominal
History of Present Illness:
Pancreatitis acute kidney injury on CKD stage IIIb
cr down to 2, non-oliguric with dubois
bp stable with IV beta blokcer
Now on micafungin and meropenem for pancreatitis
lipsae >4000
Review of Systems:
epigastric mild
no cp or sob at rest
Labs
-
Labs:
WBC 29.0 10^3/uL (4.8-10.8) H 02/07/25 14:08
RBC 2.94 10^6/uL (4.70-6.10) L 02/07/25 14:08
Hgb 9.0 g/dL (13.0-18.0) L 02/07/25 14:08
Hct 26.6 % (39.0-52.0) L 02/07/25 14:08
Plt Count 325 10^3/uL (130-400) 02/07/25 14:08
Sodium 130 mmol/L (135-145) L 02/07/25 05:49
Potassium 4.6 mmol/L (3.5-5.1) 02/07/25 05:49
Chloride 102 mmol/L (98-107) 02/07/25 05:49
Carbon Dioxide 24 mmol/L (22-30) 02/07/25 05:49
BUN 35 mg/dl (9-20) H 02/07/25 05:49
Creatinine 2.0 mg/dL (0.7-1.3) H 02/07/25 05:49
eGFR 35.02 02/07/25 05:49
Glucose 71 mg/dl (70-99) 02/07/25 05:49
Calcium 7.8 mg/dl (8.4-10.2) L 02/07/25 05:49
Phosphorus 2.5 mg/dl (2.5-4.5) 02/03/25 05:35
Fuv-R-Gjrpsdlszed Pept 3140 pg/ml 02/01/25 03:32
Albumin 2.4 g/dl (3.5-5.0) L 02/07/25 05:49
Physical Exam
-
Vital Signs:
Vital Signs
Temp Pulse Resp BP Pulse Ox
97.7 F 80 18 125/72 97
02/07/25 14:24 02/07/25 14:33 02/07/25 14:24 02/07/25 14:33 02/07/25 14:24
Cardiovascular:: Regular rate and rhythm
Respiratory:: Bilateral: Coarse (decreased left base, rales on rt base )
Lung Excursion:: Normal (decreased right base than left)
Abdomen:: Distended, Soft and Tender (mid abd)
Extremity Edema:: None: Bilateral: (trace)
Dubois Catheter: Yes
[2025-02-07 21:37] LABS: APTT 42.8 Sec (23.4-35.0)
[2025-02-08 03:06] VITALS: BP 132/68
[2025-02-08] MEDS: TYLENOL 650 MG PO ×5 (03:09→23:03)
[2025-02-08] MEDS: MERREM 500 MG IV ×2 (03:09→11:01)
[2025-02-08] MEDS: STERILE WATER FOR INJECTION 10 ML IV ×2 (03:09→11:01)
[2025-02-08] MEDS: LR IV ×2 (03:38→11:01)
[2025-02-08 04:26] LABS: Hematocrit 24.5 % (39.0-52.0); Hemoglobin 8.6 g/dL (13.0-18.0); Mean Corp Hgb Conc. 35.1 g/dL (33.0-37.0); Mean Corpuscular Volume 90.1 fL (80.0-94.0); Nucleated Red Blood Cells % 0 % (-); Platelet Count 379 10^3/uL (130-400); Red Cell Dist. Width 14.6 % (11.5-14.5)
[2025-02-08 04:46] LABS: APTT 48.6 Sec (23.4-35.0)
[2025-02-08 05:02] LABS: ALT (SGPT) 25 U/L (0-50); AST (SGOT) 30 U/L (17-59); Albumin 2.0 g/dl (3.5-5.0); Alkaline Phosphatase 227 U/L (38-126); Blood Urea Nitrogen 34 mg/dl (9-20); Calcium 7.6 mg/dl (8.4-10.2); Carbon Dioxide 26 mmol/L (22-30); Chloride 103 mmol/L (98-107); Estimated Creatinine Clearance 32 ml/min; Glucose 71 mg/dl (70-99); Lipase > 4000 U/L (23-300); Potassium 4.8 mmol/L (3.5-5.1); Sodium 130 mmol/L (135-145); Total Protein 4.8 g/dl (6.3-8.2); eGFR 35.02
[2025-02-08] MEDS: LOPRESSOR 5 MG IV ×4 (05:31→23:02)
[2025-02-08] MEDS: SYNTHROID 75 MCG PO (05:36)
[2025-02-08 06:00] VITALS: BMI 21.9
--- NOTE | 2025-02-08 06:57 | W.PN.GI.CBS2 ---
Today's Communication / Plan
-
Ongoing slow improvement with conservative measures along with IV Abx and antifungal coverage. Continues to tolerate low-fat diet without any concerning symptoms. Would continue to monitor serial H/h while on a/c. See rest of care as outlined below.
Assessment / Plan
-
Mr. Contreras is a 69 y.o male with h/o CKD stage IIIb, GERD, IBS, essential hypertension, hypothyroidism, BPH, and first episode of acute pancreatitis few weeks ago p/w recurrent acute pancreatitis felt to be biliary/gallstone pancreatitis.
Prior Work-Up / Data Review:
MRI 01/14/25- IMPRESSION: There is mild T2 hyperintense signal within the pancreatic head and adjacent fat as well as associated mild diffusion hyperintense signal. This likely represents acute interstitial pancreatitis. No peripancreatic
collection. No discrete mass is visualized although follow-up may be considered following resolution of the pancreatitis. Biliary sludge. There is mild pericholecystic fluid which may be reactive given the likely pancreatitis however can be seen
with acute cholecystitis. There is no biliary duct dilation. There are no filling defects within the common bile duct suggestive of choledocholithiasis.
Abdomen/Pelvis CT 01/29/25 IMPRESSION: Findings suggesting moderate acute pancreatitis. Severe prostate hypertrophy. Progressed Mild diffuse bladder wall thickening. This can be seen with cystitis and bladder outlet obstruction. Stable
US abdomen 01/31/25 Mild four-quadrant ascites. Incidental right pleural effusion. No gallstones. No sonographic evidence of acute cholecystitis. No bile duct dilatation. Mild heterogeneous pancreatic parenchymal echotexture.
MRI WWO contrast 02/02/2025- Impression: worsening peripancreatic edema with interval development of large irregular fluid collection about the pancreatic body and tail measuring up to 10.5 x 7.1 x 10.4 cm, containing gas and debris and suspicious
for acute peripancreatic collection with superinfection (abscess). No convincing evidence for pancreatic necrosis. Mild to moderate abdominopelvic ascites, new. Severe diffuse mesenteric edema, new. Large bilateral pleural effusions with adjacent
airspace disease, new.
#Recurrent, Acute Pancreatitis (2nd Episode)
#Biliary/Gallstone Pancreatitis
#Acute Peripancreatic Fluid Collection c/f #Acute Infected Necrotic Fluid Collection
#Leukocytosis
#A Fib w/ RVR
#MANN on CKD
Patient with worsening abdominal pain on 02/02 as well as slight bump in LFTs where repeat MRI/MRCP was performed which revealed worsening sandra-pancreatic edema along with development of a large, irregular fluid collection about the pancreatic body
and tail measuring approximately 10 cm containing gas and debris concerning for superinfection. Clinically, this is concerning for an acute infected necrotic fluid collection/abscess. Otherwise, no other evidence to suggest intraparenchymal
pancreatic necrosis. There was evidence of ascites as well as diffuse anasarca with edema and bilateral pleural effusions likely secondary to volume overload from his previous IVF and underlying pancreatitis. He was started on IV Zosyn 02/02 and
repeat blood cultures obtained.
S/p CT CAP 02/05/25: Findings of pancreatitis with numerous peripancreatic collections. There are no definite hypoenhancing foci within the pancreatic parenchyma to suggest necrosis. There is a large gas and fluid containing collection along the
pancreatic body/tail which extends along the greater curvature of the stomach which measures up to 11.8 cm, slightly increased in size from prior MRI. This is concerning for an infected peripancreatic collection. Numerous additional collections
including a perihepatic collection which appears to extend along the gastric fundus, similar to prior. There is small volume perisplenic fluid as well as small volume fluid in the bilateral paracolic gutters and pelvis. Findings are likely related
to the pancreatitis. Moderate bilateral pleural effusions with adjacent compressive atelectasis and GGOs.Concern for 8 mm hypodensity of spleen concern for possible splenic infarct and SB/colonic thickening felt to be reactive inflammatory changes.
No evidence of hemorrhagic fluid collection or hemorrhagic pancreatitis in discussion with Radiology.
Interventional radiology 02/07/2025-not enough fluid for left thoracentesis, right thoracentesis performed -400 mL cloudy rigo pleural fluid, WBC 13,290, glucose 72, total protein 2.4, LDH 232, pH 7.42, cultures and cytology pending
Fortunately, patient continues to appear more comfortable without any further abdominal pain or discomfort and continues to tolerate a low-fat diet. Having some back pain and hiccups secondary to his suspected pancreatic fluid collection /
pancreatitis. Otherwise, he is without any signs or symptoms to suggest other complications at this time (ie GOO, etc). Previous concern for intermittent fevers and rising leukocytosis, however continues to remain stable and comfortable appearing
without any signs of decompensation. Would continue ongoing supportive care and IV antibiotics as well as recent anti-fungal coverage.
Recommendations:
- Low-fat diet as tolerated
- Now with down-trending leukocytosis and suspect some component is reactive 2/2 pancreatitis
- Blood cultures 02/02/25 remain NGTD
- Continue IV Meropenem and Micafungin as per ID
- Trend Hgb with serial CBC, if Hgb continues to drift would hold a/c. Recommend monitoring serial H/h q 12 hrs
- Continue close monitoring of renal function
- No plans for any endoscopic or IR-guided intervention / sampling at this time of his sandra-pancreatic fluid collection
- Would consider EUS-guided sampling/drainage once fluid collection has matured in 4-6 weeks and if needed if c/f complications (ie worsening pain, symptoms of GOO, etc)
- IV PPI for ppx along with continuing bowel regimen with Miralax 17 gm BiD for prevention of ileus- now having bowel function
- Continue Thorazine as needed for hiccups and suspect diaphragm-related irritation 2/2 large sandra-pancreatic fluid collection
- Will need eventual lap-yeison as outpatient, deferring at this time given severity of pancreatitis
- Continue standing acetaminophen and multimodal pain control
- IV anti-emetics PRN
- Rest of care per primary team
GI will continue to follow. Please call with any questions or concerns.
Subjective
Subjective
Date of Service: February 08, 2025
- Restarted on IV heparin gtt with Hgb 9.5 -> 9.0 -> 8.6
- Remains on IV Meropenem and IV Micafungin, continues to remain afebrile and down-trending leukocyosis
- S/p recent IR guided thoracentesis on 02/07 with (-) 400 mL from R chest
- Otherwise, no acute events overnight
Feeling well, continues to deny any further abdominal pain or back pain. Tolerating diet and ambulating as tolerated without difficulty. No nausea or vomiting or other fevers/chills. Updated patient's (Leigh) this AM via phone at bedside this
AM.
Objective
Data Reviewed
Laboratory Data:
Laboratory Results
02/08/25 04:09
02/08/25 04:09
Laboratory Results
APTT 48.6 Sec (23.4-35.0) H 02/08/25 04:09
Phosphorus 2.5 mg/dl (2.5-4.5) 02/03/25 05:35
Magnesium 2.0 mg/dl (1.6-2.3) 02/03/25 05:35
Total Bilirubin 1.1 mg/dl (0.2-1.3) 02/08/25 04:09
AST 30 U/L (17-59) 02/08/25 04:09
ALT 25 U/L (0-50) 02/08/25 04:09
Alkaline Phosphatase 227 U/L (38-126) H 02/08/25 04:09
Lipase > 4000 U/L (23-300) H* 02/08/25 04:09
Vital Signs and I&O:
Vital Signs
Temp Pulse Resp BP Pulse Ox
98.6 F 86 16 127/66 94
02/08/25 03:06 02/08/25 05:31 02/08/25 03:06 02/08/25 05:31 02/08/25 03:06
I&O
02/06/25 02/07/25 02/08/25
06:59 06:59 06:59
Intake Total 1680 / 1680 960 / 960 480 / 480
Output Total 1275 / 1275 1025 / 1025 1475 / 1475
Balance 405 / 405 -65 / -65 -995 / -995
Physical Exam
Physical Exam
HEENT: Anicteric and Moist mucous membranes
Pulmonary: Other (Normal WOB)
GI: Soft, Non Distended and Non Tender
Extremities: Warm
Neuro: Non Focal
[2025-02-08 08:00] VITALS: BP 139/70
[2025-02-08] MEDS: LR 1000 IV ×2 (08:37→17:05)
[2025-02-08] MEDS: NSS (PRESERVATIVE FREE) 10 ML IV (08:39)
[2025-02-08] MEDS: PROTONIX IV 40 MG IV (08:40)
[2025-02-08] MEDS: FLOMAX 0.4 MG PO (08:40)
--- NOTE | 2025-02-08 08:56 | W.PN.PUL.V3 ---
Today's Communication / Plan
-
Overall improved
Wean FiO2
Increase activity
Increase diet
Antibiotics
No further thoracentesis planned-monitor for reaccumulation
Follow-up right pleural fluid cultures and cytology
Assessment
-
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
rapid ventricular rate now on heparin as well as acute kidney injury and echocardiogram suggested pleural effusion and pulmonary was consulted 02/02/2025
Bilateral pleural effusion left greater than right
Right lower lobe pneumonia versus compressive atelectasis
Recurrent acute pancreatitis
Atrial fibrillation/PAF with rapid ventricular rate
Plan
Respiratory status is relatively stable-patient feels better still has significant diminished breath sounds at the left base
Supplemental oxygen as needed-currently on 2 L - 95%
Incentive spirometry encouraged
Nebulizers if needed-currently not bronchospastic
Follow occasional chest x-ray
Ultrasound with left pleural effusion possible loculations
CT chest abdomen and pelvis 02/05/2025-pancreatitis with numerous peripancreatic collections, ground glass opacification anterior upper lobes, moderate pleural effusion with adjacent compressive atelectasis and draining left and then right pleural
effusions with ongoing leukocytosis and temperatures.
Interventional radiology 02/07/2025-not enough fluid for left thoracentesis, right thoracentesis performed -400 mL cloudy rigo pleural fluid, WBC 13,290, glucose 72, total protein 2.4, LDH 232, pH 7.42, cultures and cytology pending
Cultures were C. difficile negative
Blood cultures negative
Unable to produce sputum
Empiric antibiotics per infectious disease
Infectious disease following-correspondence [id number] on meropenem Zosyn
CT chest abdomen pelvis noted above
Cardiology following-correspondence reviewed
Atrial fibrillation rate control
Anticoagulation-on heparin drip
Diuresis as tolerated
Monitor renal function, electrolytes, intake/output, lower extremity edema and weight
Replace electrolytes as needed
Gastroenterology following-correspondence reviewed-appears to be responding to IV antibiotics-no immediate peripancreatic collection sampling anticipated
Follow-up of peripancreatic fluid collection
Follow hemoglobin
Transfuse as needed
Repeat CT chest abdomen and pelvis 02/05/2025 summarized above
DVT prophylaxis-on heparin drip
Nutrition per gastroenterology
PT/OT/early mobilization
Reviewed with nursing
Dr. Whelan reviewed with at the bedside 02/05/2025, 02/06/2025, 02/07/2025, 02/08/2025
Data:
CXR 01/2025:Moderate bilateral pleural effusions, left larger than right. New. Loculated on left.
Probable mild right lower lobe pneumonia. New.
Probable mild cardiomegaly. New
ECHO 01/2025: 1. Normal left ventricular size and normal LV function with an ejection fraction of 51 % by Holland's biplane method of discs.
2. Possible mild hypokinesis of the anterolateral and inferolateral wall segments.
3. Stage I diastolic dysfunction suggestive of abnormal relaxation.
4. Right ventricular size and systolic function are within normal limits.
5. Aortic sclerosis with no significant stenosis.
6. Mild mitral valve regurgitation.
7. Mild to moderate tricuspid regurgitation. Estimated pulmonary artery pressure of 45 mmHg assuming a right atrial pressure of 15 mmHg.
8. Pleural effusion is noted.
9. Compared to a prior transthoracic echocardiogram study from 07/05/23 Possible mild anterolateral inferolateral hypokinesis is present. A pleural effusion is now present and PA pressure is increased from [address] A/P 01/2025: Findings suggesting moderate acute pancreatitis.
Severe prostate hypertrophy. Progressed
Mild diffuse bladder wall thickening. This can be seen with cystitis and bladder outlet obstruction. Stable
Chest US 02/04/2025:
Bilateral moderate to large subpulmonic pleural effusions. These do not appear to layer posteriorly, raising the possibility of loculation. Consider further evaluation with chest CT if it is deemed clinically necessary to confirm or exclude
loculated nature.
Subjective Data
-
Date of Service:
Date of Service: February 08, 2025
Chief Complaint: Pulmonary Follow Up and Dyspnea Follow Up
Subjective:
Feels better, decreased abdominal pain, not hungry yet, no complaints of shortness of breath or chest pain
Review of Systems
General: Other (Per HPI)
Objective Data
Data Reviewed
Vital Signs / I&O:
Vital Signs
Temp Pulse Resp BP Pulse Ox
99.9 F 83 16 139/70 96
02/08/25 08:00 02/08/25 08:00 02/08/25 08:00 02/08/25 08:00 02/08/25 08:00
Intake and Output
02/07/25 02/08/25 02/09/25
06:59 06:59 06:59
Intake Total 960 / 960 480 / 480
Output Total 1025 / 1025 1475 / 1475
Balance -65 / -65 -995 / -995
SaO2: 96
Nasal Cannula flow liters per minute: 2
Physical Exam
General: Respiratory Distress (negative), Comfortable, Chills (negative) and Sweats (negative)
HEENT: Normocephalic and Anicteric
Cardiovascular: Regular Rhythm and Peripheral Edema (negative)
Respiratory: Wheeze (negative), Crackles (bibasilar (L>R)), Rhonchi (negative), Non-Labored Respirations and Other (Decreased breath sounds at the left base)
GI: Soft, Non Distended, Non Tender and Normal Bowel Sounds
Neurology: Awake, Alert, Oriented and Tremors (negative)
Skin: Warm, Good Color, Cyanosis (negative), Jaundice (negative) and Rash (n)
Labs/Micro/Reports
Lab Data
02/08/25 04:09
02/08/25 04:09
Laboratory Results
02/07/25 02/07/25 02/08/25
14:08 21:15 04:09
APTT 29.1 42.8 H 48.6 H
Microbiology
02/02/25 19:58 Blood/Venous Blood Culture - Final
No Growth - Final Report
02/02/25 18:37 Blood/Venous Blood Culture - Final
No Growth - Final Report
02/07/25 10:25 Pleural Fluid Gram Stain - Preliminary
02/07/25 10:25 Pleural Fluid Fungal Culture - Preliminary
Culture in progress.
Positive cultures are reported as soon as detected.
Final report to follow in four to five weeks.
01/31/25 17:19 Blood/Venous Blood Culture - Final
No Growth - Final Report
01/31/25 16:51 Blood/Venous Blood Culture - Final
No Growth - Final Report
02/04/25 19:46 Feces/Stool C. difficile GDH Antigen & Toxins - Final
Negative for toxigenic C.difficile
[2025-02-08] MEDS: MYCAMINE 105 MG IV (11:00)
[2025-02-08 11:30] LABS: APTT 54.7 Sec (23.4-35.0)
[2025-02-08 13:20] VITALS: BP 129/67; PULSE 78; O2SAT 97
--- NOTE | 2025-02-08 13:50 | W.PN.HOSP.TC ---
Today's Communication/Plan
-
Continue antibiotics
Follow-up cultures
Continue trial of anticoagulation
IV fluids, monitor fluid status
Assessment / Plan
Assessment / Plan
Physical Exam
General: no acute distress, appears relatively comfortable
HEENT: normocephalic, atraumatic, moist oral mucosa
Respiratory: Clear to Auscultation; Negative Wheezes
Cardiac: Regular Rhythm and S1/S2
Abdomen: decreased bowel sounds, soft, mild tenderness
Musculoskeletal: swelling hands noted suspect third spacing d/t hypoalbuminemia and likely fluid overload
Skin: Warm and Dry; Negative Rash
Neuro: AO x 3 conversant coherent
Psych: Calm
IMPRESSION:
69-year-old male with past medical history of CKD stage IIIb, GERD, IBS, essential hypertension, hypothyroidism, BPH, presenting to the ER reporting severe epigastric pain.
MRI 01/14/25
IMPRESSION:
There is mild T2 hyperintense signal within the pancreatic head and adjacent fat as well as associated mild diffusion hyperintense signal. This likely represents acute interstitial pancreatitis. No peripancreatic collection. No discrete mass is
visualized although follow-up may be considered following resolution of the pancreatitis.
Biliary sludge. There is mild pericholecystic fluid which may be reactive given the likely pancreatitis however can be seen with acute cholecystitis.
There is no biliary duct dilation. There are no filling defects within the common bile duct suggestive of choledocholithiasis.
Abdomen/Pelvis CT 01/29/25
IMPRESSION: Findings suggesting moderate acute pancreatitis.
Severe prostate hypertrophy. Progressed
Mild diffuse bladder wall thickening. This can be seen with cystitis and bladder outlet obstruction. Stable
PLAN:
Acute pancreatitis
Recurrent Pancreatitis
Concern for an infected peripancreatic collection.
Transaminitis
-No alcohol use, no gallstone, Ca OK, IgG4 WNL (returned from last admission),
-MRI last admission without mass, finding of sludge.
-Gallbladder suspected etiology recurrent pancreatitis
-surgery eval eventual Lap cholecystectomy recommended, timing to be determined
-MRI repeated 02/02 given ongoing abd pain, recurrent rise in lipase,
-MRI appreciated concerning for peripancreatic abscess formation, started on empiric zosyn 02/03/25 - switched to meropenem 02/06
-CT 04/07 - concerning for an infected peripancreatic collection.
-follow blood cx's NGTD
-ID eval appreciated cont zosyn renally dosed
-cont pain control prn dilaudid reduced to 0.5 mg Q3HPRN d/t concerns AMS, cont Scheduled PO Tylenol
-IVF support completed
-GI eval appreciated diet advanced to Low Fat
- As per GI: Favor having fluid collection mature in 4-6 weeks and then would consider sampling with EUS-guided drainage pending his clinical course.
- Continue meropenem 500 mg IV q8 hours; stop zosyn
- Continue micafungin
-IV Fluids
#sepsis with MANN
-pancreatic collection +/- pleural fluid collection
-abx as stated above
-meropenem 500 mg IV q8 hours; stop zosyn
- micafungin
-left Thora - F/u Cultures
#Acute Anemia
#possible Acute Blood Loss Anemia
-trial Hep ggt 02/07
-monitor HgB closely
-No active bleeding with CT 02/05
-If hgb remains stable by tomorrow - can restart anticoag
02/04/25 New onset diarrhea
likely abx related
-Cdiff negative 02/04
Mild Thrombocytopenia
-suspect combination dilutional from aggressive IVF support and 2/2 inflammation from pancreatitis
--cont monitoring
02/02 CXR noted Bilateral Pleural Effusions Lt>Rt, loculated on left
Stable respiratory status
Pulm eval appreciated likely fluid overload combined with hypoalbuminemia
Trial Lasix Diuresis (so far received two doses, no further doses planned at this time), follow up CXR in AM 02/03 noted stable appearance pleural effusions, slight improvement right effusions
Chest US 02/04 appreciated b/l mod to large subpulmonic pleural effusions, possible loculation
Pulmonary Evaluation
left thora - appears exudative
F/u Cultures
Continue antibiotics
Monitor for reaccumulation, especially on fluids
AMS likely multifactorial , improved
Metabolic encephalopathy 2/2 opiate pain meds vs Delirium 2/2 sleep deprivation d/t pain vs [facility] Delirium
opiate pain meds reduced as above
mental status since significantly improved
cont to monitor
Acute Kidney Injury
Hyperkalemia resolved
CKD IIIb
Metabolic Acidosis resolved, bicarb supplementation discontinued
-Maintain Huertas at this time for accurate I/O
-pre-renal MANN in setting of acute pancreatitis with significant rise in creatinine overnight.
-Renal consult appreciated
- Cr high 3.9 since trended down to <2, near baseline
�Family was educated on risks and benefits of IV contrast to assess bleeding, especially risk of worsening renal function and possible dialysis. Family understood risks, and agreed to CT imaging
� Continue to monitor renal function,
� Bicarb solution for WALTER ppx 02/05
� Nephrology consulted
� Holding diuretics
-IVF
Hypokalemia
Hypophosphatemia
Low Normal Mg level
-monitor and replete as necessary
New Onset Afib RVR since spontaneously converted to NSR on cardizem gtt
transferred to IVU 01/31, downgraded to tele 02/01
Cardio eval appreciated Cardizem gtt switched to scheduled IV Lopressor
Trial re-initiating Hep ggt
ECHO appreciated EF 51%
#Ground glass opacities within the anterior upper lobes which measure up to 3.1 cm in the anterior right upper lobe.
-Recommend follow-up CT chest to ensure resolution.
#Hyponatremia
� Mild
� Continue to monitor with resuscitation
#Essential hypertension
-hold Amlodipine
-Lopressor as above
#Hypothyroidism
Continue levothyroxine
TSH wnl
#8 mm hypodensity within the inferolateral aspect of the spleen
- new from prior and may represent a small infarction.
-Will be placed back on anticoagulation eventually
DVT prophylaxis�heparin subcu
Full code
Discussed with patient and patient's Leigh
Total time spent on today's encounter was 52 minutes which included time spent in counseling the patient/family regarding diagnosis and treatment plan as listed above, goals of care, and symptom management. Case was discussed with nursing staff,
specialists, and care coordinators/case management. All labs and imaging personally reviewed by me. Remainder the time spent in detailed review of previous records, lab data, imaging, and other medical provider documentation.
Anticipated Discharge: > 48 hours
Subjective/Interval History
-
Date of Service: February 08, 2025
Remains afebrile. No acute events overnight
Objective Data
-
Labs:
Laboratory Results
02/08/25 02/08/25
04:09 11:02
WBC 23.9 H
Hgb 8.6 L
Hct 24.5 L
Plt Count 379
APTT 48.6 H 54.7 H
Sodium 130 L
Potassium 4.8
Chloride 103
Carbon Dioxide 26
BUN 34 H
Creatinine 2.0 H
Glucose 71
Calcium 7.6 L
Total Bilirubin 1.1
AST 30
ALT 25
Alkaline Phosphatase 227 H
Vital Signs:
Vital Signs
Temp Pulse Resp BP Pulse Ox
99.9 F 83 16 139/70 96
02/08/25 08:00 02/08/25 08:00 02/08/25 08:00 02/08/25 08:00 02/08/25 08:56
I&O
02/07/25 02/08/25 02/09/25
06:59 06:59 06:59
Intake Total 960 / 960 480 / 480
Output Total 1025 / 1025 1475 / 1475
Balance -65 / -65 -995 / -995
Review of Systems
-
History Source: Patient
All other systems: Not reviewed unless documented
Physical Exam
-
General: No Apparent Distress
HEENT: Other (dry mucous membranes )
Respiratory: Clear to Auscultation; Negative Wheezes
Cardiac: Regular Rhythm and S1/S2
GI: Nontender and Nondistended
Musculoskeletal: No Edema
Skin: Warm and Dry; Negative Rash
Neuro: AO x 3
Psych: Calm
Data Reviewed
-
Diagnostic Radiology: Report Reviewed by me
Ultrasound: Report Reviewed by me
Labs: Labs Reviewed by me
[2025-02-08] MEDS: DILAUDID 0.5 MG IV ×2 (14:05→21:37)
[2025-02-08] MEDS: HEPARIN 25000 UNITS/250 ML IV (14:06)
--- NOTE | 2025-02-08 14:15 | W.PN.ID1 ---
Date of Service
Date of Service: February 08, 2025
Today's Communication
transition to ertapenem and fluconazole
continue to follow
Assessment / Plan
acute infected peripancreatic fluid collection
Recurrent Acute Pancreatitis
Bilateral Pleural Effusions
Leukocytosis - improving
MANN on CKD - improving
Anemia
Elevated inflammatory markers
- 02/02 blood cultures x2 are in progress
- CT c/a/p - collections: peripancreatic - gas and fluid containing, perihepatic; moderate BL pleural effusions, area of coloenteritis, possible small splenic infarction
- R thoracentesis: exudative effusion by LDH; aerobic, fungal and afb cultures in progress
- added on peripheral LDH
- not enough fluid on the left for thoracentesis
- follow wbc and clinically
- repeat EKG in the AM
- start ertapenem 1 gm iv q24 hours, stop meropenem
- start fluconazole 200 mg PO q24 hours, stop micafungin
- continue with supportive care
Chief Complaint
-: Leukocytosis and Other (pancreatic pseudocyst)
Subjective / Review of Systems
afebrile
bp stable
no events overnight
complaining of swelling in the bilateral lower extremities
back pain but no abdominal pain
Vital Signs / Physical Exam
Vital Signs
Vital Signs
Temp Pulse Resp BP Pulse Ox
99.9 F 83 16 139/70 96
02/08/25 08:00 02/08/25 08:00 02/08/25 08:00 02/08/25 08:00 02/08/25 08:56
Physical Exam
Constitutional: No Acute Distress
Cardiovascular: Regular Rate and S1/S2; Negative Murmur or Rub
Pulmonary: Clear and Symmetric; Negative Wheezes or Rales
Gastrointestinal: Soft, Non Tender, Non Distended and Normal Bowel Sounds
Skin: Warm and Dry; Negative Rash or Jaundice
Objective Data
Lab Data
Lab Results
02/08/25 04:09
02/08/25 04:09
APTT 54.7 Sec (23.4-35.0) H 02/08/25 11:02
Estimated Creat Clear 32 ml/min 02/08/25 04:09
Total Bilirubin 1.1 mg/dl (0.2-1.3) 02/08/25 04:09
AST 30 U/L (17-59) 02/08/25 04:09
ALT 25 U/L (0-50) 02/08/25 04:09
Alkaline Phosphatase 227 U/L (38-126) H 02/08/25 04:09
C-Reactive Protein 257.90 mg/L (0.0-10.00) H 02/02/25 06:38
Most recent labs reviewed.
Micro Results:
02/07/25 10:25 Body Fluid Culture - Preliminary
Pleural Fluid No Growth After 18-24 Hours
Gram Stain - Preliminary
02/02/25 19:58 Blood Culture - Final
Blood/Venous No Growth - Final Report
02/02/25 18:37 Blood Culture - Final
Blood/Venous No Growth - Final Report
02/07/25 10:25 Fungal Smear - Pending
Pleural Fluid Fungal Culture - Preliminary
Culture in progress.
Positive cultures are reported as soon as detected.
Final report to follow in four to five weeks.
02/07/25 10:25 Acid Fast Bacilli Smear - Pending
Pleural Fluid Acid Fast Bacilli Culture - Pending
01/31/25 17:19 Blood Culture - Final
Blood/Venous No Growth - Final Report
01/31/25 16:51 Blood Culture - Final
Blood/Venous No Growth - Final Report
02/04/25 19:46 C. difficile GDH Antigen & Toxins - Final
Feces/Stool Negative for toxigenic C.difficile
--- NOTE | 2025-02-08 14:32 | CM ---
Spoke with patient and spouse bedside.
Discussed physical therapy recommendations with patient and spouse.
Spouse not interested in discussing until closer to discharge, stated patient would be here at least another week.
He is open to therapy with [facility], and spouse will discuss but wants to wait until next week to revisit.
Patient and spouse would like CM to hold off on placing [facility] referral until closer to d/c.
Plan: home with probable [facility] once medically stable.
[2025-02-08 15:42] VITALS: BP 130/66
[2025-02-08] MEDS: DIFLUCAN 200 MG PO (16:07)
[2025-02-08] MEDS: INVANZ 60 MG IV (16:08)
--- NOTE | 2025-02-08 16:57 | W.PN.NEPH.PH ---
Today's Communication / Plan
-
decrease IVF
Assessment/Plan
-
IMP:
Acute pancreatitis
Recurrent Pancreatitis
Acute Kidney Injury
Hyperkalemia
CKD IIIb ~1,6
Essential hypertension
Hypothyroidism
BPH
GERD
IBS
PLan:
A/w recurrent pancreatitis
MANN-possible prerenal, cr stable at 2 with IVF
non oliguric with dubois, still keep it till cr starts improve
wt is up, decrease rate top 100cc/hr
s/p right thoracentesis 400cc 02/07
increasing LE edema but stable resp status
hopefully wean off IVF in next 1-2days and resume lasix
Remains hemodynamically stable
monitor mild hyponatremia
abx per ID for Suspected infected Pancreatic pseudocyst
BP stable on IV BB
reviewed with and patient at bedside
follow labs
d/w nursing
-
-
Date of Service: February 08, 2025
CC / HPI / ROS
-
Chief Complaint:
Acute on chronic kidney disease abdominal
History of Present Illness:
Pancreatitis acute kidney injury on CKD stage IIIb
cr stable 2, non-oliguric with dubois
bp stable with IV beta blokcer
Now on micafungin and Ertapenum for pancreatitis, wbc down 23k
lipsae >4000
wt is up
Review of Systems:
improving abd pain and toelrating diet
no cp or sob at rest
edema is worse
more active today
Labs
-
Labs:
WBC 23.9 10^3/uL (4.8-10.8) H 02/08/25 04:09
RBC 2.72 10^6/uL (4.70-6.10) L 02/08/25 04:09
Hgb 8.6 g/dL (13.0-18.0) L 02/08/25 04:09
Hct 24.5 % (39.0-52.0) L 02/08/25 04:09
Plt Count 379 10^3/uL (130-400) 02/08/25 04:09
Sodium 130 mmol/L (135-145) L 02/08/25 04:09
Potassium 4.8 mmol/L (3.5-5.1) 02/08/25 04:09
Chloride 103 mmol/L (98-107) 02/08/25 04:09
Carbon Dioxide 26 mmol/L (22-30) 02/08/25 04:09
BUN 34 mg/dl (9-20) H 02/08/25 04:09
Creatinine 2.0 mg/dL (0.7-1.3) H 02/08/25 04:09
eGFR 35.02 02/08/25 04:09
Glucose 71 mg/dl (70-99) 02/08/25 04:09
Calcium 7.6 mg/dl (8.4-10.2) L 02/08/25 04:09
Phosphorus 2.5 mg/dl (2.5-4.5) 02/03/25 05:35
Hzc-B-Wauzqxaldkr Pept 3140 pg/ml 02/01/25 03:32
Albumin 2.0 g/dl (3.5-5.0) L 02/08/25 04:09
Physical Exam
-
Vital Signs:
Vital Signs
Temp Pulse Resp BP Pulse Ox
98.1 F 84 18 130/66 97
02/08/25 15:42 02/08/25 15:42 02/08/25 15:42 02/08/25 15:42 02/08/25 15:42
Cardiovascular:: Regular rate and rhythm
Respiratory:: Bilateral: Coarse (decreased left base, rales on rt base )
Lung Excursion:: Normal (decreased right base than left)
Abdomen:: Distended, Soft and Tender (mid abd)
Extremity Edema:: +1: Bilateral:
Dubois Catheter: Yes
[2025-02-08 17:55] LABS: APTT 113.8 Sec (23.4-35.0)
[2025-02-08] MEDS: PEPCID 20 MG PO (18:06)
[2025-02-08 19:20] VITALS: BP 141/73
[2025-02-08] MEDS: TUMS CHEWABLE TABLET 400 MG PO (19:40)
[2025-02-08] MEDS: TYLENOL PO (21:13)
[2025-02-08 23:00] VITALS: BP 122/59
[2025-02-09 01:15] LABS: APTT 126.4 Sec (23.4-35.0)
[2025-02-09 03:10] VITALS: BP 148/78
[2025-02-09] MEDS: DILAUDID 0.5 MG IV ×2 (03:44→15:52)
[2025-02-09] MEDS: TYLENOL 650 MG PO ×6 (03:44→23:05)
[2025-02-09] MEDS: LR 1000 IV (05:22)
[2025-02-09] MEDS: SYNTHROID 75 MCG PO (05:22)
[2025-02-09] MEDS: LOPRESSOR 5 MG IV ×4 (05:22→23:05)
[2025-02-09 06:00] VITALS: BMI 22.5
[2025-02-09 07:55] VITALS: BP 135/69
[2025-02-09 08:02] LABS: Hematocrit 26.2 % (39.0-52.0); Hemoglobin 8.9 g/dL (13.0-18.0); Mean Corp Hgb Conc. 34.0 g/dL (33.0-37.0); Mean Corpuscular Volume 90.0 fL (80.0-94.0); Platelet Count 516 10^3/uL (130-400); Red Cell Dist. Width 14.5 % (11.5-14.5)
[2025-02-09 08:03] LABS: APTT 75.5 Sec (23.4-35.0)
[2025-02-09 08:05] LABS: ALT (SGPT) 22 U/L (0-50); AST (SGOT) 31 U/L (17-59); Albumin 2.2 g/dl (3.5-5.0); Alkaline Phosphatase 293 U/L (38-126); Blood Urea Nitrogen 27 mg/dl (9-20); Calcium 7.7 mg/dl (8.4-10.2); Carbon Dioxide 26 mmol/L (22-30); Chloride 101 mmol/L (98-107); Estimated Creatinine Clearance 39 ml/min; Glucose 75 mg/dl (70-99); Potassium 4.5 mmol/L (3.5-5.1); Sodium 128 mmol/L (135-145); Total Protein 5.2 g/dl (6.3-8.2); eGFR 42.57
[2025-02-09 08:21] LABS: Absolute Neutrophils -Man Diff 22.6 10^3/uL (1.4-6.5); Platelets Checked Yes
[2025-02-09 08:22] LABS: Anisocytosis 1+; Hypochromasia 1+; Normal RBC Morphology No; Polychromasia 1+; Target Cells 1+
[2025-02-09 08:23] LABS: Stomatocytes 1+; Total Cells Counted 100
--- NOTE | 2025-02-09 09:19 | W.PN.PUL.V3 ---
Today's Communication / Plan
-
Oxygen weaned to room air
Incentive spirometry
Respiratory status stable-explained to patient and that pleural fluid might reaccumulate and patient if becomes symptomatic may need repeat imaging and potential thoracentesis
For now pulmonary will sign off
Assessment
-
69-year-old former [id number] with history of chronic kidney disease, GERD, hypertension, hypothyroid, BPH who was admitted to hospital 01/28/2025 with abdominal pain felt to have acute pancreatitis found to have atrial fibrillation with
rapid ventricular rate now on heparin as well as acute kidney injury and echocardiogram suggested pleural effusion and pulmonary was consulted 02/02/2025
Bilateral pleural effusion left greater than right
Right lower lobe pneumonia versus compressive atelectasis
Recurrent acute pancreatitis
Atrial fibrillation/PAF with rapid ventricular rate
Plan
Respiratory status is relatively stable-patient feels better still has significant diminished breath sounds at the left base
Supplemental oxygen as needed-currently on room air-95% saturation
Incentive spirometry encouraged
Nebulizers if needed-currently not bronchospastic
Follow occasional chest x-ray if becomes symptomatic
CT chest abdomen and pelvis 02/05/2025-pancreatitis with numerous peripancreatic collections, ground glass opacification anterior upper lobes, moderate pleural effusion with adjacent compressive atelectasis and draining left and then right pleural
effusions with ongoing leukocytosis and temperatures.
Interventional radiology 02/07/2025-not enough fluid for left thoracentesis, right thoracentesis performed -400 mL cloudy rigo pleural fluid, WBC 13,290, glucose 72, total protein 2.4, LDH 232, pH 7.42, cultures negative and cytology negative as
well
Cultures were C. difficile negative
Blood cultures negative
Unable to produce sputum
Empiric antibiotics per infectious disease
Infectious disease following-correspondence [id number] on meropenem Zosyn
CT chest abdomen pelvis noted above
Cardiology following-correspondence reviewed
Atrial fibrillation rate control
Anticoagulation-on heparin drip
Diuresis as tolerated
Monitor renal function, electrolytes, intake/output, lower extremity edema and weight
Replace electrolytes as needed
Gastroenterology following-correspondence reviewed-appears to be responding to IV antibiotics-no immediate peripancreatic collection sampling anticipated
Follow-up of peripancreatic fluid collection
Follow hemoglobin
Transfuse as needed
Repeat CT chest abdomen and pelvis 02/05/2025 summarized above
DVT prophylaxis-on heparin drip
Nutrition per gastroenterology
PT/OT/early mobilization
Respiratory status currently stable-explained to patient and that pleural fluid might reaccumulate-if increased shortness of breath then obtain chest x-ray and consider repeat diagnostic/therapeutic thoracentesis-for now pulmonary will sign off
Reviewed with nursing
Dr. Whelan reviewed with at the bedside 02/05/2025, 02/06/2025, 02/07/2025, 02/08/2025 and again on 02/09/2025
Data:
CXR 01/2025:Moderate bilateral pleural effusions, left larger than right. New. Loculated on left.
Probable mild right lower lobe pneumonia. New.
Probable mild cardiomegaly. New
ECHO 01/2025: 1. Normal left ventricular size and normal LV function with an ejection fraction of 51 % by Holland's biplane method of discs.
2. Possible mild hypokinesis of the anterolateral and inferolateral wall segments.
3. Stage I diastolic dysfunction suggestive of abnormal relaxation.
4. Right ventricular size and systolic function are within normal limits.
5. Aortic sclerosis with no significant stenosis.
6. Mild mitral valve regurgitation.
7. Mild to moderate tricuspid regurgitation. Estimated pulmonary artery pressure of 45 mmHg assuming a right atrial pressure of 15 mmHg.
8. Pleural effusion is noted.
9. Compared to a prior transthoracic echocardiogram study from 07/05/23 Possible mild anterolateral inferolateral hypokinesis is present. A pleural effusion is now present and PA pressure is increased from [address] A/P 01/2025: Findings suggesting moderate acute pancreatitis.
Severe prostate hypertrophy. Progressed
Mild diffuse bladder wall thickening. This can be seen with cystitis and bladder outlet obstruction. Stable
Chest US 02/04/2025:
Bilateral moderate to large subpulmonic pleural effusions. These do not appear to layer posteriorly, raising the possibility of loculation. Consider further evaluation with chest CT if it is deemed clinically necessary to confirm or exclude
loculated nature.
Subjective Data
-
Date of Service:
Date of Service: February 09, 2025
Chief Complaint: Pulmonary Follow Up and Dyspnea Follow Up
Subjective:
no complaints of shortness of breath, had some abdominal discomfort and some 'severe reflux', no chest pain, productive cough
Review of Systems
General: Other (Per HPI)
Objective Data
Data Reviewed
Vital Signs / I&O:
Vital Signs
Temp Pulse Resp BP Pulse Ox
98.3 F 79 18 135/69 97
02/09/25 07:55 02/09/25 07:55 02/09/25 07:55 02/09/25 07:55 02/09/25 07:55
Intake and Output
02/08/25 02/09/25 02/10/25
06:59 06:59 06:59
Intake Total 480 / 480 2714 / 2714 480 / 480
Output Total 1475 / 1475 1600 / 1600
Balance -995 / -995 1114 / 1114 480 / 480
SaO2: 97
Nasal Cannula flow liters per minute: 2
Physical Exam
General: Respiratory Distress (negative), Comfortable, Chills (negative) and Sweats (negative)
HEENT: Normocephalic and Anicteric
Cardiovascular: Regular Rhythm and Peripheral Edema (negative)
Respiratory: Wheeze (negative), Crackles (bibasilar (L>R)), Rhonchi (negative), Non-Labored Respirations and Other (Decreased breath sounds at the left base)
GI: Soft, Non Distended, Non Tender and Normal Bowel Sounds
Neurology: Awake, Alert, Oriented and Tremors (negative)
Skin: Warm, Good Color, Cyanosis (negative), Jaundice (negative) and Rash (n)
Labs/Micro/Reports
Lab Data
02/09/25 07:24
02/09/25 07:24
Laboratory Results
02/08/25 02/08/25 02/09/25
11:02 17:33 00:27
APTT 54.7 H 113.8 H 126.4 H
02/09/25
07:24
APTT 75.5 H
Microbiology
02/07/25 10:25 Pleural Fluid Body Fluid Culture - Preliminary
No Growth After 48 Hours
02/07/25 10:25 Pleural Fluid Gram Stain - Preliminary
02/07/25 10:25 Pleural Fluid Acid Fast Bacilli Smear - Preliminary
02/07/25 10:25 Pleural Fluid Acid Fast Bacilli Culture - Preliminary
02/02/25 19:58 Blood/Venous Blood Culture - Final
No Growth - Final Report
02/02/25 18:37 Blood/Venous Blood Culture - Final
No Growth - Final Report
02/07/25 10:25 Pleural Fluid Fungal Culture - Preliminary
Culture in progress.
Positive cultures are reported as soon as detected.
Final report to follow in four to five weeks.
[2025-02-09] MEDS: PROTONIX IV 40 MG IV (09:26)
[2025-02-09] MEDS: NSS (PRESERVATIVE FREE) 10 ML IV (09:26)
[2025-02-09] MEDS: FLOMAX 0.4 MG PO (09:27)
[2025-02-09] MEDS: DIFLUCAN 200 MG PO (09:27)
--- NOTE | 2025-02-09 09:56 | W.PN.ID1 ---
Date of Service
Date of Service: February 09, 2025
Today's Communication
- transient fever may relate to changing antibiotics/antifungas 02/08 and may be transient while serum levels equilibrate, follow clinically
- c/w ertapenem 1 gm iv q24 hours
- c/w fluconazole 200 mg PO q24 hours - follow renal function
Assessment / Plan
acute infected peripancreatic fluid collection
Recurrent Acute Pancreatitis
Bilateral Pleural Effusions
Leukocytosis - improving
MANN on CKD - improving
Anemia
Elevated inflammatory markers
- transient fever may relate to changing antibiotics/antifungas 02/08 and may be transient while serum levels equilibrate, follow clinically
- 02/02 blood cultures x2 are in progress
- CT c/a/p - collections: peripancreatic - gas and fluid containing, perihepatic; moderate BL pleural effusions, area of coloenteritis, possible small splenic infarction
- R thoracentesis: exudative effusion
- pleural fluid no growth at 48 hours
- fungal and AFB cultures in progress no growth to date
- follow wbc and clinically
- QTc remains acceptable at 435
- c/w ertapenem 1 gm iv q24 hours
- c/w fluconazole 200 mg PO q24 hours - follow renal function
- continue with supportive care
Chief Complaint
-: Leukocytosis and Other (pancreatic pseudocyst)
Subjective / Review of Systems
febrile overnight to 100.7
bp stable
some tenderness in the LUQ that resolved with defecation
back pain is nightly, resolves in the AM
no other events overnight
poor PO intake
Vital Signs / Physical Exam
Vital Signs
Vital Signs
Temp Pulse Resp BP Pulse Ox
98.3 F 79 18 135/69 97
02/09/25 07:55 02/09/25 07:55 02/09/25 07:55 02/09/25 07:55 02/09/25 09:19
Physical Exam
Constitutional: No Acute Distress
Cardiovascular: Regular Rate and S1/S2; Negative Murmur or Rub
Pulmonary: Clear and Symmetric; Negative Wheezes or Rales
Gastrointestinal: Soft, Non Tender, Non Distended and Normal Bowel Sounds
Skin: Warm and Dry; Negative Rash or Jaundice
Objective Data
Lab Data
Lab Results
02/09/25 07:24
02/09/25 07:24
APTT 75.5 Sec (23.4-35.0) H 02/09/25 07:24
Estimated Creat Clear 39 ml/min 02/09/25 07:24
Total Bilirubin 1.1 mg/dl (0.2-1.3) 02/09/25 07:24
AST 31 U/L (17-59) 02/09/25 07:24
ALT 22 U/L (0-50) 02/09/25 07:24
Alkaline Phosphatase 293 U/L (38-126) H 02/09/25 07:24
C-Reactive Protein 257.90 mg/L (0.0-10.00) H 02/02/25 06:38
Most recent labs reviewed.
Micro Results:
02/07/25 10:25 Body Fluid Culture - Preliminary
Pleural Fluid No Growth After 48 Hours
Gram Stain - Preliminary
02/07/25 10:25 Acid Fast Bacilli Smear - Preliminary
Pleural Fluid Acid Fast Bacilli Culture - Preliminary
02/02/25 19:58 Blood Culture - Final
Blood/Venous No Growth - Final Report
02/02/25 18:37 Blood Culture - Final
Blood/Venous No Growth - Final Report
02/07/25 10:25 Fungal Smear - Pending
Pleural Fluid Fungal Culture - Preliminary
Culture in progress.
Positive cultures are reported as soon as detected.
Final report to follow in four to five weeks.
01/31/25 17:19 Blood Culture - Final
Blood/Venous No Growth - Final Report
01/31/25 16:51 Blood Culture - Final
Blood/Venous No Growth - Final Report
02/04/25 19:46 C. difficile GDH Antigen & Toxins - Final
Feces/Stool Negative for toxigenic C.difficile
[2025-02-09] MEDS: HEPARIN 25000 UNITS/250 ML IV (11:32)
[2025-02-09 11:52] VITALS: BP 146/70
--- NOTE | 2025-02-09 13:18 | W.PN.HOSP.TC ---
Today's Communication/Plan
-
Monitor fever curve with switch in antibiotics/antifungals
Monitor for bleed - if hgb remains stable - can transition to Eliquis if no planned procedures
Monitor renal function; Stop IVF
Monitor Na - FWR 40oz/day; stop IVF
Assessment / Plan
Assessment / Plan
Physical Exam
General: no acute distress, appears relatively comfortable
HEENT: normocephalic, atraumatic, moist oral mucosa
Respiratory: Clear to Auscultation; Negative Wheezes
Cardiac: Regular Rhythm and S1/S2
Abdomen: decreased bowel sounds, soft, mild tenderness
Musculoskeletal: swelling hands noted suspect third spacing d/t hypoalbuminemia and likely fluid overload
Skin: Warm and Dry; Negative Rash
Neuro: AO x 3 conversant coherent
Psych: Calm
IMPRESSION:
69-year-old male with past medical history of CKD stage IIIb, GERD, IBS, essential hypertension, hypothyroidism, BPH, presenting to the ER reporting severe epigastric pain.
MRI 01/14/25
IMPRESSION:
There is mild T2 hyperintense signal within the pancreatic head and adjacent fat as well as associated mild diffusion hyperintense signal. This likely represents acute interstitial pancreatitis. No peripancreatic collection. No discrete mass is
visualized although follow-up may be considered following resolution of the pancreatitis.
Biliary sludge. There is mild pericholecystic fluid which may be reactive given the likely pancreatitis however can be seen with acute cholecystitis.
There is no biliary duct dilation. There are no filling defects within the common bile duct suggestive of choledocholithiasis.
Abdomen/Pelvis CT 01/29/25
IMPRESSION: Findings suggesting moderate acute pancreatitis.
Severe prostate hypertrophy. Progressed
Mild diffuse bladder wall thickening. This can be seen with cystitis and bladder outlet obstruction. Stable
PLAN:
Acute pancreatitis
Recurrent Pancreatitis
Concern for an infected peripancreatic collection.
Transaminitis
-No alcohol use, no gallstone, Ca OK, IgG4 WNL (returned from last admission),
-MRI last admission without mass, finding of sludge.
-Gallbladder suspected etiology recurrent pancreatitis
-surgery eval eventual Lap cholecystectomy recommended, timing to be determined
-MRI repeated 02/02 given ongoing abd pain, recurrent rise in lipase,
-MRI appreciated concerning for peripancreatic abscess formation, started on empiric zosyn 02/03/25 - switched to meropenem 02/06
-CT 04/07 - concerning for an infected peripancreatic collection.
-follow blood cx's NGTD
-ID eval appreciated cont zosyn renally dosed
-cont pain control prn dilaudid reduced to 0.5 mg Q3HPRN d/t concerns AMS, cont Scheduled PO Tylenol
-IVF support completed
-GI eval appreciated diet advanced to Low Fat
- As per GI: Favor having fluid collection mature in 4-6 weeks and then would consider sampling with EUS-guided drainage pending his clinical course.
-Switched to Ertapenem
- Micafungin - transitioned to fluconazole
-Stop IVF
#sepsis with MANN
-pancreatic collection +/- pleural fluid collection
-abx as stated above
-meropenem 500 mg IV q8 hours; - Switched to Ertapenem
- micafungin to fluconazole
-left Thora - F/u Cultures - NGTD
#Acute Anemia
#possible Acute Blood Loss Anemia
-trial Hep ggt 02/07
-monitor HgB closely
-No active bleeding with CT 02/05
-Will switch over to Eliquis tomrrow if no planned procedure and hgb remains stable
-If hgb remains stable by tomorrow - can restart anticoag
02/04/25 New onset diarrhea
likely abx related
-Cdiff negative 02/04
Mild Thrombocytopenia
-suspect combination dilutional from aggressive IVF support and 2/2 inflammation from pancreatitis
--cont monitoring
02/02 CXR noted Bilateral Pleural Effusions Lt>Rt, loculated on left
Stable respiratory status
Pulm eval appreciated likely fluid overload combined with hypoalbuminemia
Trial Lasix Diuresis (so far received two doses, no further doses planned at this time), follow up CXR in AM 02/03 noted stable appearance pleural effusions, slight improvement right effusions
Chest US 02/04 appreciated b/l mod to large subpulmonic pleural effusions, possible loculation
Pulmonary Evaluation
left thora - appears exudative
F/u Cultures - ngtd
Continue antibiotics
Monitor for reaccumulation, especially on fluids
AMS likely multifactorial , improved
Metabolic encephalopathy 2/2 opiate pain meds vs Delirium 2/2 sleep deprivation d/t pain vs [facility] Delirium
opiate pain meds reduced as above
mental status since significantly improved
cont to monitor
Acute Kidney Injury, improving
Hyperkalemia resolved
CKD IIIb
Metabolic Acidosis resolved, bicarb supplementation discontinued
-Maintain Huertas at this time for accurate I/O
-pre-renal MANN in setting of acute pancreatitis with significant rise in creatinine overnight.
-Renal consult appreciated
- Cr high 3.9 since trended down to <2, near baseline
�Family was educated on risks and benefits of IV contrast to assess bleeding, especially risk of worsening renal function and possible dialysis. Family understood risks, and agreed to CT imaging
� Continue to monitor renal function, improving
� Bicarb solution for WALTER ppx 02/05
� Nephrology consulted
� Holding diuretics
-stop IVF, LE edema increased
Hypokalemia
Hypophosphatemia
Low Normal Mg level
-monitor and replete as necessary
New Onset Afib RVR since spontaneously converted to NSR on cardizem gtt
transferred to IVU 01/31, downgraded to tele 02/01
Cardio eval appreciated Cardizem gtt switched to scheduled IV Lopressor
Trial re-initiating Hep ggt - start eliquis if hgb remains stable tomorrow and no planned procedure
ECHO appreciated EF 51%
#Ground glass opacities within the anterior upper lobes which measure up to 3.1 cm in the anterior right upper lobe.
-Recommend follow-up CT chest to ensure resolution.
#Hyponatremia
� likely SIADH
� Continue to monitor with resuscitation
-FWR
#Essential hypertension
-hold Amlodipine
-Lopressor as above
#Hypothyroidism
Continue levothyroxine
TSH wnl
#8 mm hypodensity within the inferolateral aspect of the spleen
- new from prior and may represent a small infarction.
-Will be placed back on anticoagulation eventually
DVT prophylaxis�heparin subcu
Full code
Discussed with patient and patient's Leigh
Total time spent on today's encounter was 51 minutes which included time spent in counseling the patient/family regarding diagnosis and treatment plan as listed above, goals of care, and symptom management. Case was discussed with nursing staff,
specialists, and care coordinators/case management. All labs and imaging personally reviewed by me. Remainder the time spent in detailed review of previous records, lab data, imaging, and other medical provider documentation.
Anticipated Discharge: > 48 hours
Subjective/Interval History
-
Date of Service: February 09, 2025
So abdominal discomfort, improved with bowel movement. Transient fever, mild.
Objective Data
-
Labs:
Laboratory Results
02/09/25 02/09/25 02/09/25
00:27 07:24 13:30
WBC 25.4 H
Hgb 8.9 L
Hct 26.2 L
Plt Count 516 H D
APTT 126.4 H 75.5 H Pending
Sodium 128 L
Potassium 4.5
Chloride 101
Carbon Dioxide 26
BUN 27 H
Creatinine 1.7 H
Glucose 75
Calcium 7.7 L
Total Bilirubin 1.1
AST 31
ALT 22
Alkaline Phosphatase 293 H
Vital Signs:
Vital Signs
Temp Pulse Resp BP Pulse Ox
97.9 F 76 18 146/70 97
02/09/25 11:52 02/09/25 11:52 02/09/25 11:52 02/09/25 11:52 02/09/25 11:52
I&O
02/08/25 02/09/25 02/10/25
06:59 06:59 06:59
Intake Total 480 / 480 2714 / 2714 480 / 480
Output Total 1475 / 1475 1600 / 1600
Balance -995 / -995 1114 / 1114 480 / 480
Review of Systems
-
History Source: Patient
All other systems: Not reviewed unless documented
Physical Exam
-
General: No Apparent Distress
HEENT: Other (dry mucous membranes )
Respiratory: Clear to Auscultation; Negative Wheezes
Cardiac: Regular Rhythm and S1/S2
GI: Nontender and Nondistended
Musculoskeletal: No Edema
Skin: Warm and Dry; Negative Rash
Neuro: AO x 3
Psych: Calm
Data Reviewed
-
Diagnostic Radiology: Report Reviewed by me
Ultrasound: Report Reviewed by me
Labs: Labs Reviewed by me
--- NOTE | 2025-02-09 14:10 | PTCARENOTE ---
Received patient from quality control lab tech. Patient AAOx3, no c/o pain. Patient ambulated from stretcher to chair. Chest wall dressing CDI, call amaya in reach, chair alarm maintained.
--- NOTE | 2025-02-09 14:13 | W.PN.NEPH.PH ---
Today's Communication / Plan
-
IV fluids off
Follow BMP
Assessment/Plan
-
IMP:
Acute pancreatitis
Recurrent Pancreatitis
Acute Kidney Injury
Hyperkalemia
CKD IIIb ~1,6
Essential hypertension
Hypothyroidism
BPH
GERD
IBS
PLan:
A/w recurrent pancreatitis
MANN-possible prerenal, cr stable at 1.7
Concur with discontinuation of IV fluids hypervolemic hyponatremia evolving
non oliguric with dubois, can likely discontinue tomorrow as long as creatinine stays stable and/or improved
Patient still struggling to eat
s/p right thoracentesis 400cc 02/07
increasing LE edema but stable resp status
If sodium drops further and/or weights continue to increase I will provide Lasix
Remains hemodynamically stable
monitor mild hyponatremia
abx per ID for Suspected infected Pancreatic pseudocyst
BP stable on IV BB
reviewed with and patient at bedside
follow labs
d/w nursing
-
-
Date of Service: February 09, 2025
CC / HPI / ROS
-
Chief Complaint:
Acute on chronic kidney disease abdominal
History of Present Illness:
Pancreatitis acute kidney injury on CKD stage IIIb
cr stable 1.7 non-oliguric with dubois
bp stable with IV beta blokcer
Now on micafungin and Ertapenum for pancreatitis, wbc down 23k
Lipase>4000
wt is up
Review of Systems:
Trouble with eating with abdominal discomfort
no cp or sob at rest
edema is worse
more active today
Labs
-
Labs:
WBC 25.4 10^3/uL (4.8-10.8) H 02/09/25 07:24
RBC 2.91 10^6/uL (4.70-6.10) L 02/09/25 07:24
Hgb 8.9 g/dL (13.0-18.0) L 02/09/25 07:24
Hct 26.2 % (39.0-52.0) L 02/09/25 07:24
Plt Count 516 10^3/uL (130-400) H D 02/09/25 07:24
Sodium 128 mmol/L (135-145) L 02/09/25 07:24
Potassium 4.5 mmol/L (3.5-5.1) 02/09/25 07:24
Chloride 101 mmol/L (98-107) 02/09/25 07:24
Carbon Dioxide 26 mmol/L (22-30) 02/09/25 07:24
BUN 27 mg/dl (9-20) H 02/09/25 07:24
Creatinine 1.7 mg/dL (0.7-1.3) H 02/09/25 07:24
eGFR 42.57 02/09/25 07:24
Glucose 75 mg/dl (70-99) 02/09/25 07:24
Calcium 7.7 mg/dl (8.4-10.2) L 02/09/25 07:24
Phosphorus 2.5 mg/dl (2.5-4.5) 02/03/25 05:35
Yci-J-Zztnjmcvtrl Pept 3140 pg/ml 02/01/25 03:32
Albumin 2.2 g/dl (3.5-5.0) L 02/09/25 07:24
Physical Exam
-
Vital Signs:
Vital Signs
Temp Pulse Resp BP Pulse Ox
97.9 F 76 18 146/70 97
02/09/25 11:52 02/09/25 11:52 02/09/25 11:52 02/09/25 11:52 02/09/25 11:52
Cardiovascular:: Regular rate and rhythm
Respiratory:: Bilateral: Coarse (decreased left base, rales on rt base )
Lung Excursion:: Normal (decreased right base than left)
Abdomen:: Distended, Soft and Tender (mid abd)
Extremity Edema:: +1: Bilateral:
Dubois Catheter: Yes
[2025-02-09 14:22] LABS: APTT 66.6 Sec (23.4-35.0)
[2025-02-09 15:45] VITALS: BP 152/69
[2025-02-09] MEDS: FLUSH (NSS) 1 FLUSH IV (15:53)
[2025-02-09] MEDS: INVANZ 60 MG IV (16:41)
--- NOTE | 2025-02-09 16:51 | W.PN.GI.CBS2 ---
Today's Communication / Plan
-
Repeat MRI with MRCP
abx per ID
Protein supplements
Assessment / Plan
-
Mr. Contreras is a 69 y.o male with h/o CKD stage IIIb, GERD, IBS, essential hypertension, hypothyroidism, BPH, and first episode of acute pancreatitis few weeks ago p/w recurrent acute pancreatitis felt to be biliary/gallstone pancreatitis.
Prior Work-Up / Data Review:
MRI 01/14/25- IMPRESSION: There is mild T2 hyperintense signal within the pancreatic head and adjacent fat as well as associated mild diffusion hyperintense signal. This likely represents acute interstitial pancreatitis. No peripancreatic
collection. No discrete mass is visualized although follow-up may be considered following resolution of the pancreatitis. Biliary sludge. There is mild pericholecystic fluid which may be reactive given the likely pancreatitis however can be seen
with acute cholecystitis. There is no biliary duct dilation. There are no filling defects within the common bile duct suggestive of choledocholithiasis.
Abdomen/Pelvis CT 01/29/25 IMPRESSION: Findings suggesting moderate acute pancreatitis. Severe prostate hypertrophy. Progressed Mild diffuse bladder wall thickening. This can be seen with cystitis and bladder outlet obstruction. Stable
US abdomen 01/31/25 Mild four-quadrant ascites. Incidental right pleural effusion. No gallstones. No sonographic evidence of acute cholecystitis. No bile duct dilatation. Mild heterogeneous pancreatic parenchymal echotexture.
MRI WWO contrast 02/02/2025- Impression: worsening peripancreatic edema with interval development of large irregular fluid collection about the pancreatic body and tail measuring up to 10.5 x 7.1 x 10.4 cm, containing gas and debris and suspicious
for acute peripancreatic collection with superinfection (abscess). No convincing evidence for pancreatic necrosis. Mild to moderate abdominopelvic ascites, new. Severe diffuse mesenteric edema, new. Large bilateral pleural effusions with adjacent
airspace disease, new.
#Recurrent, Acute Pancreatitis (2nd Episode)
#Biliary/Gallstone Pancreatitis
#Acute Peripancreatic Fluid Collection c/f #Acute Infected Necrotic Fluid Collection
#Leukocytosis
#A Fib w/ RVR
#MANN on CKD
Patient with worsening abdominal pain on 02/02 as well as slight bump in LFTs where repeat MRI/MRCP was performed which revealed worsening sandra-pancreatic edema along with development of a large, irregular fluid collection about the pancreatic body
and tail measuring approximately 10 cm containing gas and debris concerning for superinfection. Clinically, this is concerning for an acute infected necrotic fluid collection/abscess. Otherwise, no other evidence to suggest intraparenchymal
pancreatic necrosis. There was evidence of ascites as well as diffuse anasarca with edema and bilateral pleural effusions likely secondary to volume overload from his previous IVF and underlying pancreatitis. He was started on IV Zosyn 02/02 and
repeat blood cultures obtained.
S/p CT CAP 02/05/25: Findings of pancreatitis with numerous peripancreatic collections. There are no definite hypoenhancing foci within the pancreatic parenchyma to suggest necrosis. There is a large gas and fluid containing collection along the
pancreatic body/tail which extends along the greater curvature of the stomach which measures up to 11.8 cm, slightly increased in size from prior MRI. This is concerning for an infected peripancreatic collection. Numerous additional collections
including a perihepatic collection which appears to extend along the gastric fundus, similar to prior. There is small volume perisplenic fluid as well as small volume fluid in the bilateral paracolic gutters and pelvis. Findings are likely related
to the pancreatitis. Moderate bilateral pleural effusions with adjacent compressive atelectasis and GGOs.Concern for 8 mm hypodensity of spleen concern for possible splenic infarct and SB/colonic thickening felt to be reactive inflammatory changes.
No evidence of hemorrhagic fluid collection or hemorrhagic pancreatitis in discussion with Radiology.
Interventional radiology 02/07/2025-not enough fluid for left thoracentesis, right thoracentesis performed -400 mL cloudy rigo pleural fluid, WBC 13,290, glucose 72, total protein 2.4, LDH 232, pH 7.42, cultures and cytology pending
Fortunately, patient continues to appear more comfortable without any further abdominal pain or discomfort and continues to tolerate a low-fat diet. Having some back pain and hiccups secondary to his suspected pancreatic fluid collection /
pancreatitis. Otherwise, he is without any signs or symptoms to suggest other complications at this time (ie GOO, etc). Previous concern for intermittent fevers and rising leukocytosis, however continues to remain stable and comfortable appearing
without any signs of decompensation. Would continue ongoing supportive care and IV antibiotics as well as recent anti-fungal coverage.
Recommendations:
- Low-fat diet as tolerated
- Now with down-trending leukocytosis and suspect some component is reactive 2/2 pancreatitis
- Blood cultures 02/02/25 remain NGTD
- Continue IV ertapenem and Diflucan as per ID
- Trend Hgb with serial CBC, if Hgb continues to drift would hold a/c. Recommend monitoring serial H/h q 12 hrs.
- Continue close monitoring of renal function
- No plans for any endoscopic or IR-guided intervention / sampling at this time of his sandra-pancreatic fluid collection
- Would consider EUS-guided sampling/drainage once fluid collection has matured in 4-6 weeks and if needed if c/f complications (ie worsening pain, symptoms of GOO, etc)
- IV PPI for ppx along with continuing bowel regimen with Miralax 17 gm BiD for prevention of ileus- now having bowel function
- Continue Thorazine as needed for hiccups and suspect diaphragm-related irritation 2/2 large sandra-pancreatic fluid collection
- Will need eventual lap-yeison as outpatient, deferring at this time given severity of pancreatitis
- Continue standing acetaminophen and multimodal pain control
- IV anti-emetics PRN
- Rest of care per primary team
02/09/2025 he is having frequent stools but not loose if he has diarrhea will recheck for C. difficile
Will also repeat imaging since he had a low-grade fever last night and also has worsening abdominal pain and had elevated lipase level also yesterday.
Discussed with Dr. Pierson and based on repeat imaging will need to see if he needs drainage sooner.
GI will continue to follow. Please call with any questions or concerns.
Subjective
Subjective
Date of Service: February 09, 2025
He had an orange and had worsening abdominal pain and had more frequent stools today but not loose. No rectal bleeding. Hemoglobin stable on heparin. He did have a low-grade fever last night. Noted input from ID currently on ertapenem and
fluconazole
Objective
Data Reviewed
Laboratory Data:
Laboratory Results
02/09/25 07:24
02/09/25 07:24
Laboratory Results
APTT 66.6 Sec (23.4-35.0) H 02/09/25 14:04
Phosphorus 2.5 mg/dl (2.5-4.5) 02/03/25 05:35
Magnesium 2.0 mg/dl (1.6-2.3) 02/03/25 05:35
Total Bilirubin 1.1 mg/dl (0.2-1.3) 02/09/25 07:24
AST 31 U/L (17-59) 02/09/25 07:24
ALT 22 U/L (0-50) 02/09/25 07:24
Alkaline Phosphatase 293 U/L (38-126) H 02/09/25 07:24
Lipase > 4000 U/L (23-300) H* 02/08/25 04:09
Vital Signs and I&O:
Vital Signs
Temp Pulse Resp BP Pulse Ox
98.1 F 73 18 152/69 97
02/09/25 15:45 02/09/25 15:45 02/09/25 15:45 02/09/25 15:45 02/09/25 15:45
I&O
02/08/25 02/09/25 02/10/25
06:59 06:59 06:59
Intake Total 480 / 480 2714 / 2714 480 / 480
Output Total 1475 / 1475 1600 / 1600
Balance -995 / -995 1114 / 1114 480 / 480
Physical Exam
Physical Exam
Cardiology: Normal Sinus Rhythm
Pulmonary: Other (Decreased breath sounds at bases)
GI: Soft, Non Distended, Tender (Left upper and left lower quadrant) and Normal Bowel Sounds
--- NOTE | 2025-02-09 17:33 | CM ---
Pt remains on IV ABX and IV medications. Still in workup.
Plan:Not ready for DC planning yet.
[2025-02-09 19:19] VITALS: BP 132/72
[2025-02-09 21:18] LABS: APTT 126.8 Sec (23.4-35.0)
[2025-02-09] MEDS: PEPCID 20 MG PO (23:05)
[2025-02-09 23:21] VITALS: BP 135/72
[2025-02-10] MEDS: DILAUDID 0.5 MG IV ×2 (00:34→16:19)
[2025-02-10 03:10] VITALS: BP 145/74
[2025-02-10 03:59] LABS: APTT 106.7 Sec (23.4-35.0)
[2025-02-10] MEDS: SYNTHROID 75 MCG PO ×2 (05:08→05:09)
[2025-02-10] MEDS: TYLENOL 650 MG PO ×5 (05:08→20:55)
[2025-02-10] MEDS: LOPRESSOR 5 MG IV ×4 (05:08→23:32)
[2025-02-10] MEDS: HEPARIN 25000 UNITS/250 ML IV (05:49)
[2025-02-10 06:00] VITALS: BMI 22.0
[2025-02-10 07:00] VITALS: BP 152/72
[2025-02-10] MEDS: FLOMAX 0.4 MG PO (08:29)
[2025-02-10] MEDS: DIFLUCAN 200 MG PO (08:29)
[2025-02-10] MEDS: PROTONIX IV 40 MG IV (08:30)
[2025-02-10] MEDS: NSS (PRESERVATIVE FREE) 10 ML IV (08:30)
[2025-02-10 10:22] LABS: Hematocrit 25.7 % (39.0-52.0); Hemoglobin 8.8 g/dL (13.0-18.0); Mean Corp Hgb Conc. 34.2 g/dL (33.0-37.0); Mean Corpuscular Volume 89.9 fL (80.0-94.0); Platelet Count 599 10^3/uL (130-400); Red Cell Dist. Width 14.4 % (11.5-14.5)
--- NOTE | 2025-02-10 10:27 | W.PN.GI.CBS2 ---
Today's Communication / Plan
-
MRI
Continue supportive care, incentive spirometry, encouraged ambulation
Increase p.o. intake as tolerated with protein supplement
Assessment / Plan
-
Mr. Contreras is a 69 y.o male with h/o CKD stage IIIb, GERD, IBS, essential hypertension, hypothyroidism, BPH, and first episode of acute pancreatitis few weeks ago p/w recurrent acute pancreatitis felt to be biliary/gallstone pancreatitis.
Prior Work-Up / Data Review:
MRI 01/14/25- IMPRESSION: There is mild T2 hyperintense signal within the pancreatic head and adjacent fat as well as associated mild diffusion hyperintense signal. This likely represents acute interstitial pancreatitis. No peripancreatic
collection. No discrete mass is visualized although follow-up may be considered following resolution of the pancreatitis. Biliary sludge. There is mild pericholecystic fluid which may be reactive given the likely pancreatitis however can be seen
with acute cholecystitis. There is no biliary duct dilation. There are no filling defects within the common bile duct suggestive of choledocholithiasis.
Abdomen/Pelvis CT 01/29/25 IMPRESSION: Findings suggesting moderate acute pancreatitis. Severe prostate hypertrophy. Progressed Mild diffuse bladder wall thickening. This can be seen with cystitis and bladder outlet obstruction. Stable
US abdomen 01/31/25 Mild four-quadrant ascites. Incidental right pleural effusion. No gallstones. No sonographic evidence of acute cholecystitis. No bile duct dilatation. Mild heterogeneous pancreatic parenchymal echotexture.
MRI WWO contrast 02/02/2025- Impression: worsening peripancreatic edema with interval development of large irregular fluid collection about the pancreatic body and tail measuring up to 10.5 x 7.1 x 10.4 cm, containing gas and debris and suspicious
for acute peripancreatic collection with superinfection (abscess). No convincing evidence for pancreatic necrosis. Mild to moderate abdominopelvic ascites, new. Severe diffuse mesenteric edema, new. Large bilateral pleural effusions with adjacent
airspace disease, new.
#Recurrent, Acute Pancreatitis (2nd Episode)
#Biliary/Gallstone Pancreatitis
#Acute Peripancreatic Fluid Collection c/f #Acute Infected Necrotic Fluid Collection
#Leukocytosis
#A Fib w/ RVR
#MANN on CKD
Patient with worsening abdominal pain on 02/02 as well as slight bump in LFTs where repeat MRI/MRCP was performed which revealed worsening sandra-pancreatic edema along with development of a large, irregular fluid collection about the pancreatic body
and tail measuring approximately 10 cm containing gas and debris concerning for superinfection. Clinically, this is concerning for an acute infected necrotic fluid collection/abscess. Otherwise, no other evidence to suggest intraparenchymal
pancreatic necrosis. There was evidence of ascites as well as diffuse anasarca with edema and bilateral pleural effusions likely secondary to volume overload from his previous IVF and underlying pancreatitis. He was started on IV Zosyn 02/02 and
repeat blood cultures obtained.
S/p CT CAP 02/05/25: Findings of pancreatitis with numerous peripancreatic collections. There are no definite hypoenhancing foci within the pancreatic parenchyma to suggest necrosis. There is a large gas and fluid containing collection along the
pancreatic body/tail which extends along the greater curvature of the stomach which measures up to 11.8 cm, slightly increased in size from prior MRI. This is concerning for an infected peripancreatic collection. Numerous additional collections
including a perihepatic collection which appears to extend along the gastric fundus, similar to prior. There is small volume perisplenic fluid as well as small volume fluid in the bilateral paracolic gutters and pelvis. Findings are likely related
to the pancreatitis. Moderate bilateral pleural effusions with adjacent compressive atelectasis and GGOs.Concern for 8 mm hypodensity of spleen concern for possible splenic infarct and SB/colonic thickening felt to be reactive inflammatory changes.
No evidence of hemorrhagic fluid collection or hemorrhagic pancreatitis in discussion with Radiology.
Interventional radiology 02/07/2025-not enough fluid for left thoracentesis, right thoracentesis performed -400 mL cloudy rigo pleural fluid, WBC 13,290, glucose 72, total protein 2.4, LDH 232, pH 7.42, cultures and cytology pending
Fortunately, patient continues to appear more comfortable without any further abdominal pain or discomfort and continues to tolerate a low-fat diet. Having some back pain and hiccups secondary to his suspected pancreatic fluid collection /
pancreatitis. Otherwise, he is without any signs or symptoms to suggest other complications at this time (ie GOO, etc). Previous concern for intermittent fevers and rising leukocytosis, however continues to remain stable and comfortable appearing
without any signs of decompensation. Would continue ongoing supportive care and IV antibiotics as well as recent anti-fungal coverage.
Recommendations:
- Low-fat diet as tolerated
- Persistent leukocytosis which is worsening today on antibiotics, afebrile
- Blood cultures 02/02/25 remain NGTD
- Continue IV ertapenem and Diflucan as per ID
- Trend Hgb with serial CBC, if Hgb continues to drift would hold a/c.
- Continue close monitoring of renal function
-Added MiraLAX as needed,continue PPI
- Will need eventual lap-yeison as outpatient, deferring at this time given severity of pancreatitis
02/09/2025 he is having frequent stools but not loose if he has diarrhea will recheck for C. difficile
Will also repeat imaging since he had a low-grade fever last night and also has worsening abdominal pain and had elevated lipase level also yesterday.
Discussed with Dr. Pierson and based on repeat imaging will need to see if he needs drainage sooner.
02/10/2025 denies any abdominal pain currently but does complain of fatigue and decreased appetite
Encouraged protein supplements which he has started drinking, encouraged incentive spirometry( he is status post thoracenteses 02/07) and ambulation
Awaiting repeat MRI based on imaging may need to address whether he needs more urgent drainage of the infected peripancreatic fluid collection or transfer to a tertiary center if not improving
Subjective
Subjective
Date of Service: February 10, 2025
He has loss of appetite and feels very tired and weak.
Afebrile but has worsening leukocytosis
Had a bowel movement yesterday no rectal bleeding
Repeat MRI pending
Objective
Data Reviewed
Laboratory Data:
Laboratory Results
02/10/25 10:06
Laboratory Results
APTT 106.7 Sec (23.4-35.0) H 02/10/25 03:35
Phosphorus 2.5 mg/dl (2.5-4.5) 02/03/25 05:35
Magnesium 2.0 mg/dl (1.6-2.3) 02/03/25 05:35
Total Bilirubin 1.1 mg/dl (0.2-1.3) 02/09/25 07:24
AST 31 U/L (17-59) 02/09/25 07:24
ALT 22 U/L (0-50) 02/09/25 07:24
Alkaline Phosphatase 293 U/L (38-126) H 02/09/25 07:24
Lipase > 4000 U/L (23-300) H* 02/08/25 04:09
Vital Signs and I&O:
Vital Signs
Temp Pulse Resp BP Pulse Ox
98.9 F 86 18 152/72 96
02/10/25 07:00 02/10/25 07:00 02/10/25 07:00 02/10/25 07:00 02/10/25 07:00
I&O
02/09/25 02/10/25 02/11/25
06:59 06:59 06:59
Intake Total 2714 / 2714 1714 / 1714 240 / 240
Output Total 1600 / 1600 1725 / 1725
Balance 1114 / 1114 - 240 / 240
Physical Exam
Physical Exam
Cardiology: Normal Sinus Rhythm
Pulmonary: Clear and Other (Decreased breath sounds at the bases especially the left base)
GI: Soft, Non Distended, Tender (Very minimal tenderness in the left upper quadrant and periumbilical area) and Normal Bowel Sounds
[2025-02-10 10:44] LABS: Nucleated Red Blood Cells % 0 % (-)
[2025-02-10 10:46] LABS: APTT 108.3 Sec (23.4-35.0)
[2025-02-10 11:00] VITALS: BP 125/66
--- NOTE | 2025-02-10 11:04 | W.PN.NEPH.PH ---
Today's Communication / Plan
-
Stable for gadolinium administration on MRI
Follow-up creatinine
Assessment/Plan
-
IMP:
Acute pancreatitis
Recurrent Pancreatitis
Acute Kidney Injury
Hyperkalemia
CKD IIIb ~1,6
Essential hypertension
Hypothyroidism
BPH
GERD
IBS
PLan:
A/w recurrent pancreatitis
MANN-possible prerenal, cr stable at 1.7
Assured that gadolinium administration would not be an issue with his CKD
If p.o. intake does not improve we will need to add back IV fluid
non oliguric with dubois, can likely discontinue tomorrow as long as creatinine stays stable and/or improved
Patient still struggling to eat
s/p right thoracentesis 400cc 02/07
increasing LE edema but stable resp status
If sodium drops further and/or weights continue to increase I will provide Lasix
Remains hemodynamically stable
monitor mild hyponatremia
abx per ID for Suspected infected Pancreatic pseudocyst
BP stable on IV BB
reviewed with and patient at bedside
follow labs
d/w nursing
-
-
Date of Service: February 10, 2025
CC / HPI / ROS
-
Chief Complaint:
Acute on chronic kidney disease abdominal
History of Present Illness:
Pancreatitis acute kidney injury on CKD stage IIIb
cr stable 1.7 non-oliguric with dubois
bp stable with IV beta blokcer
Now on micafungin and Ertapenum for pancreatitis, wbc down 23k
Lipase>4000
wt is up
Review of Systems:
Trouble with eating with abdominal discomfort
no cp or sob at rest
edema is worse
more active today
Labs
-
Labs:
WBC 29.0 10^3/uL (4.8-10.8) H 02/10/25 10:06
RBC 2.86 10^6/uL (4.70-6.10) L 02/10/25 10:06
Hgb 8.8 g/dL (13.0-18.0) L 02/10/25 10:06
Hct 25.7 % (39.0-52.0) L 02/10/25 10:06
Plt Count 599 10^3/uL (130-400) H 02/10/25 10:06
eGFR 42.57 02/09/25 07:24
Phosphorus 2.5 mg/dl (2.5-4.5) 02/03/25 05:35
Jmh-F-Fbyscblshtp Pept 3140 pg/ml 02/01/25 03:32
Physical Exam
-
Vital Signs:
Vital Signs
Temp Pulse Resp BP Pulse Ox
98.9 F 86 18 152/72 96
02/10/25 07:00 02/10/25 07:00 02/10/25 07:00 02/10/25 07:00 02/10/25 08:30
Cardiovascular:: Regular rate and rhythm
Respiratory:: Bilateral: Coarse (decreased left base, rales on rt base )
Lung Excursion:: Normal (decreased right base than left)
Abdomen:: Distended, Soft and Tender (mid abd)
Extremity Edema:: +1: Bilateral:
Dubois Catheter: Yes
[2025-02-10 11:24] LABS: ALT (SGPT) 22 U/L (0-50); AST (SGOT) 29 U/L (17-59); Albumin 2.3 g/dl (3.5-5.0); Alkaline Phosphatase 253 U/L (38-126); Blood Urea Nitrogen 23 mg/dl (9-20); Calcium 7.6 mg/dl (8.4-10.2); Carbon Dioxide 23 mmol/L (22-30); Chloride 102 mmol/L (98-107); Estimated Creatinine Clearance 38 ml/min; Glucose 73 mg/dl (70-99); Potassium 4.7 mmol/L (3.5-5.1); Sodium 131 mmol/L (135-145); Total Protein 5.2 g/dl (6.3-8.2); eGFR 42.57
[2025-02-10 11:38] LABS: C-Reactive Protein > 270.00 mg/L (0.0-10.00)
--- NOTE | 2025-02-10 12:13 | W.PN.HOSP.TC ---
Today's Communication/Plan
-
Cont abx, antifungals
MRI A/P w and w/o tamera
Monitor BMP
Assessment / Plan
Assessment / Plan
Physical Exam
General: no acute distress, appears relatively comfortable
HEENT: normocephalic, atraumatic, moist oral mucosa
Respiratory: Clear to Auscultation; Negative Wheezes
Cardiac: Regular Rhythm and S1/S2
Abdomen: decreased bowel sounds, soft, mild tenderness
Musculoskeletal: swelling hands noted suspect third spacing d/t hypoalbuminemia and likely fluid overload
Skin: Warm and Dry; Negative Rash
Neuro: AO x 3 conversant coherent
Psych: Calm
IMPRESSION:
69-year-old male with past medical history of CKD stage IIIb, GERD, IBS, essential hypertension, hypothyroidism, BPH, presenting to the ER reporting severe epigastric pain.
MRI 01/14/25
IMPRESSION:
There is mild T2 hyperintense signal within the pancreatic head and adjacent fat as well as associated mild diffusion hyperintense signal. This likely represents acute interstitial pancreatitis. No peripancreatic collection. No discrete mass is
visualized although follow-up may be considered following resolution of the pancreatitis.
Biliary sludge. There is mild pericholecystic fluid which may be reactive given the likely pancreatitis however can be seen with acute cholecystitis.
There is no biliary duct dilation. There are no filling defects within the common bile duct suggestive of choledocholithiasis.
Abdomen/Pelvis CT 01/29/25
IMPRESSION: Findings suggesting moderate acute pancreatitis.
Severe prostate hypertrophy. Progressed
Mild diffuse bladder wall thickening. This can be seen with cystitis and bladder outlet obstruction. Stable
PLAN:
Acute pancreatitis
Recurrent Pancreatitis
Concern for an infected peripancreatic collection.
Transaminitis
-No alcohol use, no gallstone, Ca OK, IgG4 WNL (returned from last admission),
-MRI last admission without mass, finding of sludge.
-Gallbladder suspected etiology recurrent pancreatitis
-surgery eval eventual Lap cholecystectomy recommended, timing to be determined
-MRI repeated 02/02 given ongoing abd pain, recurrent rise in lipase,
-MRI appreciated concerning for peripancreatic abscess formation, started on empiric zosyn 02/03/25 - switched to meropenem 02/06
-CT 04/07 - concerning for an infected peripancreatic collection.
-cont pain control
-IVF support completed
-GI eval appreciated diet advanced to Low Fat
- As per GI: Favor having fluid collection mature in 4-6 weeks and then would consider sampling with EUS-guided drainage pending his clinical course. With WBC rising, MRI Abd ordered
-Switched to Ertapenem
- Micafungin - transitioned to fluconazole
-Stop IVF - third spacing
-MRI Abdomen w/ and w/o contrast
-Encourage PO intake
#sepsis with MANN, improved
-pancreatic collection +/- pleural fluid collection
-abx as stated above
-Ertapenem
-fluconazole
-left Thora - Cultures - NGTD
#Acute Anemia
#possible Acute Blood Loss Anemia
-trial Hep ggt 02/07
-monitor HgB closely
-No active bleeding with CT 02/05
-Will switch over to Eliquis if no planned procedure
02/04/25 New onset diarrhea
likely abx related
-Cdiff negative 02/04
Mild Thrombocytopenia
-suspect combination dilutional from aggressive IVF support and 2/2 inflammation from pancreatitis
--cont monitoring
02/02 CXR noted Bilateral Pleural Effusions Lt>Rt, loculated on left
Stable respiratory status
Pulm eval appreciated likely fluid overload combined with hypoalbuminemia
Trial Lasix Diuresis (so far received two doses, no further doses planned at this time), follow up CXR in AM 02/03 noted stable appearance pleural effusions, slight improvement right effusions
Chest US 02/04 appreciated b/l mod to large subpulmonic pleural effusions, possible loculation
Pulmonary Evaluation
left thora - appears exudative
F/u Cultures - ngtd
Continue antibiotics
Monitor for reaccumulation, especially on fluids
AMS likely multifactorial , improved
Metabolic encephalopathy 2/2 opiate pain meds vs Delirium 2/2 sleep deprivation d/t pain vs [facility] Delirium
opiate pain meds reduced as above
mental status since significantly improved
cont to monitor
Acute Kidney Injury, improving
Hyperkalemia resolved
CKD IIIb
Metabolic Acidosis resolved, bicarb supplementation discontinued
-Maintain Huertas at this time for accurate I/O
-pre-renal MANN in setting of acute pancreatitis with significant rise in creatinine overnight.
-Renal consult appreciated
- Cr high 3.9 since trended down to <2, near baseline
�Family was educated on risks and benefits of IV contrast to assess bleeding, especially risk of worsening renal function and possible dialysis. Family understood risks, and agreed to CT imaging
� Continue to monitor renal function, improving
� Bicarb solution for WALTER ppx 02/05
� Nephrology consulted
� Holding diuretics
-stop IVF, LE edema increased
Hypokalemia
Hypophosphatemia
Low Normal Mg level
-monitor and replete as necessary
New Onset Afib RVR since spontaneously converted to NSR on cardizem gtt
transferred to IVU 01/31, downgraded to tele 02/01
Cardio eval appreciated Cardizem gtt switched to scheduled IV Lopressor
Trial re-initiating Hep ggt - start eliquis if hgb remains stable and no planned procedure
ECHO appreciated EF 51%
#Ground glass opacities within the anterior upper lobes which measure up to 3.1 cm in the anterior right upper lobe.
-Recommend follow-up CT chest to ensure resolution.
#Hyponatremia
� likely SIADH
� Continue to monitor with resuscitation
#Essential hypertension
-hold Amlodipine
-Lopressor as above
#Hypothyroidism
Continue levothyroxine
TSH wnl
#8 mm hypodensity within the inferolateral aspect of the spleen
- new from prior and may represent a small infarction.
-Will be placed back on anticoagulation eventually
DVT prophylaxis�heparin subcu
Full code
Discussed with patient and patient's Leigh
Total time spent on today's encounter was 53 minutes which included time spent in counseling the patient/family regarding diagnosis and treatment plan as listed above, goals of care, and symptom management. Case was discussed with nursing staff,
specialists, and care coordinators/case management. All labs and imaging personally reviewed by me. Remainder the time spent in detailed review of previous records, lab data, imaging, and other medical provider documentation.
Anticipated Discharge: > 48 hours
Subjective/Interval History
-
Date of Service: February 10, 2025
still with minimal po intake
Objective Data
-
Labs:
Laboratory Results
02/10/25 02/10/25
03:35 10:06
WBC 29.0 H
Hgb 8.8 L
Hct 25.7 L
Plt Count 599 H
APTT 106.7 H 108.3 H
Sodium 131 L
Potassium 4.7
Chloride 102
Carbon Dioxide 23
BUN 23 H
Creatinine 1.7 H
Glucose 73
Calcium 7.6 L
Total Bilirubin 1.0
AST 29
ALT 22
Alkaline Phosphatase 253 H
Vital Signs:
Vital Signs
Temp Pulse Resp BP Pulse Ox
98 F 77 12 125/66 96
02/10/25 11:00 02/10/25 11:00 02/10/25 11:00 02/10/25 11:00 02/10/25 11:00
I&O
02/09/25 02/10/25 02/11/25
06:59 06:59 06:59
Intake Total 2714 / 2714 1714 / 1714 240 / 240
Output Total 1600 / 1600 1725 / 1725
Balance 1114 / 1114 -11 / -11 240 / 240
Review of Systems
-
History Source: Patient
All other systems: Not reviewed unless documented
Physical Exam
-
General: No Apparent Distress
HEENT: Other (dry mucous membranes )
Respiratory: Clear to Auscultation; Negative Wheezes
Cardiac: Regular Rhythm and S1/S2
GI: Nontender and Nondistended
Musculoskeletal: No Edema
Skin: Warm and Dry; Negative Rash
Neuro: AO x 3
Psych: Calm
Data Reviewed
-
Diagnostic Radiology: Report Reviewed by me
Ultrasound: Report Reviewed by me
Labs: Labs Reviewed by me
--- NOTE | 2025-02-10 12:22 | W.PN.ID1 ---
Date of Service
Date of Service: February 10, 2025
Today's Communication
if white count continues to trend up tomorrow, will switch back to meropenem.
Assessment / Plan
acute infected peripancreatic fluid collection
Recurrent Acute Pancreatitis
Bilateral Pleural Effusions
Leukocytosis - trending up
MANN on CKD - improving
Anemia
Elevated inflammatory markers
- transient fever may relate to changing antibiotics/antifungas 02/08 and may be transient while serum levels equilibrate, follow clinically
- 02/02 blood cultures x2 neg
- CT c/a/p - collections: peripancreatic - gas and fluid containing, perihepatic; moderate BL pleural effusions, area of coloenteritis, possible small splenic infarction
- R thoracentesis: exudative effusion
- pleural fluid no growth at 48 hours
- fungal and AFB cultures in progress no growth to date
- QTc remains acceptable at 435
- c/w ertapenem 1 gm iv q24 hours
- c/w fluconazole 200 mg PO q24 hours - follow renal function
- follow wbc and clinically
- if white count continues to trend up tomorrow, will switch back to meropenem.
- continue with supportive care
Chief Complaint
-: Leukocytosis and Other (pancreatic pseudocyst)
Subjective / Review of Systems
at bedside. Very concerned about rising wbc.
Pt without abdominal pain.
Vital Signs / Physical Exam
Vital Signs
Vital Signs
Temp Pulse Resp BP Pulse Ox
98 F 77 12 125/66 96
02/10/25 11:00 02/10/25 11:00 02/10/25 11:00 02/10/25 11:02/10/25 11:00
Physical Exam
Constitutional: Comfortable and Cachetic
Cardiovascular: Regular Rate and S1/S2
Pulmonary: Other (Decreased BS bases)
Gastrointestinal: Soft, Non Tender, Non Distended and Decreased Bowel Sounds
Genito-Urinary: Negative CVA Tenderness
Extremities: Negative Edema
Neurological: AO x 3
Objective Data
Lab Data
Lab Results
02/10/25 10:06
02/10/25 10:06
APTT 108.3 Sec (23.4-35.0) H 02/10/25 10:06
Estimated Creat Clear 38 ml/min 02/10/25 10:06
Total Bilirubin 1.0 mg/dl (0.2-1.3) 02/10/25 10:06
AST 29 U/L (17-59) 02/10/25 10:06
ALT 22 U/L (0-50) 02/10/25 10:06
Alkaline Phosphatase 253 U/L (38-126) H 02/10/25 10:06
C-Reactive Protein > 270.00 mg/L (0.0-10.00) H 02/10/25 10:06
Most recent labs reviewed.
Micro Results:
02/07/25 10:25 Fungal Smear - Final
Pleural Fluid No yeast or fungal elements seen.
Fungal Culture - Preliminary
Culture in progress.
Positive cultures are reported as soon as detected.
Final report to follow in four to five weeks.
02/07/25 10:25 Body Fluid Culture - Preliminary
Pleural Fluid No Growth After 48 Hours
Gram Stain - Preliminary
02/07/25 10:25 Acid Fast Bacilli Smear - Preliminary
Pleural Fluid Acid Fast Bacilli Culture - Preliminary
02/02/25 19:58 Blood Culture - Final
Blood/Venous No Growth - Final Report
02/02/25 18:37 Blood Culture - Final
Blood/Venous No Growth - Final Report
01/31/25 17:19 Blood Culture - Final
Blood/Venous No Growth - Final Report
01/31/25 16:51 Blood Culture - Final
Blood/Venous No Growth - Final Report
02/04/25 19:46 C. difficile [facility]DH Antigen & Toxins - Final
Feces/Stool Negative for toxigenic C.difficile
--- NOTE | 2025-02-10 12:34 | CM ---
patient chart reviewed
Cont on abx, antifungals, MRI
PT rec Home Health, per note did not want [facility] referral entered yet
PLAN: home with probable [facility] once medically stable.
[2025-02-10 14:50] VITALS: BP 141/78
[2025-02-10] MEDS: INVANZ 60 MG IV (16:20)
[2025-02-10 19:20] VITALS: BP 141/70
[2025-02-10] MEDS: PEPCID 20 MG PO (20:55)
[2025-02-10 23:09] VITALS: BP 140/72
[2025-02-10] MEDS: TYLENOL PO (23:40)
[2025-02-11] MEDS: DILAUDID 0.5 MG IV ×2 (02:11→19:44)
[2025-02-11] MEDS: HEPARIN 25000 UNITS/250 ML IV (02:42)
[2025-02-11 03:22] VITALS: BP 131/66
[2025-02-11] MEDS: TYLENOL PO ×2 (04:04→19:54)
[2025-02-11] MEDS: SYNTHROID 75 MCG PO (05:33)
[2025-02-11] MEDS: LOPRESSOR 5 MG IV ×3 (05:35→17:13)
[2025-02-11 06:00] VITALS: BMI 21.7
[2025-02-11 06:54] LABS: APTT 64.0 Sec (23.4-35.0)
[2025-02-11 06:58] LABS: ALT (SGPT) 16 U/L (0-50); AST (SGOT) 25 U/L (17-59); Albumin 1.9 g/dl (3.5-5.0); Alkaline Phosphatase 223 U/L (38-126); Blood Urea Nitrogen 25 mg/dl (9-20); Calcium 7.5 mg/dl (8.4-10.2); Carbon Dioxide 24 mmol/L (22-30); Chloride 102 mmol/L (98-107); Estimated Creatinine Clearance 43 ml/min; Glucose 49 mg/dl (70-99); Potassium 4.3 mmol/L (3.5-5.1); Sodium 131 mmol/L (135-145); Total Protein 4.6 g/dl (6.3-8.2); eGFR 49.47
[2025-02-11 07:00] VITALS: BP 150/76
[2025-02-11 07:06] LABS: Hematocrit 23.9 % (39.0-52.0); Hemoglobin 8.3 g/dL (13.0-18.0); Mean Corp Hgb Conc. 34.7 g/dL (33.0-37.0); Mean Corpuscular Volume 90.2 fL (80.0-94.0); Platelet Count 627 10^3/uL (130-400); Red Cell Dist. Width 15.3 % (11.5-14.5)
[2025-02-11 07:18] LABS: Glucose - Point of Care 79 mg/dl (70-99)
[2025-02-11 08:08] LABS: Nucleated Red Blood Cells % 0 % (-)
[2025-02-11] MEDS: TYLENOL 650 MG PO ×3 (08:40→16:29)
[2025-02-11] MEDS: DIFLUCAN 200 MG PO (08:40)
[2025-02-11] MEDS: PROTONIX 40 MG PO (08:40)
[2025-02-11] MEDS: FLOMAX 0.4 MG PO (08:40)
--- NOTE | 2025-02-11 10:07 | W.PN.ID1 ---
Date of Service
Date of Service: February 11, 2025
Today's Communication
Continue current abx's.
Assessment / Plan
acute infected peripancreatic fluid collection
Recurrent Acute Pancreatitis
Bilateral Pleural Effusions
Leukocytosis -
MANN on CKD - improving
Anemia
Elevated inflammatory markers
- transient fever may relate to changing antibiotics/antifungas 02/08 and may be transient while serum levels equilibrate, follow clinically
- 02/02 blood cultures x2 neg
- CT c/a/p - collections: peripancreatic - gas and fluid containing, perihepatic; moderate BL pleural effusions, area of coloenteritis, possible small splenic infarction
- R thoracentesis: exudative effusion
- pleural fluid no growth to date
- fungal and AFB cultures in progress no growth to date
- QTc remains acceptable at 435
- Leukocytosis improved today.
- c/w ertapenem 1 gm iv q24 hours
- c/w fluconazole 200 mg PO q24 hours - follow renal function
- continue with supportive care
Chief Complaint
-: Leukocytosis and Other (pancreatic pseudocyst)
Subjective / Review of Systems
No new complaints. No abd pain today.
Vital Signs / Physical Exam
Vital Signs
Vital Signs
Temp Pulse Resp BP Pulse Ox
98.3 F 81 16 150/76 98
02/11/25 07:00 02/11/25 07:00 02/11/25 07:00 02/11/25 07:00 02/11/25 08:40
Physical Exam
Constitutional: Comfortable and Cachetic
Cardiovascular: Regular Rate and S1/S2
Pulmonary: Other (Decreased BS bases)
Gastrointestinal: Soft, Non Tender, Non Distended and Decreased Bowel Sounds
Genito-Urinary: Negative CVA Tenderness
Extremities: Negative Edema
Neurological: AO x 3
Objective Data
Lab Data
Lab Results
02/11/25 05:46
02/11/25 05:46
APTT 64.0 Sec (23.4-35.0) H 02/11/25 05:46
Estimated Creat Clear 43 ml/min 02/11/25 05:46
Total Bilirubin 0.8 mg/dl (0.2-1.3) 02/11/25 05:46
AST 25 U/L (17-59) 02/11/25 05:46
ALT 16 U/L (0-50) 02/11/25 05:46
Alkaline Phosphatase 223 U/L (38-126) H 02/11/25 05:46
C-Reactive Protein > 270.00 mg/L (0.0-10.00) H 02/10/25 10:06
Most recent labs reviewed.
Micro Results:
02/07/25 10:25 Body Fluid Culture - Final
Pleural Fluid No Growth After 72 Hours
Gram Stain - Final
02/07/25 10:25 Fungal Smear - Final
Pleural Fluid No yeast or fungal elements seen.
Fungal Culture - Preliminary
Culture in progress.
Positive cultures are reported as soon as detected.
Final report to follow in four to five weeks.
02/07/25 10:25 Acid Fast Bacilli Smear - Preliminary
Pleural Fluid Acid Fast Bacilli Culture - Preliminary
02/02/25 19:58 Blood Culture - Final
Blood/Venous No Growth - Final Report
02/02/25 18:37 Blood Culture - Final
Blood/Venous No Growth - Final Report
01/31/25 17:19 Blood Culture - Final
Blood/Venous No Growth - Final Report
01/31/25 16:51 Blood Culture - Final
Blood/Venous No Growth - Final Report
02/04/25 19:46 C. difficile GDH Antigen & Toxins - Final
Feces/Stool Negative for toxigenic C.difficile
--- NOTE | 2025-02-11 10:40 | W.PN.GI.CBS2 ---
Today's Communication / Plan
-
MRI - pending
Continue LFD
Assessment / Plan
-
Mr. Contreras is a 69 y.o male with h/o CKD stage IIIb, GERD, IBS, essential hypertension, hypothyroidism, BPH, and first episode of acute pancreatitis few weeks ago p/w recurrent acute pancreatitis felt to be biliary/gallstone pancreatitis.
Prior Work-Up / Data Review:
MRI 01/14/25- IMPRESSION: There is mild T2 hyperintense signal within the pancreatic head and adjacent fat as well as associated mild diffusion hyperintense signal. This likely represents acute interstitial pancreatitis. No peripancreatic
collection. No discrete mass is visualized although follow-up may be considered following resolution of the pancreatitis. Biliary sludge. There is mild pericholecystic fluid which may be reactive given the likely pancreatitis however can be seen
with acute cholecystitis. There is no biliary duct dilation. There are no filling defects within the common bile duct suggestive of choledocholithiasis.
Abdomen/Pelvis CT 01/29/25 IMPRESSION: Findings suggesting moderate acute pancreatitis. Severe prostate hypertrophy. Progressed Mild diffuse bladder wall thickening. This can be seen with cystitis and bladder outlet obstruction. Stable
US abdomen 01/31/25 Mild four-quadrant ascites. Incidental right pleural effusion. No gallstones. No sonographic evidence of acute cholecystitis. No bile duct dilatation. Mild heterogeneous pancreatic parenchymal echotexture.
MRI WWO contrast 02/02/2025- Impression: worsening peripancreatic edema with interval development of large irregular fluid collection about the pancreatic body and tail measuring up to 10.5 x 7.1 x 10.4 cm, containing gas and debris and suspicious
for acute peripancreatic collection with superinfection (abscess). No convincing evidence for pancreatic necrosis. Mild to moderate abdominopelvic ascites, new. Severe diffuse mesenteric edema, new. Large bilateral pleural effusions with adjacent
airspace disease, new.
#Recurrent, Acute Pancreatitis (2nd Episode)
#Biliary/Gallstone Pancreatitis
#Acute Peripancreatic Fluid Collection c/f #Acute Infected Necrotic Fluid Collection
#Leukocytosis
#A Fib w/ RVR
#MANN on CKD
Patient with worsening abdominal pain on 02/02 as well as slight bump in LFTs where repeat MRI/MRCP was performed which revealed worsening sandra-pancreatic edema along with development of a large, irregular fluid collection about the pancreatic body
and tail measuring approximately 10 cm containing gas and debris concerning for superinfection. Clinically, this is concerning for an acute infected necrotic fluid collection/abscess. Otherwise, no other evidence to suggest intraparenchymal
pancreatic necrosis. There was evidence of ascites as well as diffuse anasarca with edema and bilateral pleural effusions likely secondary to volume overload from his previous IVF and underlying pancreatitis. He was started on IV Zosyn 02/02 and
repeat blood cultures obtained.
S/p CT CAP 02/05/25: Findings of pancreatitis with numerous peripancreatic collections. There are no definite hypoenhancing foci within the pancreatic parenchyma to suggest necrosis. There is a large gas and fluid containing collection along the
pancreatic body/tail which extends along the greater curvature of the stomach which measures up to 11.8 cm, slightly increased in size from prior MRI. This is concerning for an infected peripancreatic collection. Numerous additional collections
including a perihepatic collection which appears to extend along the gastric fundus, similar to prior. There is small volume perisplenic fluid as well as small volume fluid in the bilateral paracolic gutters and pelvis. Findings are likely related
to the pancreatitis. Moderate bilateral pleural effusions with adjacent compressive atelectasis and GGOs.Concern for 8 mm hypodensity of spleen concern for possible splenic infarct and SB/colonic thickening felt to be reactive inflammatory changes.
No evidence of hemorrhagic fluid collection or hemorrhagic pancreatitis in discussion with Radiology.
Interventional radiology 02/07/2025-not enough fluid for left thoracentesis, right thoracentesis performed -400 mL cloudy rigo pleural fluid, WBC 13,290, glucose 72, total protein 2.4, LDH 232, pH 7.42, cultures and cytology pending
Fortunately, patient continues to appear more comfortable without any further abdominal pain or discomfort and continues to tolerate a low-fat diet. Having some back pain and hiccups secondary to his suspected pancreatic fluid collection /
pancreatitis. Otherwise, he is without any signs or symptoms to suggest other complications at this time (ie GOO, etc). Previous concern for intermittent fevers and rising leukocytosis, however continues to remain stable and comfortable appearing
without any signs of decompensation. Would continue ongoing supportive care and IV antibiotics as well as recent anti-fungal coverage.
Recommendations:
- Low-fat diet as tolerated
- Persistent leukocytosis was increased yesterday but trending down today on antibiotics, afebrile
- Blood cultures 02/02/25 remain NGTD
- Continue IV ertapenem and Diflucan as per ID
- Trend Hgb with serial CBC, if Hgb continues to drift would hold a/c. Currently has no signs of bleeding or hemorrhagic pancreatitis
- Continue close monitoring of renal function
- continue PPI
- Will need eventual lap-yeison as outpatient, deferring at this time given severity of pancreatitis
02/09/2025 he is having frequent stools but not loose if he has diarrhea will recheck for C. difficile
Will also repeat imaging since he had a low-grade fever last night and also has worsening abdominal pain and had elevated lipase level also yesterday.
Discussed with Dr. Pierson and based on repeat imaging will need to see if he needs drainage sooner.
02/10/2025 denies any abdominal pain currently but does complain of fatigue and decreased appetite
Encouraged protein supplements which he has started drinking, encouraged incentive spirometry( he is status post thoracenteses 02/07) and ambulation
Awaiting repeat MRI based on imaging may need to address whether he needs more urgent drainage of the infected peripancreatic fluid collection or transfer to a tertiary center if not improving
02/11 appetite is improving and abdominal pain is also improving. Awaiting MRI to check for improvement of the peripancreatic fluid collection
Subjective
Subjective
Date of Service: February 11, 2025
Pain is improved and he is also slowly able to have more oral intake including the protein supplement that he was able to have about three fourths of the can yesterday, had a bowel movement today which was soft but not loose, no rectal bleeding
Remains afebrile and WBC count is also trending down
Objective
Data Reviewed
Laboratory Data:
Laboratory Results
02/11/25 05:46
02/11/25 05:46
Laboratory Results
APTT 64.0 Sec (23.4-35.0) H 02/11/25 05:46
Phosphorus 2.5 mg/dl (2.5-4.5) 02/03/25 05:35
Magnesium 2.0 mg/dl (1.6-2.3) 02/03/25 05:35
Total Bilirubin 0.8 mg/dl (0.2-1.3) 02/11/25 05:46
AST 25 U/L (17-59) 02/11/25 05:46
ALT 16 U/L (0-50) 02/11/25 05:46
Alkaline Phosphatase 223 U/L (38-126) H 02/11/25 05:46
Lipase > 4000 U/L (23-300) H* 02/08/25 04:09
Vital Signs and I&O:
Vital Signs
Temp Pulse Resp BP Pulse Ox
98.3 F 81 16 150/76 98
02/11/25 07:00 02/11/25 07:00 02/11/25 07:00 02/11/25 07:00 02/11/25 08:40
I&O
02/10/25 02/11/25 02/12/25
06:59 06:59 06:59
Intake Total 1714 / 1714 480 / 480
Output Total 1725 / 1725 975 / 975
Balance -11 -495 / -495
Physical Exam
Physical Exam
Cardiology: Normal Sinus Rhythm
Pulmonary: Clear and Other (Decreased breath sounds at the bases especially the left lung base)
GI: Soft, Non Distended, Non Tender and Normal Bowel Sounds
[2025-02-11 11:00] VITALS: BP 143/77
--- NOTE | 2025-02-11 12:46 | W.PN.HOSP.TC ---
Addendum entered and electronically signed by Rangel Luciano MD 02/11/25 14:27:
MRI reading performed; Engaged with GI for procedure to be performed at v transfer to [facility]
Original Note:
Today's Communication/Plan
-
MRI
Monitor WBC with ertapenem
Monitor renal function
Hep ggt - monitor hgb
Assessment / Plan
Assessment / Plan
Physical Exam
General: no acute distress, appears relatively comfortable
HEENT: normocephalic, atraumatic, moist oral mucosa
Respiratory: Clear to Auscultation; Negative Wheezes
Cardiac: Regular Rhythm and S1/S2
Abdomen: decreased bowel sounds, soft, mild tenderness
Musculoskeletal: swelling hands noted suspect third spacing d/t hypoalbuminemia and likely fluid overload
Skin: Warm and Dry; Negative Rash
Neuro: AO x 3 conversant coherent
Psych: Calm
IMPRESSION:
69-year-old male with past medical history of CKD stage IIIb, GERD, IBS, essential hypertension, hypothyroidism, BPH, presenting to the ER reporting severe epigastric pain.
MRI 01/14/25
IMPRESSION:
There is mild T2 hyperintense signal within the pancreatic head and adjacent fat as well as associated mild diffusion hyperintense signal. This likely represents acute interstitial pancreatitis. No peripancreatic collection. No discrete mass is
visualized although follow-up may be considered following resolution of the pancreatitis.
Biliary sludge. There is mild pericholecystic fluid which may be reactive given the likely pancreatitis however can be seen with acute cholecystitis.
There is no biliary duct dilation. There are no filling defects within the common bile duct suggestive of choledocholithiasis.
Abdomen/Pelvis CT 01/29/25
IMPRESSION: Findings suggesting moderate acute pancreatitis.
Severe prostate hypertrophy. Progressed
Mild diffuse bladder wall thickening. This can be seen with cystitis and bladder outlet obstruction. Stable
PLAN:
Acute pancreatitis
Recurrent Pancreatitis
Concern for an infected peripancreatic collection.
Transaminitis
-No alcohol use, no gallstone, Ca OK, IgG4 WNL (returned from last admission),
-MRI last admission without mass, finding of sludge.
-Gallbladder suspected etiology recurrent pancreatitis
-surgery eval eventual Lap cholecystectomy recommended, timing to be determined
-MRI repeated 02/02 given ongoing abd pain, recurrent rise in lipase,
-MRI appreciated concerning for peripancreatic abscess formation, started on empiric zosyn 02/03/25 - switched to meropenem 02/06
-CT 04/07 - concerning for an infected peripancreatic collection.
-cont pain control
-IVF support completed
-GI eval appreciated diet advanced to Low Fat
- As per GI: Favor having fluid collection mature in 4-6 weeks and then would consider sampling with EUS-guided drainage pending his clinical course. With WBC rising, MRI Abd ordered
-Switched to Ertapenem
- Micafungin - transitioned to fluconazole
-Stop IVF - third spacing
-MRI Abdomen w/ and w/o contrast
-Encourage PO intake
#sepsis with MANN, improved
-pancreatic collection +/- pleural fluid collection
-abx as stated above
-Ertapenem
-fluconazole
-left Thora - Cultures - NGTD
#Acute Anemia
#possible Acute Blood Loss Anemia
-trial Hep ggt 02/07
-monitor HgB closely
-No active bleeding with CT 02/05
-Will switch over to Eliquis if no planned procedure;
02/04/25 New onset diarrhea
likely abx related
-Cdiff negative 02/04
Mild Thrombocytopenia
-suspect combination dilutional from aggressive IVF support and 2/2 inflammation from pancreatitis
--cont monitoring
02/02 CXR noted Bilateral Pleural Effusions Lt>Rt, loculated on left
Stable respiratory status
Pulm eval appreciated likely fluid overload combined with hypoalbuminemia
Trial Lasix Diuresis (so far received two doses, no further doses planned at this time), follow up CXR in AM 02/03 noted stable appearance pleural effusions, slight improvement right effusions
Chest US 02/04 appreciated b/l mod to large subpulmonic pleural effusions, possible loculation
Pulmonary Evaluation
left thora - appears exudative
F/u Cultures - ngtd
Continue antibiotics
Monitor for reaccumulation, especially on fluids
AMS likely multifactorial , improved
Metabolic encephalopathy 2/2 opiate pain meds vs Delirium 2/2 sleep deprivation d/t pain vs [facility] Delirium
opiate pain meds reduced as above
mental status since significantly improved
cont to monitor
Acute Kidney Injury, improving
Hyperkalemia resolved
CKD IIIb
Metabolic Acidosis resolved, bicarb supplementation discontinued
-Maintain Huertas at this time for accurate I/O
-pre-renal MANN in setting of acute pancreatitis with significant rise in creatinine overnight.
-Renal consult appreciated
- Cr high 3.9 since trended down to <2, near baseline
�Family was educated on risks and benefits of IV contrast to assess bleeding, especially risk of worsening renal function and possible dialysis. Family understood risks, and agreed to CT imaging
� Continue to monitor renal function, improving
� Bicarb solution for WALTER ppx 02/05
� Nephrology consulted
� Holding diuretics
-stop IVF, LE edema increased
Hypokalemia
Hypophosphatemia
Low Normal Mg level
-monitor and replete as necessary
New Onset Afib RVR since spontaneously converted to NSR on cardizem gtt
transferred to IVU 01/31, downgraded to tele 02/01
Cardio eval appreciated Cardizem gtt switched to scheduled IV Lopressor
Trial re-initiating Hep ggt - start eliquis if hgb remains stable and no planned procedure
ECHO appreciated EF 51%
#Ground glass opacities within the anterior upper lobes which measure up to 3.1 cm in the anterior right upper lobe.
-Recommend follow-up CT chest to ensure resolution.
#Hyponatremia
� likely SIADH
� Continue to monitor with resuscitation
#Essential hypertension
-hold Amlodipine
-Lopressor as above
#Hypothyroidism
Continue levothyroxine
TSH wnl
#8 mm hypodensity within the inferolateral aspect of the spleen
- new from prior and may represent a small infarction.
-Will be placed back on anticoagulation eventually
DVT prophylaxis�heparin subcu
Full code
Discussed with patient and patient's Leigh
Total time spent on today's encounter was 54 minutes which included time spent in counseling the patient/family regarding diagnosis and treatment plan as listed above, goals of care, and symptom management. Case was discussed with nursing staff,
specialists, and care coordinators/case management. All labs and imaging personally reviewed by me. Remainder the time spent in detailed review of previous records, lab data, imaging, and other medical provider documentation.
Anticipated Discharge: > 48 hours
Subjective/Interval History
-
Date of Service: February 11, 2025
No acute events overnight
Objective Data
-
Labs:
Laboratory Results
02/11/25 02/11/25
05:46 13:20
WBC 25.4 H
Hgb 8.3 L
Hct 23.9 L
Plt Count 627 H
APTT 64.0 H Pending
Sodium 131 L
Potassium 4.3
Chloride 102
Carbon Dioxide 24
BUN 25 H
Creatinine 1.5 H
Glucose 49 L*
Calcium 7.5 L
Total Bilirubin 0.8
AST 25
ALT 16
Alkaline Phosphatase 223 H
Vital Signs:
Vital Signs
Temp Pulse Resp BP Pulse Ox
99.2 F 76 20 143/77 97
02/11/25 11:00 02/11/25 11:00 02/11/25 11:00 02/11/25 11:00 02/11/25 11:00
I&O
02/10/25 02/11/25 02/12/25
06:59 06:59 06:59
Intake Total 1714 / 1714 480 / 480
Output Total 1725 / 1725 975 / 975
Balance -11 / -495
Review of Systems
-
History Source: Patient
All other systems: Not reviewed unless documented
Data Reviewed
-
Diagnostic Radiology: Report Reviewed by me
Ultrasound: Report Reviewed by me
Labs: Labs Reviewed by me
[2025-02-11 13:46] LABS: APTT 78.0 Sec (23.4-35.0)
--- NOTE | 2025-02-11 14:27 | W.DS.TRANS ---
DC Summary - [employer]
-
Discharge Instructions:
Instructions:
Stand-Alone Forms:
Changes to Home Medications: No
Discharge Medications:
DC Medications w/original date entered in [facility]
pantoprazole 40 mg tablet,delayed release 40 mg PO DAILY gerd 05/24/20
psyllium husk 0.4 gram capsule (Metamucil) 0.8 g PO HS Supplement ##0 05/24/20
levothyroxine 75 mcg tablet 75 mcg PO DAILY Thyroid 03/08/23
tamsulosin 0.4 mg capsule 0.4 mg PO DAILY prostate 03/08/23
amlodipine 2.5 mg tablet (Norvasc) 2.5 mg PO DAILY Blood Pressure 01/13/25
amlodipine 5 mg tablet (Norvasc) 5 mg PO QPM Blood Pressure 01/13/25
famotidine 20 mg tablet (Pepcid) 20 mg PO HS gerd 01/13/25
Home Medication Changes
na
Pending Results: No
[2025-02-11 15:00] VITALS: BP 139/69
[2025-02-11] MEDS: INVANZ 60 MG IV (16:30)
[2025-02-11 19:24] LABS: APTT 137.6 Sec (23.4-35.0)
[2025-02-11 19:31] VITALS: BP 150/80
[2025-02-11] MEDS: PEPCID 20 MG PO (20:52)
[2025-02-11 23:37] VITALS: BP 145/76
[2025-02-12] MEDS: LOPRESSOR 5 MG IV ×5 (00:20→23:28)
[2025-02-12] MEDS: TYLENOL 650 MG PO ×4 (00:20→23:28)
[2025-02-12] MEDS: HEPARIN 25000 UNITS/250 ML IV ×2 (01:11→22:03)
[2025-02-12 03:03] LABS: Glucose - Point of Care 71 mg/dl (70-99)
[2025-02-12 03:16] LABS: APTT 74.8 Sec (23.4-35.0)
[2025-02-12 03:19] VITALS: BP 133/68
[2025-02-12] MEDS: TYLENOL PO ×3 (03:27→21:02)
[2025-02-12] MEDS: DILAUDID 0.5 MG IV ×2 (04:24→19:37)
[2025-02-12 06:00] VITALS: BMI 21.4
[2025-02-12] MEDS: SYNTHROID 75 MCG PO (06:07)
[2025-02-12 07:30] VITALS: BP 138/67
--- NOTE | 2025-02-12 08:20 | W.PN.HOSP.TC ---
Today's Communication/Plan
-
cont abx as per ID
encourage PO intake
rate control, hep gtt
pain control
Assessment / Plan
Assessment / Plan
Physical Exam
General: no acute distress, appears relatively comfortable
HEENT: normocephalic, atraumatic, moist oral mucosa
Respiratory: Clear to Auscultation; Negative Wheezes
Cardiac: Regular Rhythm and S1/S2
Abdomen: bowel sounds present, no tenderness, soft
Musculoskeletal: no edema
Skin: Warm and Dry; Negative Rash
Neuro: AO x 3 conversant coherent
Psych: Calm
IMPRESSION:
69-year-old male with past medical history of CKD stage IIIb, GERD, IBS, essential hypertension, hypothyroidism, BPH, presenting to the ER reporting severe epigastric pain.
MRI 01/14/25
IMPRESSION:
There is mild T2 hyperintense signal within the pancreatic head and adjacent fat as well as associated mild diffusion hyperintense signal. This likely represents acute interstitial pancreatitis. No peripancreatic collection. No discrete mass is
visualized although follow-up may be considered following resolution of the pancreatitis.
Biliary sludge. There is mild pericholecystic fluid which may be reactive given the likely pancreatitis however can be seen with acute cholecystitis.
There is no biliary duct dilation. There are no filling defects within the common bile duct suggestive of choledocholithiasis.
Abdomen/Pelvis CT 01/29/25
IMPRESSION: Findings suggesting moderate acute pancreatitis.
Severe prostate hypertrophy. Progressed
Mild diffuse bladder wall thickening. This can be seen with cystitis and bladder outlet obstruction. Stable
PLAN:
Acute pancreatitis
Recurrent Pancreatitis
Concern for an infected peripancreatic collection.
Transaminitis
-No alcohol use, no gallstone, Ca OK, IgG4 WNL (returned from last admission),
-MRI last admission without mass, finding of sludge.
-Gallbladder suspected etiology recurrent pancreatitis
-surgery eval eventual Lap cholecystectomy recommended, timing to be determined
-MRI repeated 02/02 given ongoing abd pain, recurrent rise in lipase,
-MRI appreciated concerning for peripancreatic abscess formation, started on empiric zosyn 02/03/25 - switched to meropenem 02/06
-CT 04/07 - concerning for an infected peripancreatic collection.
-cont pain control
-IVF support completed
-GI eval appreciated diet advanced to Low Fat
- As per GI: Favor having fluid collection mature in 4-6 weeks and then would consider sampling with EUS-guided drainage pending his clinical course. MRI Abd results 02/11 appreciated
- cont Ertapenem fluconazole as per ID
- Encourage PO intake
#sepsis with MANN, improved
-pancreatic collection +/- pleural fluid collection
-abx as stated above
-Ertapenem
-fluconazole
-left Thora - Cultures - NGTD
#Acute Anemia
#possible Acute Blood Loss Anemia vs anemia of chronic disease
-trial Hep ggt 02/07
-monitor HgB closely
-No active bleeding with CT 02/05
-Will switch over to Eliquis if no planned procedure
02/04/25 New onset diarrhea
likely abx related
-Cdiff negative 02/04
Mild Thrombocytopenia
-suspect combination dilutional from aggressive IVF support and 2/2 inflammation from pancreatitis
-Resolved
02/02 CXR noted Bilateral Pleural Effusions Lt>Rt, loculated on left
Stable respiratory status
Pulm eval appreciated likely fluid overload combined with hypoalbuminemia
Trial Lasix Diuresis (so far received two doses, no further doses planned at this time), follow up CXR in AM 02/03 noted stable appearance pleural effusions, slight improvement right effusions
Chest US 02/04 appreciated b/l mod to large subpulmonic pleural effusions, possible loculation
Pulmonary Evaluation
left thora - appears exudative
F/u Cultures - ngtd
Continue antibiotics
AMS likely multifactorial , improved
Metabolic encephalopathy 2/2 opiate pain meds vs Delirium 2/2 sleep deprivation d/t pain vs Hospital [facility] Delirium
opiate pain meds reduced as above
mental status since significantly improved
cont to monitor
Acute Kidney Injury, improved/resolved
Hyperkalemia resolved
CKD IIIb
Metabolic Acidosis resolved, bicarb supplementation discontinued
-Maintain Huertas at this time for accurate I/O
-pre-renal MANN in setting of acute pancreatitis with significant rise in creatinine overnight.
-Renal consult appreciated
- Cr high 3.9 since trended down to <2, near baseline
� Nephrology consult appreciated
Hypokalemia
Hypophosphatemia
Low Normal Mg level
-monitor and replete as necessary
New Onset Afib RVR since spontaneously converted to NSR on cardizem gtt
transferred to IVU 01/31, downgraded to tele 02/01
Cardio eval appreciated Cardizem gtt switched to scheduled IV Lopressor
Trial re-initiating Hep ggt - start eliquis if hgb remains stable and no planned procedure
ECHO appreciated EF 51%
#Ground glass opacities within the anterior upper lobes which measure up to 3.1 cm in the anterior right upper lobe.
-Recommend follow-up CT chest to ensure resolution.
#Hyponatremia
� likely SIADH
� Continue to monitor with resuscitation
#Essential hypertension
-hold Amlodipine
-Lopressor as above
#Hypothyroidism
Continue levothyroxine
TSH wnl
#8 mm hypodensity within the inferolateral aspect of the spleen
- new from prior and may represent a small infarction.
-Will be placed back on anticoagulation eventually
DVT prophylaxis�heparin subcu
Full code
Discussed with patient and patient's Leigh
I spent a total of 40 minutes with the patient or on the floor. More than 50% of this time involved counseling and coordination of care.
Anticipated Discharge: > 48 hours
Subjective/Interval History
-
Date of Service: February 12, 2025
Poor appetite oral intake persists. Pain relatively well controlled at this time
Objective Data
-
Labs:
Laboratory Results
02/12/25 02/12/25
02:50 08:15
WBC Pending
Hgb Pending
Hct Pending
Plt Count Pending
APTT 74.8 H Pending
Sodium Pending
Potassium Pending
Chloride Pending
Carbon Dioxide Pending
BUN Pending
Creatinine Pending
Glucose Pending
Calcium Pending
Total Bilirubin Pending
AST Pending
ALT Pending
Alkaline Phosphatase Pending
Vital Signs:
Vital Signs
Temp Pulse Resp BP Pulse Ox
99 F 81 18 130/59 94
02/12/25 03:19 02/12/25 06:08 02/12/25 03:19 02/12/25 06:08 02/12/25 03:19
I&O
02/11/25 02/12/25 02/13/25
06:59 06:59 06:59
Intake Total 480 / 480 1308 / 1308
Output Total 975 / 975 1125 / 1125
Balance -495 / -495 183 / 183
[2025-02-12 08:54] LABS: APTT 84.7 Sec (23.4-35.0)
[2025-02-12 09:07] LABS: ALT (SGPT) 17 U/L (0-50); AST (SGOT) 26 U/L (17-59); Albumin 2.1 g/dl (3.5-5.0); Alkaline Phosphatase 236 U/L (38-126); Blood Urea Nitrogen 21 mg/dl (9-20); Calcium 8.0 mg/dl (8.4-10.2); Carbon Dioxide 25 mmol/L (22-30); Chloride 100 mmol/L (98-107); Estimated Creatinine Clearance 42 ml/min; Glucose 72 mg/dl (70-99); Hematocrit 24.7 % (39.0-52.0); Hemoglobin 8.3 g/dL (13.0-18.0); Mean Corp Hgb Conc. 33.6 g/dL (33.0-37.0); Mean Corpuscular Volume 91.1 fL (80.0-94.0); Platelet Count 693 10^3/uL (130-400); Potassium 4.1 mmol/L (3.5-5.1); Red Cell Dist. Width 15.1 % (11.5-14.5); Sodium 128 mmol/L (135-145); Total Protein 5.0 g/dl (6.3-8.2); eGFR 49.47
[2025-02-12] MEDS: PROTONIX 40 MG PO (09:58)
[2025-02-12] MEDS: DIFLUCAN 200 MG PO (09:58)
[2025-02-12] MEDS: FLOMAX 0.4 MG PO (09:58)
[2025-02-12] MEDS: VISBIOME 2 CAP PO (10:09)
[2025-02-12 11:20] VITALS: BP 127/70
[2025-02-12 11:59] LABS: Nucleated Red Blood Cells % 0 % (-)
--- NOTE | 2025-02-12 12:38 | CM ---
Pt continues on IV ABX and IV pain medication. There is still concern for infection.
Pt and family were told yesterday that the pt would be transferred to [facility]. There has been no further movement towards a transfer since yesterday and the and patient are frustrated by not having a firm DC plan.
CM will follow up with planning after pt is seen by the hospitalist and GI physician today.
Plan: Pending
--- NOTE | 2025-02-12 14:32 | W.PN.ID1 ---
Date of Service
Date of Service: February 12, 2025
Today's Communication
continue ertapenem and fluconazole
Assessment / Plan
acute infected peripancreatic fluid collection
Recurrent Acute Pancreatitis
Bilateral Pleural Effusions
Leukocytosis - stable
MANN on CKD - improving
Anemia
Elevated inflammatory markers
- 02/02 blood cultures x2 neg
- 02/05 CT c/a/p - collections: peripancreatic - gas and fluid containing, perihepatic; moderate BL pleural effusions, area of coloenteritis, possible small splenic infarction
- MRI abd 02/11 - extensive collections overall increased from prior
- 02/07 R thoracentesis: exudative effusion
- pleural fluid no growth to date
- fungal and AFB cultures in progress no growth to date
- QTc remains acceptable at 435
- c/w ertapenem 1 gm iv q24 hours
- c/w fluconazole 200 mg PO q24 hours - follow renal function
- continue with supportive care
Chief Complaint
-: Leukocytosis and Other (pancreatic pseudocyst)
Subjective / Review of Systems
afebrile
bp stable
no events overnight
no abdominal pain, no fevers
Vital Signs / Physical Exam
Vital Signs
Vital Signs
Temp Pulse Resp BP Pulse Ox
98.0 F 82 16 127/70 97
02/12/25 11:20 02/12/25 11:20 02/12/25 11:20 02/12/25 11:20 02/12/25 11:20
Physical Exam
Constitutional: No Acute Distress
Cardiovascular: Regular Rate and S1/S2; Negative Murmur or Rub
Pulmonary: Clear and Symmetric; Negative Wheezes or Rales
Gastrointestinal: Soft, Non Tender, Non Distended and Normal Bowel Sounds
Skin: Warm and Dry; Negative Rash or Jaundice
Objective Data
Lab Data
Lab Results
02/12/25 08:15
02/12/25 08:15
APTT 84.7 Sec (23.4-35.0) H 02/12/25 08:15
Estimated Creat Clear 42 ml/min 02/12/25 08:15
Total Bilirubin 0.9 mg/dl (0.2-1.3) 02/12/25 08:15
AST 26 U/L (17-59) 02/12/25 08:15
ALT 17 U/L (0-50) 02/12/25 08:15
Alkaline Phosphatase 236 U/L (38-126) H 02/12/25 08:15
C-Reactive Protein > 270.00 mg/L (0.0-10.00) H 02/10/25 10:06
Most recent labs reviewed.
Micro Results:
02/07/25 10:25 Fungal Smear - Final
Pleural Fluid No yeast or fungal elements seen.
Fungal Culture - Preliminary
Culture in progress.
Positive cultures are reported as soon as detected.
Final report to follow in four to five weeks.
02/07/25 10:25 Body Fluid Culture - Final
Pleural Fluid No Growth After 72 Hours
Gram Stain - Final
02/07/25 10:25 Acid Fast Bacilli Smear - Preliminary
Pleural Fluid Acid Fast Bacilli Culture - Preliminary
02/02/25 19:58 Blood Culture - Final
Blood/Venous No Growth - Final Report
02/02/25 18:37 Blood Culture - Final
Blood/Venous No Growth - Final Report
01/31/25 17:19 Blood Culture - Final
Blood/Venous No Growth - Final Report
01/31/25 16:51 Blood Culture - Final
Blood/Venous No Growth - Final Report
02/04/25 19:46 C. difficile GDH Antigen & Toxins - Final
Feces/Stool Negative for toxigenic C.difficile
[2025-02-12 15:30] VITALS: BP 138/68
--- NOTE | 2025-02-12 15:45 | W.PN.GI.CBS2 ---
Today's Communication / Plan
-
continue enteral feeding, small size meals
Assessment / Plan
-
Mr. Contreras is a 69 y.o male with h/o CKD stage IIIb, GERD, IBS, essential hypertension, hypothyroidism, BPH, and first episode of acute pancreatitis few weeks ago p/w recurrent acute pancreatitis felt to be biliary/gallstone pancreatitis.
Admitted with recurrent acute pancreatitis - 01/28. CT abd/pel on 01/28 showed severe peripancreatic stranding in the head/body consistent with acute pancreatitis.
Worsening abdominal pain, MANN - 01/30
MRI w/ and w/o contrast - 02/02; worsening peripancreatic edema with interval development of large irregular fluid collection about the pancreatic body and tail measuring up to 10.5 x 7.1 x 10.4 cm containing gas/debris. No evidence of pancreatic
necrosis. Severe diffuse mesenteric edema, mild to moderate abdominopelvic ascites. Started on broad spec abx (zosyn).
CT chest/abd/pel IV contrast 02/05; extensive peripancreatic stranding. 11.8 x 6.3 x 8.4 cm gas and fluid containing collection extending along tieh panc body/tail. Numerous fluid collections in the upper abdomen, perihepatic fluid collection
which extends to the gastric fundus measruing 11.7 x 8.3 cm.
MRI abd w & w/o contrast - 02/11; overall increase in size of PFCs. Large collection w/ internal gas/debris which extends along pancreatic body/tail, measuring 12.3 cm previously 10.5 cm. Additional large collection extending surperiorly along the
pancreatic body and into the LUQ which measure 11.2 cm. The pancreas enhance homogenously w/o evidence of necrosis.
In summary, he has recurrent acute pancreatitis complicated by evolving peripancreatic fluid collections (PFCs) which appears infected evidenced by gas in the cavity. The date of initial detection of PFC is on 02/02. He had multiple episodes of
fever (100.6 on 02/03, 101.4 on 02/05, and 100.7 on 02/08) and leukocytosis from 02/02 which peaked at 33.4k on 02/06, down to 25k today. However he remained clinically stable with BP and HR in normal range. Blood cx have been -ve. His pain has
improved gradually and appears relatively comfortable today. He has been tolerating oral diet for past week. He had evidence of multiple end organ dysfunction (MANN in setting of CKD with Cr peaking at 3.9 on 01/30) and b/l pleural effusions. His
MANN is improving, Cr 1.5 today.
In this complicated pt with recurrent acute pancreatitis complicated by multiple end organ dysfunction (MANN on CKD and b/l pleural effusions) and infected PFCs who remains clinically stable without further deterioration (florid sepsis, hemodynamic
instability) and improving end organ dysfunctions, I would recommend continued use of pancreas penetrating abx (ertapenem) and supportive mx with enteral feeding. The only indication for infected PFC drainage before its maturation is clinical
instability/progressive deterioration, which fortunately is not the case in this pt. The infected PFCs need 4-6 weeks to evolve and organize, at which time drainage can be planned. 4 week post initial detection imaging should be on 03/02. I will
reassess for possible consideration of drainage on 02/19, however this is likely still inadequate. I do not believe transferring this pt to [facility] for escalation of care is needed at this time (drainage would be deferred there too). This was
discussed with the pt and his family. Will continue to follow.
Total Time Spent with Patient (in minutes): 55
Subjective
Subjective
Date of Service: February 12, 2025
Denies abdominal pain, afebrile o/n.
Objective
Data Reviewed
Laboratory Data:
Laboratory Results
02/12/25 08:15
02/12/25 08:15
Laboratory Results
APTT 84.7 Sec (23.4-35.0) H 02/12/25 08:15
Phosphorus 2.5 mg/dl (2.5-4.5) 02/03/25 05:35
Magnesium 2.0 mg/dl (1.6-2.3) 02/03/25 05:35
Total Bilirubin 0.9 mg/dl (0.2-1.3) 02/12/25 08:15
AST 26 U/L (17-59) 02/12/25 08:15
ALT 17 U/L (0-50) 02/12/25 08:15
Alkaline Phosphatase 236 U/L (38-126) H 02/12/25 08:15
Lipase > 4000 U/L (23-300) H* 02/08/25 04:09
Vital Signs and I&O:
Vital Signs
Temp Pulse Resp BP Pulse Ox
98.0 F 82 16 127/70 97
02/12/25 11:20 02/12/25 11:20 02/12/25 11:20 02/12/25 11:20 02/12/25 11:20
I&O
02/11/25 02/12/25 02/13/25
06:59 06:59 06:59
Intake Total 480 / 480 1308 / 1308
Output Total 975 / 975 1125 / 1125
Balance -495 / -495 183 / 183
[2025-02-12] MEDS: INVANZ 60 MG IV (15:56)
--- NOTE | 2025-02-12 16:51 | W.PN.NEPH.PH ---
Today's Communication / Plan
-
follow BMP
Assessment/Plan
-
IMP:
Acute pancreatitis
Recurrent Pancreatitis
Acute Kidney Injury
Hyperkalemia
CKD IIIb ~1,6
Essential hypertension
Hypothyroidism
BPH
GERD
IBS
Plan:
follow BMP
abx per ID
follow PFC per GI
will need to hav voiding trial sometime, maybe tomorrow
-
-
Date of Service: February 12, 2025
CC / HPI / ROS
-
Chief Complaint:
Acute on chronic kidney disease abdominal
History of Present Illness:
Pancreatitis acute kidney injury on CKD stage IIIb
cr stable 1.5 non-oliguric with dubois
bp stable with IV beta blokcer
Now on micafungin and Ertapenum for pancreatitis
Na stable [address]
Review of Systems:
Trouble with eating with abdominal discomfort
no cp or sob at rest
Labs
-
Labs:
WBC 25.0 10^3/uL (4.8-10.8) H 02/12/25 08:15
RBC 2.71 10^6/uL (4.70-6.10) L 02/12/25 08:15
Hgb 8.3 g/dL (13.0-18.0) L 02/12/25 08:15
Hct 24.7 % (39.0-52.0) L 02/12/25 08:15
Plt Count 693 10^3/uL (130-400) H 02/12/25 08:15
Sodium 128 mmol/L (135-145) L 02/12/25 08:15
Potassium 4.1 mmol/L (3.5-5.1) 02/12/25 08:15
Chloride 100 mmol/L (98-107) 02/12/25 08:15
Carbon Dioxide 25 mmol/L (22-30) 02/12/25 08:15
BUN 21 mg/dl (9-20) H 02/12/25 08:15
Creatinine 1.5 mg/dL (0.7-1.3) H 02/12/25 08:15
eGFR 49.47 02/12/25 08:15
Glucose 72 mg/dl (70-99) 02/12/25 08:15
Calcium 8.0 mg/dl (8.4-10.2) L 02/12/25 08:15
Phosphorus 2.5 mg/dl (2.5-4.5) 02/03/25 05:35
Jwp-C-Gczdiljjcia Pept 3140 pg/ml 02/01/25 03:32
Albumin 2.1 g/dl (3.5-5.0) L 02/12/25 08:15
Physical Exam
-
Vital Signs:
Vital Signs
Temp Pulse Resp BP Pulse Ox
98.0 F 82 16 127/70 97
02/12/25 11:20 02/12/25 11:20 02/12/25 11:20 02/12/25 11:20 02/12/25 11:20
Cardiovascular:: Regular rate and rhythm
Respiratory:: Bilateral: CTA
Lung Excursion:: Normal
Abdomen:: Nontender and Soft
Bowel Sounds:: Normal
Extremity Edema:: None: Bilateral:
[2025-02-12] MEDS: TUMS CHEWABLE TABLET 400 MG PO (17:56)
[2025-02-12] MEDS: ZOFRAN 4 MG IV (17:56)
[2025-02-12 19:39] VITALS: BP 140/72
[2025-02-12] MEDS: PEPCID 20 MG PO (21:01)
[2025-02-12 23:32] VITALS: BP 135/74
[2025-02-13] MEDS: DILAUDID 0.5 MG IV ×2 (03:35→21:23)
[2025-02-13 03:43] VITALS: BP 125/68
[2025-02-13] MEDS: TYLENOL PO (04:11)
[2025-02-13] MEDS: SYNTHROID 75 MCG PO (05:58)
[2025-02-13] MEDS: LOPRESSOR 5 MG IV (05:58)
[2025-02-13] MEDS: DIFLUCAN 200 MG PO (07:31)
[2025-02-13] MEDS: FLOMAX 0.4 MG PO (07:31)
[2025-02-13] MEDS: PROTONIX 40 MG PO (07:31)
[2025-02-13] MEDS: TYLENOL 650 MG PO ×4 (07:31→19:41)
[2025-02-13] MEDS: VISBIOME 2 CAP PO (07:31)
[2025-02-13 07:35] VITALS: BP 137/75
--- NOTE | 2025-02-13 07:43 | W.PN.HOSP.TC ---
Today's Communication/Plan
-
Encourage oral intake
TOV
Start Metoprolol XL 25 mg daily, IV lopressor switched to prn
cont abx/antifungal as per ID
Assessment / Plan
Assessment / Plan
Physical Exam
General: no acute distress, appears relatively comfortable
HEENT: normocephalic, atraumatic, moist oral mucosa
Respiratory: Clear to Auscultation; Negative Wheezes
Cardiac: Regular Rhythm and S1/S2
Abdomen: bowel sounds present, no tenderness, soft
Musculoskeletal: no edema
Skin: Warm and Dry; Negative Rash
Neuro: AO x 3 conversant coherent
Psych: Calm
IMPRESSION:
69-year-old male with past medical history of CKD stage IIIb, GERD, IBS, essential hypertension, hypothyroidism, BPH, presenting to the ER reporting severe epigastric pain.
MRI 01/14/25
IMPRESSION:
There is mild T2 hyperintense signal within the pancreatic head and adjacent fat as well as associated mild diffusion hyperintense signal. This likely represents acute interstitial pancreatitis. No peripancreatic collection. No discrete mass is
visualized although follow-up may be considered following resolution of the pancreatitis.
Biliary sludge. There is mild pericholecystic fluid which may be reactive given the likely pancreatitis however can be seen with acute cholecystitis.
There is no biliary duct dilation. There are no filling defects within the common bile duct suggestive of choledocholithiasis.
Abdomen/Pelvis CT 01/29/25
IMPRESSION: Findings suggesting moderate acute pancreatitis.
Severe prostate hypertrophy. Progressed
Mild diffuse bladder wall thickening. This can be seen with cystitis and bladder outlet obstruction. Stable
PLAN:
Acute pancreatitis
Recurrent Pancreatitis
Concern for an infected peripancreatic collection.
Transaminitis
-No alcohol use, no gallstone, Ca OK, IgG4 WNL (returned from last admission),
-MRI last admission without mass, finding of sludge.
-Gallbladder suspected etiology recurrent pancreatitis
-surgery eval eventual Lap cholecystectomy recommended, timing to be determined
-MRI repeated 02/02 given ongoing abd pain, recurrent rise in lipase,
-MRI appreciated concerning for peripancreatic abscess formation, started on empiric zosyn 02/03/25 - switched to meropenem 02/06
-CT 04/07 - concerning for an infected peripancreatic collection.
-cont pain control
-IVF support completed
-GI eval appreciated diet advanced to Low Fat
- As per GI: Favor having fluid collection mature in 4-6 weeks and then would consider sampling with EUS-guided drainage pending his clinical course. MRI Abd results 02/11 appreciated
- cont Ertapenem fluconazole as per ID
- Encourage PO intake
#sepsis with MANN, improved
-pancreatic collection +/- pleural fluid collection
-abx as stated above
-Ertapenem
-fluconazole
-left Thora - Cultures - NGTD
#Acute Anemia
#possible Acute Blood Loss Anemia vs anemia of chronic disease
-trial Hep ggt 02/07
-monitor HgB closely
-No active bleeding with CT 02/05
-Will switch over to Eliquis if no planned procedure
02/04/25 New onset diarrhea
likely abx related
-Cdiff negative 02/04
Mild Thrombocytopenia
-suspect combination dilutional from aggressive IVF support and 2/2 inflammation from pancreatitis
-Resolved
02/02 CXR noted Bilateral Pleural Effusions Lt>Rt, loculated on left
Stable respiratory status
Pulm eval appreciated likely fluid overload combined with hypoalbuminemia
Trial Lasix Diuresis (so far received two doses, no further doses planned at this time), follow up CXR in AM 02/03 noted stable appearance pleural effusions, slight improvement right effusions
Chest US 02/04 appreciated b/l mod to large subpulmonic pleural effusions, possible loculation
Pulmonary Evaluation
left thora - appears exudative
F/u Cultures - ngtd
Continue antibiotics
AMS likely multifactorial , improved/resolved
Metabolic encephalopathy 2/2 opiate pain meds vs Delirium 2/2 sleep deprivation d/t pain vs [facility] Delirium
opiate pain meds reduced as above
mental status since significantly improved
cont to monitor
Acute Kidney Injury, improved/resolved
Hyperkalemia resolved
CKD IIIb
Metabolic Acidosis resolved, bicarb supplementation discontinued
-pre-renal MANN in setting of acute pancreatitis with significant rise in creatinine overnight.
-Renal consult appreciated
- Cr high 3.9 since trended down to <2, near baseline
� Nephrology consult appreciated
-Huertas placed for accurate I&O's MANN since discontinued 02/13 TOV
Hypokalemia
Hypophosphatemia
Low Normal Mg level
-monitor and replete as necessary
New Onset Afib RVR since spontaneously converted to NSR on cardizem gtt
transferred to IVU 01/31, downgraded to tele 02/01
Cardio eval appreciated Cardizem gtt switched to scheduled IV Lopressor
scheduled IV Lopressor switched to Metoprolol XL 25 mg daily, IV Lopressor prn HR persistent >120
Trial re-initiating Hep ggt - start eliquis if hgb remains stable and no planned procedure
ECHO appreciated EF 51%
#Ground glass opacities within the anterior upper lobes which measure up to 3.1 cm in the anterior right upper lobe.
-Recommend follow-up CT chest to ensure resolution.
#Hyponatremia
� likely SIADH
� Continue to monitor with resuscitation
#Essential hypertension
-hold Amlodipine
-Lopressor as above
#Hypothyroidism
Continue levothyroxine
TSH wnl
#8 mm hypodensity within the inferolateral aspect of the spleen
- new from prior and may represent a small infarction.
-on hep gtt
DVT prophylaxis�heparin gtt
Full code
Discussed with patient and patient's Leigh
I spent a total of 40 minutes with the patient or on the floor. More than 50% of this time involved counseling and coordination of care.
Anticipated Discharge: 24 - 48 hours
Subjective/Interval History
-
Date of Service: February 13, 2025
some improvement in oral intake noted.
Objective Data
-
Labs:
Laboratory Results
02/13/25
07:22
WBC Pending
Hgb Pending
Hct Pending
Plt Count Pending
APTT Pending
Sodium Pending
Potassium Pending
Chloride Pending
Carbon Dioxide Pending
BUN Pending
Creatinine Pending
Glucose Pending
Calcium Pending
Total Bilirubin Pending
AST Pending
ALT Pending
Alkaline Phosphatase Pending
Vital Signs:
Vital Signs
Temp Pulse Resp BP Pulse Ox
98.6 F 78 18 127/56 96
02/13/25 03:43 02/13/25 05:58 02/13/25 03:43 02/13/25 05:58 02/13/25 03:43
I&O
02/12/25 02/13/25 02/14/25
06:59 06:59 06:59
Intake Total 1308 / 1308 890 / 890
Output Total 1125 / 1125 1200 / 1200
Balance 183 / 183 -310 / -310
[2025-02-13 08:05] LABS: APTT 70.3 Sec (23.4-35.0)
[2025-02-13 08:07] LABS: Hematocrit 23.5 % (39.0-52.0); Hemoglobin 8.1 g/dL (13.0-18.0); Mean Corp Hgb Conc. 34.5 g/dL (33.0-37.0); Mean Corpuscular Volume 91.8 fL (80.0-94.0); Nucleated Red Blood Cells % 0 % (-); Platelet Count 700 10^3/uL (130-400); Red Cell Dist. Width 15.8 % (11.5-14.5)
--- NOTE | 2025-02-13 08:32 | W.PN.UPDATE ---
Update Note
Progress Note Update
leukocytosis and thrombocytosis persist, reactive in the setting of recurrent acute pancreatitis with infected peripancreatic fluid collection
continue to monitor CBC
if abnormal CBC persists once acute issues improve, will consider further hematologic w/u
hematology will sign off, please call w/ questions
[2025-02-13 08:46] LABS: ALT (SGPT) 15 U/L (0-50); AST (SGOT) 25 U/L (17-59); Albumin 2.1 g/dl (3.5-5.0); Alkaline Phosphatase 219 U/L (38-126); Blood Urea Nitrogen 19 mg/dl (9-20); Calcium 7.7 mg/dl (8.4-10.2); Carbon Dioxide 27 mmol/L (22-30); Chloride 99 mmol/L (98-107); Estimated Creatinine Clearance 39 ml/min; Glucose 77 mg/dl (70-99); Potassium 4.1 mmol/L (3.5-5.1); Sodium 129 mmol/L (135-145); Total Protein 5.0 g/dl (6.3-8.2); eGFR 45.78
[2025-02-13] MEDS: ZOFRAN 4 MG IV ×2 (08:50→21:30)
--- NOTE | 2025-02-13 09:34 | PTCARENOTE ---
Pt and concerned pt has not been able to eat for days, tolerating only Gatorade. Pt states nausea and abdominal pain w/ eating is causing this. 4mg IV Zofran given this AM, pt will attempt to order breakfast. Protein shake brought in by .
Will discuss w/ primary team.
--- NOTE | 2025-02-13 09:58 | W.PN.ID1 ---
Date of Service
Date of Service: February 13, 2025
Today's Communication
- c/w ertapenem 1 gm iv q24 hours
- c/w fluconazole 200 mg PO q24 hours - follow renal function
- continue with supportive care
Assessment / Plan
acute infected peripancreatic fluid collection
Recurrent Acute Pancreatitis
Bilateral Pleural Effusions
Leukocytosis - stable
MANN on CKD - improving
Anemia
Elevated inflammatory markers
- 02/02 blood cultures x2 neg
- 02/05 CT c/a/p - collections: peripancreatic - gas and fluid containing, perihepatic; moderate BL pleural effusions, area of coloenteritis, possible small splenic infarction
- MRI abd 02/11 - extensive collections overall increased from prior
- 02/07 R thoracentesis: exudative effusion
- pleural fluid no growth to date
- fungal and AFB cultures in progress no growth to date
- leukocytosis and L shift slowly improving
- QTc 435
- c/w ertapenem 1 gm iv q24 hours
- c/w fluconazole 200 mg PO q24 hours - follow renal function
- continue with supportive care
Chief Complaint
-: Leukocytosis and Other (pancreatic pseudocyst)
Subjective / Review of Systems
no caleb fevers
bp stable
reports nausea and abdominal pain with eating, had a protein shake brought in
Vital Signs / Physical Exam
Vital Signs
Vital Signs
Temp Pulse Resp BP Pulse Ox
98.6 F 80 16 137/75 96
02/13/25 07:35 02/13/25 07:35 02/13/25 07:35 02/13/25 07:35 02/13/25 07:35
Physical Exam
Constitutional: No Acute Distress
Cardiovascular: Regular Rate and S1/S2; Negative Murmur or Rub
Pulmonary: Clear and Symmetric; Negative Wheezes or Rales
Gastrointestinal: Soft, Tender and Non Distended
Skin: Warm and Dry; Negative Rash or Jaundice
Objective Data
Lab Data
Lab Results
02/13/25 07:22
02/13/25 07:22
APTT 70.3 Sec (23.4-35.0) H 02/13/25 07:22
Estimated Creat Clear 39 ml/min 02/13/25 07:22
Total Bilirubin 0.7 mg/dl (0.2-1.3) 02/13/25 07:22
AST 25 U/L (17-59) 02/13/25 07:22
ALT 15 U/L (0-50) 02/13/25 07:22
Alkaline Phosphatase 219 U/L (38-126) H 02/13/25 07:22
C-Reactive Protein > 270.00 mg/L (0.0-10.00) H 02/10/25 10:06
Most recent labs reviewed.
Micro Results:
02/07/25 10:25 Fungal Smear - Final
Pleural Fluid No yeast or fungal elements seen.
Fungal Culture - Preliminary
Culture in progress.
Positive cultures are reported as soon as detected.
Final report to follow in four to five weeks.
02/07/25 10:25 Body Fluid Culture - Final
Pleural Fluid No Growth After 72 Hours
Gram Stain - Final
02/07/25 10:25 Acid Fast Bacilli Smear - Preliminary
Pleural Fluid Acid Fast Bacilli Culture - Preliminary
02/02/25 19:58 Blood Culture - Final
Blood/Venous No Growth - Final Report
02/02/25 18:37 Blood Culture - Final
Blood/Venous No Growth - Final Report
01/31/25 17:19 Blood Culture - Final
Blood/Venous No Growth - Final Report
01/31/25 16:51 Blood Culture - Final
Blood/Venous No Growth - Final Report
02/04/25 19:46 C. difficile GDH Antigen & Toxins - Final
Feces/Stool Negative for toxigenic C.difficile
[2025-02-13 11:42] VITALS: BP 129/70
[2025-02-13] MEDS: TOPROL XL 25 MG PO (11:45)
--- NOTE | 2025-02-13 12:59 | W.PN.NEPH.PH ---
Today's Communication / Plan
-
VT
Assessment/Plan
-
IMP:
Acute pancreatitis
Recurrent Pancreatitis
Acute Kidney Injury
Hyperkalemia
CKD IIIb ~1,6
Essential hypertension
Hypothyroidism
BPH
GERD
IBS
Plan:
follow BMP
abx per ID
follow PFC per GI
voiding trial
-
-
Date of Service: February 13, 2025
CC / HPI / ROS
-
Chief Complaint:
Acute on chronic kidney disease abdominal
History of Present Illness:
Pancreatitis acute kidney injury on CKD stage IIIb
cr stable 1.6
Dubois out this morning
BP stable with IV beta blokcer
Now on micafungin and Ertapenum for pancreatitis
Na stable [address]
Review of Systems:
no cp or sob at rest
Labs
-
Labs:
WBC 22.7 10^3/uL (4.8-10.8) H 02/13/25 07:22
RBC 2.56 10^6/uL (4.70-6.10) L 02/13/25 07:22
Hgb 8.1 g/dL (13.0-18.0) L 02/13/25 07:22
Hct 23.5 % (39.0-52.0) L 02/13/25 07:22
Plt Count 700 10^3/uL (130-400) H 02/13/25 07:22
Sodium 129 mmol/L (135-145) L 02/13/25 07:22
Potassium 4.1 mmol/L (3.5-5.1) 02/13/25 07:22
Chloride 99 mmol/L (98-107) 02/13/25 07:22
Carbon Dioxide 27 mmol/L (22-30) 02/13/25 07:22
BUN 19 mg/dl (9-20) 02/13/25 07:22
Creatinine 1.6 mg/dL (0.7-1.3) H 02/13/25 07:22
eGFR 45.78 02/13/25 07:22
Glucose 77 mg/dl (70-99) 02/13/25 07:22
Calcium 7.7 mg/dl (8.4-10.2) L 02/13/25 07:22
Phosphorus 2.5 mg/dl (2.5-4.5) 02/03/25 05:35
Hzx-H-Izhlikyzcip Pept 3140 pg/ml 02/01/25 03:32
Albumin 2.1 g/dl (3.5-5.0) L 02/13/25 07:22
Physical Exam
-
Vital Signs:
Vital Signs
Temp Pulse Resp BP Pulse Ox
98.6 F 77 16 129/70 96
02/13/25 07:35 02/13/25 11:45 02/13/25 11:42 02/13/25 11:45 02/13/25 11:42
Cardiovascular:: Regular rate and rhythm
Respiratory:: Bilateral: CTA
Lung Excursion:: Normal
Abdomen:: Distended, Nontender and Soft
Bowel Sounds:: Normal
Extremity Edema:: +1: Bilateral:
[2025-02-13 14:44] LABS: APTT 71.5 Sec (23.4-35.0)
[2025-02-13 15:25] VITALS: BP 145/73
[2025-02-13] MEDS: INVANZ 60 MG IV (16:49)
[2025-02-13] MEDS: HEPARIN 25000 UNITS/250 ML IV (16:49)
--- NOTE | 2025-02-13 16:55 | W.PN.GI.CBS2 ---
Today's Communication / Plan
-
continue supportive mx, abx
Assessment / Plan
-
Mr. Contreras is a 69 y.o male with h/o CKD stage IIIb, GERD, IBS, essential hypertension, hypothyroidism, BPH, and first episode of acute pancreatitis few weeks ago p/w recurrent acute pancreatitis felt to be biliary/gallstone pancreatitis.
Admitted with recurrent acute pancreatitis - 01/28. CT abd/pel on 01/28 showed severe peripancreatic stranding in the head/body consistent with acute pancreatitis.
Worsening abdominal pain, MANN - 01/30
MRI w/ and w/o contrast - 02/02; worsening peripancreatic edema with interval development of large irregular fluid collection about the pancreatic body and tail measuring up to 10.5 x 7.1 x 10.4 cm containing gas/debris. No evidence of pancreatic
necrosis. Severe diffuse mesenteric edema, mild to moderate abdominopelvic ascites. Started on broad spec abx (zosyn).
CT chest/abd/pel IV contrast 02/05; extensive peripancreatic stranding. 11.8 x 6.3 x 8.4 cm gas and fluid containing collection extending along tieh panc body/tail. Numerous fluid collections in the upper abdomen, perihepatic fluid collection
which extends to the gastric fundus measruing 11.7 x 8.3 cm.
MRI abd w & w/o contrast - 02/11; overall increase in size of PFCs. Large collection w/ internal gas/debris which extends along pancreatic body/tail, measuring 12.3 cm previously 10.5 cm. Additional large collection extending surperiorly along the
pancreatic body and into the LUQ which measure 11.2 cm. The pancreas enhance homogenously w/o evidence of necrosis.
In summary, he has recurrent acute pancreatitis complicated by evolving peripancreatic fluid collections (PFCs) which appears infected evidenced by gas in the cavity. The date of initial detection of PFC is on 02/02. He had multiple episodes of
fever (100.6 on 02/03, 101.4 on 02/05, and 100.7 on 02/08) and leukocytosis from 02/02 which peaked at 33.4k on 02/06, down to 25k today. However he remained clinically stable with BP and HR in normal range. Blood cx have been -ve. His pain has
improved gradually and appears relatively comfortable today. He has been tolerating oral diet for past week. He had evidence of multiple end organ dysfunction (MANN in setting of CKD with Cr peaking at 3.9 on 01/30) and b/l pleural effusions. His
MANN is improving, Cr 1.5 today.
In this complicated pt with recurrent acute pancreatitis complicated by multiple end organ dysfunction (MANN on CKD and b/l pleural effusions) and infected PFCs who remains clinically stable without further deterioration (florid sepsis, hemodynamic
instability) and improving end organ dysfunctions, I would recommend continued use of pancreas penetrating abx (ertapenem) and supportive mx with enteral feeding. The only indication for infected PFC drainage before its maturation is clinical
instability/progressive deterioration, which fortunately is not the case in this pt. The infected PFCs need 4-6 weeks to evolve and organize, at which time drainage can be planned. 4 week post initial detection imaging should be on 03/02. I will
reassess for possible consideration of drainage on 02/19, however this is likely still inadequate. I do not believe transferring this pt to [facility] for escalation of care is needed at this time (drainage would be deferred there too). This was
discussed with the pt and his family.
He feels relatively well today, tolerated pancake in am and some chicken for lunch. Denies abdo pain. Low grade fever of 100 o/n, leukocytosis improving. Continue supprotive mx.
Total Time Spent with Patient (in minutes): 35
Subjective
Subjective
Date of Service: February 13, 2025
Denies abdo pain, tolerating diet
Objective
Data Reviewed
Laboratory Data:
Laboratory Results
02/13/25 07:22
02/13/25 07:22
Laboratory Results
APTT 71.5 Sec (23.4-35.0) H 02/13/25 14:24
Phosphorus 2.5 mg/dl (2.5-4.5) 02/03/25 05:35
Magnesium 2.0 mg/dl (1.6-2.3) 02/03/25 05:35
Total Bilirubin 0.7 mg/dl (0.2-1.3) 02/13/25 07:22
AST 25 U/L (17-59) 02/13/25 07:22
ALT 15 U/L (0-50) 02/13/25 07:22
Alkaline Phosphatase 219 U/L (38-126) H 02/13/25 07:22
Lipase > 4000 U/L (23-300) H* 02/08/25 04:09
Vital Signs and I&O:
Vital Signs
Temp Pulse Resp BP Pulse Ox
98.1 F 74 16 145/73 97
02/13/25 15:25 02/13/25 15:25 02/13/25 15:25 02/13/25 15:25 02/13/25 15:25
I&O
02/12/25 02/13/25 02/14/25
06:59 06:59 06:59
Intake Total 1308 / 1308 890 / 890
Output Total 1125 / 1125 1200 / 1200
Balance 183 / 183 -310 / -310
--- NOTE | 2025-02-13 17:28 | CM ---
Continues on IV ABX and IV pain meds. GI expecting the pt to be here at least another 1-2 weeks.
inquired about home health care. CM explained various types of post hospital care including STR, Home Health and o/p PT. There are not interested in SNF at this time and she works and will not be able to drive pt to O/P PT. Will revisit
options closer to a discharge date.
DC planning deferred at this time.
[2025-02-13 19:07] VITALS: BP 136/76
[2025-02-13] MEDS: PEPCID 20 MG PO (21:22)
[2025-02-13 22:29] LABS: APTT 85.6 Sec (23.4-35.0)
[2025-02-13 23:31] VITALS: BP 137/74
[2025-02-14] MEDS: TYLENOL PO ×3 (01:01→21:08)
[2025-02-14 03:15] VITALS: BP 146/81
[2025-02-14 05:11] LABS: APTT 81.1 Sec (23.4-35.0); Hematocrit 24.8 % (39.0-52.0); Hemoglobin 8.4 g/dL (13.0-18.0); Mean Corp Hgb Conc. 33.9 g/dL (33.0-37.0); Mean Corpuscular Volume 90.8 fL (80.0-94.0); Nucleated Red Blood Cells % 0 % (-); Platelet Count 703 10^3/uL (130-400); Red Cell Dist. Width 15.6 % (11.5-14.5)
[2025-02-14 05:32] LABS: ALT (SGPT) 16 U/L (0-50); AST (SGOT) 28 U/L (17-59); Albumin 2.3 g/dl (3.5-5.0); Alkaline Phosphatase 234 U/L (38-126); Blood Urea Nitrogen 19 mg/dl (9-20); Calcium 8.0 mg/dl (8.4-10.2); Carbon Dioxide 27 mmol/L (22-30); Chloride 100 mmol/L (98-107); Estimated Creatinine Clearance 42 ml/min; Glucose 77 mg/dl (70-99); Magnesium 1.8 mg/dl (1.6-2.3); Potassium 4.4 mmol/L (3.5-5.1); Sodium 130 mmol/L (135-145); Total Protein 5.6 g/dl (6.3-8.2); eGFR 49.47
[2025-02-14 06:00] VITALS: BMI 21.0
[2025-02-14] MEDS: SYNTHROID 75 MCG PO (06:30)
[2025-02-14 07:30] VITALS: BP 131/73
--- NOTE | 2025-02-14 08:08 | W.PN.HOSP.TC ---
Today's Communication/Plan
-
cont abx/antifungal as per ID
encourage oral intake
back pain control
ok to shower, maintain fall precautions
ok to hold hep gtt and telemetry for shower
shower should be no more than 15 min and no more than 1 shower per day
Assessment / Plan
Assessment / Plan
Physical Exam
General: no acute distress, appears relatively comfortable
HEENT: normocephalic, atraumatic, moist oral mucosa
Respiratory: Clear to Auscultation; Negative Wheezes
Cardiac: Regular Rhythm and S1/S2
Abdomen: bowel sounds present, no tenderness, soft
Musculoskeletal: no edema
Skin: Warm and Dry; Negative Rash
Neuro: AO x 3 conversant coherent
Psych: Calm
IMPRESSION:
69-year-old male with past medical history of CKD stage IIIb, GERD, IBS, essential hypertension, hypothyroidism, BPH, presenting to the ER reporting severe epigastric pain.
MRI 01/14/25
IMPRESSION:
There is mild T2 hyperintense signal within the pancreatic head and adjacent fat as well as associated mild diffusion hyperintense signal. This likely represents acute interstitial pancreatitis. No peripancreatic collection. No discrete mass is
visualized although follow-up may be considered following resolution of the pancreatitis.
Biliary sludge. There is mild pericholecystic fluid which may be reactive given the likely pancreatitis however can be seen with acute cholecystitis.
There is no biliary duct dilation. There are no filling defects within the common bile duct suggestive of choledocholithiasis.
Abdomen/Pelvis CT 01/29/25
IMPRESSION: Findings suggesting moderate acute pancreatitis.
Severe prostate hypertrophy. Progressed
Mild diffuse bladder wall thickening. This can be seen with cystitis and bladder outlet obstruction. Stable
PLAN:
Acute pancreatitis
Recurrent Pancreatitis
Concern for an infected peripancreatic collection.
Transaminitis
-No alcohol use, no gallstone, Ca OK, IgG4 WNL (returned from last admission),
-MRI last admission without mass, finding of sludge.
-Gallbladder suspected etiology recurrent pancreatitis
-surgery eval eventual Lap cholecystectomy recommended, timing to be determined
-MRI repeated 02/02 given ongoing abd pain, recurrent rise in lipase,
-MRI appreciated concerning for peripancreatic abscess formation, started on empiric zosyn 02/03/25 - switched to meropenem 02/06
-CT 04/07 - concerning for an infected peripancreatic collection.
-abd pain since resolved
-IVF support completed
-GI eval appreciated diet advanced to Low Fat
- As per GI: Favor having fluid collection mature in 4-6 weeks and then would consider sampling with EUS-guided drainage pending his clinical course. MRI Abd results 02/11 appreciated
- cont Ertapenem fluconazole as per ID
- Encourage PO intake
Acute on Chronic Back pain
-2 Lidocaine patches QPM
-PO Dilaudid 4mg Q4Hprn
-IV dilaudid prn severe breakthrough pain
#sepsis with MANN, improved
-pancreatic collection +/- pleural fluid collection
-abx as stated above
-Ertapenem
-fluconazole
-left Thora - Cultures - NGTD
#Acute Anemia
#possible Acute Blood Loss Anemia vs anemia of chronic disease
-trial Hep ggt 02/07
-monitor HgB closely
-No active bleeding with CT 02/05
-Will switch over to Eliquis if no planned procedure
02/04/25 New onset diarrhea
likely abx related
-Cdiff negative 02/04
Mild Thrombocytopenia
-suspect combination dilutional from aggressive IVF support and 2/2 inflammation from pancreatitis
-Resolved
02/02 CXR noted Bilateral Pleural Effusions Lt>Rt, loculated on left
Stable respiratory status
Pulm eval appreciated likely fluid overload combined with hypoalbuminemia
Trial Lasix Diuresis (so far received two doses, no further doses planned at this time), follow up CXR in AM 02/03 noted stable appearance pleural effusions, slight improvement right effusions
Chest US 02/04 appreciated b/l mod to large subpulmonic pleural effusions, possible loculation
Pulmonary Evaluation
left thora - appears exudative
F/u Cultures - ngtd
Continue antibiotics
AMS likely multifactorial , improved/resolved
Metabolic encephalopathy 2/2 opiate pain meds vs Delirium 2/2 sleep deprivation d/t pain vs [facility] Delirium
opiate pain meds reduced as above
mental status since significantly improved
cont to monitor
Acute Kidney Injury, improved/resolved
Hyperkalemia resolved
CKD IIIb
Metabolic Acidosis resolved, bicarb supplementation discontinued
-pre-renal MANN in setting of acute pancreatitis with significant rise in creatinine overnight.
-Renal consult appreciated
- Cr high 3.9 since trended down to <2, near baseline
� Nephrology consult appreciated
-Huertas placed for accurate I&O's MANN since discontinued 02/13 TOV
Hypokalemia
Hypophosphatemia
Low Normal Mg level
-monitor and replete as necessary
New Onset Afib RVR since spontaneously converted to NSR on cardizem gtt
transferred to IVU 01/31, downgraded to tele 02/01
Cardio eval appreciated Cardizem gtt switched to scheduled IV Lopressor
scheduled IV Lopressor switched to Metoprolol XL 25 mg daily, IV Lopressor prn HR persistent >120
Trial re-initiating Hep ggt - start eliquis if hgb remains stable and no planned procedure
ECHO appreciated EF 51%
#Ground glass opacities within the anterior upper lobes which measure up to 3.1 cm in the anterior right upper lobe.
-Recommend follow-up CT chest to ensure resolution.
#Hyponatremia
� likely SIADH
� Continue to monitor with resuscitation
#Essential hypertension
-hold Amlodipine
-Lopressor as above
#Hypothyroidism
Continue levothyroxine
TSH wnl
#8 mm hypodensity within the inferolateral aspect of the spleen
- new from prior and may represent a small infarction.
-on hep gtt
DVT prophylaxis�heparin gtt
Full code
Discussed with patient and patient's Leigh
I spent a total of 40 minutes with the patient or on the floor. More than 50% of this time involved counseling and coordination of care.
Anticipated Discharge: 24 - 48 hours
Subjective/Interval History
-
Date of Service: February 14, 2025
no acute distress, sitting up comfortably in chair. Oral intake slowly improving.
Objective Data
-
Labs:
Laboratory Results
02/13/25 02/14/25
22:12 04:44
WBC 23.1 H
Hgb 8.4 L
Hct 24.8 L
Plt Count 703 H
APTT 85.6 H 81.1 H
Sodium 130 L
Potassium 4.4
Chloride 100
Carbon Dioxide 27
BUN 19
Creatinine 1.5 H
Glucose 77
Calcium 8.0 L
Total Bilirubin 0.9
AST 28
ALT 16
Alkaline Phosphatase 234 H
Vital Signs:
Vital Signs
Temp Pulse Resp BP Pulse Ox
99.8 F 92 18 146/81 96
02/14/25 03:15 02/14/25 03:15 02/14/25 03:15 02/14/25 03:15 02/14/25 03:15
I&O
02/13/25 02/14/25 02/15/25
06:59 06:59 06:59
Intake Total 890 / 890 150 / 150
Output Total 1200 / 1200 700 / 700
Balance -310 / -310 -550 / -550
[2025-02-14] MEDS: DILAUDID 0.5 MG IV (08:56)
[2025-02-14] MEDS: FLUSH (NSS) 2 FLUSH IV ×3 (08:57→17:10)
[2025-02-14] MEDS: ZOFRAN 4 MG IV ×2 (09:28→17:23)
[2025-02-14] MEDS: VISBIOME 2 CAP PO (09:33)
[2025-02-14] MEDS: PROTONIX 40 MG PO (09:33)
[2025-02-14] MEDS: TYLENOL 650 MG PO ×3 (09:33→17:11)
[2025-02-14] MEDS: FLOMAX 0.4 MG PO (09:34)
[2025-02-14] MEDS: DIFLUCAN 200 MG PO (09:34)
[2025-02-14] MEDS: TOPROL XL 25 MG PO (09:34)
[2025-02-14] MEDS: HEPARIN 25000 UNITS/250 ML IV (10:39)
--- NOTE | 2025-02-14 11:28 | W.PN.GI.CBS2 ---
Today's Communication / Plan
-
Continue current medications
Monitor WBC and fever curve closely on antibiotics
Assessment / Plan
-
Mr. Contreras is a 69 y.o male with h/o CKD stage IIIb, GERD, IBS, essential hypertension, hypothyroidism, BPH, and first episode of acute pancreatitis few weeks ago p/w recurrent acute pancreatitis felt to be biliary/gallstone pancreatitis.
Admitted with recurrent acute pancreatitis - 01/28. CT abd/pel on 01/28 showed severe peripancreatic stranding in the head/body consistent with acute pancreatitis.
Worsening abdominal pain, MANN - 01/30
MRI w/ and w/o contrast - 02/02; worsening peripancreatic edema with interval development of large irregular fluid collection about the pancreatic body and tail measuring up to 10.5 x 7.1 x 10.4 cm containing gas/debris. No evidence of pancreatic
necrosis. Severe diffuse mesenteric edema, mild to moderate abdominopelvic ascites. Started on broad spec abx (zosyn).
CT chest/abd/pel IV contrast 02/05; extensive peripancreatic stranding. 11.8 x 6.3 x 8.4 cm gas and fluid containing collection extending along tieh panc body/tail. Numerous fluid collections in the upper abdomen, perihepatic fluid collection
which extends to the gastric fundus measruing 11.7 x 8.3 cm.
MRI abd w & w/o contrast - 02/11; overall increase in size of PFCs. Large collection w/ internal gas/debris which extends along pancreatic body/tail, measuring 12.3 cm previously 10.5 cm. Additional large collection extending surperiorly along the
pancreatic body and into the LUQ which measure 11.2 cm. The pancreas enhance homogenously w/o evidence of necrosis.
In summary, he has recurrent acute pancreatitis complicated by evolving peripancreatic fluid collections (PFCs) which appears infected evidenced by gas in the cavity. The date of initial detection of PFC is on 02/02. He had multiple episodes of
fever (100.6 on 02/03, 101.4 on 02/05, and 100.7 on 02/08) and leukocytosis from 02/02 which peaked at 33.4k on 02/06, down to 25k today. However he remained clinically stable with BP and HR in normal range. Blood cx have been -ve. His pain has
improved gradually and appears relatively comfortable today. He has been tolerating oral diet for past week. He had evidence of multiple end organ dysfunction (MANN in setting of CKD with Cr peaking at 3.9 on 01/30) and b/l pleural effusions. His
MANN is improving, Cr 1.5 today.
In this complicated pt with recurrent acute pancreatitis complicated by multiple end organ dysfunction (MANN on CKD and b/l pleural effusions) and infected PFCs who remains clinically stable without further deterioration (florid sepsis, hemodynamic
instability) and improving end organ dysfunctions, I would recommend continued use of pancreas penetrating abx (ertapenem) and supportive mx with enteral feeding. The only indication for infected PFC drainage before its maturation is clinical
instability/progressive deterioration, which fortunately is not the case in this pt. The infected PFCs need 4-6 weeks to evolve and organize, at which time drainage can be planned. 4 week post initial detection imaging should be on 03/02. I will
reassess for possible consideration of drainage on 02/19, however this is likely still inadequate. I do not believe transferring this pt to [facility] for escalation of care is needed at this time (drainage would be deferred there too). This was
discussed with the pt and his family.
02/14/2025 no pain. He is trying to eat small frequent meals and is slowly increasing his oral intake and has also been able to tolerate the protein shake. Low-grade fever spike of 100.8 last night and WBC count is relatively stable today morning,
continue to closely monitor on antibiotics. Plan as stated above by Dr. Pierson who had seen patient on 02/12 and 02/13.
Subjective
Subjective
Date of Service: February 14, 2025
Spiked a fever of 100.8 last night
WBCs relatively stable on antibiotics
Denies any abdominal pain currently and is tolerating small amounts of low-fat diet and protein supplements
Objective
Data Reviewed
Laboratory Data:
Laboratory Results
02/14/25 04:44
02/14/25 04:44
Laboratory Results
APTT 81.1 Sec (23.4-35.0) H 02/14/25 04:44
Phosphorus 2.9 mg/dl (2.5-4.5) 02/14/25 04:44
Magnesium 1.8 mg/dl (1.6-2.3) 02/14/25 04:44
Total Bilirubin 0.9 mg/dl (0.2-1.3) 02/14/25 04:44
AST 28 U/L (17-59) 02/14/25 04:44
ALT 16 U/L (0-50) 02/14/25 04:44
Alkaline Phosphatase 234 U/L (38-126) H 02/14/25 04:44
Lipase > 4000 U/L (23-300) H* 02/08/25 04:09
Vital Signs and I&O:
Vital Signs
Temp Pulse Resp BP Pulse Ox
99.3 F 85 16 131/73 96
02/14/25 07:30 02/14/25 09:34 02/14/25 07:30 02/14/25 09:34 02/14/25 07:30
I&O
02/13/25 02/14/25 02/15/25
06:59 06:59 06:59
Intake Total 890 / 890 150 / 150
Output Total 1200 / 1200 700 / 700
Balance -310 / -310 -550 / -550
Physical Exam
Physical Exam
Cardiology: Normal Sinus Rhythm
Pulmonary: Clear
GI: Soft, Non Distended, Non Tender and Normal Bowel Sounds
[2025-02-14 11:40] VITALS: BP 112/64
--- NOTE | 2025-02-14 11:41 | W.PN.ID1 ---
Date of Service
Date of Service: February 14, 2025
Today's Communication
- transient fever last night, only new symptom is dysuria yesterday which he reports is fully resolved today
- follow clinically, if further fevers would repeat blood cultures, get UA, repeat a CXR, check covid and flu antigens
Assessment / Plan
acute infected peripancreatic fluid collection
Recurrent Acute Pancreatitis
Bilateral Pleural Effusions
Leukocytosis - stable
MANN on CKD - improving
Anemia
Elevated inflammatory markers
- transient fever last night, only new symptom is dysuria yesterday which he reports is fully resolved today
- follow clinically, if further fevers would repeat blood cultures, get UA, repeat a CXR, check covid and flu antigens
- 02/02 blood cultures x2 neg
- 02/05 CT c/a/p - collections: peripancreatic - gas and fluid containing, perihepatic; moderate BL pleural effusions, area of coloenteritis, possible small splenic infarction
- MRI abd 02/11 - extensive collections overall increased from prior
- 02/07 R thoracentesis: exudative effusion
- pleural fluid no growth to date
- fungal and AFB cultures in progress no growth to date
- QTc 435
- c/w ertapenem 1 gm iv q24 hours
- c/w fluconazole 200 mg PO q24 hours - follow renal function
- continue with supportive care
Chief Complaint
-: Leukocytosis and Other (pancreatic pseudocyst)
Subjective / Review of Systems
tamx 100.8 overnight - was aware of the fever had chills
BP overall stable
no other events overnight
eating a small amount
denies: headache, sinus tendernes, cough, sputum production, nausea, vomiting, diarrhea, constipation, dysuria today (reports brief dysuria yesterday after dubois removed), suprapubic tenderness, new rashes, tenderness over PIVs, joint pains
Vital Signs / Physical Exam
Vital Signs
Vital Signs
Temp Pulse Resp BP Pulse Ox
99.3 F 85 16 131/73 96
02/14/25 07:30 02/14/25 09:34 02/14/25 07:30 02/14/25 09:34 02/14/25 07:30
Physical Exam
Constitutional: No Acute Distress
Cardiovascular: Regular Rate and S1/S2; Negative Murmur or Rub
Pulmonary: Clear and Symmetric; Negative Wheezes or Rales
Gastrointestinal: Soft, Non Tender, Non Distended and Normal Bowel Sounds
Skin: Warm and Dry; Negative Rash or Jaundice
Objective Data
Lab Data
Lab Results
02/14/25 04:44
02/14/25 04:44
APTT 81.1 Sec (23.4-35.0) H 02/14/25 04:44
Estimated Creat Clear 42 ml/min 02/14/25 04:44
Total Bilirubin 0.9 mg/dl (0.2-1.3) 02/14/25 04:44
AST 28 U/L (17-59) 02/14/25 04:44
ALT 16 U/L (0-50) 02/14/25 04:44
Alkaline Phosphatase 234 U/L (38-126) H 02/14/25 04:44
C-Reactive Protein > 270.00 mg/L (0.0-10.00) H 02/10/25 10:06
Most recent labs reviewed.
Micro Results:
02/07/25 10:25 Fungal Smear - Final
Pleural Fluid No yeast or fungal elements seen.
Fungal Culture - Preliminary
Culture in progress.
Positive cultures are reported as soon as detected.
Final report to follow in four to five weeks.
02/07/25 10:25 Body Fluid Culture - Final
Pleural Fluid No Growth After 72 Hours
Gram Stain - Final
02/07/25 10:25 Acid Fast Bacilli Smear - Preliminary
Pleural Fluid Acid Fast Bacilli Culture - Preliminary
02/02/25 19:58 Blood Culture - Final
Blood/Venous No Growth - Final Report
02/02/25 18:37 Blood Culture - Final
Blood/Venous No Growth - Final Report
01/31/25 17:19 Blood Culture - Final
Blood/Venous No Growth - Final Report
01/31/25 16:51 Blood Culture - Final
Blood/Venous No Growth - Final Report
02/04/25 19:46 C. difficile GDH Antigen & Toxins - Final
Feces/Stool Negative for toxigenic C.difficile
[2025-02-14 15:30] VITALS: BP 132/68
[2025-02-14 16:09] LABS: Iron 36 ug/dl (49-181)
[2025-02-14 16:18] LABS: Total Iron Binding Capacity 150 ug/dl (261-462)
[2025-02-14 16:44] LABS: Ferritin 755.0 ng/ml (17.9-464.0)
[2025-02-14] MEDS: INVANZ 60 MG IV (17:09)
[2025-02-14 17:16] LABS: Folate 10.5 ng/ml (2.76-20); Vitamin B12 > 1000 pg/ml (239-931)
[2025-02-14 19:00] VITALS: BP 127/67
[2025-02-14] MEDS: DILAUDID 4 MG PO (21:07)
[2025-02-14] MEDS: PEPCID 20 MG PO (21:08)
[2025-02-14 23:00] VITALS: BP 140/67
[2025-02-15] MEDS: TYLENOL PO ×2 (00:39→03:56)
[2025-02-15 03:00] VITALS: BP 144/74
[2025-02-15] MEDS: HEPARIN 25000 UNITS/250 ML IV (03:52)
[2025-02-15] MEDS: SYNTHROID 75 MCG PO (05:34)
[2025-02-15] MEDS: DILAUDID 4 MG PO (05:34)
[2025-02-15 06:00] VITALS: BMI 20.9
[2025-02-15 07:01] LABS: Hematocrit 22.8 % (39.0-52.0); Hemoglobin 7.8 g/dL (13.0-18.0); Mean Corp Hgb Conc. 34.2 g/dL (33.0-37.0); Mean Corpuscular Volume 90.8 fL (80.0-94.0); Nucleated Red Blood Cells % 0 % (-); Platelet Count 642 10^3/uL (130-400); Red Cell Dist. Width 16.3 % (11.5-14.5)
[2025-02-15 07:09] LABS: APTT 124.6 Sec (23.4-35.0)
[2025-02-15 07:34] LABS: ALT (SGPT) 15 U/L (0-50); AST (SGOT) 25 U/L (17-59); Albumin 2.3 g/dl (3.5-5.0); Alkaline Phosphatase 203 U/L (38-126); Blood Urea Nitrogen 19 mg/dl (9-20); Calcium 7.9 mg/dl (8.4-10.2); Carbon Dioxide 29 mmol/L (22-30); Chloride 100 mmol/L (98-107); Estimated Creatinine Clearance 36 ml/min; Glucose 81 mg/dl (70-99); Magnesium 1.7 mg/dl (1.6-2.3); Potassium 4.1 mmol/L (3.5-5.1); Sodium 131 mmol/L (135-145); Total Protein 5.4 g/dl (6.3-8.2); eGFR 42.57
[2025-02-15 08:02] VITALS: BP 135/76
--- NOTE | 2025-02-15 08:09 | W.PN.HOSP.TC ---
Today's Communication/Plan
-
see a/p
Assessment / Plan
Assessment / Plan
Physical Exam
General: no acute distress, appears relatively comfortable
HEENT: normocephalic, atraumatic, moist oral mucosa
Respiratory: Clear to Auscultation; Negative Wheezes
Cardiac: Regular Rhythm and S1/S2
Abdomen: bowel sounds present, no tenderness, soft
Musculoskeletal: bipedal edema
Skin: Warm and Dry; Negative Rash
Neuro: AO x 3 conversant coherent
Psych: Calm
IMPRESSION:
69-year-old male with past medical history of CKD stage IIIb, GERD, IBS, essential hypertension, hypothyroidism, BPH, presenting to the ER reporting severe epigastric pain.
MRI 01/14/25
IMPRESSION:
There is mild T2 hyperintense signal within the pancreatic head and adjacent fat as well as associated mild diffusion hyperintense signal. This likely represents acute interstitial pancreatitis. No peripancreatic collection. No discrete mass is
visualized although follow-up may be considered following resolution of the pancreatitis.
Biliary sludge. There is mild pericholecystic fluid which may be reactive given the likely pancreatitis however can be seen with acute cholecystitis.
There is no biliary duct dilation. There are no filling defects within the common bile duct suggestive of choledocholithiasis.
Abdomen/Pelvis CT 01/29/25
IMPRESSION: Findings suggesting moderate acute pancreatitis.
Severe prostate hypertrophy. Progressed
Mild diffuse bladder wall thickening. This can be seen with cystitis and bladder outlet obstruction. Stable
PLAN:
Acute pancreatitis
Recurrent Pancreatitis
Concern for an infected peripancreatic collection.
Transaminitis
-No alcohol use, no gallstone, Ca OK, IgG4 WNL (returned from last admission),
-MRI last admission without mass, finding of sludge.
-Gallbladder suspected etiology recurrent pancreatitis
-surgery eval eventual Lap cholecystectomy recommended, timing to be determined
-MRI repeated 02/02 given ongoing abd pain, recurrent rise in lipase,
-MRI appreciated concerning for peripancreatic abscess formation, started on empiric zosyn 02/03/25 - switched to meropenem 02/06
-CT 04/07 - concerning for an infected peripancreatic collection.
-abd pain since resolved
-IVF support completed
-GI eval appreciated diet advanced to Low Fat
- As per GI: Favor having fluid collection mature in 4-6 weeks and then would consider sampling with EUS-guided drainage pending his clinical course. MRI Abd results 02/11 appreciated
- cont Ertapenem fluconazole as per ID
- Encourage PO intake
Acute on Chronic Back pain
-2 Lidocaine patches QPM
-PO Dilaudid 4mg Q4Hprn
-IV dilaudid prn severe breakthrough pain
#sepsis with MANN, improved
-pancreatic collection +/- pleural fluid collection
-abx as stated above
-Ertapenem
-fluconazole
-left Thora - Cultures - NGTD
#Acute Anemia
#possible Acute Blood Loss Anemia vs anemia of chronic disease
-trial Hep ggt 02/07
-monitor HgB closely
-No active bleeding with CT 02/05
-Will switch over to Eliquis if no planned procedure
02/04/25 New onset diarrhea
likely abx related
-Cdiff negative 02/04
Mild Thrombocytopenia
-suspect combination dilutional from aggressive IVF support and 2/2 inflammation from pancreatitis
-Resolved
02/02 CXR noted Bilateral Pleural Effusions Lt>Rt, loculated on left
Stable respiratory status
Pulm eval appreciated likely fluid overload combined with hypoalbuminemia
Trial Lasix Diuresis (so far received two doses, no further doses planned at this time), follow up CXR in AM 02/03 noted stable appearance pleural effusions, slight improvement right effusions
Chest US 02/04 appreciated b/l mod to large subpulmonic pleural effusions, possible loculation
Pulmonary Evaluation
left thora - appears exudative
F/u Cultures - ngtd
Continue antibiotics
AMS likely multifactorial , improved/resolved
Metabolic encephalopathy 2/2 opiate pain meds vs Delirium 2/2 sleep deprivation d/t pain vs Hospital Associate Delirium
opiate pain meds reduced as above
mental status since significantly improved
cont to monitor
Acute Kidney Injury, improved/resolved
Hyperkalemia resolved
CKD IIIb
Metabolic Acidosis resolved, bicarb supplementation discontinued
-pre-renal MANN in setting of acute pancreatitis with significant rise in creatinine overnight.
-Renal consult appreciated
- Cr high 3.9 since trended down to <2, near baseline
� Nephrology consult appreciated
-Huertas placed for accurate I&O's MANN since discontinued 02/13 TOV
Hypokalemia
Hypophosphatemia
Low Normal Mg level
-monitor and replete as necessary
New Onset Afib RVR since spontaneously converted to NSR on cardizem gtt
transferred to IVU 01/31, downgraded to tele 02/01
Cardio eval appreciated Cardizem gtt switched to scheduled IV Lopressor
scheduled IV Lopressor switched to Metoprolol XL 25 mg daily, IV Lopressor prn HR persistent >120
Trial re-initiating Hep ggt - start eliquis if hgb remains stable and no planned procedure
ECHO appreciated EF 51%
#Ground glass opacities within the anterior upper lobes which measure up to 3.1 cm in the anterior right upper lobe.
-Recommend follow-up CT chest to ensure resolution.
#Hyponatremia
� likely SIADH
� Continue to monitor with resuscitation
#Essential hypertension
-hold Amlodipine
-Lopressor as above
#Hypothyroidism
Continue levothyroxine
TSH wnl
#8 mm hypodensity within the inferolateral aspect of the spleen
- new from prior and may represent a small infarction.
-on hep gtt
#Dependent Edema, bipedal edema
#Hypoalbuminemia
encourage oral intake, protein
Elevate lower ext's when at rest
PEDRO wrap lower ext's
DVT prophylaxis�heparin gtt
Full code
Discussed with patient and patient's Leigh
I spent a total of 40 minutes with the patient or on the floor. More than 50% of this time involved counseling and coordination of care.
Anticipated Discharge: > 48 hours
Subjective/Interval History
-
Date of Service: February 15, 2025
Oral intake improving.
Objective Data
-
Labs:
Laboratory Results
02/15/25
06:45
WBC 20.9 H
Hgb 7.8 L
Hct 22.8 L
Plt Count 642 H
APTT 124.6 H
Sodium 131 L
Potassium 4.1
Chloride 100
Carbon Dioxide 29
BUN 19
Creatinine 1.7 H
Glucose 81
Calcium 7.9 L
Total Bilirubin 0.7
AST 25
ALT 15
Alkaline Phosphatase 203 H
Vital Signs:
Vital Signs
Temp Pulse Resp BP Pulse Ox
99.6 F 93 18 135/76 93
02/15/25 08:02 02/15/25 08:02 02/15/25 08:02 02/15/25 08:02 02/15/25 08:02
I&O
02/14/25 02/15/25 02/16/25
06:59 06:59 06:59
Intake Total 150 / 150 410 / 410
Output Total 700 / 700 860 / 860
Balance -550 / -550 -450 / -450
--- NOTE | 2025-02-15 09:09 | W.PN.ID1 ---
Date of Service
Date of Service: February 15, 2025
Today's Communication
Continue ertapenem and fluconazole.
Assessment / Plan
acute infected peripancreatic fluid collection
Recurrent Acute Pancreatitis
Bilateral Pleural Effusions
Leukocytosis - continues to trend down
MANN on CKD - improving
Anemia
Elevated inflammatory markers
- transient fever last night, only new symptom is dysuria yesterday which he reports is fully resolved today
- follow clinically, if further fevers would repeat blood cultures, get UA, repeat a CXR, check covid and flu antigens
- 02/02 blood cultures x2 neg
- 02/05 CT c/a/p - collections: peripancreatic - gas and fluid containing, perihepatic; moderate BL pleural effusions, area of coloenteritis, possible small splenic infarction
- MRI abd 02/11 - extensive collections overall increased from prior
- 02/07 R thoracentesis: exudative effusion
- pleural fluid no growth to date
- fungal and AFB cultures in progress no growth to date
- QTc 435
- c/w ertapenem 1 gm iv q24 hours
- c/w fluconazole 200 mg PO q24 hours - follow renal function
- continue with supportive care
Chief Complaint
-: Leukocytosis and Other (pancreatic pseudocyst)
Subjective / Review of Systems
Ordered breakfast - will see how he tolerates.
No ab pain.
Vital Signs / Physical Exam
Vital Signs
Vital Signs
Temp Pulse Resp BP Pulse Ox
99.6 F 93 18 135/76 93
02/15/25 08:02 02/15/25 08:02 02/15/25 08:02 02/15/25 08:02 02/15/25 08:02
Physical Exam
Constitutional: No Acute Distress and Cachetic
Cardiovascular: Regular Rate, S1/S2 and Rub
Pulmonary: Clear
Gastrointestinal: Soft, Non Tender, Non Distended and Normal Bowel Sounds
Extremities: Negative Edema
Objective Data
Lab Data
Lab Results
02/15/25 06:45
02/15/25 06:45
APTT 124.6 Sec (23.4-35.0) H 02/15/25 06:45
Estimated Creat Clear 36 ml/min 02/15/25 06:45
Total Bilirubin 0.7 mg/dl (0.2-1.3) 02/15/25 06:45
AST 25 U/L (17-59) 02/15/25 06:45
ALT 15 U/L (0-50) 02/15/25 06:45
Alkaline Phosphatase 203 U/L (38-126) H 02/15/25 06:45
C-Reactive Protein > 270.00 mg/L (0.0-10.00) H 02/10/25 10:06
Most recent labs reviewed.
Micro Results:
02/07/25 10:25 Fungal Smear - Final
Pleural Fluid No yeast or fungal elements seen.
Fungal Culture - Preliminary
Culture in progress.
Positive cultures are reported as soon as detected.
Final report to follow in four to five weeks.
02/07/25 10:25 Body Fluid Culture - Final
Pleural Fluid No Growth After 72 Hours
Gram Stain - Final
02/07/25 10:25 Acid Fast Bacilli Smear - Preliminary
Pleural Fluid Acid Fast Bacilli Culture - Preliminary
02/02/25 19:58 Blood Culture - Final
Blood/Venous No Growth - Final Report
02/02/25 18:37 Blood Culture - Final
Blood/Venous No Growth - Final Report
01/31/25 17:19 Blood Culture - Final
Blood/Venous No Growth - Final Report
01/31/25 16:51 Blood Culture - Final
Blood/Venous No Growth - Final Report
02/04/25 19:46 C. difficile GDH Antigen & Toxins - Final
Feces/Stool Negative for toxigenic C.difficile
[2025-02-15] MEDS: FLOMAX 0.4 MG PO (09:42)
[2025-02-15] MEDS: VISBIOME 2 CAP PO (09:42)
[2025-02-15] MEDS: TOPROL XL 25 MG PO (09:43)
[2025-02-15] MEDS: PROTONIX 40 MG PO (09:43)
[2025-02-15] MEDS: DIFLUCAN 200 MG PO (09:43)
[2025-02-15] MEDS: TYLENOL 650 MG PO ×4 (09:50→21:47)
--- NOTE | 2025-02-15 11:11 | W.PN.GI.CBS2 ---
Today's Communication / Plan
-
Appetite is improving
Encourage POs. OK to bring food from home- low fat
WBC down to 20.9 today
Continue Ertapenem
Hold off on transfer to [facility]
Dr Pierson to review case next week, decide on timing of drainage procedure after maturation of fluid collection
Discussed with and pt at bedside
Assessment / Plan
-
69 y.o male with h/o CKD stage IIIb, GERD, IBS, essential hypertension, hypothyroidism, BPH, and first episode of acute pancreatitis few weeks ago p/w recurrent acute pancreatitis felt to be biliary/gallstone pancreatitis.
-Admitted with recurrent acute pancreatitis - 01/28. CT abd/pel on 01/28 showed severe peripancreatic stranding in the head/body consistent with acute pancreatitis.
-Worsening abdominal pain, MANN - 01/30
-MRI w/ and w/o contrast - 02/02; worsening peripancreatic edema with interval development of large irregular fluid collection about the pancreatic body and tail measuring up to 10.5 x 7.1 x 10.4 cm containing gas/debris. No evidence of pancreatic
necrosis. Severe diffuse mesenteric edema, mild to moderate abdominopelvic ascites. Started on broad spec abx (zosyn).
-CT chest/abd/pel IV contrast 02/05; extensive peripancreatic stranding. 11.8 x 6.3 x 8.4 cm gas and fluid containing collection extending along tieh panc body/tail. Numerous fluid collections in the upper abdomen, perihepatic fluid collection
which extends to the gastric fundus measuring 11.7 x 8.3 cm.
-MRI abd w & w/o contrast - 02/11; overall increase in size of PFCs. Large collection w/ internal gas/debris which extends along pancreatic body/tail, measuring 12.3 cm previously 10.5 cm. Additional large collection extending superiorly along the
pancreatic body and into the LUQ which measure 11.2 cm. The pancreas enhance homogenously w/o evidence of necrosis.
In summary, he has recurrent acute pancreatitis complicated by evolving peripancreatic fluid collections (PFCs) which appears infected evidenced by gas in the cavity. The date of initial detection of PFC is on 02/02. He had multiple episodes of
fever (100.6 on 02/03, 101.4 on 02/05, and 100.7 on 02/08) and leukocytosis from 02/02 which peaked at 33.4k on 02/06, down to 20K 02/15.. However he remained clinically stable with BP and HR in normal range. Blood cx have been -ve. His pain has
improved gradually and appears relatively comfortable. He has been tolerating oral diet for past week. He had evidence of multiple end organ dysfunction (MANN in setting of CKD with Cr peaking at 3.9 on 01/30) and b/l pleural effusions. His MANN is
improving
In this complicated pt with recurrent acute pancreatitis complicated by multiple end organ dysfunction (MANN on CKD and b/l pleural effusions) and infected PFCs who remains clinically stable without further deterioration (florid sepsis, hemodynamic
instability) and improving end organ dysfunctions, Recommend continued use of pancreas penetrating abx (ertapenem) and supportive mx with enteral feeding. The only indication for infected PFC drainage before its maturation is clinical
instability/progressive deterioration, which fortunately is not the case in this pt. The infected PFCs need 4-6 weeks to evolve and organize, at which time drainage can be planned. 4 week post initial detection imaging should be on 03/02. Dr Pierson
will reassess for possible consideration of drainage on 02/19, however this is likely still inadequate. Do not believe transferring this pt to [facility] for escalation of care is needed at this time (drainage would be deferred there too). This was
discussed with the pt and his family.
Impression:
Acute recurrent pancreatitis
Large peripancreatic fluid collections
Subjective
Subjective
Date of Service: February 15, 2025
Denies abd pain. Appetite has improved. Ate breakfast.
Objective
Data Reviewed
Laboratory Data:
Laboratory Results
02/15/25 06:45
02/15/25 06:45
Laboratory Results
APTT 124.6 Sec (23.4-35.0) H 02/15/25 06:45
Phosphorus 2.9 mg/dl (2.5-4.5) 02/15/25 06:45
Magnesium 1.7 mg/dl (1.6-2.3) 02/15/25 06:45
Total Bilirubin 0.7 mg/dl (0.2-1.3) 02/15/25 06:45
AST 25 U/L (17-59) 02/15/25 06:45
ALT 15 U/L (0-50) 02/15/25 06:45
Alkaline Phosphatase 203 U/L (38-126) H 02/15/25 06:45
Lipase > 4000 U/L (23-300) H* 02/08/25 04:09
Vital Signs and I&O:
Vital Signs
Temp Pulse Resp BP Pulse Ox
99.6 F 93 18 135/76 93
02/15/25 08:02 02/15/25 09:43 02/15/25 08:02 02/15/25 09:43 02/15/25 08:02
I&O
02/14/25 02/15/25 02/16/25
06:59 06:59 06:59
Intake Total 150 / 150 410 / 410
Output Total 700 / 700 860 / 860
Balance -550 / -550 -450 / -450
Physical Exam
Physical Exam
GI: Soft, Distended and Non Tender
--- NOTE | 2025-02-15 11:14 | W.PN.NEPH.PH ---
Today's Communication / Plan
-
check Urine
Assessment/Plan
-
IMP:
Acute pancreatitis
Recurrent Pancreatitis
Acute Kidney Injury
Hyperkalemia
CKD IIIb ~1,6
Essential hypertension
Hypothyroidism
BPH
GERD
IBS
Plan:
follow BMP
abx per ID
follow PFC per GI
check urine osm
-
-
Date of Service: February 15, 2025
CC / HPI / ROS
-
Chief Complaint:
Acute on chronic kidney disease abdominal
History of Present Illness:
Pancreatitis acute kidney injury on CKD stage IIIb
cr stable 1.7
Huertas out
BP stable
Now on micafungin and Ertapenem for pancreatitis
Na stable 131 low
Review of Systems:
no cp or sob at rest
Labs
-
Labs:
WBC 20.9 10^3/uL (4.8-10.8) H 02/15/25 06:45
RBC 2.51 10^6/uL (4.70-6.10) L 02/15/25 06:45
Hgb 7.8 g/dL (13.0-18.0) L 02/15/25 06:45
Hct 22.8 % (39.0-52.0) L 02/15/25 06:45
Plt Count 642 10^3/uL (130-400) H 02/15/25 06:45
Sodium 131 mmol/L (135-145) L 02/15/25 06:45
Potassium 4.1 mmol/L (3.5-5.1) 02/15/25 06:45
Chloride 100 mmol/L (98-107) 02/15/25 06:45
Carbon Dioxide 29 mmol/L (22-30) 02/15/25 06:45
BUN 19 mg/dl (9-20) 02/15/25 06:45
Creatinine 1.7 mg/dL (0.7-1.3) H 02/15/25 06:45
eGFR 42.57 02/15/25 06:45
Glucose 81 mg/dl (70-99) 02/15/25 06:45
Calcium 7.9 mg/dl (8.4-10.2) L 02/15/25 06:45
Phosphorus 2.9 mg/dl (2.5-4.5) 02/15/25 06:45
Uwg-Z-Ojgrmmasdlv Pept 3140 pg/ml 02/01/25 03:32
Albumin 2.3 g/dl (3.5-5.0) L 02/15/25 06:45
Physical Exam
-
Vital Signs:
Vital Signs
Temp Pulse Resp BP Pulse Ox
99.6 F 93 18 135/76 93
02/15/25 08:02 02/15/25 09:43 02/15/25 08:02 02/15/25 09:43 02/15/25 08:02
Cardiovascular:: Regular rate and rhythm
Respiratory:: Bilateral: Coarse
Lung Excursion:: Normal
Abdomen:: Nontender and Soft
Bowel Sounds:: Normal
Extremity Edema:: None: Bilateral:
[2025-02-15 11:33] VITALS: BP 119/65
[2025-02-15 15:08] LABS: Hematocrit 23.5 % (39.0-52.0); Hemoglobin 8.0 g/dL (13.0-18.0)
[2025-02-15 15:29] LABS: APTT 153.1 Sec (23.4-35.0)
[2025-02-15 16:29] VITALS: BP 135/66
[2025-02-15] MEDS: FLUSH (NSS) 2 FLUSH IV (17:20)
[2025-02-15] MEDS: INVANZ 60 MG IV (17:20)
[2025-02-15 19:00] VITALS: BP 136/71
[2025-02-15] MEDS: PEPCID 20 MG PO (21:46)
[2025-02-15 22:59] LABS: APTT 67.9 Sec (23.4-35.0)
[2025-02-15 23:00] VITALS: BP 160/80
[2025-02-16] VITALS (7 sets, daily range): BP systolic 116–144; BP diastolic 63–78; PULSE 71; BMI 20.7
[2025-02-16] MEDS: HEPARIN 25000 UNITS/250 ML IV ×2 (00:25→19:14)
[2025-02-16] MEDS: SYNTHROID 75 MCG PO (03:35)
[2025-02-16] MEDS: TYLENOL 650 MG PO ×4 (03:36→19:23)
[2025-02-16 06:07] LABS: Hematocrit 22.0 % (39.0-52.0); Hemoglobin 7.7 g/dL (13.0-18.0); Mean Corp Hgb Conc. 35.0 g/dL (33.0-37.0); Mean Corpuscular Volume 91.7 fL (80.0-94.0); Nucleated Red Blood Cells % 0 % (-); Platelet Count 606 10^3/uL (130-400); Red Cell Dist. Width 16.2 % (11.5-14.5)
[2025-02-16 06:09] LABS: APTT 63.1 Sec (23.4-35.0)
[2025-02-16 06:19] LABS: ALT (SGPT) 14 U/L (0-50); AST (SGOT) 24 U/L (17-59); Albumin 2.2 g/dl (3.5-5.0); Alkaline Phosphatase 192 U/L (38-126); Blood Urea Nitrogen 18 mg/dl (9-20); Calcium 8.1 mg/dl (8.4-10.2); Carbon Dioxide 28 mmol/L (22-30); Chloride 100 mmol/L (98-107); Estimated Creatinine Clearance 38 ml/min; Glucose 86 mg/dl (70-99); Potassium 4.1 mmol/L (3.5-5.1); Sodium 130 mmol/L (135-145); Total Protein 5.4 g/dl (6.3-8.2); eGFR 45.78
--- NOTE | 2025-02-16 07:47 | W.PN.HOSP.TC ---
Today's Communication/Plan
-
cont abx/antifungal
hep gtt
pain control
PT/OT
PEDRO wraps/elevation lower ext's
Assessment / Plan
Assessment / Plan
Physical Exam
General: no acute distress, appears relatively comfortable
HEENT: normocephalic, atraumatic, moist oral mucosa
Respiratory: Clear to Auscultation; Negative Wheezes
Cardiac: Regular Rhythm and S1/S2
Abdomen: bowel sounds present, no tenderness, soft
Musculoskeletal: bipedal edema
Skin: Warm and Dry; Negative Rash
Neuro: AO x 3 conversant coherent
Psych: Calm
IMPRESSION:
69-year-old male with past medical history of CKD stage IIIb, GERD, IBS, essential hypertension, hypothyroidism, BPH, presenting to the ER reporting severe epigastric pain.
MRI 01/14/25
IMPRESSION:
There is mild T2 hyperintense signal within the pancreatic head and adjacent fat as well as associated mild diffusion hyperintense signal. This likely represents acute interstitial pancreatitis. No peripancreatic collection. No discrete mass is
visualized although follow-up may be considered following resolution of the pancreatitis.
Biliary sludge. There is mild pericholecystic fluid which may be reactive given the likely pancreatitis however can be seen with acute cholecystitis.
There is no biliary duct dilation. There are no filling defects within the common bile duct suggestive of choledocholithiasis.
Abdomen/Pelvis CT 01/29/25
IMPRESSION: Findings suggesting moderate acute pancreatitis.
Severe prostate hypertrophy. Progressed
Mild diffuse bladder wall thickening. This can be seen with cystitis and bladder outlet obstruction. Stable
PLAN:
Acute pancreatitis
Recurrent Pancreatitis
Concern for an infected peripancreatic collection.
Transaminitis
-No alcohol use, no gallstone, Ca OK, IgG4 WNL (returned from last admission),
-MRI last admission without mass, finding of sludge.
-Gallbladder suspected etiology recurrent pancreatitis
-surgery eval eventual Lap cholecystectomy recommended, timing to be determined
-MRI repeated 02/02 given ongoing abd pain, recurrent rise in lipase,
-MRI appreciated concerning for peripancreatic abscess formation, started on empiric zosyn 02/03/25 - switched to meropenem 02/06
-CT 04/07 - concerning for an infected peripancreatic collection.
-abd pain since resolved
-IVF support completed
-GI eval appreciated diet advanced to Low Fat
- As per GI: Favor having fluid collection mature in 4-6 weeks and then would consider sampling with EUS-guided drainage pending his clinical course. MRI Abd results 02/11 appreciated
- cont Ertapenem fluconazole as per ID
- Encourage PO intake
Acute on Chronic Back pain
-2 Lidocaine patches QPM
-PO Dilaudid 2mg Q4Hprn
-IV dilaudid prn severe breakthrough pain
#sepsis with MANN, improved
-pancreatic collection +/- pleural fluid collection
-abx as stated above
-Ertapenem
-fluconazole
-left Thora - Cultures - NGTD
#Acute Anemia
#possible Acute Blood Loss Anemia vs anemia of chronic disease
-trial Hep ggt 02/07
-monitor HgB closely
-No active bleeding with CT 02/05
-Will switch over to Eliquis if no planned procedure
02/04/25 New onset diarrhea
likely abx related
-Cdiff negative 02/04
Mild Thrombocytopenia
-suspect combination dilutional from aggressive IVF support and 2/2 inflammation from pancreatitis
-Resolved
02/02 CXR noted Bilateral Pleural Effusions Lt>Rt, loculated on left
Stable respiratory status
Pulm eval appreciated likely fluid overload combined with hypoalbuminemia
Trial Lasix Diuresis (so far received two doses, no further doses planned at this time), follow up CXR in AM 02/03 noted stable appearance pleural effusions, slight improvement right effusions
Chest US 02/04 appreciated b/l mod to large subpulmonic pleural effusions, possible loculation
Pulmonary Evaluation
left thora - appears exudative
F/u Cultures - ngtd
Continue antibiotics
AMS likely multifactorial , improved/resolved
Metabolic encephalopathy 2/2 opiate pain meds vs Delirium 2/2 sleep deprivation d/t pain vs Hospital Associate Delirium
opiate pain meds reduced as above
mental status since significantly improved
cont to monitor
Acute Kidney Injury, improved/resolved
Hyperkalemia resolved
CKD IIIb
Metabolic Acidosis resolved, bicarb supplementation discontinued
-pre-renal MANN in setting of acute pancreatitis with significant rise in creatinine overnight.
-Renal consult appreciated
- Cr high 3.9 since trended down to <2, near baseline
� Nephrology consult appreciated
-Huertas placed for accurate I&O's MANN since discontinued 02/13 passed TOV
Hypokalemia
Hypophosphatemia
Low Normal Mg level
-monitor and replete as necessary
New Onset Afib RVR since spontaneously converted to NSR on cardizem gtt
transferred to IVU 01/31, downgraded to tele 02/01
Cardio eval appreciated Cardizem gtt switched to scheduled IV Lopressor
scheduled IV Lopressor switched to Metoprolol XL 25 mg daily, IV Lopressor prn HR persistent >120
Trial re-initiating Hep ggt - start Eliquis if hgb remains stable and no planned procedure
ECHO appreciated EF 51%
#Ground glass opacities within the anterior upper lobes which measure up to 3.1 cm in the anterior right upper lobe.
-Recommend follow-up CT chest to ensure resolution.
#Hyponatremia
� likely SIADH
� Continue to monitor with resuscitation
- nephro eval appreciated
#Essential hypertension
-hold Amlodipine
-Lopressor as above
#Hypothyroidism
Continue levothyroxine
TSH wnl
#8 mm hypodensity within the inferolateral aspect of the spleen
- new from prior and may represent a small infarction.
-on hep gtt
#Dependent Edema, bipedal edema
#Hypoalbuminemia
encourage oral intake, protein
Elevate lower ext's when at rest
PEDRO wrap lower ext's
DVT prophylaxis�heparin gtt
Full code
Discussed with patient and patient's Leigh
I spent a total of 40 minutes with the patient or on the floor. More than 50% of this time involved counseling and coordination of care.
Anticipated Discharge: > 48 hours
Subjective/Interval History
-
Date of Service: February 16, 2025
No acute distress, appears comfortable resting in bed. Oral intake cont to improve.
Objective Data
-
Labs:
Laboratory Results
02/15/25 02/16/25 02/16/25
22:41 05:44 12:30
WBC 19.8 H
Hgb 7.7 L
Hct 22.0 L
Plt Count 606 H
APTT 67.9 H 63.1 H Pending
Sodium 130 L
Potassium 4.1
Chloride 100
Carbon Dioxide 28
BUN 18
Creatinine 1.6 H
Glucose 86
Calcium 8.1 L
Total Bilirubin 0.6
AST 24
ALT 14
Alkaline Phosphatase 192 H
Vital Signs:
Vital Signs
Temp Pulse Resp BP Pulse Ox
98.6 F 76 16 142/78 95
02/16/25 03:00 02/16/25 03:00 02/16/25 03:00 02/16/25 03:00 02/16/25 03:00
I&O
02/15/25 02/16/25 02/17/25
06:59 06:59 06:59
Intake Total 410 / 410 1200 / 1200
Output Total 860 / 860 1300 / 1300
Balance -450 / -450 -100 / -100
[2025-02-16] MEDS: VISBIOME 2 CAP PO (08:06)
[2025-02-16] MEDS: FLOMAX 0.4 MG PO (08:08)
[2025-02-16] MEDS: DIFLUCAN 200 MG PO (08:08)
[2025-02-16] MEDS: PROTONIX 40 MG PO (08:08)
[2025-02-16] MEDS: TOPROL XL 25 MG PO (08:09)
--- NOTE | 2025-02-16 10:17 | W.PN.ID1 ---
Date of Service
Date of Service: February 16, 2025
Today's Communication
- c/w ertapenem 1 gm iv q24 hours
- c/w fluconazole 200 mg PO q24 hours - follow renal function
- continue with supportive care
Assessment / Plan
acute infected peripancreatic fluid collection
Recurrent Acute Pancreatitis
Bilateral Pleural Effusions
Leukocytosis - continues to trend down
MANN on CKD - improving
Anemia
Elevated inflammatory markers
- 02/02 blood cultures x2 neg
- 02/05 CT c/a/p - collections: peripancreatic - gas and fluid containing, perihepatic; moderate BL pleural effusions, area of coloenteritis, possible small splenic infarction
- MRI abd 02/11 - extensive collections overall increased from prior
- 02/07 R thoracentesis: exudative effusion
- pleural fluid no growth to date
- fungal and AFB cultures in progress no growth to date
- QTc 435
- c/w ertapenem 1 gm iv q24 hours
- c/w fluconazole 200 mg PO q24 hours - follow renal function
- continue with supportive care
Chief Complaint
-: Leukocytosis and Other (pancreatic pseudocyst)
Subjective / Review of Systems
afebrile
bp stable
no events overnight
nausea this am
Vital Signs / Physical Exam
Vital Signs
Vital Signs
Temp Pulse Resp BP Pulse Ox
98.8 F 86 18 144/75 96
02/16/25 07:26 02/16/25 08:09 02/16/25 07:26 02/16/25 08:09 02/16/25 07:26
Physical Exam
Constitutional: No Acute Distress
Cardiovascular: Regular Rate and S1/S2; Negative Murmur or Rub
Pulmonary: Clear and Symmetric; Negative Wheezes or Rales
Gastrointestinal: Soft, Non Tender, Non Distended and Normal Bowel Sounds
Skin: Warm and Dry; Negative Rash or Jaundice
Objective Data
Lab Data
Lab Results
02/16/25 05:44
02/16/25 05:44
APTT 63.1 Sec (23.4-35.0) H 02/16/25 05:44
Estimated Creat Clear 38 ml/min 02/16/25 05:44
Total Bilirubin 0.6 mg/dl (0.2-1.3) 02/16/25 05:44
AST 24 U/L (17-59) 02/16/25 05:44
ALT 14 U/L (0-50) 02/16/25 05:44
Alkaline Phosphatase 192 U/L (38-126) H 02/16/25 05:44
C-Reactive Protein > 270.00 mg/L (0.0-10.00) H 02/10/25 10:06
Most recent labs reviewed.
Micro Results:
02/07/25 10:25 Fungal Smear - Final
Pleural Fluid No yeast or fungal elements seen.
Fungal Culture - Preliminary
Culture in progress.
Positive cultures are reported as soon as detected.
Final report to follow in four to five weeks.
02/07/25 10:25 Body Fluid Culture - Final
Pleural Fluid No Growth After 72 Hours
Gram Stain - Final
02/07/25 10:25 Acid Fast Bacilli Smear - Preliminary
Pleural Fluid Acid Fast Bacilli Culture - Preliminary
02/02/25 19:58 Blood Culture - Final
Blood/Venous No Growth - Final Report
02/02/25 18:37 Blood Culture - Final
Blood/Venous No Growth - Final Report
01/31/25 17:19 Blood Culture - Final
Blood/Venous No Growth - Final Report
01/31/25 16:51 Blood Culture - Final
Blood/Venous No Growth - Final Report
02/04/25 19:46 C. difficile GDH Antigen & Toxins - Final
Feces/Stool Negative for toxigenic C.difficile
--- NOTE | 2025-02-16 10:54 | W.PN.GI.CBS2 ---
Today's Communication / Plan
-
Seems to be improving
Tolerating diet better. Told him h needs to ask for prn zofran if he has nausea. Perhaps this will also help with POs
WBC down to 19
Cont Ertapenem per ID
No need for [facility] transfer at this time
Will discuss timing of drainage procedure with Dr Pierson once fluid collection matures
Assessment / Plan
-
69 y.o male with h/o CKD stage IIIb, GERD, IBS, essential hypertension, hypothyroidism, BPH, and first episode of acute pancreatitis few weeks ago p/w recurrent acute pancreatitis felt to be biliary/gallstone pancreatitis.
-Admitted with recurrent acute pancreatitis - 01/28. CT abd/pel on 01/28 showed severe peripancreatic stranding in the head/body consistent with acute pancreatitis.
-Worsening abdominal pain, MANN - 01/30
-MRI w/ and w/o contrast - 02/02; worsening peripancreatic edema with interval development of large irregular fluid collection about the pancreatic body and tail measuring up to 10.5 x 7.1 x 10.4 cm containing gas/debris. No evidence of pancreatic
necrosis. Severe diffuse mesenteric edema, mild to moderate abdominopelvic ascites. Started on broad spec abx (zosyn).
-CT chest/abd/pel IV contrast 02/05; extensive peripancreatic stranding. 11.8 x 6.3 x 8.4 cm gas and fluid containing collection extending along tieh panc body/tail. Numerous fluid collections in the upper abdomen, perihepatic fluid collection
which extends to the gastric fundus measuring 11.7 x 8.3 cm.
-MRI abd w & w/o contrast - 02/11; overall increase in size of PFCs. Large collection w/ internal gas/debris which extends along pancreatic body/tail, measuring 12.3 cm previously 10.5 cm. Additional large collection extending superiorly along the
pancreatic body and into the LUQ which measure 11.2 cm. The pancreas enhance homogenously w/o evidence of necrosis.
In summary, he has recurrent acute pancreatitis complicated by evolving peripancreatic fluid collections (PFCs) which appears infected evidenced by gas in the cavity. The date of initial detection of PFC is on 02/02. He had multiple episodes of
fever (100.6 on 02/03, 101.4 on 02/05, and 100.7 on 02/08) and leukocytosis from 02/02 which peaked at 33.4k on 02/06, down to 20K 02/15.. However he remained clinically stable with BP and HR in normal range. Blood cx have been -ve. His pain has
improved gradually and appears relatively comfortable. He has been tolerating oral diet for past week. He had evidence of multiple end organ dysfunction (MANN in setting of CKD with Cr peaking at 3.9 on 01/30) and b/l pleural effusions. His MANN is
improving
In this complicated pt with recurrent acute pancreatitis complicated by multiple end organ dysfunction (MANN on CKD and b/l pleural effusions) and infected PFCs who remains clinically stable without further deterioration (florid sepsis, hemodynamic
instability) and improving end organ dysfunctions, Recommend continued use of pancreas penetrating abx (ertapenem) and supportive mx with enteral feeding. The only indication for infected PFC drainage before its maturation is clinical
instability/progressive deterioration, which fortunately is not the case in this pt. The infected PFCs need 4-6 weeks to evolve and organize, at which time drainage can be planned. 4 week post initial detection imaging should be on 03/02. Dr Pierson
will reassess for possible consideration of drainage on 02/19, however this is likely still inadequate. Do not believe transferring this pt to [facility] for escalation of care is needed at this time (drainage would be deferred there too). This was
discussed with the pt and his family.
Impression:
Acute recurrent pancreatitis
Large peripancreatic fluid collections
Subjective
Subjective
Date of Service: February 16, 2025
Ate turkey/stuffing that family brought in last night and breakfast. Had nausea and asked about zofran which was helpful
Objective
Data Reviewed
Laboratory Data:
Laboratory Results
02/16/25 05:44
02/16/25 05:44
Laboratory Results
APTT 63.1 Sec (23.4-35.0) H 02/16/25 05:44
Phosphorus 2.9 mg/dl (2.5-4.5) 02/15/25 06:45
Magnesium 1.7 mg/dl (1.6-2.3) 02/15/25 06:45
Total Bilirubin 0.6 mg/dl (0.2-1.3) 02/16/25 05:44
AST 24 U/L (17-59) 02/16/25 05:44
ALT 14 U/L (0-50) 02/16/25 05:44
Alkaline Phosphatase 192 U/L (38-126) H 02/16/25 05:44
Lipase > 4000 U/L (23-300) H* 02/08/25 04:09
Vital Signs and I&O:
Vital Signs
Temp Pulse Resp BP Pulse Ox
98.8 F 86 18 144/75 96
02/16/25 07:26 02/16/25 08:09 02/16/25 07:26 02/16/25 08:09 02/16/25 07:26
I&O
02/15/25 02/16/25 02/17/25
06:59 06:59 06:59
Intake Total 410 / 410 1200 / 1200
Output Total 860 / 860 1300 / 1300
Balance -450 / -450 -100 / -100
Physical Exam
Physical Exam
GI: Soft, Distended and Non Tender
[2025-02-16] MEDS: ZOFRAN 4 MG IV ×2 (11:04→17:21)
[2025-02-16] MEDS: TYLENOL PO ×3 (11:20→23:27)
[2025-02-16 13:03] LABS: APTT 109.0 Sec (23.4-35.0)
--- NOTE | 2025-02-16 13:54 | W.PN.NEPH.PH ---
Addendum entered and electronically signed by Gasper Ingram MD 02/16/25 13:59:
hold on samsca given fluconazole usage
Original Note:
Today's Communication / Plan
-
samsca
Assessment/Plan
-
IMP:
Acute pancreatitis
Recurrent Pancreatitis
Acute Kidney Injury
Hyperkalemia
CKD IIIb ~1,6
Essential hypertension
Hypothyroidism
BPH
GERD
IBS
Plan:
follow BMP
abx per ID
follow PFC per GI
samsca
-
-
Date of Service: February 16, 2025
CC / HPI / ROS
-
Chief Complaint:
Acute on chronic kidney disease abdominal
History of Present Illness:
Pancreatitis acute kidney injury on CKD stage IIIb
cr stable 1.7
Huertas out
BP stable
Now on micafungin and Ertapenem for pancreatitis
Na stable 130 low
Review of Systems:
no cp or sob at rest
Labs
-
Labs:
WBC 19.8 10^3/uL (4.8-10.8) H 02/16/25 05:44
RBC 2.40 10^6/uL (4.70-6.10) L 02/16/25 05:44
Hgb 7.7 g/dL (13.0-18.0) L 02/16/25 05:44
Hct 22.0 % (39.0-52.0) L 02/16/25 05:44
Plt Count 606 10^3/uL (130-400) H 02/16/25 05:44
Sodium 130 mmol/L (135-145) L 02/16/25 05:44
Potassium 4.1 mmol/L (3.5-5.1) 02/16/25 05:44
Chloride 100 mmol/L (98-107) 02/16/25 05:44
Carbon Dioxide 28 mmol/L (22-30) 02/16/25 05:44
BUN 18 mg/dl (9-20) 02/16/25 05:44
Creatinine 1.6 mg/dL (0.7-1.3) H 02/16/25 05:44
eGFR 45.78 02/16/25 05:44
Glucose 86 mg/dl (70-99) 02/16/25 05:44
Calcium 8.1 mg/dl (8.4-10.2) L 02/16/25 05:44
Phosphorus 2.9 mg/dl (2.5-4.5) 02/15/25 06:45
Sra-P-Kffqjdfbpyy Pept 3140 pg/ml 02/01/25 03:32
Albumin 2.2 g/dl (3.5-5.0) L 02/16/25 05:44
Physical Exam
-
Vital Signs:
Vital Signs
Temp Pulse Resp BP Pulse Ox
97.7 F 67 18 124/63 98
02/16/25 11:50 02/16/25 11:50 02/16/25 11:50 02/16/25 11:50 02/16/25 11:50
Cardiovascular:: Regular rate and rhythm
Respiratory:: Bilateral: Coarse
Lung Excursion:: Normal
Abdomen:: Nontender and Soft
Bowel Sounds:: Normal
Extremity Edema:: None: Bilateral:
[2025-02-16] MEDS: INVANZ 60 MG IV (15:41)
[2025-02-16] MEDS: DILAUDID 2 MG PO (15:41)
--- NOTE | 2025-02-16 17:54 | CM ---
Pt remains on IV ABX, and IV pain med.
Plan: TBD
[2025-02-16] MEDS: PEPCID 20 MG PO (19:23)
[2025-02-16 19:41] LABS: APTT 68.4 Sec (23.4-35.0)
[2025-02-17] MEDS: TYLENOL 650 MG PO ×5 (03:02→23:08)
[2025-02-17 03:17] LABS: APTT 111.7 Sec (23.4-35.0)
[2025-02-17 03:44] VITALS: BP 153/78
[2025-02-17 06:00] VITALS: BMI 20.3
[2025-02-17] MEDS: SYNTHROID 75 MCG PO (06:41)
--- NOTE | 2025-02-17 07:36 | W.PN.HOSP.TC ---
Today's Communication/Plan
-
abx/antifungal as per ID
encourage po intake, Low fat diet
Ok to DC cardiac monitor
Hep gtt to transition to Eliquis tonight.
Assessment / Plan
Assessment / Plan
Physical Exam
General: no acute distress, appears relatively comfortable
HEENT: normocephalic, atraumatic, moist oral mucosa
Respiratory: Clear to Auscultation; Negative Wheezes
Cardiac: Regular Rhythm and S1/S2
Abdomen: bowel sounds present, no tenderness, soft
Musculoskeletal: bipedal edema
Skin: Warm and Dry; Negative Rash
Neuro: AO x 3 conversant coherent
Psych: Calm
IMPRESSION:
69-year-old male with past medical history of CKD stage IIIb, GERD, IBS, essential hypertension, hypothyroidism, BPH, presenting to the ER reporting severe epigastric pain.
MRI 01/14/25
IMPRESSION:
There is mild T2 hyperintense signal within the pancreatic head and adjacent fat as well as associated mild diffusion hyperintense signal. This likely represents acute interstitial pancreatitis. No peripancreatic collection. No discrete mass is
visualized although follow-up may be considered following resolution of the pancreatitis.
Biliary sludge. There is mild pericholecystic fluid which may be reactive given the likely pancreatitis however can be seen with acute cholecystitis.
There is no biliary duct dilation. There are no filling defects within the common bile duct suggestive of choledocholithiasis.
Abdomen/Pelvis CT 01/29/25
IMPRESSION: Findings suggesting moderate acute pancreatitis.
Severe prostate hypertrophy. Progressed
Mild diffuse bladder wall thickening. This can be seen with cystitis and bladder outlet obstruction. Stable
PLAN:
Acute pancreatitis
Recurrent Pancreatitis
Concern for an infected peripancreatic collection.
Transaminitis
-No alcohol use, no gallstone, Ca OK, IgG4 WNL (returned from last admission),
-MRI last admission without mass, finding of sludge.
-Gallbladder suspected etiology recurrent pancreatitis
-surgery eval eventual Lap cholecystectomy recommended, timing to be determined
-MRI repeated 02/02 given ongoing abd pain, recurrent rise in lipase,
-MRI appreciated concerning for peripancreatic abscess formation, started on empiric zosyn 02/03/25 - switched to meropenem 02/06
-CT 04/07 - concerning for an infected peripancreatic collection.
-abd pain since resolved
-IVF support completed
-GI eval appreciated diet advanced to Low Fat
- As per GI: Favor having fluid collection mature in 4-6 weeks and then would consider sampling with EUS-guided drainage pending his clinical course. MRI Abd results 02/11 appreciated
- cont Ertapenem fluconazole as per ID
- Encourage PO intake
Acute on Chronic Back pain
-2 Lidocaine patches QPM
-PO Dilaudid 2mg Q4Hprn
-IV dilaudid prn severe breakthrough pain
#sepsis with MANN, improved
-pancreatic collection +/- pleural fluid collection
-abx as stated above
-Ertapenem
-fluconazole
-left Thora - Cultures - NGTD
#Acute Anemia
#possible Acute Blood Loss Anemia vs anemia of chronic disease
-trial Hep ggt 02/07
-monitor HgB closely
-No active bleeding with CT 02/05
-Will switch over to Eliquis if no planned procedure
02/04/25 New onset diarrhea
likely abx related
-Cdiff negative 02/04
Mild Thrombocytopenia
-suspect combination dilutional from aggressive IVF support and 2/2 inflammation from pancreatitis
-Resolved
02/02 CXR noted Bilateral Pleural Effusions Lt>Rt, loculated on left
Stable respiratory status
Pulm eval appreciated likely fluid overload combined with hypoalbuminemia
Trial Lasix Diuresis (so far received two doses, no further doses planned at this time), follow up CXR in AM 02/03 noted stable appearance pleural effusions, slight improvement right effusions
Chest US 02/04 appreciated b/l mod to large subpulmonic pleural effusions, possible loculation
Pulmonary Evaluation
left thora - appears exudative
F/u Cultures - ngtd
Continue antibiotics
AMS likely multifactorial , improved/resolved
Metabolic encephalopathy 2/2 opiate pain meds vs Delirium 2/2 sleep deprivation d/t pain vs [facility] Delirium
opiate pain meds reduced as above
mental status since significantly improved
cont to monitor
Acute Kidney Injury, improved/resolved
Hyperkalemia resolved
CKD IIIb
Metabolic Acidosis resolved, bicarb supplementation discontinued
-pre-renal MANN in setting of acute pancreatitis with significant rise in creatinine overnight.
-Renal consult appreciated
- Cr high 3.9 since trended down to <2, near baseline
� Nephrology consult appreciated
-Huertas placed for accurate I&O's MANN since discontinued 02/13 passed TOV
Hypokalemia
Hypophosphatemia
Low Normal Mg level
-monitor and replete as necessary
New Onset Afib RVR since spontaneously converted to NSR on cardizem gtt
ECHO appreciated EF 51%
transferred to IVU 01/31, downgraded to tele 02/01
Cardio eval appreciated Cardizem gtt switched to scheduled IV Lopressor
scheduled IV Lopressor switched to Metoprolol XL 25 mg daily
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
No immediate plans for procedure, hep gtt to transition to Eliquis tonight 02/17/25
#Ground glass opacities within the anterior upper lobes which measure up to 3.1 cm in the anterior right upper lobe.
-Recommend follow-up CT chest to ensure resolution.
#Mild Hyponatremia
� likely SIADH
� Continue to monitor
- nephro eval appreciated
#Essential hypertension
-hold Amlodipine (BP relatively well controlled without)
-Metoprolol XL as above
#Hypothyroidism
Continue levothyroxine
TSH wnl
#8 mm hypodensity within the inferolateral aspect of the spleen
- new from prior and may represent a small infarction.
-on hep gtt
#Dependent Edema, bipedal edema
#Hypoalbuminemia
encourage oral intake, protein
Elevate lower ext's when at rest
PEDRO wrap lower ext's
DVT prophylaxis�heparin gtt to transition to Eliquis margo 02/17/25
Full code
Discussed with patient, patient's Leigh, and patient's daughter Loan
I spent a total of 40 minutes with the patient or on the floor. More than 50% of this time involved counseling and coordination of care.
Anticipated Discharge: 24 - 48 hours
Subjective/Interval History
-
Date of Service: February 17, 2025
Seen and examined at bedside in no acute distress resting comfortably in bed. Oral intake continues to improve. Frustrated regarding length of stay.
Objective Data
-
Labs:
Laboratory Results
02/16/25 02/17/25 02/17/25
19:22 02:55 06:00
WBC Pending
Hgb Pending
Hct Pending
Plt Count Pending
APTT 68.4 H 111.7 H
Sodium Pending
Potassium Pending
Chloride Pending
Carbon Dioxide Pending
BUN Pending
Creatinine Pending
Glucose Pending
Calcium Pending
Total Bilirubin Pending
AST Pending
ALT Pending
Alkaline Phosphatase Pending
02/17/25
10:20
WBC
Hgb
Hct
Plt Count
APTT Pending
Sodium
Potassium
Chloride
Carbon Dioxide
BUN
Creatinine
Glucose
Calcium
Total Bilirubin
AST
ALT
Alkaline Phosphatase
Vital Signs:
Vital Signs
Temp Pulse Resp BP Pulse Ox
99.1 F 88 14 153/78 95
02/17/25 03:44 02/17/25 03:44 02/17/25 03:44 02/17/25 03:44 02/17/25 03:44
I&O
02/16/25 02/17/25 02/18/25
06:59 06:59 06:59
Intake Total 1200 / 1200 500 / 500 120 / 120
Output Total 1300 / 1300 100 / 100 930 / 930
Balance -100 / -100 400 / 400 -810 / -810
[2025-02-17] MEDS: PROTONIX 40 MG PO (07:55)
[2025-02-17] MEDS: VISBIOME 2 CAP PO (07:55)
[2025-02-17] MEDS: FLOMAX 0.4 MG PO (07:56)
[2025-02-17] MEDS: DIFLUCAN 200 MG PO (07:56)
[2025-02-17] MEDS: TOPROL XL 25 MG PO (07:58)
[2025-02-17] MEDS: ZOFRAN 4 MG IV ×2 (07:59→16:01)
[2025-02-17 10:36] LABS: Hematocrit 23.0 % (39.0-52.0); Hemoglobin 7.8 g/dL (13.0-18.0); Mean Corp Hgb Conc. 33.9 g/dL (33.0-37.0); Mean Corpuscular Volume 91.3 fL (80.0-94.0); Nucleated Red Blood Cells % 0 % (-); Platelet Count 589 10^3/uL (130-400); Red Cell Dist. Width 16.0 % (11.5-14.5)
[2025-02-17 10:43] LABS: APTT 86.4 Sec (23.4-35.0)
[2025-02-17 11:04] LABS: ALT (SGPT) 14 U/L (0-50); AST (SGOT) 27 U/L (17-59); Albumin 2.4 g/dl (3.5-5.0); Alkaline Phosphatase 182 U/L (38-126); Blood Urea Nitrogen 20 mg/dl (9-20); Calcium 7.9 mg/dl (8.4-10.2); Carbon Dioxide 28 mmol/L (22-30); Chloride 98 mmol/L (98-107); Estimated Creatinine Clearance 40 ml/min; Glucose 91 mg/dl (70-99); Potassium 4.1 mmol/L (3.5-5.1); Sodium 130 mmol/L (135-145); Total Protein 5.7 g/dl (6.3-8.2); eGFR 49.47
[2025-02-17 11:11] VITALS: BP 118/65
[2025-02-17] MEDS: TYLENOL PO (11:18)
[2025-02-17] MEDS: HEPARIN 25000 UNITS/250 ML IV (11:19)
--- NOTE | 2025-02-17 11:29 | W.PN.NEPH.PH ---
Today's Communication / Plan
-
follow BMP
Assessment/Plan
-
IMP:
Acute pancreatitis
Recurrent Pancreatitis
Acute Kidney Injury
Hyperkalemia
CKD IIIb ~1,6
Essential hypertension
Hypothyroidism
BPH
GERD
IBS
Plan:
follow BMP
abx per ID
follow PFC per GI
no samsca with doflucan
-
-
Date of Service: February 17, 2025
CC / HPI / ROS
-
Chief Complaint:
Acute on chronic kidney disease abdominal
History of Present Illness:
Pancreatitis acute kidney injury on CKD stage IIIb
MANN/Cr down to 1.5
Na stable 130 low
Huertas out
BP stable
Now on micafungin and Ertapenem for pancreatitis
Review of Systems:
no cp or sob at rest
Labs
-
Labs:
WBC 18.5 10^3/uL (4.8-10.8) H 02/17/25 10:17
RBC 2.52 10^6/uL (4.70-6.10) L 02/17/25 10:17
Hgb 7.8 g/dL (13.0-18.0) L 02/17/25 10:17
Hct 23.0 % (39.0-52.0) L 02/17/25 10:17
Plt Count 589 10^3/uL (130-400) H 02/17/25 10:17
Sodium 130 mmol/L (135-145) L 02/17/25 10:17
Potassium 4.1 mmol/L (3.5-5.1) 02/17/25 10:17
Chloride 98 mmol/L (98-107) 02/17/25 10:17
Carbon Dioxide 28 mmol/L (22-30) 02/17/25 10:17
BUN 20 mg/dl (9-20) 02/17/25 10:17
Creatinine 1.5 mg/dL (0.7-1.3) H 02/17/25 10:17
eGFR 49.47 02/17/25 10:17
Glucose 91 mg/dl (70-99) 02/17/25 10:17
Calcium 7.9 mg/dl (8.4-10.2) L 02/17/25 10:17
Phosphorus 2.9 mg/dl (2.5-4.5) 02/15/25 06:45
Qxe-C-Ofqzwyfxuhc Pept 3140 pg/ml 02/01/25 03:32
Albumin 2.4 g/dl (3.5-5.0) L 02/17/25 10:17
Physical Exam
-
Vital Signs:
Vital Signs
Temp Pulse Resp BP Pulse Ox
97.8 F 75 18 119/61 97
02/17/25 07:46 02/17/25 07:58 02/17/25 07:46 02/17/25 07:58 02/17/25 08:45
Cardiovascular:: Regular rate and rhythm
Respiratory:: Bilateral: Coarse
Lung Excursion:: Normal
Abdomen:: Nontender and Soft
Bowel Sounds:: Normal
--- NOTE | 2025-02-17 11:33 | W.PN.GI.CBS2 ---
Today's Communication / Plan
-
WBC down to 18.
expressed concern pt is getting depressed from long hospitalization. Asking when he can go home
Currently on IV abx. Will discuss with ID/Hospitalist then long line teamster plan for abx
He remains stable. No need to transfer to [facility] for [facility]/surgery. Will need f/u with Dr Pierson to discuss timing of cystgastrostomy/drainage procedure
Cont encourage POs, can bring food from home
Assessment / Plan
-
69 y.o male with h/o CKD stage IIIb, GERD, IBS, essential hypertension, hypothyroidism, BPH, and first episode of acute pancreatitis few weeks ago p/w recurrent acute pancreatitis felt to be biliary/gallstone pancreatitis.
-Admitted with recurrent acute pancreatitis - 01/28. CT abd/pel on 01/28 showed severe peripancreatic stranding in the head/body consistent with acute pancreatitis.
-Worsening abdominal pain, MANN - 01/30
-MRI w/ and w/o contrast - 02/02; worsening peripancreatic edema with interval development of large irregular fluid collection about the pancreatic body and tail measuring up to 10.5 x 7.1 x 10.4 cm containing gas/debris. No evidence of pancreatic
necrosis. Severe diffuse mesenteric edema, mild to moderate abdominopelvic ascites. Started on broad spec abx (zosyn).
-CT chest/abd/pel IV contrast 02/05; extensive peripancreatic stranding. 11.8 x 6.3 x 8.4 cm gas and fluid containing collection extending along tieh panc body/tail. Numerous fluid collections in the upper abdomen, perihepatic fluid collection
which extends to the gastric fundus measuring 11.7 x 8.3 cm.
-MRI abd w & w/o contrast - 02/11; overall increase in size of PFCs. Large collection w/ internal gas/debris which extends along pancreatic body/tail, measuring 12.3 cm previously 10.5 cm. Additional large collection extending superiorly along the
pancreatic body and into the LUQ which measure 11.2 cm. The pancreas enhance homogenously w/o evidence of necrosis.
In summary, he has recurrent acute pancreatitis complicated by evolving peripancreatic fluid collections (PFCs) which appears infected evidenced by gas in the cavity. The date of initial detection of PFC is on 02/02. He had multiple episodes of
fever (100.6 on 02/03, 101.4 on 02/05, and 100.7 on 02/08) and leukocytosis from 02/02 which peaked at 33.4k on 02/06, down to 20K 02/15.. However he remained clinically stable with BP and HR in normal range. Blood cx have been -ve. His pain has
improved gradually and appears relatively comfortable. He has been tolerating oral diet for past week. He had evidence of multiple end organ dysfunction (MANN in setting of CKD with Cr peaking at 3.9 on 01/30) and b/l pleural effusions. His MANN is
improving
In this complicated pt with recurrent acute pancreatitis complicated by multiple end organ dysfunction (MANN on CKD and b/l pleural effusions) and infected PFCs who remains clinically stable without further deterioration (florid sepsis, hemodynamic
instability) and improving end organ dysfunctions, Recommend continued use of pancreas penetrating abx (ertapenem) and supportive mx with enteral feeding. The only indication for infected PFC drainage before its maturation is clinical
instability/progressive deterioration, which fortunately is not the case in this pt. The infected PFCs need 4-6 weeks to evolve and organize, at which time drainage can be planned. 4 week post initial detection imaging should be on 03/02. Dr Pierson
will reassess for possible consideration of drainage on 02/19, however this is likely still inadequate. Do not believe transferring this pt to [facility] for escalation of care is needed at this time (drainage would be deferred there too). This was
discussed with the pt and his family.
Impression:
Acute recurrent pancreatitis
Large peripancreatic fluid collections
Subjective
Subjective
Date of Service: February 17, 2025
Tolerating diet. Abd pain unchanged but not worse
Objective
Data Reviewed
Laboratory Data:
Laboratory Results
02/17/25 10:17
02/17/25 10:17
Laboratory Results
APTT 86.4 Sec (23.4-35.0) H 02/17/25 10:17
Phosphorus 2.9 mg/dl (2.5-4.5) 02/15/25 06:45
Magnesium 1.7 mg/dl (1.6-2.3) 02/15/25 06:45
Total Bilirubin 0.8 mg/dl (0.2-1.3) 02/17/25 10:17
AST 27 U/L (17-59) 02/17/25 10:17
ALT 14 U/L (0-50) 02/17/25 10:17
Alkaline Phosphatase 182 U/L (38-126) H 02/17/25 10:17
Lipase > 4000 U/L (23-300) H* 02/08/25 04:09
Vital Signs and I&O:
Vital Signs
Temp Pulse Resp BP Pulse Ox
97.8 F 75 18 119/61 97
02/17/25 07:46 02/17/25 07:58 02/17/25 07:46 02/17/25 07:58 02/17/25 08:45
I&O
02/16/25 02/17/25 02/18/25
06:59 06:59 06:59
Intake Total 1200 / 1200 500 / 500 120 / 120
Output Total 1300 / 1300 100 / 100 930 / 930
Balance -100 / -100 400 / 400 -810 / -810
Physical Exam
Physical Exam
GI: Soft, Non Distended and Tender (Mild epig tender)
[2025-02-17 15:00] VITALS: BP 136/69
[2025-02-17] MEDS: INVANZ 60 MG IV (15:27)
[2025-02-17] MEDS: DILAUDID 2 MG PO (19:19)
[2025-02-17] MEDS: ELIQUIS 5 MG PO (19:49)
[2025-02-17] MEDS: PEPCID 20 MG PO (19:49)
[2025-02-17 23:16] VITALS: BP 134/72
[2025-02-18] MEDS: SYNTHROID 75 MCG PO (04:05)
[2025-02-18] MEDS: TYLENOL 650 MG PO ×4 (04:09→19:33)
[2025-02-18 07:21] VITALS: BP 134/66
[2025-02-18 07:59] LABS: Hematocrit 24.8 % (39.0-52.0); Hemoglobin 8.4 g/dL (13.0-18.0); Mean Corp Hgb Conc. 33.9 g/dL (33.0-37.0); Mean Corpuscular Volume 92.9 fL (80.0-94.0); Platelet Count 577 10^3/uL (130-400); Red Cell Dist. Width 17.1 % (11.5-14.5)
[2025-02-18 08:27] LABS: Blood Urea Nitrogen 18 mg/dl (9-20); Calcium 8.3 mg/dl (8.4-10.2); Carbon Dioxide 31 mmol/L (22-30); Chloride 100 mmol/L (98-107); Estimated Creatinine Clearance 37 ml/min; Glucose 90 mg/dl (70-99); Potassium 3.9 mmol/L (3.5-5.1); Sodium 133 mmol/L (135-145); eGFR 45.78
--- NOTE | 2025-02-18 08:37 | W.PN.HOSP.TC ---
Today's Communication/Plan
-
see a/p
Assessment / Plan
Assessment / Plan
Physical Exam
General: no acute distress, appears relatively comfortable
HEENT: normocephalic, atraumatic, moist oral mucosa
Respiratory: Clear to Auscultation; Negative Wheezes
Cardiac: Regular Rhythm and S1/S2
Abdomen: bowel sounds present, no tenderness, soft
Musculoskeletal: bipedal edema
Skin: Warm and Dry; Negative Rash
Neuro: AO x 3 conversant coherent
Psych: Calm
IMPRESSION:
69-year-old male with past medical history of CKD stage IIIb, GERD, IBS, essential hypertension, hypothyroidism, BPH, presenting to the ER reporting severe epigastric pain.
MRI 01/14/25
IMPRESSION:
There is mild T2 hyperintense signal within the pancreatic head and adjacent fat as well as associated mild diffusion hyperintense signal. This likely represents acute interstitial pancreatitis. No peripancreatic collection. No discrete mass is
visualized although follow-up may be considered following resolution of the pancreatitis.
Biliary sludge. There is mild pericholecystic fluid which may be reactive given the likely pancreatitis however can be seen with acute cholecystitis.
There is no biliary duct dilation. There are no filling defects within the common bile duct suggestive of choledocholithiasis.
Abdomen/Pelvis CT 01/29/25
IMPRESSION: Findings suggesting moderate acute pancreatitis.
Severe prostate hypertrophy. Progressed
Mild diffuse bladder wall thickening. This can be seen with cystitis and bladder outlet obstruction. Stable
PLAN:
Acute pancreatitis
Recurrent Pancreatitis
Concern for an infected peripancreatic collection.
Transaminitis
-No alcohol use, no gallstone, Ca OK, IgG4 WNL (returned from last admission),
-MRI last admission without mass, finding of sludge.
-Gallbladder suspected etiology recurrent pancreatitis
-surgery eval eventual Lap cholecystectomy recommended, timing to be determined
-MRI repeated 02/02 given ongoing abd pain, recurrent rise in lipase,
-MRI appreciated concerning for peripancreatic abscess formation, started on empiric zosyn 02/03/25 - switched to meropenem 02/06
-CT 04/07 - concerning for an infected peripancreatic collection.
-abd pain since resolved
-IVF support completed
-GI eval appreciated diet advanced to Low Fat
- As per GI: Favor having fluid collection mature in 4-6 weeks and then would consider sampling with EUS-guided drainage pending his clinical course. MRI Abd results 02/11 appreciated
- cont Ertapenem fluconazole as per ID
- Encourage PO intake
Acute on Chronic Back pain
-2 Lidocaine patches QPM
-PO Dilaudid 2mg Q4Hprn
-IV dilaudid prn severe breakthrough pain
#sepsis with MANN, improved/resolved
-pancreatic collection +/- pleural fluid collection
-abx as stated above
-Ertapenem
-fluconazole
-left Thora - Cultures - NGTD
#Acute Anemia
#possible Acute Blood Loss Anemia vs anemia of chronic disease
-trial Hep ggt 02/07
-monitor HgB closely
-No active bleeding with CT 02/05
-possible procedure as above distantly planned, for the time being hep gtt switched to Eliquis 02/17
Mild Thrombocytopenia
-suspect combination dilutional from aggressive IVF support and 2/2 inflammation from pancreatitis
-Resolved
Now with Thrombocytosis but also resolving
02/02 CXR noted Bilateral Pleural Effusions Lt>Rt, loculated on left
Stable respiratory status
Pulm eval appreciated likely fluid overload combined with hypoalbuminemia
Trial Lasix Diuresis (so far received two doses, no further doses planned at this time), follow up CXR in AM 02/03 noted stable appearance pleural effusions, slight improvement right effusions
Chest US 02/04 appreciated b/l mod to large subpulmonic pleural effusions, possible loculation
Pulmonary Eval appreciated
left thora - appears exudative
F/u Cultures - ngtd
Continue antibiotics
AMS likely multifactorial , improved/resolved
Metabolic encephalopathy 2/2 opiate pain meds vs Delirium 2/2 sleep deprivation d/t pain vs [facility] Delirium
opiate pain meds reduced as above
mental status since significantly improved/baseline
cont to monitor
Acute Kidney Injury, improved/resolved
Hyperkalemia resolved
CKD IIIb
Metabolic Acidosis resolved, bicarb supplementation discontinued
-pre-renal MANN in setting of acute pancreatitis with significant rise in creatinine overnight.
-Renal consult appreciated
- Cr high 3.9 since trended down to <2, near baseline
� Nephrology consult appreciated
-Huertas placed for accurate I&O's MANN since discontinued 02/13 passed TOV
Hypokalemia
Hypophosphatemia
Low Normal Mg level
-monitor and replete as necessary
New Onset Afib RVR since spontaneously converted to NSR on cardizem gtt
ECHO appreciated EF 51%
transferred to IVU 01/31, downgraded to tele 02/01
Cardio eval appreciated Cardizem gtt switched to scheduled IV Lopressor
scheduled IV Lopressor switched to Metoprolol XL 25 mg daily
No afib noted since 01/30/25 HR well controlled on PO metoprolol, ok to dc compliance monitor 02/17/25
No immediate plans for procedure, hep gtt transitioned to Eliquis 02/17/25
#Ground glass opacities within the anterior upper lobes which measure up to 3.1 cm in the anterior right upper lobe.
-Recommend follow-up CT chest to ensure resolution.
#Mild Hyponatremia
� likely SIADH
� Continue to monitor
- nephro eval appreciated
#Essential hypertension
-hold Amlodipine (BP relatively well controlled without)
-Metoprolol XL as above
#Hypothyroidism
Continue levothyroxine
TSH wnl
#8 mm hypodensity within the inferolateral aspect of the spleen
- new from prior and may represent a small infarction.
-Eliquis
#Dependent Edema, bipedal edema
#Hypoalbuminemia
encourage oral intake, protein
Elevate lower ext's when at rest
PEDRO wrap lower ext's
DVT prophylaxis Eliquis
Full code
Discussed with patient and patient's Leigh
I spent a total of 40 minutes with the patient or on the floor. More than 50% of this time involved counseling and coordination of care.
Anticipated Discharge: 24 - 48 hours
Subjective/Interval History
-
Date of Service: February 18, 2025
No acute distress, appears comfortable at this time, sitting up in chair. Appetite oral intake continues to improve. Overall reports feeling well. Leigh present during evaluation.
Objective Data
-
Labs:
Laboratory Results
02/18/25
07:49
WBC 16.4 H
Hgb 8.4 L
Hct 24.8 L
Plt Count 577 H
Sodium 133 L
Potassium 3.9
Chloride 100
Carbon Dioxide 31 H
BUN 18
Creatinine 1.6 H
Glucose 90
Calcium 8.3 L
Vital Signs:
Vital Signs
Temp Pulse Resp BP Pulse Ox
98.4 F 76 16 134/66 97
02/18/25 07:21 02/18/25 07:21 02/18/25 07:21 02/18/25 07:21 02/18/25 07:21
I&O
02/17/25 02/18/25 02/19/25
06:59 06:59 06:59
Intake Total 500 / 500 600 / 600
Output Total 100 / 100 1705 / 1705
Balance 400 / 400 -1105 / -1105
--- NOTE | 2025-02-18 08:51 | W.PN.GI.CBS2 ---
Today's Communication / Plan
-
Slowly improving. Afebrile, last fever 100.8 on 02/13
I encouraged small frequent meals. Will try Enlive Clear since he did not like Ensure
WBC trending down to 16.4 today
IV heparin transitioned to eliquis yesterday
On IV abx ertapenem/diflucan.
Hopefully able to d/c soon with plan for OP abx per ID
F/U with Dr Pierson to discuss drainage/cystgastrostomy as OP after fluid collection matures
No need for transfer to [facility] at this time, fortunately
Assessment / Plan
-
69 y.o male with h/o CKD stage IIIb, GERD, IBS, essential hypertension, hypothyroidism, BPH, and first episode of acute pancreatitis few weeks ago p/w recurrent acute pancreatitis felt to be biliary/gallstone pancreatitis.
-Admitted with recurrent acute pancreatitis - 01/28. CT abd/pel on 01/28 showed severe peripancreatic stranding in the head/body consistent with acute pancreatitis.
-Worsening abdominal pain, MANN - 01/30
-MRI w/ and w/o contrast - 02/02; worsening peripancreatic edema with interval development of large irregular fluid collection about the pancreatic body and tail measuring up to 10.5 x 7.1 x 10.4 cm containing gas/debris. No evidence of pancreatic
necrosis. Severe diffuse mesenteric edema, mild to moderate abdominopelvic ascites. Started on broad spec abx (zosyn).
-CT chest/abd/pel IV contrast 02/05; extensive peripancreatic stranding. 11.8 x 6.3 x 8.4 cm gas and fluid containing collection extending along tieh panc body/tail. Numerous fluid collections in the upper abdomen, perihepatic fluid collection
which extends to the gastric fundus measuring 11.7 x 8.3 cm.
-MRI abd w & w/o contrast - 02/11; overall increase in size of PFCs. Large collection w/ internal gas/debris which extends along pancreatic body/tail, measuring 12.3 cm previously 10.5 cm. Additional large collection extending superiorly along the
pancreatic body and into the LUQ which measure 11.2 cm. The pancreas enhance homogenously w/o evidence of necrosis.
In summary, he has recurrent acute pancreatitis complicated by evolving peripancreatic fluid collections (PFCs) which appears infected evidenced by gas in the cavity. The date of initial detection of PFC is on 02/02. He had multiple episodes of
fever (100.6 on 02/03, 101.4 on 02/05, and 100.7 on 02/08) and leukocytosis from 02/02 which peaked at 33.4k on 02/06, down to 20K 02/15.. However he remained clinically stable with BP and HR in normal range. Blood cx have been -ve. His pain has
improved gradually and appears relatively comfortable. He has been tolerating oral diet for past week. He had evidence of multiple end organ dysfunction (MANN in setting of CKD with Cr peaking at 3.9 on 01/30) and b/l pleural effusions. His MANN is
improving
In this complicated pt with recurrent acute pancreatitis complicated by multiple end organ dysfunction (MANN on CKD and b/l pleural effusions) and infected PFCs who remains clinically stable without further deterioration (florid sepsis, hemodynamic
instability) and improving end organ dysfunctions, Recommend continued use of pancreas penetrating abx (ertapenem) and supportive mx with enteral feeding. The only indication for infected PFC drainage before its maturation is clinical
instability/progressive deterioration, which fortunately is not the case in this pt. The infected PFCs need 4-6 weeks to evolve and organize, at which time drainage can be planned. 4 week post initial detection imaging should be on 03/02. Dr Pierson
will reassess for possible consideration of drainage on 02/19, however this is likely still inadequate. Do not believe transferring this pt to [facility] for escalation of care is needed at this time (drainage would be deferred there too). This was
discussed with the pt and his family.
Impression:
Acute recurrent pancreatitis
Large peripancreatic fluid collections
Fever- resolved. Last increased temp 100.8 on 02/13
Leukocytosis- improving. On IV ertapenem and diflucan
Afib- transitioned from IV heparin to eliquis
Subjective
Subjective
Date of Service: February 18, 2025
Reports early satiety. Unable to eat large portions. Abd pain stable, required pain meds once yesterday
Objective
Data Reviewed
Laboratory Data:
Laboratory Results
02/18/25 07:49
02/18/25 07:49
Laboratory Results
APTT Cancelled 02/17/25 17:00
Phosphorus 2.9 mg/dl (2.5-4.5) 02/15/25 06:45
Magnesium 1.7 mg/dl (1.6-2.3) 02/15/25 06:45
Total Bilirubin 0.8 mg/dl (0.2-1.3) 02/17/25 10:17
AST 27 U/L (17-59) 02/17/25 10:17
ALT 14 U/L (0-50) 02/17/25 10:17
Alkaline Phosphatase 182 U/L (38-126) H 02/17/25 10:17
Lipase > 4000 U/L (23-300) H* 02/08/25 04:09
Vital Signs and I&O:
Vital Signs
Temp Pulse Resp BP Pulse Ox
98.4 F 76 16 134/66 97
02/18/25 07:21 02/18/25 07:21 02/18/25 07:21 02/18/25 07:21 02/18/25 07:21
I&O
02/17/25 02/18/25 02/19/25
06:59 06:59 06:59
Intake Total 500 / 500 600 / 600
Output Total 100 / 100 1705 / 1705
Balance 400 / 400 -1105 / -1105
Physical Exam
Physical Exam
GI: Soft, Distended and Tender (mild tender)
[2025-02-18] MEDS: VISBIOME 2 CAP PO (09:24)
[2025-02-18] MEDS: PROTONIX 40 MG PO (09:25)
[2025-02-18] MEDS: ELIQUIS 5 MG PO ×2 (09:25→19:33)
[2025-02-18] MEDS: TOPROL XL 25 MG PO (09:25)
[2025-02-18] MEDS: FLOMAX 0.4 MG PO (09:25)
[2025-02-18] MEDS: DIFLUCAN 200 MG PO (09:26)
--- NOTE | 2025-02-18 13:32 | W.PN.ID1 ---
Date of Service
Date of Service: February 18, 2025
Today's Communication
Continue current antibiotics.
Assessment / Plan
acute infected peripancreatic fluid collection
Recurrent Acute Pancreatitis
Bilateral Pleural Effusions
Leukocytosis - continues to trend down
MANN on CKD - improving
Anemia
Elevated inflammatory markers
- 02/02 blood cultures x2 neg
- 02/05 CT c/a/p - collections: peripancreatic - gas and fluid containing, perihepatic; moderate BL pleural effusions, area of coloenteritis, possible small splenic infarction
- MRI abd 02/11 - extensive collections overall increased from prior
- 02/07 R thoracentesis: exudative effusion
- pleural fluid no growth to date
- fungal and AFB cultures in progress no growth to date
- QTc 435
- Continue ertapenem 1 gm iv q24 hours
- Continue fluconazole 200 mg PO q24 hours - follow renal function
- continue with supportive care
Chief Complaint
-: Leukocytosis and Other (pancreatic pseudocyst)
Subjective / Review of Systems
Review of Systems: No Fever, No Chills and Abdominal Pain (Minimal)
Vital Signs / Physical Exam
Vital Signs
Vital Signs
Temp Pulse Resp BP Pulse Ox
98.4 F 76 16 134/66 97
02/18/25 07:21 02/18/25 09:25 02/18/25 07:21 02/18/25 09:25 02/18/25 07:21
Physical Exam
Constitutional: No Acute Distress
Cardiovascular: Regular Rate and S1/S2; Negative Murmur or Rub
Pulmonary: Clear and Symmetric; Negative Wheezes or Rales
Gastrointestinal: Soft, Non Tender, Non Distended and Normal Bowel Sounds
Skin: Warm and Dry; Negative Rash or Jaundice
Neurological: Awake and Alert
Psychological: Calm
Objective Data
Lab Data
Lab Results
02/18/25 07:49
02/18/25 07:49
APTT Cancelled 02/17/25 17:00
Estimated Creat Clear 37 ml/min 02/18/25 07:49
Total Bilirubin 0.8 mg/dl (0.2-1.3) 02/17/25 10:17
AST 27 U/L (17-59) 02/17/25 10:17
ALT 14 U/L (0-50) 02/17/25 10:17
Alkaline Phosphatase 182 U/L (38-126) H 02/17/25 10:17
C-Reactive Protein > 270.00 mg/L (0.0-10.00) H 02/10/25 10:06
Most recent labs reviewed.
Micro Results:
02/07/25 10:25 Fungal Smear - Final
Pleural Fluid No yeast or fungal elements seen.
Fungal Culture - Preliminary
Culture in progress.
Positive cultures are reported as soon as detected.
Final report to follow in four to five weeks.
02/07/25 10:25 Body Fluid Culture - Final
Pleural Fluid No Growth After 72 Hours
Gram Stain - Final
02/07/25 10:25 Acid Fast Bacilli Smear - Preliminary
Pleural Fluid Acid Fast Bacilli Culture - Preliminary
02/02/25 19:58 Blood Culture - Final
Blood/Venous No Growth - Final Report
02/02/25 18:37 Blood Culture - Final
Blood/Venous No Growth - Final Report
01/31/25 17:19 Blood Culture - Final
Blood/Venous No Growth - Final Report
01/31/25 16:51 Blood Culture - Final
Blood/Venous No Growth - Final Report
02/04/25 19:46 C. difficile GDH Antigen & Toxins - Final
Feces/Stool Negative for toxigenic C.difficile
[2025-02-18 14:22] VITALS: BP 133/64
--- NOTE | 2025-02-18 14:22 | W.PN.NEPH.PH ---
Today's Communication / Plan
-
follow BMP
Assessment/Plan
-
IMP:
Acute pancreatitis
Recurrent Pancreatitis
Acute Kidney Injury
Hyperkalemia
CKD IIIb ~1,6
Essential hypertension
Hypothyroidism
BPH
GERD
IBS
Plan:
follow BMP
abx per ID
follow PFC per GI
-
-
Date of Service: February 18, 2025
CC / HPI / ROS
-
Chief Complaint:
Acute on chronic kidney disease abdominal
History of Present Illness:
Pancreatitis acute kidney injury on CKD stage IIIb
MANN/Cr stable 1.6
Na up to 133
Huertas out
BP stable
Now on fluconazole and Ertapenem for pancreatitis
Review of Systems:
no cp or sob at rest
Labs
-
Labs:
WBC 16.4 10^3/uL (4.8-10.8) H 02/18/25 07:49
RBC 2.67 10^6/uL (4.70-6.10) L 02/18/25 07:49
Hgb 8.4 g/dL (13.0-18.0) L 02/18/25 07:49
Hct 24.8 % (39.0-52.0) L 02/18/25 07:49
Plt Count 577 10^3/uL (130-400) H 02/18/25 07:49
Sodium 133 mmol/L (135-145) L 02/18/25 07:49
Potassium 3.9 mmol/L (3.5-5.1) 02/18/25 07:49
Chloride 100 mmol/L (98-107) 02/18/25 07:49
Carbon Dioxide 31 mmol/L (22-30) H 02/18/25 07:49
BUN 18 mg/dl (9-20) 02/18/25 07:49
Creatinine 1.6 mg/dL (0.7-1.3) H 02/18/25 07:49
eGFR 45.78 02/18/25 07:49
Glucose 90 mg/dl (70-99) 02/18/25 07:49
Calcium 8.3 mg/dl (8.4-10.2) L 02/18/25 07:49
Phosphorus 2.9 mg/dl (2.5-4.5) 02/15/25 06:45
Kcl-Y-Zqpnpboovkr Pept 3140 pg/ml 02/01/25 03:32
Albumin 2.4 g/dl (3.5-5.0) L 02/17/25 10:17
Physical Exam
-
Vital Signs:
Vital Signs
Temp Pulse Resp BP Pulse Ox
98.4 F 76 16 134/66 97
02/18/25 07:21 02/18/25 09:25 02/18/25 07:21 02/18/25 09:25 02/18/25 07:21
Cardiovascular:: Regular rate and rhythm
Respiratory:: Bilateral: Coarse
Lung Excursion:: Normal
Abdomen:: Nontender and Soft
Bowel Sounds:: Normal
Extremity Edema:: None: Bilateral:
[2025-02-18 15:00] VITALS: BP 134/68
[2025-02-18] MEDS: INVANZ 60 MG IV (15:21)
[2025-02-18] MEDS: TYLENOL PO (16:21)
[2025-02-18] MEDS: DILAUDID 2 MG PO (18:57)
--- NOTE | 2025-02-18 19:10 | FALL ---
Late Entry..
Description of Fall:
PCT answered bathroom call light and found patient sitting on the floor of bathroom. Patient stated he was trying to put the cap on his urinal and dropped it. Stating that he slipped, resulting in him landing on his buttocks. Upon assessment,
patient is AAOx3, VSS. BP 140/76, HR 93, O2 92%, RR 20, Temp 98.1. Blood sugar of 114. Patient did not hit his head. Buttock/sacrum is blanchable red, no bruising noted. No other injuries present (scrapes, bruises, cuts, etc.). [employer] notified, came to
bedside to assess patient. Protective foam applied to patient's sacrum. Patient has bed and chair alarm, nonslip socks, fall risk sign on door, and yellow fall risk bracelet. Calls for assistance appropriately. Patient back in bed. Call amaya is
within reach. Alarms activated.
Injuries Noted:
No injuries noted.
Action Taken:
[employer] notified and came to bedside to assess patient. Protective foam applied to patient's sacrum. Patient has bed and chair alarm, nonslip socks, fall risk sign on door, and yellow fall risk bracelet. Patient back in bed. Call amaya is within reach.
Alarms activated. Patient advised to use call amaya and not get out of bed without assistance which he has complied with. Patient will now use urinal at side of the bed with supervision instead of in the bathroom till further notice. Patient
expresses understanding
Name of Provider Notified: JOSSUE Doss
[2025-02-18 19:11] VITALS: BP 140/76
[2025-02-18 19:20] LABS: Glucose - Point of Care 114 mg/dl (70-99)
--- NOTE | 2025-02-18 19:31 | W.PN.UPDATE ---
Update Note
Progress Note Update
~ 19:15 Evaluated patient s/p fall. Per RN and patient, patient was in the bathroom, trying to put the cap on the urinal bottle, when he slipped and fell onto his bottom. Patient is Ox3, answering questions appropriately. Vital signs stable. Blood
glucose 114. He denies hitting his head, loss of consciousness, headache. On evaluation, patient denies any new pain, can move all extremities, no lacerations, bruising noted. Slight redness to sacrum, asked RN to place foam dressing on sacrum for
protection. Fall risk precautions and bed alarm in place.
[2025-02-18] MEDS: PEPCID 20 MG PO (19:33)
[2025-02-18 23:35] VITALS: BP 133/73
[2025-02-19] MEDS: TYLENOL PO ×3 (00:07→11:24)
[2025-02-19 06:00] VITALS: BMI 19.8
[2025-02-19] MEDS: SYNTHROID 75 MCG PO (06:00)
[2025-02-19 07:20] VITALS: BP 153/74
[2025-02-19 08:19] LABS: Hematocrit 23.7 % (39.0-52.0); Hemoglobin 8.1 g/dL (13.0-18.0); Mean Corp Hgb Conc. 34.2 g/dL (33.0-37.0); Mean Corpuscular Volume 93.3 fL (80.0-94.0); Platelet Count 530 10^3/uL (130-400); Red Cell Dist. Width 16.6 % (11.5-14.5)
[2025-02-19] MEDS: TOPROL XL 25 MG PO (08:31)
[2025-02-19] MEDS: VISBIOME 2 CAP PO (08:31)
[2025-02-19] MEDS: TYLENOL 650 MG PO ×3 (08:31→21:21)
[2025-02-19] MEDS: ELIQUIS 5 MG PO ×2 (08:31→21:21)
[2025-02-19] MEDS: FLOMAX 0.4 MG PO (08:31)
[2025-02-19] MEDS: PROTONIX 40 MG PO (08:31)
[2025-02-19 09:09] LABS: Blood Urea Nitrogen 17 mg/dl (9-20); Calcium 8.0 mg/dl (8.4-10.2); Carbon Dioxide 30 mmol/L (22-30); Chloride 100 mmol/L (98-107); Estimated Creatinine Clearance 36 ml/min; Glucose 87 mg/dl (70-99); Potassium 4.1 mmol/L (3.5-5.1); Sodium 132 mmol/L (135-145); eGFR 45.78
--- NOTE | 2025-02-19 10:28 | CM ---
Addendum entered by Mecca Steward 02/19/25 12:41:
script received for IV Ertapenem 1gm Q24hrs
PICC to be placed
discussed options
[facility]-faxed script/clinicals to [facility] [phone]
spoke with Crystal at [facility]
referral was placed for [facility] - per there will be co-pay for [facility]
spoke with and patient - concerned regarding PICC-states will speak with physician
and discussing SNF vs. home
PLAN: SNF vs. Home health, IV antibiotics
Original Note:
Patient seen at bedside
PT rec home health
per notes patient/ preferred [facility]
notified [facility] liaison, referral entered
PLAN: Home with [facility] when stable
--- NOTE | 2025-02-19 10:32 | W.PN.ID1 ---
Date of Service
Date of Service: February 19, 2025
Today's Communication
- Continue ertapenem 1 gm iv q24 hours tentatively x6 weeks through 03/15
- Continue fluconazole 200 mg PO q24 hours tentatively x6 weeks through 03/15
- PICC line placement
- follow up with me in about 2 weeks
Assessment / Plan
acute infected peripancreatic fluid collection
Recurrent Acute Pancreatitis
Bilateral Pleural Effusions
Leukocytosis - continues to trend down
MANN on CKD - improving
Anemia
Elevated inflammatory markers
- 02/02 blood cultures x2 neg
- 02/05 CT c/a/p - collections: peripancreatic - gas and fluid containing, perihepatic; moderate BL pleural effusions, area of coloenteritis, possible small splenic infarction
- MRI abd 02/11 - extensive collections overall increased from prior
- 02/07 R thoracentesis: exudative effusion
- pleural fluid no growth to date
- fungal and AFB cultures in progress no growth to date
- QTc 435
- Continue ertapenem 1 gm iv q24 hours tentatively x6 weeks through 03/15
- Continue fluconazole 200 mg PO q24 hours tentatively x6 weeks through 03/15
- PICC line placement
- follow up with me in about 2 weeks
Chief Complaint
-: Leukocytosis and Other (pancreatic pseudocyst)
Subjective / Review of Systems
remains afebrile
bp stable
slipped and felt onto his buttocks yesterday
Vital Signs / Physical Exam
Vital Signs
Vital Signs
Temp Pulse Resp BP Pulse Ox
98.1 F 79 20 153/74 95
02/19/25 07:20 02/19/25 07:20 02/19/25 07:20 02/19/25 07:20 02/19/25 07:20
Physical Exam
Constitutional: No Acute Distress
Cardiovascular: Regular Rate and S1/S2; Negative Murmur or Rub
Pulmonary: Clear and Symmetric; Negative Wheezes or Rales
Gastrointestinal: Soft, Non Tender, Non Distended and Normal Bowel Sounds
Skin: Warm and Dry; Negative Rash or Jaundice
Objective Data
Lab Data
Lab Results
02/19/25 07:54
02/19/25 07:54
APTT Cancelled 02/17/25 17:00
Estimated Creat Clear 36 ml/min 02/19/25 07:54
Total Bilirubin 0.8 mg/dl (0.2-1.3) 02/17/25 10:17
AST 27 U/L (17-59) 02/17/25 10:17
ALT 14 U/L (0-50) 02/17/25 10:17
Alkaline Phosphatase 182 U/L (38-126) H 02/17/25 10:17
C-Reactive Protein > 270.00 mg/L (0.0-10.00) H 02/10/25 10:06
Most recent labs reviewed.
Micro Results:
02/07/25 10:25 Fungal Smear - Final
Pleural Fluid No yeast or fungal elements seen.
Fungal Culture - Preliminary
Culture in progress.
Positive cultures are reported as soon as detected.
Final report to follow in four to five weeks.
02/07/25 10:25 Body Fluid Culture - Final
Pleural Fluid No Growth After 72 Hours
Gram Stain - Final
02/07/25 10:25 Acid Fast Bacilli Smear - Preliminary
Pleural Fluid Acid Fast Bacilli Culture - Preliminary
02/02/25 19:58 Blood Culture - Final
Blood/Venous No Growth - Final Report
02/02/25 18:37 Blood Culture - Final
Blood/Venous No Growth - Final Report
01/31/25 17:19 Blood Culture - Final
Blood/Venous No Growth - Final Report
01/31/25 16:51 Blood Culture - Final
Blood/Venous No Growth - Final Report
02/04/25 19:46 C. difficile GDH Antigen & Toxins - Final
Feces/Stool Negative for toxigenic C.difficile
--- NOTE | 2025-02-19 11:20 | VNURNOTE ---
Addendum entered by Ayanna Mendoza RN 02/19/25 12:13:
Checked with [facility] billing dept: informed that HH 80% covered by insurance. Relayed info to spouse Leigh. She wants to hold off on services. Advised her to go through PCP once WA'ed to re-order us if they change their minds. CM notified.
Addendum entered by Ayanna Mendoza RN 02/19/25 12:03:
Home Health Liaison met with patient and spouse at bedside to discuss [facility] nurse/therapy, visits, schedule and homebound status. Patient is agreeable and understands that visits at home will be 2-3 x per week to assess and teach medical
management. Patient is aware that [facility] will contact them for start of care within a week after discharge from . Provided contact number for [facility]. Spouse to be sure that insurance will cover HH before accepting. Liaison will reach out to
HH billing dept and get back to spouse.
[facility] referral completed in [facility].
Original Note:
Chart reviewed. Rec'ed info from CM that best to speak w/spouse and she just left to attend a . [facility] referral placed in [facility]. Will follow up w/spouse later.
--- NOTE | 2025-02-19 14:03 | W.PN.NEPH.PH ---
Today's Communication / Plan
-
d/c plan
Assessment/Plan
-
IMP:
Acute pancreatitis
Recurrent Pancreatitis
Acute Kidney Injury
Hyperkalemia
CKD IIIb ~1,6
Essential hypertension
Hypothyroidism
BPH
GERD
IBS
Plan:
stable renal function at baseline
stable hyponatremia-start gentle FR
BP stable on BB
follow BMP
abx per ID
follow PFC per GI
d/c plan
-
-
Date of Service: February 19, 2025
CC / HPI / ROS
-
Chief Complaint:
Acute on chronic kidney disease abdominal
History of Present Illness:
Pancreatitis acute kidney injury on CKD stage IIIb
MANN/Cr stable 1.6
Na no change at 132
BP stable
Now on fluconazole and Ertapenem for pancreatitis
fell last evening in bathroom
Review of Systems:
no cp or sob at rest
no pain , tolerating po
Labs
-
Labs:
WBC 16.8 10^3/uL (4.8-10.8) H 02/19/25 07:54
RBC 2.54 10^6/uL (4.70-6.10) L 02/19/25 07:54
Hgb 8.1 g/dL (13.0-18.0) L 02/19/25 07:54
Hct 23.7 % (39.0-52.0) L 02/19/25 07:54
Plt Count 530 10^3/uL (130-400) H 02/19/25 07:54
Sodium 132 mmol/L (135-145) L 02/19/25 07:54
Potassium 4.1 mmol/L (3.5-5.1) 02/19/25 07:54
Chloride 100 mmol/L (98-107) 02/19/25 07:54
Carbon Dioxide 30 mmol/L (22-30) 02/19/25 07:54
BUN 17 mg/dl (9-20) 02/19/25 07:54
Creatinine 1.6 mg/dL (0.7-1.3) H 02/19/25 07:54
eGFR 45.78 02/19/25 07:54
Glucose 87 mg/dl (70-99) 02/19/25 07:54
Calcium 8.0 mg/dl (8.4-10.2) L 02/19/25 07:54
Phosphorus 2.9 mg/dl (2.5-4.5) 02/15/25 06:45
Gzi-Y-Wgxeddeyqwp Pept 3140 pg/ml 02/01/25 03:32
Albumin 2.4 g/dl (3.5-5.0) L 02/17/25 10:17
Physical Exam
-
Vital Signs:
Vital Signs
Temp Pulse Resp BP Pulse Ox
98.1 F 79 20 153/74 95
02/19/25 07:20 02/19/25 07:20 02/19/25 07:20 02/19/25 07:20 02/19/25 07:20
Cardiovascular:: Regular rate and rhythm
Respiratory:: Bilateral: CTA (decreased bilat)
Lung Excursion:: Normal
Abdomen:: Nontender and Soft
Bowel Sounds:: Normal
Extremity Edema:: None: Bilateral:
Huertas Catheter: No
--- NOTE | 2025-02-19 14:40 | W.PN.HOSP.TC ---
Today's Communication/Plan
-
abx course
monitor labs
cont diet
Assessment / Plan
Assessment / Plan
Physical Exam
General: no acute distress, appears relatively comfortable
HEENT: normocephalic, atraumatic, moist oral mucosa
Respiratory: Clear to Auscultation; Negative Wheezes
Cardiac: Regular Rhythm and S1/S2
Abdomen: bowel sounds present, no tenderness, soft
Musculoskeletal: bipedal edema
Skin: Warm and Dry; Negative Rash
Neuro: AO x 3 conversant coherent
Psych: Calm
IMPRESSION:
69-year-old male with past medical history of CKD stage IIIb, GERD, IBS, essential hypertension, hypothyroidism, BPH, presenting to the ER reporting severe epigastric pain.
MRI 01/14/25
IMPRESSION:
There is mild T2 hyperintense signal within the pancreatic head and adjacent fat as well as associated mild diffusion hyperintense signal. This likely represents acute interstitial pancreatitis. No peripancreatic collection. No discrete mass is
visualized although follow-up may be considered following resolution of the pancreatitis.
Biliary sludge. There is mild pericholecystic fluid which may be reactive given the likely pancreatitis however can be seen with acute cholecystitis.
There is no biliary duct dilation. There are no filling defects within the common bile duct suggestive of choledocholithiasis.
Abdomen/Pelvis CT 01/29/25
IMPRESSION: Findings suggesting moderate acute pancreatitis.
Severe prostate hypertrophy. Progressed
Mild diffuse bladder wall thickening. This can be seen with cystitis and bladder outlet obstruction. Stable
PLAN:
Acute pancreatitis
Recurrent Pancreatitis
Concern for an infected peripancreatic collection.
Transaminitis
-No alcohol use, no gallstone, Ca OK, IgG4 WNL (returned from last admission),
-MRI last admission without mass, finding of sludge.
-Gallbladder suspected etiology recurrent pancreatitis
-surgery eval eventual Lap cholecystectomy recommended, timing to be determined
-MRI repeated 02/02 given ongoing abd pain, recurrent rise in lipase,
-MRI appreciated concerning for peripancreatic abscess formation, started on empiric zosyn 02/03/25 - switched to meropenem 02/06
-CT 04/07 - concerning for an infected peripancreatic collection.
-abd pain since resolved
-IVF support completed
-GI eval appreciated diet advanced to Low Fat
- As per GI: Favor having fluid collection mature in 4-6 weeks and then would consider sampling with EUS-guided drainage pending his clinical course. MRI Abd results 02/11 appreciated
- cont Ertapenem fluconazole as per ID
- Encourage PO intake
Acute on Chronic Back pain
-2 Lidocaine patches QPM
-PO Dilaudid 2mg Q4Hprn
-IV dilaudid prn severe breakthrough pain
#sepsis with MANN, improved/resolved
-pancreatic collection +/- pleural fluid collection
-abx as stated above
-Ertapenem
-fluconazole
-left Thora - Cultures - NGTD
#Acute Anemia
#possible Acute Blood Loss Anemia vs anemia of chronic disease
-trial Hep ggt 02/07
-monitor HgB closely
-No active bleeding with CT 02/05
-possible procedure as above distantly planned, for the time being hep gtt switched to Eliquis 02/17
Mild Thrombocytopenia
-suspect combination dilutional from aggressive IVF support and 2/2 inflammation from pancreatitis
-Resolved
Now with Thrombocytosis but also resolving
02/02 CXR noted Bilateral Pleural Effusions Lt>Rt, loculated on left
Stable respiratory status
Pulm eval appreciated likely fluid overload combined with hypoalbuminemia
Trial Lasix Diuresis (so far received two doses, no further doses planned at this time), follow up CXR in AM 02/03 noted stable appearance pleural effusions, slight improvement right effusions
Chest US 02/04 appreciated b/l mod to large subpulmonic pleural effusions, possible loculation
Pulmonary Eval appreciated
left thora - appears exudative
F/u Cultures - ngtd
Continue antibiotics
AMS likely multifactorial , improved/resolved
Metabolic encephalopathy 2/2 opiate pain meds vs Delirium 2/2 sleep deprivation d/t pain vs [facility] Delirium
opiate pain meds reduced as above
mental status since significantly improved/baseline
cont to monitor
Acute Kidney Injury, improved/resolved
Hyperkalemia resolved
CKD IIIb
Metabolic Acidosis resolved, bicarb supplementation discontinued
-pre-renal MANN in setting of acute pancreatitis with significant rise in creatinine overnight.
-Renal consult appreciated
- Cr high 3.9 since trended down to <2, near baseline
� Nephrology consult appreciated
-Huertas placed for accurate I&O's MANN since discontinued 02/13 passed TOV
Hypokalemia
Hypophosphatemia
Low Normal Mg level
-monitor and replete as necessary
New Onset Afib RVR since spontaneously converted to NSR on cardizem gtt
ECHO appreciated EF 51%
transferred to IVU 01/31, downgraded to tele 02/01
Cardio eval appreciated Cardizem gtt switched to scheduled IV Lopressor
scheduled IV Lopressor switched to Metoprolol XL 25 mg daily
No afib noted since 01/30/25 HR well controlled on PO metoprolol, ok to dc lunchroom monitor 02/17/25
No immediate plans for procedure, hep gtt transitioned to Eliquis 02/17/25
#Ground glass opacities within the anterior upper lobes which measure up to 3.1 cm in the anterior right upper lobe.
-Recommend follow-up CT chest to ensure resolution.
#Mild Hyponatremia
� likely SIADH
� Continue to monitor
- nephro eval appreciated
#Essential hypertension
-hold Amlodipine (BP relatively well controlled without)
-Metoprolol XL as above
#Hypothyroidism
Continue levothyroxine
TSH wnl
#8 mm hypodensity within the inferolateral aspect of the spleen
- new from prior and may represent a small infarction.
-Eliquis
#Dependent Edema, bipedal edema
#Hypoalbuminemia
encourage oral intake, protein
Elevate lower ext's when at rest
PEDRO wrap lower ext's
DVT prophylaxis Eliquis
Full code
Discussed with patient and patient's Leigh
I spent a total of 46 minutes with the patient or on the floor. More than 50% of this time involved counseling and coordination of care.
Anticipated Discharge: Within 24 hours
Subjective/Interval History
-
Date of Service: February 19, 2025
No acute events overnight
Objective Data
-
Labs:
Laboratory Results
02/19/25
07:54
WBC 16.8 H
Hgb 8.1 L
Hct 23.7 L
Plt Count 530 H
Sodium 132 L
Potassium 4.1
Chloride 100
Carbon Dioxide 30
BUN 17
Creatinine 1.6 H
Glucose 87
Calcium 8.0 L
Vital Signs:
Vital Signs
Temp Pulse Resp BP Pulse Ox
98.1 F 79 20 153/74 95
02/19/25 07:20 02/19/25 07:20 02/19/25 07:20 02/19/25 07:20 02/19/25 07:20
I&O
02/18/25 02/19/25 02/20/25
06:59 06:59 06:59
Intake Total 600 / 600 480 / 480
Output Total 1705 / 1705 865 / 865
Balance -1105 / -1105 -385 / -385
Review of Systems
-
History Source: Patient
All other systems: Not reviewed unless documented
Physical Exam
-
General: No Apparent Distress
HEENT: Other (dry mucous membranes )
Respiratory: Clear to Auscultation; Negative Wheezes
Cardiac: Regular Rhythm and S1/S2
GI: Nontender and Nondistended
Musculoskeletal: No Edema
Skin: Warm and Dry; Negative Rash
Neuro: AO x 3
Psych: Calm
Data Reviewed
-
Diagnostic Radiology: Report Reviewed by me
Ultrasound: Report Reviewed by me
Labs: Labs Reviewed by me
[2025-02-19 15:25] VITALS: BP 126/68
[2025-02-19] MEDS: INVANZ 60 MG IV (16:34)
--- NOTE | 2025-02-19 17:03 | W.PN.GI.CBS2 ---
Today's Communication / Plan
-
ok for d/c home tomorrow, will need repeat mri abd in 1 week, eus will be scheduled as elective procedure
Assessment / Plan
-
69 y.o male with h/o CKD stage IIIb, GERD, IBS, essential hypertension, hypothyroidism, BPH, and first episode of acute pancreatitis few weeks ago p/w recurrent acute pancreatitis felt to be biliary/gallstone pancreatitis.
-Admitted with recurrent acute pancreatitis - 01/28. CT abd/pel on 01/28 showed severe peripancreatic stranding in the head/body consistent with acute pancreatitis.
-Worsening abdominal pain, MANN - 01/30
-MRI w/ and w/o contrast - 02/02; worsening peripancreatic edema with interval development of large irregular fluid collection about the pancreatic body and tail measuring up to 10.5 x 7.1 x 10.4 cm containing gas/debris. No evidence of pancreatic
necrosis. Severe diffuse mesenteric edema, mild to moderate abdominopelvic ascites. Started on broad spec abx (zosyn).
-CT chest/abd/pel IV contrast 02/05; extensive peripancreatic stranding. 11.8 x 6.3 x 8.4 cm gas and fluid containing collection extending along tieh panc body/tail. Numerous fluid collections in the upper abdomen, perihepatic fluid collection
which extends to the gastric fundus measuring 11.7 x 8.3 cm.
-MRI abd w & w/o contrast - 02/11; overall increase in size of PFCs. Large collection w/ internal gas/debris which extends along pancreatic body/tail, measuring 12.3 cm previously 10.5 cm. Additional large collection extending superiorly along the
pancreatic body and into the LUQ which measure 11.2 cm. The pancreas enhance homogenously w/o evidence of necrosis.
In summary, he has recurrent acute pancreatitis complicated by evolving peripancreatic fluid collections (PFCs) which appears infected evidenced by gas in the cavity. The date of initial detection of PFC is on 02/02. He had multiple episodes of
fever (100.6 on 02/03, 101.4 on 02/05, and 100.7 on 02/08) and leukocytosis from 02/02 which peaked at 33.4k on 02/06, down to 20K 02/15.. However he remained clinically stable with BP and HR in normal range. Blood cx have been -ve. His pain has
improved gradually and appears relatively comfortable. He has been tolerating oral diet for past week. He had evidence of multiple end organ dysfunction (MANN in setting of CKD with Cr peaking at 3.9 on 01/30) and b/l pleural effusions. His MANN is
improving
In this complicated pt with recurrent acute pancreatitis complicated by multiple end organ dysfunction (MANN on CKD and b/l pleural effusions) and infected PFCs who remains clinically stable without further deterioration (florid sepsis, hemodynamic
instability) and improving end organ dysfunctions, Recommend continued use of pancreas penetrating abx (ertapenem) and supportive mx with enteral feeding. The only indication for infected PFC drainage before its maturation is clinical
instability/progressive deterioration, which fortunately is not the case in this pt. The infected PFCs need 4-6 weeks to evolve and organize, at which time drainage can be planned. 4 week post initial detection imaging should be on 03/02. Dr Pierson
will reassess for possible consideration of drainage on 02/19, however this is likely still inadequate. Do not believe transferring this pt to [facility] for escalation of care is needed at this time (drainage would be deferred there too). This was
discussed with the pt and his family.
Pt has remained clinically stable for past week or so. Last fever 100.8 was on 02/13. Leukocytosis improving, down to 16.8k today. Denies pain now, tolerating diet. He is anxious to go home. Given his clinical stability, it would be reasonable
to d/c home tomorrow. He will need repeat MRI abd in 1 week for procedural plannning. I will schedule a EGD/EUS around 03/02 for drainage as elective procedure, pending repeat MRI review.
Total Time Spent with Patient (in minutes): 35
Subjective
Subjective
Date of Service: February 19, 2025
planned for d/c home tomorrow
Objective
Data Reviewed
Laboratory Data:
Laboratory Results
02/19/25 07:54
02/19/25 07:54
Laboratory Results
APTT Cancelled 02/17/25 17:00
Phosphorus 2.9 mg/dl (2.5-4.5) 02/15/25 06:45
Magnesium 1.7 mg/dl (1.6-2.3) 02/15/25 06:45
Total Bilirubin 0.8 mg/dl (0.2-1.3) 02/17/25 10:17
AST 27 U/L (17-59) 02/17/25 10:17
ALT 14 U/L (0-50) 02/17/25 10:17
Alkaline Phosphatase 182 U/L (38-126) H 02/17/25 10:17
Lipase > 4000 U/L (23-300) H* 02/08/25 04:09
Vital Signs and I&O:
Vital Signs
Temp Pulse Resp BP Pulse Ox
97.2 F 76 18 126/68 98
02/19/25 15:25 02/19/25 15:25 02/19/25 15:25 02/19/25 15:25 02/19/25 15:25
I&O
02/18/25 02/19/25 02/20/25
06:59 06:59 06:59
Intake Total 600 / 600 480 / 480
Output Total 1705 / 1705 865 / 865
Balance -1105 / -1105 -385 / -385
[2025-02-19] MEDS: PEPCID 20 MG PO (21:22)
[2025-02-19 23:00] VITALS: BP 131/69
[2025-02-20] MEDS: TYLENOL PO ×3 (01:48→15:16)
[2025-02-20] MEDS: TYLENOL 650 MG PO ×2 (03:51→07:57)
[2025-02-20] MEDS: SYNTHROID 75 MCG PO (03:51)
[2025-02-20 06:00] VITALS: BMI 19.4
[2025-02-20 06:10] LABS: Hematocrit 21.9 % (39.0-52.0); Hemoglobin 7.6 g/dL (13.0-18.0); Mean Corp Hgb Conc. 34.7 g/dL (33.0-37.0); Mean Corpuscular Volume 93.2 fL (80.0-94.0); Platelet Count 435 10^3/uL (130-400); Red Cell Dist. Width 16.7 % (11.5-14.5)
[2025-02-20 06:41] LABS: ALT (SGPT) 12 U/L (0-50); AST (SGOT) 23 U/L (17-59); Albumin 2.1 g/dl (3.5-5.0); Alkaline Phosphatase 158 U/L (38-126); Blood Urea Nitrogen 17 mg/dl (9-20); Calcium 7.9 mg/dl (8.4-10.2); Carbon Dioxide 29 mmol/L (22-30); Chloride 101 mmol/L (98-107); Estimated Creatinine Clearance 36 ml/min; Glucose 91 mg/dl (70-99); Potassium 4.2 mmol/L (3.5-5.1); Sodium 132 mmol/L (135-145); Total Protein 5.2 g/dl (6.3-8.2); eGFR 45.78
[2025-02-20] MEDS: PROTONIX 40 MG PO (07:57)
[2025-02-20] MEDS: VISBIOME 2 CAP PO (07:57)
[2025-02-20] MEDS: ELIQUIS 5 MG PO (07:57)
[2025-02-20] MEDS: TOPROL XL 25 MG PO (07:57)
[2025-02-20] MEDS: FLOMAX 0.4 MG PO (07:57)
[2025-02-20 08:22] VITALS: BP 132/72
--- NOTE | 2025-02-20 10:04 | W.PN.GI.CBS2 ---
Addendum entered and electronically signed by Del Preston MD 02/20/25 15:04:
GI will sign off pls call with ?s or changes in clinical status.
Addendum entered and electronically signed by Del Preston MD 02/20/25 15:03:
I saw and examined the patient.
The STEREOTYPER or PA's note was reviewed and I agree with the note.
Comment: 69-year-old male presenting with recurrent pancreatitis felt to be gallstone pancreatitis with evolving peripancreatic fluid collections which appear to be infected. He also had multiple endorgan dysfunction due to his pancreatitis.
Patient is being set up for discharge today. I discussed with Dr. Pierson. We will set him up for an MRI in 1 week outpatient. He will plan for EGD/EUS around March 02 for drain this is elective procedure. He will remain on IV antibiotics and
Eliquis. Discussed with family at baseline as well all questions answered.
Addendum entered and electronically signed by BRUNA Fox 02/20/25 10:30:
pt with no stools in a few days - offered laxative-- he has hx IBS and declined and will proceed with prune juice and home regiment after discharge
Original Note:
Today's Communication / Plan
-
pt with continued improvement - tolerating diet small amounts-- encourage good nutrition on discharge as ensure as tolerated
t max 99.0 WBC's continue to improve
monitor for recurrent fever, pain, vomiting or diet intolerance = return to ER if needed
I sent message and left slip for MRI in [address] Pierson will schedule a EGD/EUS around 03/02 for drainage as elective procedure, pending repeat MRI review
to continue IV abx at home on discharge
remain on eliquis with stable hbg 7.6
updated family all questions answered
Assessment / Plan
-
69 y.o male with h/o CKD stage IIIb, GERD, IBS, essential hypertension, hypothyroidism, BPH, and first episode of acute pancreatitis few weeks ago p/w recurrent acute pancreatitis felt to be biliary/gallstone pancreatitis.
In summary, he has recurrent acute pancreatitis complicated by evolving peripancreatic fluid collections (PFCs) which appears infected evidenced by gas in the cavity. The date of initial detection of PFC is on 02/02. He had multiple episodes of
fever (100.6 on 02/03, 101.4 on 02/05, and 100.7 on 02/08) and leukocytosis from 02/02 which peaked at 33.4k on 02/06, down to 20K 02/15.. However he remained clinically stable with BP and HR in normal range. Blood cx have been -ve. His pain has
improved gradually and appears relatively comfortable. He has been tolerating oral diet for last 2 weeks with small amounts. He had evidence of multiple end organ dysfunction (MANN in setting of CKD with Cr peaking at 3.9 on 01/30) and b/l pleural
effusions. His MANN is improving. Recommend continued use of pancreas penetrating abx (ertapenem) and supportive mx with enteral feeding. The only indication for infected PFC drainage before its maturation is clinical instability/progressive
deterioration, which fortunately is not the case in this pt. The infected PFCs need 4-6 weeks to evolve and organize, at which time drainage can be planned. Per Dr. Pierson repeat MRI in 1 week after discharge.
-Admitted with recurrent acute pancreatitis - 01/28. CT abd/pel on 01/28 showed severe peripancreatic stranding in the head/body consistent with acute pancreatitis.
-MANN now improving
-MRI w/ and w/o contrast - 02/02; worsening peripancreatic edema with interval development of large irregular fluid collection about the pancreatic body and tail measuring up to 10.5 x 7.1 x 10.4 cm containing gas/debris. No evidence of pancreatic
necrosis. Severe diffuse mesenteric edema, mild to moderate abdominopelvic ascites. Started on broad spec abx (zosyn).
-CT chest/abd/pel IV contrast 02/05; extensive peripancreatic stranding. 11.8 x 6.3 x 8.4 cm gas and fluid containing collection extending along tieh panc body/tail. Numerous fluid collections in the upper abdomen, perihepatic fluid collection
which extends to the gastric fundus measuring 11.7 x 8.3 cm.
-MRI abd w & w/o contrast - 02/11; overall increase in size of PFCs. Large collection w/ internal gas/debris which extends along pancreatic body/tail, measuring 12.3 cm previously 10.5 cm. Additional large collection extending superiorly along the
pancreatic body and into the LUQ which measure 11.2 cm. The pancreas enhance homogenously w/o evidence of necrosis.
PLAN:
pt with continued improvement - tolerating diet small amounts-- encourage good nutrition on discharge as ensure as tolerated
t max 99.0 WBC's continue to improve
monitor for recurrent fever, pain, vomiting or diet intolerance = return to ER if needed
I sent message and left slip for MRI in [address] Pierson will schedule a EGD/EUS around 03/02 for drainage as elective procedure, pending repeat MRI review
to continue IV abx at home on discharge
remain on Eliquis with stable hbg 7.6
updated family all questions answered
Subjective
Subjective
Date of Service: February 20, 2025
tolerating low fat diet, 02/16 brown stool
Objective
Data Reviewed
Laboratory Data:
Laboratory Results
02/20/25 05:47
02/20/25 05:47
Laboratory Results
APTT Cancelled 02/17/25 17:00
Phosphorus 2.9 mg/dl (2.5-4.5) 02/15/25 06:45
Magnesium 1.7 mg/dl (1.6-2.3) 02/15/25 06:45
Total Bilirubin 0.5 mg/dl (0.2-1.3) 02/20/25 05:47
AST 23 U/L (17-59) 02/20/25 05:47
ALT 12 U/L (0-50) 02/20/25 05:47
Alkaline Phosphatase 158 U/L (38-126) H 02/20/25 05:47
Lipase > 4000 U/L (23-300) H* 02/08/25 04:09
Vital Signs and I&O:
Vital Signs
Temp Pulse Resp BP Pulse Ox
98 F 81 18 132/72 97
02/20/25 08:22 02/20/25 08:22 02/20/25 08:22 02/20/25 08:22 02/20/25 08:22
I&O
02/19/25 02/20/25 02/21/25
06:59 06:59 06:59
Intake Total 480 / 480 3480 / 3480
Output Total 865 / 865 200 / 200 850 / 850
Balance -385 / -385 3280 / 3280 -850 / -850
Physical Exam
Physical Exam
HEENT: Anicteric and Moist mucous membranes
Cardiology: Normal Sinus Rhythm
Pulmonary: Clear
GI: Soft, Distended (mild ) and Non Tender
Extremities: No Edema (wraps on legs )
Neuro: Non Focal
--- NOTE | 2025-02-20 10:35 | W.PN.ID1 ---
Date of Service
Date of Service: February 20, 2025
Today's Communication
- note plans for MRI in one week and EGD/EUS around 03/02
- Continue ertapenem 1 gm iv q24 hours tentatively x6 weeks through 03/15
- Continue fluconazole 200 mg PO q24 hours tentatively x6 weeks through 03/15
- PICC line
- follow up with me in about 2 weeks
Assessment / Plan
acute infected peripancreatic fluid collection
Recurrent Acute Pancreatitis
Bilateral Pleural Effusions
Leukocytosis - continues to trend down
MANN on CKD - improving
Anemia
Elevated inflammatory markers
- 02/02 blood cultures x2 neg
- 02/05 CT c/a/p - collections: peripancreatic - gas and fluid containing, perihepatic; moderate BL pleural effusions, area of coloenteritis, possible small splenic infarction
- MRI abd 02/11 - extensive collections overall increased from prior
- 02/07 R thoracentesis: exudative effusion
- pleural fluid no growth to date
- fungal and AFB cultures in progress no growth to date
- QTc 435
- note plans for MRI in one week and EGD/EUS around 03/02
- Continue ertapenem 1 gm iv q24 hours tentatively x6 weeks through 03/15
- Continue fluconazole 200 mg PO q24 hours tentatively x6 weeks through 03/15
- PICC line
- follow up with me in about 2 weeks
Chief Complaint
-: Leukocytosis and Other (pancreatic pseudocyst)
Subjective / Review of Systems
afebrile
bp stable
nausea ongoing
no events overnight
Vital Signs / Physical Exam
Vital Signs
Vital Signs
Temp Pulse Resp BP Pulse Ox
98 F 81 18 132/72 97
02/20/25 08:22 02/20/25 08:22 02/20/25 08:22 02/20/25 08:22 02/20/25 08:22
Physical Exam
Constitutional: No Acute Distress
Cardiovascular: Regular Rate and S1/S2; Negative Murmur or Rub
Pulmonary: Clear and Symmetric; Negative Wheezes or Rales
Gastrointestinal: Soft, Non Tender, Non Distended and Normal Bowel Sounds
Skin: Warm and Dry; Negative Rash or Jaundice
Lines: PICC
Objective Data
Lab Data
Lab Results
02/20/25 05:47
02/20/25 05:47
APTT Cancelled 02/17/25 17:00
Estimated Creat Clear 36 ml/min 02/20/25 05:47
Total Bilirubin 0.5 mg/dl (0.2-1.3) 02/20/25 05:47
AST 23 U/L (17-59) 02/20/25 05:47
ALT 12 U/L (0-50) 02/20/25 05:47
Alkaline Phosphatase 158 U/L (38-126) H 02/20/25 05:47
C-Reactive Protein > 270.00 mg/L (0.0-10.00) H 02/10/25 10:06
Most recent labs reviewed.
Micro Results:
02/07/25 10:25 Fungal Smear - Final
Pleural Fluid No yeast or fungal elements seen.
Fungal Culture - Preliminary
Culture in progress.
Positive cultures are reported as soon as detected.
Final report to follow in four to five weeks.
02/07/25 10:25 Body Fluid Culture - Final
Pleural Fluid No Growth After 72 Hours
Gram Stain - Final
02/07/25 10:25 Acid Fast Bacilli Smear - Preliminary
Pleural Fluid Acid Fast Bacilli Culture - Preliminary
02/02/25 19:58 Blood Culture - Final
Blood/Venous No Growth - Final Report
02/02/25 18:37 Blood Culture - Final
Blood/Venous No Growth - Final Report
01/31/25 17:19 Blood Culture - Final
Blood/Venous No Growth - Final Report
01/31/25 16:51 Blood Culture - Final
Blood/Venous No Growth - Final Report
02/04/25 19:46 C. difficile GDH Antigen & Toxins - Final
Feces/Stool Negative for toxigenic C.difficile
--- NOTE | 2025-02-20 12:42 | W.PN.HOSP.TC ---
Addendum entered and electronically signed by Rangel Luciano MD 02/21/25 16:10:
[id number]
Original Note:
Today's Communication/Plan
-
Gentle FR
Continue ertapenem 1 gm iv q24 hours tentatively x6 weeks through 03/15
Continue fluconazole 200 mg PO q24 hours tentatively x6 weeks through 03/15
MRI Abd in 1 week
EGD/EUS around 03/02 for drainage as elective procedure, pending repeat MRI review
F/u Labs in 1 week
Eliquis
Toprol
Cards, ID, PCP, GI f/u
Assessment / Plan
Assessment / Plan
Physical Exam
General: no acute distress, appears relatively comfortable
HEENT: normocephalic, atraumatic, moist oral mucosa
Respiratory: Clear to Auscultation; Negative Wheezes
Cardiac: Regular Rhythm and S1/S2
Abdomen: bowel sounds present, no tenderness, soft
Musculoskeletal: bipedal edema
Skin: Warm and Dry; Negative Rash
Neuro: AO x 3 conversant coherent
Psych: Calm
IMPRESSION:
69-year-old male with past medical history of CKD stage IIIb, GERD, IBS, essential hypertension, hypothyroidism, BPH, presenting to the ER reporting severe epigastric pain.
MRI 01/14/25
IMPRESSION:
There is mild T2 hyperintense signal within the pancreatic head and adjacent fat as well as associated mild diffusion hyperintense signal. This likely represents acute interstitial pancreatitis. No peripancreatic collection. No discrete mass is
visualized although follow-up may be considered following resolution of the pancreatitis.
Biliary sludge. There is mild pericholecystic fluid which may be reactive given the likely pancreatitis however can be seen with acute cholecystitis.
There is no biliary duct dilation. There are no filling defects within the common bile duct suggestive of choledocholithiasis.
Abdomen/Pelvis CT 01/29/25
IMPRESSION: Findings suggesting moderate acute pancreatitis.
Severe prostate hypertrophy. Progressed
Mild diffuse bladder wall thickening. This can be seen with cystitis and bladder outlet obstruction. Stable
PLAN:
Acute pancreatitis
Recurrent Pancreatitis
Concern for an infected peripancreatic collection.
Transaminitis
-No alcohol use, no gallstone, Ca OK, IgG4 WNL (returned from last admission),
-MRI last admission without mass, finding of sludge.
-Gallbladder suspected etiology recurrent pancreatitis
-surgery eval eventual Lap cholecystectomy recommended, timing to be determined
-MRI repeated 02/02 given ongoing abd pain, recurrent rise in lipase,
-MRI appreciated concerning for peripancreatic abscess formation, started on empiric zosyn 02/03/25 - switched to meropenem 02/06 - then to Ertapenem
-abd pain since resolved
-IVF support completed
-Low Fat
- As per GI: Repeat MRI in 1 week
- Continue ertapenem 1 gm iv q24 hours tentatively x6 weeks through 03/15
- Continue fluconazole 200 mg PO q24 hours tentatively x6 weeks through 03/15
- Encourage PO intake
-EGD/EUS around 03/02 for drainage as elective procedure, pending repeat MRI review
Acute on Chronic Back pain
-2 Lidocaine patches QPM
-PO Dilaudid 2mg Q4Hprn
-IV dilaudid prn severe breakthrough pain
#sepsis with MANN, improved/resolved
-pancreatic collection +/- pleural fluid collection
-abx as stated above
-Ertapenem
-fluconazole
-left Thora - Cultures - NGTD
#Acute Anemia
#possible Acute Blood Loss Anemia vs anemia of chronic disease
-trial Hep ggt 02/07
-monitor HgB closely
-No active bleeding with CT 02/05
-possible procedure as above distantly planned, for the time being hep gtt switched to Eliquis 02/17
Mild Thrombocytopenia
-suspect combination dilutional from aggressive IVF support and 2/2 inflammation from pancreatitis
-Resolved
Now with Thrombocytosis but also resolving
02/02 CXR noted Bilateral Pleural Effusions Lt>Rt, loculated on left
Stable respiratory status
Pulm eval appreciated likely fluid overload combined with hypoalbuminemia
Trial Lasix Diuresis (so far received two doses, no further doses planned at this time), follow up CXR in AM 02/03 noted stable appearance pleural effusions, slight improvement right effusions
Chest US 02/04 appreciated b/l mod to large subpulmonic pleural effusions, possible loculation
Pulmonary Eval appreciated
left thora - appears exudative
F/u Cultures - ngtd
Continue antibiotics
AMS likely multifactorial , improved/resolved
Metabolic encephalopathy 2/2 opiate pain meds vs Delirium 2/2 sleep deprivation d/t pain vs Hospital Associate Delirium
opiate pain meds reduced as above
mental status since significantly improved/baseline
cont to monitor
Acute Kidney Injury, improved/resolved
Hyperkalemia resolved
CKD IIIb
Metabolic Acidosis resolved, bicarb supplementation discontinued
-pre-renal MANN in setting of acute pancreatitis with significant rise in creatinine overnight.
-Renal consult appreciated
- Cr high 3.9 since trended down to <2, near baseline
� Nephrology consult appreciated
-Huertas placed for accurate I&O's MANN since discontinued 02/13 passed TOV
Hypokalemia
Hypophosphatemia
Low Normal Mg level
-monitor and replete as necessary
New Onset Afib RVR since spontaneously converted to NSR on cardizem gtt
ECHO appreciated EF 51%
transferred to IVU 01/31, downgraded to tele 02/01
Cardio eval appreciated Cardizem gtt switched to scheduled IV Lopressor
scheduled IV Lopressor switched to Metoprolol XL 25 mg daily
No afib noted since 01/30/25 HR well controlled on PO metoprolol, ok to dc air sampling and monitoring 02/17/25
No immediate plans for procedure, hep gtt transitioned to Eliquis 02/17/25
#Ground glass opacities within the anterior upper lobes which measure up to 3.1 cm in the anterior right upper lobe.
-Recommend follow-up CT chest to ensure resolution.
#Mild Hyponatremia
� likely SIADH
� Continue to monitor
- nephro eval appreciated
-gentle FR
#Essential hypertension
-hold Amlodipine (BP relatively well controlled without)
-Metoprolol XL as above
#Hypothyroidism
Continue levothyroxine
TSH wnl
#8 mm hypodensity within the inferolateral aspect of the spleen
- new from prior and may represent a small infarction.
-Eliquis
#Dependent Edema, bipedal edema
#Hypoalbuminemia
encourage oral intake, protein
Elevate lower ext's when at rest
PEDRO wrap lower ext's
DVT prophylaxis Eliquis
Full code
Discussed with patient and patient's Leigh
More than 30 minutes spent in discharge including
Final examination of the patient
Summarizing hospital stay
Instructions for continuing care to all relevant caregivers
Preparation of discharge records, prescriptions, and referral forms
Total time spent (in minutes): 36
Anticipated Discharge: Today
Subjective/Interval History
-
Date of Service: February 20, 2025
No acute events overnight.
Objective Data
-
Labs:
Laboratory Results
02/20/25
05:47
WBC 15.2 H
Hgb 7.6 L
Hct 21.9 L
Plt Count 435 H
Sodium 132 L
Potassium 4.2
Chloride 101
Carbon Dioxide 29
BUN 17
Creatinine 1.6 H
Glucose 91
Calcium 7.9 L
Total Bilirubin 0.5
AST 23
ALT 12
Alkaline Phosphatase 158 H
Vital Signs:
Vital Signs
Temp Pulse Resp BP Pulse Ox
98 F 81 18 132/72 97
02/20/25 08:22 02/20/25 08:22 02/20/25 08:22 02/20/25 08:22 02/20/25 08:22
I&O
02/19/25 02/20/25 02/21/25
06:59 06:59 06:59
Intake Total 480 / 480 3480 / 3480
Output Total 865 / 865 200 / 200 850 / 850
Balance -385 / -385 3280 / 3280 -850 / -850
Review of Systems
-
History Source: Patient
All other systems: Not reviewed unless documented
Data Reviewed
-
Diagnostic Radiology: Report Reviewed by me
Ultrasound: Report Reviewed by me
Labs: Labs Reviewed by me
--- NOTE | 2025-02-20 12:53 | W.DS.TRANS ---
DC Summary - Supervisor Dry Paste
-
Discharge Instructions:
Discharge Diagnosis/Procedures Severe Recurrent Pancreatitis
acute infected peripancreatic fluid collection
Sepsis with Acute Kidney Injury Resolved
Anemia of Chronic Disease
Hypoalbuminemia
Bilateral Pleural Effusions
New Onset Atrial Fibrillation with Rapid
Ventricular Rate
Mild Hyponatremia
Hypertension
Hypothyroidism
Diet Low Fat
Activity As tolerated
Driving Restrictions Not until seen by your Dr
Bathing Restrictions None
Blood Work cbc and cmp in 5-7 days with pcp
Others Tests Noted on CT chest 02/05 Ground glass opacities
within the anterior upper lobes which measure up
to 3.1 cm in the anterior right upper lobe.
Nonspecific finding. Follow up CT chest in 1
month with primary care provider to insure
resolution and to follow up pleural effusions
WILL NEED MRI IN 1 WEEK-- call Sade in Dr. Pierson'
s office to assist with setting up [phone] Pierson will schedule a EGD/EUS around 03/02
for drainage as elective procedure, pending
repeat MRI review
Other Services PT,OT
Instructions:
Stand-Alone Forms:
Changes to Home Medications: Yes
Discharge Medications:
DC Medications w/original date entered in [facility]
pantoprazole 40 mg tablet,delayed release 40 mg PO DAILY gerd 05/24/20
psyllium husk 0.4 gram capsule (Metamucil) 0.8 g PO HS Supplement ##0 05/24/20
levothyroxine 75 mcg tablet 75 mcg PO DAILY Thyroid 03/08/23
tamsulosin 0.4 mg capsule 0.4 mg PO DAILY prostate 03/08/23
famotidine 20 mg tablet (Pepcid) 20 mg PO HS gerd 01/13/25
metoprolol succinate 25 mg tablet,extended release 24 hr 25 mg PO DAILY 30 days #30 tabs 02/19/25
Ertapenem [Invanz] 1,000 mg 120 mls/hr IV Q24H 02/20/25
Lactobac/Bifidobac [Visbiome] 2 cap PO DAILY 30 days #60 caps 02/20/25
acetaminophen 325 mg tablet 650 mg (2 x 325 mg) PO Q4HWA PRN Pain #90 tabs 02/20/25
apixaban 2.5 mg tablet (Eliquis) 2.5 mg PO BID 30 days #60 tabs 02/20/25
fluconazole 200 mg tablet 200 mg PO DAILY 6 weeks #42 tabs 02/20/25
Home Medication Changes
metoprolol succinate 25 mg tablet,extended release 24 hr 25 mg PO DAILY 30 days #30 tabs 02/19/25
Ertapenem [Invanz] 1,000 mg 120 mls/hr IV Q24H 02/20/25
Lactobac/Bifidobac [Visbiome] 2 cap PO DAILY 30 days #60 caps 02/20/25
acetaminophen 325 mg tablet 650 mg (2 x 325 mg) PO Q4HWA PRN Pain #90 tabs 02/20/25
apixaban 2.5 mg tablet (Eliquis) 2.5 mg PO BID 30 days #60 tabs 02/20/25
fluconazole 200 mg tablet 200 mg PO DAILY 6 weeks #42 tabs 02/20/25
Pending Results: No
[2025-02-20] MEDS: DIFLUCAN 200 MG PO (13:36)
--- NOTE | 2025-02-20 14:15 | VNURNOTE ---
Notified by CM that patient and changed their mind and would like Home PT only. [employer] Operator met with patient to discuss [facility] therapy, visits, schedule and homebound status. Patient is agreeable and understands that visits at home
will be 2-3 x per week to assess and teach medical management.
[facility] referral updated in [facility].
[2025-02-20 14:37] VITALS: BP 140/75
[2025-02-20 15:00] VITALS: BP 140/75
[2025-02-20] MEDS: INVANZ 60 MG IV (15:01)
--- NOTE | 2025-02-20 15:09 | CM ---
F/U: [facility] received [facility] information faxed by JUNIOR Gonzalez. Medication will be delivered tonight. Patient is ready today, will get IV Abx dose before leaving (gets this daily 1x). JUNIOR Gonzalez also checked Enrrique wilkins after Hospitalist
graciously sent in prescription at [facility] in [place]- no copay at all. This was relayed to the patient/ . PLAN: Home w/ [facility] for Home Infusion.
--- NOTE | 2025-02-20 16:20 | W.PN.NEPH.PH ---
Today's Communication / Plan
-
ok for d/c
Assessment/Plan
-
IMP:
Acute pancreatitis
Recurrent Pancreatitis
Acute Kidney Injury
Hyperkalemia
CKD IIIb ~1,6
Essential hypertension
Hypothyroidism
BPH
GERD
IBS
Plan:
stable renal function at baseline
stable hyponatremia- gentle FR
BP stable on BB
follow BMP 1week
abx per ID
d/c home today
f/u Dr Ingram
-
-
Date of Service: February 20, 2025
CC / HPI / ROS
-
Chief Complaint:
Acute on chronic kidney disease abdominal
History of Present Illness:
Pancreatitis acute kidney injury on CKD stage IIIb
MANN/Cr stable 1.6
Na no change at 132
BP stable
Now on fluconazole and Ertapenem for pancreatitis
Review of Systems:
no cp or sob at rest
no pain , tolerating po
Labs
-
Labs:
WBC 15.2 10^3/uL (4.8-10.8) H 02/20/25 05:47
RBC 2.35 10^6/uL (4.70-6.10) L 02/20/25 05:47
Hgb 7.6 g/dL (13.0-18.0) L 02/20/25 05:47
Hct 21.9 % (39.0-52.0) L 02/20/25 05:47
Plt Count 435 10^3/uL (130-400) H 02/20/25 05:47
Sodium 132 mmol/L (135-145) L 02/20/25 05:47
Potassium 4.2 mmol/L (3.5-5.1) 02/20/25 05:47
Chloride 101 mmol/L (98-107) 1202/25 05:47
Carbon Dioxide 29 mmol/L (22-30) 02/20/25 05:47
BUN 17 mg/dl (9-20) 02/20/25 05:47
Creatinine 1.6 mg/dL (0.7-1.3) H 02/20/25 05:47
eGFR 45.78 02/20/25 05:47
Glucose 91 mg/dl (70-99) 02/20/25 05:47
Calcium 7.9 mg/dl (8.4-10.2) L 02/20/25 05:47
Phosphorus 2.9 mg/dl (2.5-4.5) 02/15/25 06:45
[id number]-Z-Tcwoushqvdp Pept 3140 pg/ml 02/01/25 03:32
Albumin 2.1 g/dl (3.5-5.0) L 02/20/25 05:47
Physical Exam
-
Vital Signs:
Vital Signs
Temp Pulse Resp BP Pulse Ox
97.9 F 79 18 140/75 97
02/20/25 15:00 02/20/25 15:00 02/20/25 15:00 02/20/25 15:00 02/20/25 15:00
Cardiovascular:: Regular rate and rhythm
Respiratory:: Bilateral: CTA (decreased bilat)
Lung Excursion:: Normal
Abdomen:: Nontender and Soft
Bowel Sounds:: Normal
Extremity Edema:: None: Bilateral: (trace)
Huertas Catheter: No
== END 2025-02-20 16:07 | disposition home health service (06) | DRG 438 ==
LOC: 4 EAST ACU 16:26
PROVIDERS: Internal Medicine; Internal Medicine Critical Care Medicine; Nurse Practitioner; Nurse Practitioner Adult Health; Physician Assistant; Radiology Diagnostic Radiology; Specialist; Student in an Organized Health Care Education/Training Program; ADMITTING PHYSICIAN Internal Medicine; ATTENDING PHYSICIAN Internal Medicine; CONSULT PHYSICIAN Internal Medicine; CONSULT PHYSICIAN Internal Medicine Gastroenterology; CONSULT PHYSICIAN Student in an Organized Health Care Education/Training Program; CONSULT PHYSICIAN Surgery; EMERGENCY PHYSICIAN Emergency Medicine; FAMILY PHYSICIAN Family Medicine; OTHER PHYSICIAN Internal Medicine Cardiovascular Disease; OTHER PHYSICIAN Internal Medicine Hematology & Oncology
PROC: 0W993ZZ Drainage of Right Pleural Cavity, Percutaneous Approach (ICD-10-PCS; 2025-02-07)
DX: K85.12 Biliary acute pancreatitis with infected necrosis (principal); A41.9 Sepsis, unspecified organism; G93.41 Metabolic encephalopathy; R65.20 Severe sepsis without septic shock; N17.9 Acute kidney failure, unspecified; N25.81 Secondary hyperparathyroidism of renal origin; F05 Delirium due to known physiological condition; E87.20 Acidosis, unspecified; J90 Pleural effusion, not elsewhere classified; K86.3 Pseudocyst of pancreas; D62 Acute posthemorrhagic anemia; E22.2 Syndrome of inappropriate secretion of antidiuretic hormone; N40.0 Benign prostatic hyperplasia without lower urinary tract symptoms; K21.9 Gastro-esophageal reflux disease without esophagitis; K40.90 Unilateral inguinal hernia, without obstruction or gangrene, not specified as recurrent; K58.1 Irritable bowel syndrome with constipation; K86.1 Other chronic pancreatitis; I12.9 Hypertensive chronic kidney disease with stage 1 through stage 4 chronic kidney disease, or unspecified chronic kidney disease; F41.9 Anxiety disorder, unspecified; E03.9 Hypothyroidism, unspecified; E87.5 Hyperkalemia; E78.5 Hyperlipidemia, unspecified; K44.9 Diaphragmatic hernia without obstruction or gangrene; I48.0 Paroxysmal atrial fibrillation; D47.2 Monoclonal gammopathy; E83.51 Hypocalcemia; D72.825 Bandemia; E87.70 Fluid overload, unspecified; I07.1 Rheumatic tricuspid insufficiency; I70.0 Atherosclerosis of aorta; R74.01 Elevation of levels of liver transaminase levels; N18.32 Chronic kidney disease, stage 3b; G89.29 Other chronic pain; M54.9 Dorsalgia, unspecified; D63.8 Anemia in other chronic diseases classified elsewhere; D69.6 Thrombocytopenia, unspecified; E87.6 Hypokalemia; D73.5 Infarction of spleen; E83.39 Other disorders of phosphorus metabolism; Z87.891 Personal history of nicotine dependence; Z90.49 Acquired absence of other specified parts of digestive tract; Z82.49 Family history of ischemic heart disease and other diseases of the circulatory system; Z79.890 Hormone replacement therapy; Z79.899 Other long term (current) drug therapy
CPT/HCPCS: 32555; 71045; 71260; 74176; 74177; 74183; 76604; 76705; 80048; 80053; 81003; 81015; 82570; 82607; 82728; 82746; 82945; 82962; 83540; 83550; 83615; 83690; 83735; 83880; 83935; 83986; 84100; 84157; 84300; 84443; 84478; 85014; 85018; 85025; 85027; 85730; 86140; 86850; 86900; 86901; 87015; 87040; 87070; 87102; 87116; 87205; 87206; 87324; 87449; 88112; 88305; 89051; 93005; 93306; 96361; 96374; 96375; 96376; 97116; 97163; 97166; 97530; 97535; 99285; A9575; J1335; J7030; Q9967

== ENCOUNTER → 2025-02-28 07:56 | Outpatient (REF) | payer BC, SELFPAY | LOC: MRI 07:56 | PROVIDERS: ATTENDING PHYSICIAN Internal Medicine Gastroenterology; FAMILY PHYSICIAN Family Medicine | DX: K85.90 Acute pancreatitis without necrosis or infection, unspecified (principal) | CPT/HCPCS: 74183; A9575 ==